=== PATIENT | female | born 1930 | race Caucasian/White ===

== ENCOUNTER 2016-08-14 05:36 | Emergency (ER) | payer OTHER ==
[~2016-08-14 05:36] MED LIST: ALBUTEROL0.09 MG/A1 INH; ATENOLOL25 MG PO; AUGMENTIN 500M500 MG PO; CALCIUM ACETAT667 MG PO; CHLORTHALIDONE25 MG PO; CIPRO 250MG250 MG PO; COZAAR 50MG TAB50 MG PO; CRESTOR 10MG10 MG PO; DRISDOL50000 IU PO; GOOD SENSE ASPI81 M1 PO; HYDRALAZINE HCL50 MG PO; K-DUR 20MEQ TA20 MEQ PO; LISINOPRIL20 MG PO; LISINOPRIL40 MG PO; LOPRESSOR 25MG25 MG PO; NEPHROCAPS1 TAB PO; PREDNISONE 10MG10 M1 PO; PREDNISONE 5 MG5 MG PO; RENA-VITE1 TAB PO; RENVELA800 MG PO; ZITHROMAX 500M500 MG PO; [UNRECOGNIZED DRUG - OTHER] PO
--- NOTE | 2016-08-14 05:47 | ED DYSPNEA/ASTHMA COMPLAINT ---
History of Present Illness General Chief Complaint: Dyspnea (COPD, CHF, Other) Stated Complaint: DIFF BREATHING Source: patient, family, old records, EMS Exam Limitations: no limitations Vital Signs & Intake/Output Vital Signs & Intake/Output Vital Signs Date Time Temp Pulse Resp B/P Pulse O2 O2 Flow FiO2 Ox Delivery Rate 08/14 726 96.4 79 20 170/79 97 Nasal 4.0L Cannula 08/14 0600 98 Non 100% ReBreather 08/14 0541 98.7 75 28 172/79 98 Non 100% ReBreather Allergies Coded Allergies: NO KNOWN ALLERGIES (02/07/15) Reconcile Medications Albuterol Sulfate (Albuterol Sulfate Hfa) 0.09 MG/Actuation MICHAEL 2 PUFF INH Q4- 6 PRN PRN SHORTNESS OF BREATH 90 MCG PER PUFF Aspirin 81 MG TAB.CHEW 1 TAB PO DAILY HEART (Reported) Losartan (Cozaar) 50 MG TAB 1 TAB PO DAILY HTN (Reported) Metoprolol Tartrate (Lopressor) 25 MG TAB 1 TAB PO BID HEART RATE CONTROL Rosuvastatin Calcium (Crestor) 10 MG TABLET 1 TAB PO DAILY CHOLESTEROL ( Reported) Sevelamer Carbonate (Renvela) 800 MG TAB 2 TAB PO BID ON DIALYSIS (Reported) WITH BREAKFAST AND LUNCH Sevelamer Carbonate (Renvela) 800 MG TAB 3 TAB PO DINNER DIALYSIS (Reported) Triage Note: TRIAGE: BIBA HX CHF W/ INC SOB TONIGHT X APPROX 1 HOUR, INITIAL EMS BP:220/100, MEDICATED W/ 3 NITRO AND O2 W/ RELIEF, DENIES CURRENT CP. PER EMS, SYSTOLIC BP IMPROVED TO 142. PREHOSP IV EST #18 RIGHT AC. MD EPPS AT BEDSIDE FOR EVAL. PATIENT SCHEDULLED FOR DIALYSIS AT 1100 TODAY, L ARM RESTRICTED D/T FISTULA (RESTRICTED BAND APPLIED). Triage Nurses Notes Reviewed? yes HPI: Patient was woken from sleep with difficulty breathing and orthopnea. Patient has a history of CHF with an EF of 35%. Patient is also end-stage renal disease and is due for dialysis at 11 AM this morning. Patient denies any chest pain or palpitations. No nausea or vomiting. Upon EMS arrival patient had rales shelter up and she was hypertensive. Patient was given 3 sublingual nitroglycerin which brought her blood pressure down and made her breathing much easier. On a nonrebreather mask and her oxygen saturations were 98%. EMS did not get a room air saturation. Patient states that she has been compliant with her medications. (SUPRIYA PARKINSON,GIA Velásquez) Past History Medical History Any Pertinent Medical History? 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 , Age 69. MOTHER (diabetes). , Age 72. BROTHER (pancreatic cancer). , Age Unknown. SISTER (colon cancer). , Age 60+. BROTHER (brain aneurysm). , Age 50's. Hx Contributory? No (SUPRIYA PARKINSON,GIA Velásquez) Review of Systems Review of Systems Constitutional: Reports: no symptoms. EENTM: Reports: no symptoms. Respiratory: Reports: see HPI, orthopnea, short of breath. Cardiovascular: Reports: no symptoms. GI: Reports: no symptoms. Genitourinary: Reports: no symptoms. Musculoskeletal: Reports: no symptoms. Skin: Reports: no symptoms. Neurological/Psychological: Reports: no symptoms. Hematologic/Endocrine: Reports: no symptoms. Immunologic/Allergic: Reports: no symptoms. All Other Systems: Reviewed and Negative (SUPRIYA PARKINSON,GIA Velásquez) Physical Exam Physical Exam General Appearance: well developed/nourished, alert, awake, anxious, mild distress Head: atraumatic, normal appearance Eyes: Bilateral: PERRL, EOMI. Ears, Nose, Throat: normal pharynx, normal ENT inspection, hearing grossly normal Neck: normal inspection, supple, full range of motion, JVD Respiratory: rales (BIBASILAR) Cardiovascular: regular rate/rhythm, normal peripheral pulses Gastrointestinal: normal bowel sounds, soft, non-tender, no organomegaly Extremities: normal inspection, normal capillary refill, normal range of motion, no edema Neurologic/Psych: no motor/sensory deficits, awake, alert, oriented x 3, normal mood/affect Skin: intact, normal color, warm/dry Lymphatic: no anterior cervical blanca Core Measures ACS in differential dx? Yes ASA ordered for poss ACS? Yes-ordered Severe Sepsis Present: No Septic Shock Present: No (SUPRIYA PARKINSON,GIA Velásquez) Progress Differential Diagnosis: AMI, CHF, pulmonary embolism, pneumonia, FLUID OVERLOAD Plan of Care: Orders Procedure Date/time Status Telemetry/Bracelet Maker Novelty 08/14 542 Active TROPONIN LEVEL 08/14 542 Complete COMPREHENSIVE METABOLIC PANEL 08/14 542 Complete CBC WITHOUT DIFFERENTIAL 08/14 542 Complete EKG 08/14 542 Active Laboratory Tests 08/14/16 0612: Anion Gap 21 H, Estimated GFR 4 L, BUN/Creatinine Ratio 4.3 L, Glucose 110 H , Calcium 9.2, Total Bilirubin 0.6, AST 26, ALT 36, Alkaline Phosphatase 167 H, Troponin I < 0.01, Total Protein 6.2 L, Albumin 3.9, Globulin 2.3, Albumin/ Globulin Ratio 1.7, CBC w Diff MAN DIFF ORDERED, RBC 2.80 L, MCV 102.3 H, MCH 34.0 H, RDW 17.2 H, MPV 8.1, Gran % 87.3 H, Lymphocytes % 5.8 L, Monocytes % 3.7, Eosinophils % 2.9, Basophils % 0.3, Absolute Granulocytes 10.7 H, Absolute Lymphocytes 0.7 L, Absolute Monocytes 0.5, Absolute Eosinophils 0.4, Absolute Basophils 0, Platelet Estimate ADEQUATE, Ovalocytes 1+, PUBS MCHC 33.2 7:05 am catherineens/jennifer patient presented with dyspnea which woke her up from sleep. S/P nitro x 3, 92% RA sat. Pending dialysis at 11 am at [facility]. 8 AM PATIENT TRANSPORTED TO DIALYSIS (LETY PARKINSON,YAMILE) Pre-Hospital EKG: LBBB, nonspecific ST T wave chg Initial ED EKG: LBBB, nonspecific ST T wave chg Prior EKG: unchanged Rhythm Strip: normal sinus rhythm (GIA EPPS MD) Diagnostic Imaging: Viewed by Me: Radiology Read. Discussed w/RAD: Radiology Read. CXR Impression: PATIENT: OFELIA EL PRESENT AGE: 85 PATIENT ACCOUNT NO: [id number] : 29 LOCATION: [facility] ORDERING PHYSICIAN: GIA EPPS MD SERVICE DATE: 08/14/16 EXAM TYPE: RAD - XRY- PORTABLE CHEST XRAY EXAMINATION: XR PORTABLE CHEST CLINICAL INFORMATION: Pulmonary edema COMPARISON: 02/12/2015 TECHNIQUE: Portable AP view of the chest was obtained. FINDINGS: Lung volumes are symmetric. Small bilateral pleural effusions are noted with adjacent basilar opacity suggesting atelectasis. No evidence of pneumothorax. There is prominence of the central vasculature and surrounding interstitium suggesting congestion and developing interstitial edema. The cardiac silhouette is mildly enlarged. Calcification is present at the aortic arch. No acute osseous findings are seen. IMPRESSION: Prominent central vasculature and surrounding interstitium, suggesting congestion and developing interstitial edema. Small pleural effusions with suspected bibasilar atelectasis. DICTATED BY: ANA PAULA WARD MD DATE/TIME DICTATED:08/14/16646 HEALTH CARE CONSULTANT:BRAYAN DATE/TIME TRANSCRIBED:08/14/16646 CONFIDENTIAL, DO NOT COPY WITHOUT APPROPRIATE AUTHORIZATION. <Electronically signed in Other Vendor System> SIGNED BY: ANA PAULA WARD MD 08/14/16 0652 (YAMILE DAVIDSON MD) Departure Departure Disposition: HOME OR SELF CARE Condition: Guarded Clinical Impression Primary Impression: Fluid overload Referrals: AYALA PARKINSON,MOISES Kidd (PCP/Family) Additional Instructions: go straight to dialysis wear the oxygen until they are able to remove some fluid Departure Forms: Customer Survey General Discharge Information (GIA EPPS MD) Departure Time of Disposition: 817 (YAMILE DAVIDSON MD) Critical Care Note Critical Care Note Critical Care Time: 30-74 min (GIA EPPS MD)
[2016-08-14 06:33] LABS: ABSOLUTE BASOPHIL COUNT 0 /CUMM (0.0-0.2); ABSOLUTE EOSINOPHIL COUNT 0.4 /CUMM (0.0-0.7); ABSOLUTE GRANULOCYTE CT 10.7 /CUMM (1.4-6.5); ABSOLUTE LYMPH COUNT 0.7 /CUMM (1.2-3.4); ABSOLUTE MONOCYTE COUNT 0.5 /CUMM (0.10-0.60); BASOPHIL % 0.3 % (0.0-2.0); EOSINOPHIL % 2.9 % (0-5); GRANULOCYTE % 87.3 % (42.2-75.2); HEMATOCRIT 28.7 % (37-47); MEAN CORPUSCULAR HGB CONC 33.2 G/DL (33.0-37.0); MEAN CORPUSCULAR VOLUME 102.3 FL (81.0-99.0); MEAN PLATELET VOLUME 8.1 FL (7.4-10.4); PLATELET COUNT 212 /CUMM (130-400); RBC DISTRIBUTION WIDTH 17.2 % (11.5-14.5); WHITE BLOOD CELL COUNT 12.3 /CUMM (4.8-10.8)
--- NOTE | 2016-08-14 06:52 | RADIOLOGY REPORT ---
EXAMINATION: XR PORTABLE CHEST CLINICAL INFORMATION: Pulmonary edema COMPARISON: 02/12/2015 TECHNIQUE: Portable AP view of the chest was obtained. FINDINGS: Lung volumes are symmetric. Small bilateral pleural effusions are noted with adjacent basilar opacity suggesting atelectasis. No evidence of pneumothorax. There is prominence of the central vasculature and surrounding interstitium suggesting congestion and developing interstitial edema. The cardiac silhouette is mildly enlarged. Calcification is present at the aortic arch. No acute osseous findings are seen. IMPRESSION: Prominent central vasculature and surrounding interstitium, suggesting congestion and developing interstitial edema. Small pleural effusions with suspected bibasilar atelectasis.
[2016-08-14 07:27] VITALS: BP 170/79
== END 2016-08-14 08:10 ==
LOC: ERH 05:36
PROVIDERS: Emergency Medicine
DX: E87.70 Fluid overload, unspecified (principal); R06.00 Dyspnea, unspecified
CPT/HCPCS: 93005; 93010

== ENCOUNTER 2017-07-30 04:25 | Inpatient (IN) | payer OTHER ==
[~2017-07-30] VITALS: Ht 154.9 cm; Wt 43.3 kg
[~2017-07-30 04:25] MED LIST changes: +AMLODIPINE BESY10 M1 PO; +ASPIRIN EC81 M1 PO; +CRESTOR10 M1 PO; +HYDRALAZINE HCL25 M1 PO; +METOPROLOL TART25 M1 PO; +RENA-VITE TABL0.8 MG PO; +RENVELA800 M1 PO; +TRAMADOL HCL50 M1 PO
--- NOTE | 2017-07-30 04:47 | ED CRITICAL CARE ---
History of Present Illness General Chief Complaint: Cardiopulmonary Resuscitation Stated Complaint: PT BIBA UNRESPONSIVE,CPR Source: EMS Exam Limitations: clinical condition Vital Signs & Intake/Output Vital Signs & Intake/Output Vital Signs Date Time Temp Pulse Resp B/P B/P Pulse O2 O2 Flow FiO2 Mean Ox Delivery Rate 07/30 0658 98 24 127/65 96 Ventilator 40% 07/30 0645 85 22 97 Ventilator 40% 07/30 0630 95.0 81 20 158/74 96 Ventilator 40% 07/30 0610 95.0 85 22 145/70 95 Ventilator 40% 07/30 0549 40 07/30 0549 95.0 58 24 130/57 91 Ventilator 40% 07/30 0545 Ventilator 07/30 0522 99 24 171/93 100 Ventilator 40% 07/30 0513 95.0 87 20 178/84 100 Ventilator 40% 07/30 0443 95.0 70 24 95 Ventilator 40% 07/30 0429 40 Allergies Coded Allergies: No Known Allergies (05/16/17) Reconcile Medications Amlodipine Besylate 10 MG TABLET 1 TAB PO DAILY HEART/BP (Reported) Aspirin (Ecotrin*) 81 MG TABLET.DR 1 TAB PO DAILY HEART/BLOOD (Reported) Folic Acid/Vit Bcomp,C (Radha-Cuong Tablet) (Unknown Strength) TABLET 1 TAB PO DAILY SUPPLEMENT (Reported) Hydralazine HCl 25 MG TABLET 2 TAB PO BID HTN (Reported) Metoprolol Tartrate 25 MG TABLET 6.25 MG PO BID htn (Reported) Rosuvastatin Calcium (Crestor) 10 MG TABLET 1 TAB PO DAILY CHOLESTEROL ( Reported) Sevelamer Carbonate (Renvela) 800 MG TABLET 3 TAB PO TID RENAL (Reported) Triage Nurses Notes Reviewed? yes Onset: Abrupt Duration: minute(s): Timing: single episode today Injury Environment: home Severity: severe Associated Symptoms: cardiac and respiratory arrest HPI: 86 yo woman, h/o esrd on HD, cad, s/p cardiac stent 3 years ago, presents with respiratory and cardiac arrest from the field. Per the medics, "She has congestive heart failure... She was having trouble breathing... She called her daughter who called us... We went to the house... the door was open for us... She was on the sofa apneic and pulseless." ACLS was begun immediately. She received bag mask ventilation, was intubated in the field, received chest compressions and epi x 1. She acheived ROSC in the field. glucose in 80's, sbp 190's. Per the family, she had been healthy yesterday, without dyspnea or other discomfort. Past History Travel History Traveled to [place] past 21 day No Medical History Any Pertinent Medical History? 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 , Age 69. MOTHER (diabetes). , Age 72. BROTHER (pancreatic cancer). , Age Unknown. SISTER (colon cancer). , Age 60+. BROTHER (brain aneurysm). , Age 50's. Hx Contributory? No Review of Systems Review of Systems Constitutional: Reports: no symptoms. Eyes: Reports: no symptoms. Ears, Nose, Throat, Mouth: Reports: no symptoms. Respiratory: Reports: no symptoms. Cardiovascular: Reports: no symptoms. Gastrointestinal/Abdominal: Reports: no symptoms. Genitourinary: Reports: no symptoms. Musculoskeletal: Reports: no symptoms. Skin: Reports: no symptoms. Neurological/Psychological: Reports: no symptoms. All Other Systems: Reviewed and Negative Physical Exam Physical Exam General Appearance: severe distress, cachectic Head: atraumatic, normal appearance Eyes: Bilateral: other (fixed,left gaze). Ears, Nose, Throat, Mouth: pt intubated Neck: normal inspection, supple, full range of motion Respiratory: equal breath sounds with bag mask ventilation Cardiovascular: tachycardic Peripheral Pulses: 2+ femoral (R), 2+ femoral (L) Gastrointestinal: normal bowel sounds, soft, non-tender Back: normal inspection Extremities: chronic venous skin changes on lower extremities, left knee abrasion. Neurologic/Psych: pt appears awake, is breathing spontaneously, is not responding to questions/commands. Skin: cyanosis Core Measures ACS in differential dx? No CVA/TIA Diagnosis No Sepsis Present: No Sepsis Focused Exam Completed? No Progress Differential Diagnoses I considered the following diagnoses in my evaluation of the patient: chf, cardiac arrest, copd vs other. Plan of Care: Orders Procedure Date/time Status XRY-PORTABLE CHEST XRAY 07/31 0600 Active ICU LAB BUNDLE 07/31 0500 Active CBC WITHOUT DIFFERENTIAL 07/31 0500 Active Nothing by Mouth 07/30 B Active TROPONIN LEVEL 07/30 1600 Active TROPONIN LEVEL 07/30 1000 Active EKG 07/30 1000 Active LACTIC ACID 07/30 0748 Active Add-on Test (ER Only) 07/30 0635 Active ARTERIAL BLOOD GAS (GEN) 07/30 0624 Active Pathway - chart 07/30 0624 Active House Staff 07/30 0624 Active Code Status 07/30 0624 Active Patient Data 07/30 0600 Active Admit to inpatient 07/30 0542 Active PARTIAL THROMBOPLASTIN TIME 07/30 0457 Complete PROTHROMBIN TIME 07/30 0457 Complete PHOSPHORUS 07/30 0457 Active MAGNESIUM 07/30 0457 Active NGT 07/30 0455 Active Intake & Output 07/30 0455 Active BLOOD CULTURE 07/30 0450 Active ARTERIAL BLOOD GAS (GEN) 07/30 0448 Complete OGT 07/30 0448 Active Su, Insertion/Removal/Asses 07/30 0448 Active CULTURE,URINE 07/30 0448 Active BLOOD CULTURE 07/30 0448 Active URINE DRUG SCREEN FOR ER ONLY 07/30 0448 Active URINALYSIS 07/30 0448 Active TROPONIN LEVEL 07/30 0448 Active AMMONIA 07/30 0448 Active LIPASE 07/30 0448 Active LACTIC ACID 07/30 0448 Active HEPATIC FUNCTION PANEL 07/30 0448 Active ETHANOL 07/30 0448 Active CBC WITHOUT DIFFERENTIAL 07/30 0448 Complete B-TYPE NATRIURETIC PEP (BNP) 07/30 0448 Active BASIC METABOLIC PANEL 07/30 0448 Active AMYLASE 07/30 0448 Active ACETONE 07/30 0448 Active EKG 07/30 0448 Active VENTILATOR PARAMETERS 07/30 0430 Complete US-EXT BILAT VENOUS DOPPLER 07/30 UNK Active TRC EVALUATION (GEN) 07/30 UNK Active Weight 07/30 UNK Active VTE Mechanical Prophylaxis 07/30 UNK Active Vital Signs 07/30 UNK Active Intake & Output 07/30 UNK Active ECHOCARDIOGRAM 07/30 UNK Active Current Medications Sig/King Start time Last Medication Dose Stop Time Status Admin Heparin Sodium 5,000 UNIT Q8 07/30 1400 AC (Porcine) Ampicillin Sodium/ 3,000 MG DAILY 07/30 1000 AC Sulbactam Sodium (Unasyn) Sodium Chloride 100 ML (Normal Saline 0.9%) Pantoprazole Sodium 40 MG DAILY 07/30 1000 AC (Protonix) Lorazepam 1 MG Q4P PRN 07/30 0700 AC (Ativan) Lorazepam 1 MG ONE ONE 07/30 0645 CAN (Ativan) 07/30 0646 Propofol 1,000 MG CONTINOUS INFUSION 07/30 0600 AC 07/30 (PROPOFOL DRIP) 0605 N/A 1 UNIT (No Carrier) Non-Formulary 0 SEE ADMIN CRITERIA 07/30 0530 CAN Medication (NON FORMULARY) Laboratory Tests 07/30/17 0457: Anion Gap 23 H, Estimated GFR 5 L, BUN/Creatinine Ratio 3.6 L, Glucose 230 H , Lactic Acid 7.1 H, Calcium 9.0, Phosphorus Pending, Magnesium Pending, Total Bilirubin 0.6, Direct Bilirubin 0.6 H, AST 30, ALT 20, Alkaline Phosphatase 127 H, Ammonia < 9 L, Troponin I 0.04, Owg-E-Dnpyyjktbnr Pept 35263 H, Total Protein 6.1 L, Albumin 3.8, Amylase 235 H, Lipase 413 H, PT 10.6, INR 1.01, APTT 32, CBC w Diff MAN DIFF ORDERED, RBC 3.39 L, MCV 98.4, MCH 32.1 H, MCHC 32.6 L, RDW 16.5 H, MPV 8.3, Gran % 81.4 H, Lymphocytes % 11.8 L, Monocytes % 3.6, Eosinophils % 2.7, Basophils % 0.5, Absolute Granulocytes 14.2 H, Absolute Lymphocytes 2.1, Absolute Monocytes 0.6, Absolute Eosinophils 0.5, Absolute Basophils 0.1, Platelet Estimate ADEQUATE, Poikilocytosis 1+, Ovalocytes 1+, Serum Alcohol < 10.0, Acetone Level NEGATIVE 07/30/17 0450: pH 7.28 *L, pCO2 30 L, pO2 81, HCO3 14 L, ABG O2 Sat (Measured) 94.0 L, P-50 (Temp Corrected) N, Carboxyhemoglobin 0.8 L, O2 Concentration % .40, Respiration Rate 20, O2 Delivery Method VENT, Vent Mode A/C, Expiratory Pressure 5, Tidal Volume 500, Phlebotomy Draw Site RIGHT RADIAL Microbiology 07/30 553 BLOOD: Blood Culture - RECD 07/30 549 BLOOD: Blood Culture - RECD 07/30 447 URINE ROUT: Urine Culture - ORD Diagnostic Imaging: Viewed by Me: Radiology Read, CT Scan. Discussed w/RAD: Radiology Read, CT Scan. Radiology Impression: ct scan results pending. CXR Impression: PATIENT: OFELIA EL PRESENT AGE: 86 PATIENT ACCOUNT NO: [id number] : 29 LOCATION: [facility] ORDERING PHYSICIAN: John Blunt MD SERVICE DATE: 07/30/17 EXAM TYPE: RAD - XRY- PORTABLE CHEST XRAY EXAMINATION: XR PORTABLE CHEST CLINICAL INFORMATION: Endotracheal tube placement COMPARISON: 05/16/2017 TECHNIQUE: Portable frontal view of the chest was obtained. FINDINGS: The endotracheal tube terminates 3 cm above the zoe. Enteric tube extends into the stomach. Cardiac leads overlie the chest. The lungs are well expanded. There is a left perihilar hazy opacity. No pleural effusion. No pneumothorax. The cardiomediastinal silhouette remains prominent, with a calcified aorta. No acute osseous abnormalities. IMPRESSION: Endotracheal tube terminating 3 cm above the zoe. Hazy left perihilar opacity noted. DICTATED BY: Joel Guerrero MD DATE/TIME DICTATED:07/30/17511 CHEESE PRODUCTION SUPERVISOR:BRAYAN DATE/TIME TRANSCRIBED:07/30/17511 CONFIDENTIAL, DO NOT COPY WITHOUT APPROPRIATE AUTHORIZATION. <Electronically signed in Other Vendor System> SIGNED BY: Joel Guerrero MD 07/30/17517 Initial ED EKG: afib left bundle branch block rate 140's. Departure Departure Time of Disposition: 549 Disposition: STILL A PATIENT Condition: Stable Clinical Impression Primary Impression: Cardiac arrest Secondary Impressions: Atrial fibrillation with rapid ventricular response, Lactic acidosis, Renal failure, Respiratory failure Referrals: Colton Rick MD (PCP/Family) Departure Forms: General Discharge Information Admission Note Spoke With: Kirill Schaefer MD Documentation of Exam: Documentation of any treatments & extenuating circumstances including Concerns Regarding Discharge (functional status, medication knowledge or non-compliance, living conditions, etc.) that warrant an admission rather than observation: pt with cardiac/respiratory arrest in the field, with ROSC after epix 1, intubation, brief chest compressions, pt now critically ill, but stable, merits icu admission. Procedures Central Line Central Line Lumen: triple Central Line Procedure: Yes: bentadine prep?, sterile drapes applied, sterile dressing applied. Central Line Position: femoral (R) Anesthesia: lidocaine 1% CC's of Anesthesia: 4 Complications: none Central Line Post Position: sutured, good blood return Critical Care Note Critical Care Note Critical Care Time: 30-74 min
[2017-07-30 05:15] LABS: ABSOLUTE BASOPHIL COUNT 0.1 /CUMM (0.0-0.2); ABSOLUTE EOSINOPHIL COUNT 0.5 /CUMM (0.0-0.7); ABSOLUTE GRANULOCYTE CT 14.2 /CUMM (1.4-6.5); ABSOLUTE LYMPH COUNT 2.1 /CUMM (1.2-3.4); ABSOLUTE MONOCYTE COUNT 0.6 /CUMM (0.10-0.60); BASOPHIL % 0.5 % (0.0-2.0); EOSINOPHIL % 2.7 % (0-5); GRANULOCYTE % 81.4 % (42.2-75.2); HEMATOCRIT 33.4 % (37-47); MEAN CORPUSCULAR HGB 32.1 PG (27.0-31.0); MEAN CORPUSCULAR HGB CONC 32.6 G/DL (33.0-37.0); MEAN CORPUSCULAR VOLUME 98.4 FL (81.0-99.0); MEAN PLATELET VOLUME 8.3 FL (7.4-10.4); PLATELET COUNT 308 /CUMM (130-400); RBC DISTRIBUTION WIDTH 16.5 % (11.5-14.5); RED BLOOD CELL CT 3.39 /CUMM (4.20-5.40); WHITE BLOOD CELL COUNT 17.4 /CUMM (4.8-10.8)
--- NOTE | 2017-07-30 05:18 | RADIOLOGY REPORT ---
EXAMINATION: XR PORTABLE CHEST CLINICAL INFORMATION: Endotracheal tube placement COMPARISON: 05/16/2017 TECHNIQUE: Portable frontal view of the chest was obtained. FINDINGS: The endotracheal tube terminates 3 cm above the zoe. Enteric tube extends into the stomach. Cardiac leads overlie the chest. The lungs are well expanded. There is a left perihilar hazy opacity. No pleural effusion. No pneumothorax. The cardiomediastinal silhouette remains prominent, with a calcified aorta. No acute osseous abnormalities. IMPRESSION: Endotracheal tube terminating 3 cm above the zoe. Hazy left perihilar opacity noted.
--- NOTE | 2017-07-30 05:59 | CT SCAN REPORT ---
EXAMINATION: NONCONTRAST HEAD CT NONCONTRAST CERVICAL SPINE CT INDICATION INFORMATION: Mental status change. Trauma. COMPARISON: 07/24/2017 TECHNIQUE: Separate noncontrast CT examinations of the head and cervical spine were performed. Coronal and sagittal images were created for each examination at the technologist workstation. DLP: 946 mGy-cm FINDINGS: Head: There is no evidence of acute intracranial hemorrhage or territorial infarction. No abnormal mass effect or midline shift is seen. Rowan to white matter differentiation is well preserved. No extra-axial fluid collections are identified. No hydrocephalus. Proportional prominence of the ventricles and sulcal spaces is consistent with mild volume loss. Patchy periventricular and deep white matter hypoattenuation is consistent with mild small vessel ischemic changes. Chronic depression of the right lamina papyracea. No acute osseous abnormality. No acute soft tissue abnormality.. The mastoid air cells and visualized portions of the paranasal sinuses are well aerated. Cervical spine: Slight anterolisthesis of C2 on C3. Straightening of the normal cervical lordosis. There is otherwise anatomic alignment of the vertebral bodies and posterior elements. The atlantoaxial and atlantooccipital articulations are intact. Vertebral body heights are maintained. There is multilevel intervertebral disc space narrowing with endplate osteophyte formation and facet arthropathy. No evidence of acute fracture. No prevertebral soft tissue swelling. Calcification of the ligamentum nuchae. Endotracheal tube and enteric tube noted. Interlobular septal thickening with groundglass opacities suggestive of interstitial edema. Small pleural effusions. The thyroid gland is heterogeneous with subcentimeter nodules. IMPRESSION: 1. No acute intracranial findings. 2. No acute fracture or malalignment of the cervical spine. Moderate multilevel degenerative changes.
--- NOTE | 2017-07-30 06:05 | CT SCAN REPORT ---
EXAMINATION: CT CHEST WITHOUT CONTRAST CT ABDOMEN AND PELVIS WITHOUT CONTRAST CLINICAL INFORMATION: Respiratory arrest. Shock. Cardiac arrest. COMPARISON: 02/07/2015 TECHNIQUE: Multidetector volumetric imaging was performed through the chest, abdomen and pelvis without contrast. Sagittal and coronal reformatted images were obtained on the technologist's workstation. Axial MIP volume rendering provided. DLP: 316 mGy-cm. FINDINGS: CHEST: Lungs: The endotracheal tube terminates approximately 1 cm above the zoe. Enteric tube in place extending into the stomach. Moderate bilateral pleural effusions. There is interlobular septal thickening with groundglass opacities in the upper lobes. Bibasilar subsegmental atelectasis. Perihilar opacities. Mediastinum: The heart is prominent. Coronary artery calcifications are present. No lymphadenopathy. Chest Wall/Axilla: No lymphadenopathy. No chest wall mass. ABDOMEN/PELVIS: Liver, Gallbladder, Biliary Tree: The liver is normal in size, shape, and attenuation. No focal hepatic lesion or biliary ductal dilatation is present. The gallbladder is unremarkable with no evidence of radiopaque gallstones, gallbladder wall thickening, or pericholecystic inflammatory changes. Pancreas: Unremarkable. Spleen: Unremarkable. Adrenal Glands: Unremarkable. Kidneys and Ureters: Atrophic kidneys. No hydronephrosis. Bilateral renal cysts. Bladder: Su catheter in the bladder which is decompressed. Gastrointestinal Tract: Enteric tube extends into the stomach. The small bowel is normal in caliber. No obstruction. Colonic diverticulosis without diverticulitis. No colonic wall thickening or inflammation. No free air or free fluid. The appendix is unremarkable. Abdominal Wall: No hernia is demonstrated. Lymphovascular Structures: Lymph nodes: Normal. Vascular: Normal caliber aorta. Extensive atherosclerotic calcifications. Pelvic Viscera: Uterus is not seen. No adnexal mass. OSSEOUS STRUCTURES: No suspicious sclerotic or lytic bone lesions are identified. Vertebral body height and alignment is maintained with significant multilevel degenerative changes throughout the spine. Moderate degenerative changes of the hips. Moderate degenerative changes at the left glenohumeral joint. Associated joint effusion with calcifications. IMPRESSION: 1. Endotracheal tube terminating approximately 1 cm above the zoe. Consider slight retraction. 2. Moderate bilateral pleural effusions. Associated appearance of interstitial and alveolar edema in the upper lobes. 3. Degenerative changes throughout the osseous structures. No acute osseous abnormality.
--- NOTE | 2017-07-30 06:18 | History & Physical ---
Lisa Gautam 07/30/17 0610: General Information and HPI MD Statement: I have seen and personally examined OFELIA EL and documented this H&P. The patient is a 86 year old F who presented with a patient stated chief complaint of [respiratory and cardiac arrest ]. Source of Information: family, old records Exam Limitations: clinical condition History of Present Illness: 86 yo woman with a PMH of PMH significant for ESRD on HD e//Sat, CAD s/p stent placement 3 years ago, HFpEF, HTN, HLD, NSTEMI, LBBB, and secondary hyperparathyroidism presents with respiratory and cardiac arrest from the field. History is very much limited as the patient lives by herself and was found to be unresponsive at home. According to the patient's daughter she received a phone call from her mother at around 3:40 AM today stating that she is having trouble breathing. When she went home and found that the door was open for her. She called 911 and EMS had arrived by the time patient started reached the house. Apparently she was found pulseless and apneic and underwent CPR with 1 round of epi after which she received are ROSC in the field. Her blood glucose at that time according to the records here in the ED she was in the 80s and her systolic blood pressure was 190s. According to the patient's daughter the patient was in her complete usual state of health until yesterday around 4 PM when she dropped her home after her primary care physician's appointment s/p ED follow up for a mechanical fall. Per the family, she had been healthy yesterday, without dyspnea or other discomfort. There is no history of fevers, chills, upper respiratory tract infection, history of sick contact, abdominal pain, nausea, vomiting. Corbin's daughter does report that the patient has had swelling in her left ankle for almost a week and half now which was noticed by Dr. Rodrigues. No hx of trauma. ?vol overload. Allergies/Medications Allergies: Coded Allergies: No Known Allergies (05/16/17) Home Med list Amlodipine Besylate 10 MG TABLET 1 TAB PO DAILY HEART/BP (Reported) Aspirin (Ecotrin*) 81 MG TABLET.DR 1 TAB PO DAILY HEART/BLOOD (Reported) Folic Acid/Vit Bcomp,C (Radha-Cuong Tablet) (Unknown Strength) TABLET 1 TAB PO DAILY SUPPLEMENT (Reported) Hydralazine HCl 25 MG TABLET 2 TAB PO BID HTN (Reported) Metoprolol Tartrate 25 MG TABLET 6.25 MG PO BID htn (Reported) Rosuvastatin Calcium (Crestor) 10 MG TABLET 1 TAB PO DAILY CHOLESTEROL ( Reported) Sevelamer Carbonate (Renvela) 800 MG TABLET 3 TAB PO TID RENAL (Reported) Past History Travel History Traveled to [place] past 21 day No Medical History Neurological: TIA EENT: NONE Cardiovascular: CHF, hypertension, hyperlipidemia, NSTEMI, known left bundle branch block left atrial dilatation mild aortic regurg in the past PAROXYSMAL AFIB Respiratory: bronchitis, pneumonia Gastrointestinal: NONE Hepatic: NONE Renal: esrd on hd () L ARM FISTULA, RESTRICTED Musculoskeletal: gout Psychiatric: NONE Endocrine: secondary hyperparathyroidism Blood Disorders: anemia Cancer(s): NONE [employer]ER/Reproductive: UTERINE FIBROIDS History of MRSA: No History of VRE: No History of CDIFF: No Surgical History Surgical History: hysterectomy, left upper arm Brescia Macho AVF Macho aVF right IJ Viktor Past Family/Social History Family History Relations & Conditions if any FATHER (myocardial infartion). , Age 69. MOTHER (diabetes). , Age 72. BROTHER (pancreatic cancer). , Age Unknown. SISTER (colon cancer). , Age 60+. BROTHER (brain aneurysm). , Age 50's. Psychosocial History Who Do You Live With? self Services at Home: None Primary Language: Faroese Living Will? no Power of Vp [employer]/HCP? no Functional Ability ADLs Independent: dressing, eating, toileting, bathing. Ambulation: independent IADLs Independent: shopping, housework, finances, food prep, telephone, transportation , medication admin. Review of Systems Review of Systems Constitutional: Denies: chills, fever, weakness. EENTM: Denies: visual changes. Cardiovascular: Denies: chest pain, palpitations. Respiratory: Reports: see HPI, short of breath. GI: Reports: see HPI. Denies: abdominal pain, constipation, diarrhea, nausea, vomiting. Neurological/Psychological: Reports: see HPI. Denies: headache, numbness. Exam & Diagnostic Data Last 24 Hrs of Vital Signs/I&O Vital Signs Date Time Temp Pulse Resp B/P B/P Pulse O2 O2 Flow FiO2 Mean Ox Delivery Rate 07/30 0549 40 02/20 0549 95.0 58 24 130/57 91 Ventilator 40% 07/30 0522 99 24 171/93 100 Ventilator 40% 07/30 0513 95.0 87 20 178/84 100 Ventilator 40% 07/30 0443 95.0 70 24 95 Ventilator 40% 07/30 0429 40 Intake & Output 07/30 0800 07/30 0000 07/29 1600 Intake Total Output Total 0 Balance 0 Output, 0 Gastric Drainage Patient 101 lb Weight Weight Reported by Patient Measurement Method Physical Exam General Appearance intubated, fighting the tube Skin Temp/Moisture Exam: Warm/Dry HEENT Atraumatic, PERRLA Neck Supple, No LAD Cardiovascular Regular Rate, Normal S1, Normal S2, No Murmurs Lungs b/l coarse ronchi Abdomen Normal Bowel Sounds, Soft, No Tenderness Neurological PERRLA, moving her extermities b/l Extremities chronic changes in LE, b/l 1+ edema; left ankle was swollen Last 24 Hrs of Labs/Lex: Laboratory Tests 07/30/177: Anion Gap 23 H, Estimated GFR 5 L, BUN/Creatinine Ratio 3.6 L, Glucose 230 H , Lactic Acid 7.1 H, Calcium 9.0, Total Bilirubin 0.6, Direct Bilirubin 0.6 H, AST 30, ALT 20, Alkaline Phosphatase 127 H, Ammonia < 9 L, Troponin I 0.04, Yuk-P-Edmhsmhodgg Pept 08263 H, Total Protein 6.1 L, Albumin 3.8, Amylase 235 H, Lipase 413 H, CBC w Diff MAN DIFF ORDERED, RBC 3.39 L, MCV 98.4, MCH 32.1 H, MCHC 32.6 L, RDW 16.5 H, MPV 8.3, Gran % 81.4 H, Lymphocytes % 11.8 L, Monocytes % 3.6, Eosinophils % 2.7, Basophils % 0.5, Absolute Granulocytes 14.2 H, Absolute Lymphocytes 2.1, Absolute Monocytes 0.6, Absolute Eosinophils 0.5, Absolute Basophils 0.1, Platelet Estimate ADEQUATE, Poikilocytosis 1+, Ovalocytes 1+, Serum Alcohol < 10.0, Acetone Level NEGATIVE 07/30/17449: pH 7.28 *L, pCO2 30 L, pO2 81, HCO3 14 L, ABG O2 Sat (Measured) 94.0 L, P-50 (Temp Corrected) N, Carboxyhemoglobin 0.8 L, O2 Concentration % .40, Respiration Rate 20, O2 Delivery Method VENT, Vent Mode A/C, Expiratory Pressure 5, Tidal Volume 500, Phlebotomy Draw Site RIGHT RADIAL Microbiology 07/30 0454 BLOOD: Blood Culture - RECD 07/30 0550 BLOOD: Blood Culture - RECD 07/30 0448 URINE ROUT: Urine Culture - ORD Diagnostic Data EKG Results HR: 141; LBBB (unchanged from previous) CXR Results FINDINGS: The endotracheal tube terminates 3 cm above the zoe. Enteric tube extends into the stomach. Cardiac leads overlie the chest. The lungs are well expanded. There is a left perihilar hazy opacity. No pleural effusion. No pneumothorax. The cardiomediastinal silhouette remains prominent, with a calcified aorta. No acute osseous abnormalities. IMPRESSION: Endotracheal tube terminating 3 cm above the zoe. Hazy left perihilar opacity noted. SERVICE DATE: 07/30/17 EXAM TYPE: CAT - CT CERV SPINE WO IV CONTRAST; CT HEAD WO IV CONTRAST FINDINGS: Head: There is no evidence of acute intracranial hemorrhage or territorial infarction. No abnormal mass effect or midline shift is seen. Rowan to white matter differentiation is well preserved. No extra-axial fluid collections are identified. No hydrocephalus. Proportional prominence of the ventricles and sulcal spaces is consistent with mild volume loss. Patchy periventricular and deep white matter hypoattenuation is consistent with mild small vessel ischemic changes. Chronic depression of the right lamina papyracea. No acute osseous abnormality. No acute soft tissue abnormality.. The mastoid air cells and visualized portions of the paranasal sinuses are well aerated. Cervical spine: Slight anterolisthesis of C2 on C3. Straightening of the normal cervical lordosis. There is otherwise anatomic alignment of the vertebral bodies and posterior elements. The atlantoaxial and atlantooccipital articulations are intact. Vertebral body heights are maintained. There is multilevel intervertebral disc space narrowing with endplate osteophyte formation and facet arthropathy. No evidence of acute fracture. No prevertebral soft tissue swelling. Calcification of the ligamentum nuchae. Endotracheal tube and enteric tube noted. Interlobular septal thickening with groundglass opacities suggestive of interstitial edema. Small pleural effusions. The thyroid gland is heterogeneous with subcentimeter nodules. IMPRESSION: 1. No acute intracranial findings. 2. No acute fracture or malalignment of the cervical spine. Moderate multilevel degenerative changes. Other Results SERVICE DATE: 07/30/17 EXAM TYPE: CAT - CT ABD & PELVIS W/O IV CONTRAS; CT CHEST WO IV CONTRAST FINDINGS: CHEST: Lungs: The endotracheal tube terminates approximately 1 cm above the zoe. Enteric tube in place extending into the stomach. Moderate bilateral pleural effusions. There is interlobular septal thickening with groundglass opacities in the upper lobes. Bibasilar subsegmental atelectasis. Perihilar opacities. Mediastinum: The heart is prominent. Coronary artery calcifications are present. No lymphadenopathy. Chest Wall/Axilla: No lymphadenopathy. No chest wall mass. ABDOMEN/PELVIS: Liver, Gallbladder, Biliary Tree: The liver is normal in size, shape, and attenuation. No focal hepatic lesion or biliary ductal dilatation is present. The gallbladder is unremarkable with no evidence of radiopaque gallstones, gallbladder wall thickening, or pericholecystic inflammatory changes. Pancreas: Unremarkable. Spleen: Unremarkable. Adrenal Glands: Unremarkable. Kidneys and Ureters: Atrophic kidneys. No hydronephrosis. Bilateral renal cysts. Bladder: Su catheter in the bladder which is decompressed. Gastrointestinal Tract: Enteric tube extends into the stomach. The small bowel is normal in caliber. No obstruction. Colonic diverticulosis without diverticulitis. No colonic wall thickening or inflammation. No free air or free fluid. The appendix is unremarkable. Abdominal Wall: No hernia is demonstrated. Lymphovascular Structures: Lymph nodes: Normal. Vascular: Normal caliber aorta. Extensive atherosclerotic calcifications. Pelvic Viscera: Uterus is not seen. No adnexal mass. OSSEOUS STRUCTURES: No suspicious sclerotic or lytic bone lesions are identified. Vertebral body height and alignment is maintained with significant multilevel degenerative changes throughout the spine. Moderate degenerative changes of the hips. Moderate degenerative changes at the left glenohumeral joint. Associated joint effusion with calcifications. IMPRESSION: 1. Endotracheal tube terminating approximately 1 cm above the zoe. Consider slight retraction. 2. Moderate bilateral pleural effusions. Associated appearance of interstitial and alveolar edema in the upper lobes. 3. Degenerative changes throughout the osseous structures. No acute osseous abnormality. Assessment/Plan Assessment: 86 yo woman with a PMH of PMH significant for ESRD on HD Tue/Thur/Sat, CAD s/p stent placement 3 years ago, HFpEF, HTN, HLD, NSTEMI, LBBB, and secondary hyperparathyroidism presents with respiratory and cardiac arrest from the field. Vitals at the time of admission blood pressure 171/93, respiratory rate of 24, pulse 99, temperature 95.0 intubated with an FiO2 of 40%. Asked pertinent for leukocytosis with a white blood cell count 17,400, H&H of 10.9/33.4 and a platelet count 308,000. Chemistries pertinent for sodium 142, calcium of 4.9, bicarbonate 19, anion gap of 23, BUN 29 with a creatinine of 8.1 and serum glucose of 2:30. Lactic acid was 7.1. LFTs pertinent for total bili of 0.6, SC/L2 30/20, alkaline phosphatase of 127 and ammonia less than 9 the first set of troponin 0[place]04[place] [address] and amylase and lipase were 235 and 413. Tox screen showed less than 10 of serum alcohol, acetone level was negative but U tox was not received. ABG cw metabolic acidosis with pH of 7.28. Echo done in summary 2017 No obvious regional wall motion abnormalities. Left ventricular ejection fraction is estimated at > 55 %. ER she received propofol for drip, Versed 5 mg IV 1 and Rocephin thousand milligrams IV 1. Assessment and plan Admit patient to ICU #Acute hypoxemic respiratory failure -Most likely secondary to volume overload and possibly aspiration Please nephrology consult stat for dialysis. Her CAT scan does show bilateral pleural effusions Meanwhile maintain on aspiration precautions, started on Unasyn 3000 mg daily Obtain LRC, BC 2 Continue on fentanyl and titrate to maintain SAS of 3 Follow-up repeat ABG at 8 AM. Adjust ventilator settings accordingly Follow-up d-dimer and lower extremity Doppler to rule out DVT #Leukocytosis Most likely reactive secondary to stress versus sepsis unlikely However will start on Unasyn for concern of aspiration Blood cultures 2, urine culture if any and LRC #Coronary artery disease Continue on aspirin, switched to atorvastatin 80 mg daily, Lopressor 6.25 mg twice a day by mouth #S/P Cardiac arrest Apparently patient was pulseless in the field. Follow-up troponins and EKG at 10 AM and p.m. Echocardiogram to rule out regional wall motion abnormalities Cardiology consult with Dr. Gayle's group #Hypertension Currently stable Holding hydralazine for now as patient is scheduled to undergo hemodialysis later today. If need be patient can be started on pressors provided she drops of blood pressure and has a right femoral line. #Anion gap acidosis Most likely secondary to lactic acidosis in the setting of decreased perfusion as well as underlying renal insufficiency Follow-up repeat lactic acid at 7 AM #End stage renal today disease on hemodialysis Saturday and Saturday Placed nephrology consult for stat dialysis Follow-up nephrology recommendations #Alimentary Maintain on Protonix Nothing by mouth for now -DVT prophylaxis On heparin 5000 international units 3 times a day subcutaneous Diet Nothing by mouth for now CODE STATUS Full code According to the patient's family patient did not wish to be intubated for prolonged periods of time and has a living will in the system Plan was discussed with Dr. Schaefer. As Ranked By This Provider Problem List: 1. Lactic acidosis 2. Respiratory failure 3. Cardiac arrest 4. Fluid overload Core Measures/Misc (02/24) Acute Coronary Syndrome ACS Diagnosis: No Congestive Heart Failure Congestive Heart Failure Diagnosis No Cerebrovascular Accident CVA/TIA Diagnosis: No VTE (View Protocol) VTE Risk Factors Age>40 No Mechanical VTE Prophylaxis d/t N/A MechProphylax Ordered No VTE Pharm Prophylaxis d/t NA PharmProphylax ordered Sepsis (View protocol) Sepsis Present: No Resident Review Statement Resident Statement: admitted by Kirill Reed MD 07/30/17 1032: Attending MD Review Statement Attending Statement Attending Statement: examined this patient, discuss w/resident/PA/REFRACTIVE SURGEON, agreed w/resident/PA/REFRACTIVE SURGEON, discussed with family, reviewed EMR data (avail), discussed with nursing, discussed with case mgmt, reviewed images, amended to note Attending Assessment/Plan: Kirill Ayon M.D. have examined this patient, reviewed available EMR data, personally reviewed images, discussed with resident/PA/REFRACTIVE SURGEON, discussed management plan with housestaff and nursing staff, discussed managment plan all of healthcare providers, discussed management plan with patient and/or family, agreed with resident/PA/REFRACTIVE SURGEON. The past history and parts of the chart have been autopopulated. Impression 86 year old woman * cardiac arrest - unclear rhythm/timing - although brief, etiology is unclear flash pulmonary edema is possible vs opiate/pain medications causing respiratory depression - per family pt takes tramadol and meds from neighbor intermittently, aspiration pneumonia is likely and will be treated as such * ESRD on HD Plan -nephrology, cardiology appreciated -sputum cx -unasyn coverage -LE doppler -HD -vent settings were reduced to 450/RR 16, abg after HD -doubt PE, however will check LE dopplers/ECHO DVT prophylaxis at all times TTS 45 min D/w family/housestaff
[2017-07-30] MEDS ORDERED: METOPROLOL TART25 M1 PO (06:48)
[2017-07-30 07:09] LABS: PT 10.6 SEC (9.4-12.5); PTT 32 SEC (25-37)
[2017-07-30 08:00] VITALS: BP 160/70
--- NOTE | 2017-07-30 09:35 | Cons- Nephrology ---
General Information and HPI Consulting Request Date of Consult: 07/30/17 Requested By: Kirill Schaefer MD Reason for Consult: ESRD History of Present Illness: 86 yo female with ESRD on //Sat HD, also with CAD, HFpEF admitted with cardiac arrest at home. Patient had been fine earlier in day, had seen PMD and no complaints. At 3 AM she called her daugheter and stated she was SOB. Daughter went to house, patient apparently found pulseless and without respirations. EMS called, got one round of epi and CPR. By the time she reached the ED her puse was in the 80s and she was hypertensive. She is now intubated in ICU. Admisison CXR does not show any CHF although chest CT has bilateral effusions. Allergies/Medications Allergies: Coded Allergies: No Known Allergies (05/16/17) Home Med List: Amlodipine Besylate 10 MG TABLET 1 TAB PO DAILY HEART/BP (Reported) Aspirin (Ecotrin*) 81 MG TABLET.DR 1 TAB PO DAILY HEART/BLOOD (Reported) Folic Acid/Vit Bcomp,C (Radha-Cuong Tablet) (Unknown Strength) TABLET 1 TAB PO DAILY SUPPLEMENT (Reported) Hydralazine HCl 25 MG TABLET 2 TAB PO BID HTN (Reported) Metoprolol Tartrate 25 MG TABLET 6.25 MG PO BID htn (Reported) Rosuvastatin Calcium (Crestor) 10 MG TABLET 1 TAB PO DAILY CHOLESTEROL ( Reported) Sevelamer Carbonate (Renvela) 800 MG TABLET 3 TAB PO TID RENAL (Reported) Current Medications: Current Medications Sig/King Start time Last Medication Dose Route Stop Time Status Admin Amlodipine Besylate 10 MG DAILY 07/30 1000 AC PO Ampicillin Sodium/ 3,000 MG DAILY 07/30 1000 AC Sulbactam Sodium IV Sodium Chloride 100 ML Aspirin Buffered 81 MG DAILY 07/30 1000 AC PO Atorvastatin Calcium 80 MG 1700 07/30 1700 AC PO Ceftriaxone Sodium 0 .STK-MED ONE 07/30 0623 DC .ROUTE Ceftriaxone Sodium 1,000 MG ONCE ONE 07/30 0600 DC 07/30 IV 07/30 0601 0631 Heparin Sodium 5,000 UNIT Q8 07/30 1400 AC (Porcine) SC Lorazepam 0 .STK-MED ONE 07/30 0732 DC .ROUTE Lorazepam 1 MG Q4P PRN 07/30 0700 AC 07/30 IV 0730 Lorazepam 1 MG ONE ONE 07/30 0645 CAN IV 07/30 0646 Metoprolol Tartrate 6.25 MG BID 07/30 1000 AC PO Midazolam HCl 5 MG ONCE ONE 07/30 0530 DC 07/30 IV 07/30 0531 0550 Non-Formulary 0 SEE ADMIN CRITERIA 07/30 529 CAN Medication ANY Pantoprazole Sodium 40 MG DAILY 07/30 1000 AC IV Propofol 1,000 MG CONTINOUS INFUSION 07/30 0600 AC 07/30 N/A 1 UNIT IV 0605 Sevelamer Carbonate 2,400 MG WM 07/30 1000 AC PO Review of Systems Review of Systems: Unable as patient intubated/sedated Past History Travel History Traveled to [place] past 21 day No Medical History Neurological: TIA EENT: NONE Cardiovascular: CHF, hypertension, hyperlipidemia, NSTEMI, known left bundle branch block left atrial dilatation mild aortic regurg in the past PAROXYSMAL AFIB Respiratory: bronchitis, pneumonia Gastrointestinal: NONE Hepatic: NONE Renal: esrd on hd () L ARM FISTULA, RESTRICTED Musculoskeletal: gout Psychiatric: NONE Endocrine: secondary hyperparathyroidism Blood Disorders: anemia Cancer(s): NONE 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 , Age 69. MOTHER (diabetes). , Age 72. BROTHER (pancreatic cancer). , Age Unknown. SISTER (colon cancer). , Age 60+. BROTHER (brain aneurysm). , Age 50's. Psychosocial History Who Do You Live With? self Services at Home: None Primary Language: Thai Smoking Status: Former Smoker ETOH Use: occasional use Living Will? no Power of Director Of Patient Care/HCP? no Functional Ability ADLs Independent: dressing, eating, toileting, bathing. Ambulation: independent IADLs Independent: shopping, housework, finances, food prep, telephone, transportation , medication admin. Exam & Diagnostic Data Vital Signs and I&O Vital Signs Date Time Temp Pulse Resp B/P B/P Pulse O2 O2 Flow FiO2 Mean Ox Delivery Rate 07/30 0750 40 07/30 0658 98 24 127/65 96 Ventilator 40% 07/30 0645 85 22 97 Ventilator 40% 07/30 629 95.0 81 20 158/74 96 Ventilator 40% 07/30 0610 95.0 85 22 145/70 95 Ventilator 40% 07/30 0549 40 07/30 0549 95.0 58 24 130/57 91 Ventilator 40% 07/30 0545 Ventilator 07/30 0522 99 24 171/93 100 Ventilator 40% 07/30 0513 95.0 87 20 178/84 100 Ventilator 40% 07/30 0443 95.0 70 24 95 Ventilator 40% 07/30 0429 40 Intake & Output 07/30 04007/29 04007/28 040 Intake Total Output Total 0 Balance 0 Output, 0 Gastric Drainage Patient 101 lb Weight Weight Reported by Patient Measurement Method Physical Exam: NAD, on ventilator VS as above. Eyes: anicteric, PERRL Neck: no mass or thryomegaly Nodes: negative cervical/inguinal Skin: no rash or induration Lungs: clear P&A CV: no rub or murmur Abd: nondisteded, bs positive no organomegaly Exts: no edema, left upper arm AVF with bruit Neuro: intubated/ sedated. Results Pertinent Lab Results: Laboratory Tests 07/30 07/30 0750 0743 Blood Gas pH (7.35 - 7.45 PH) 7.51 H pCO2 (35 - 45 TORR) 21 L pO2 (80 - 100 TORR) 89 HCO3 (21 - 28 MEQ/L) 16 L ABG O2 Sat (Measured) (>96.0 %) 97.0 Carboxyhemoglobin (1.5 - 5.0 %) 0.4 L O2 Concentration % 40% Respiration Rate (BPM) 20 O2 Delivery Method VENT Vent Mode AC Expiratory Pressure (CMH2O/P) 5 Tidal Volume (CC) 500 Chemistry Lactic Acid (0.7 - 2.1 mmol/L) 2.6 H Miscellaneous Phlebotomy Draw Site RIGHT BRACHIAL 07/30 07/30 0456 0450 Blood Gas pH (7.35 - 7.45 PH) 7.28 *L pCO2 (35 - 45 TORR) 30 L pO2 (80 - 100 TORR) 81 HCO3 (21 - 28 MEQ/L) 14 L ABG O2 Sat (Measured) (>96.0 %) 94.0 L P-50 (Temp Corrected) N Carboxyhemoglobin (1.5 - 5.0 %) 0.8 L O2 Concentration % .40 Respiration Rate (BPM) 20 O2 Delivery Method VENT Vent Mode A/C Expiratory Pressure (CMH2O/P) 5 Tidal Volume (CC) 500 Chemistry Sodium (137 - 145 mmol/L) 142 Potassium (3.5 - 5.1 mmol/L) 4.9 Chloride (98 - 107 mmol/L) 100 Carbon Dioxide (22 - 30 mmol/L) 19 L Anion Gap (5 - 16) 23 H BUN (7 - 17 mg/dL) 29 H Creatinine (0.5 - 1.0 mg/dL) 8.1 *H Estimated GFR (>60 ml/min) 5 L BUN/Creatinine Ratio (7 - 25 %) 3.6 L Glucose (65 - 99 mg/dL) 230 H Lactic Acid (0.7 - 2.1 mmol/L) 7.1 H Calcium (8.4 - 10.2 mg/dL) 9.0 Phosphorus (2.5 - 4.5 mg/dL) 7.6 H Magnesium (1.6 - 2.3 mg/dL) 2.2 Total Bilirubin (0.2 - 1.3 mg/dL) 0.6 Direct Bilirubin (< 0.4 mg/dL) 0.6 H AST (14 - 36 U/L) 30 ALT (9 - 52 U/L) 20 Alkaline Phosphatase (<127 U/L) 127 H Ammonia (9 - 30 umol/L) < 9 L Troponin I (< 0.11 ng/ml) 0.04 Bng-M-Enfdlqpxmer Pept (<125 pg/mL) 16354 H Total Protein (6.3 - 8.2 g/dL) 6.1 L Albumin (3.5 - 5.0 g/dL) 3.8 Amylase (30 - 110 U/L) 235 H Lipase (23 - 300 U/L) 413 H Coagulation PT (9.4 - 12.5 SEC) 10.6 INR (0.90 - 1.19) 1.01 APTT (25 - 37 SEC) 32 Hematology CBC w Diff MAN DIFF ORDERED WBC (4.8 - 10.8 /CUMM) 17.4 H RBC (4.20 - 5.40 /CUMM) 3.39 L Hgb (12.0 - 16.0 G/DL) 10.9 L Hct (37 - 47 %) 33.4 L MCV (81.0 - 99.0 FL) 98.4 MCH (27.0 - 31.0 PG) 32.1 H MCHC (33.0 - 37.0 G/DL) 32.6 L RDW (11.5 - 14.5 %) 16.5 H Plt Count (130 - 400 /CUMM) 308 MPV (7.4 - 10.4 FL) 8.3 Gran % (42.2 - 75.2 %) 81.4 H Lymphocytes % (20.5 - 51.1 %) 11.8 L Monocytes % (1.7 - 9.3 %) 3.6 Eosinophils % (0 - 5 %) 2.7 Basophils % (0.0 - 2.0 %) 0.5 Absolute Granulocytes (1.4 - 6.5 /CUMM) 14.2 H Absolute Lymphocytes (1.2 - 3.4 /CUMM) 2.1 Absolute Monocytes (0.10 - 0.60 /CUMM) 0.6 Absolute Eosinophils (0.0 - 0.7 /CUMM) 0.5 Absolute Basophils (0.0 - 0.2 /CUMM) 0.1 Platelet Estimate (ADEQUATE) ADEQUATE Poikilocytosis 1+ Ovalocytes 1+ Miscellaneous Phlebotomy Draw Site RIGHT RADIAL Toxicology Serum Alcohol (<10 MG/DL) < 10.0 Acetone Level (NEGATIVE) NEGATIVE Assessment/Plan Assessment/Recommendations Assessment: SOB/cardiac arrest of uncertain etiology. Not grossly fluid overloaded on exam or on CXR. She does have small effusions on CT. Possibl epatient had ischemic event triggering pulmonary edema which has now resolved. Submassive PE also possibl but also seems unlikely given the clinical scenario. Electrolytes accepatab and she is oxygenating well. Today is her regularly scheduled dialysis day, last having been treatd 3 days ago. Recommendations: Will plan for dialysis today, UF 2 liters as long as hemodynamics are stable. Wiould continue her outpatient medications including EPO. Will follow with you.
--- NOTE | 2017-07-30 10:01 | Cons- Cardiology ---
General Information and HPI Consulting Request Date of Consult: 07/30/17 Requested By: Kirill Schaefer MD Reason for Consult: Cardiac arrest Source of Information: family, old records Exam Limitations: unable to give history, clinical condition History of Present Illness: Patient 86-year-old female with a history of hypertension, end-stage renal disease on dialysis, coronary disease status post stent placement 2 years ago, history of ischemic cardiomyopathy now with normalized ejection fraction by echo 2016, chronic left bundle branch block who presents after being found unresponsive at home. The patient is currently intubated therefore the history is obtained from patient's chart along with the family. According to the patient's daughter she received a phone call from her mother stating that she was having shortness of breath. EMS was summoned and the patient was found pulseless and apneic. Patient underwent CPR and received epi and she was transferred to the emergency room for evaluation. She was found to be tensive with a heart rate in the 80s upon arrival. Allergies/Medications Allergies: Coded Allergies: No Known Allergies (05/16/17) Home Med List: Amlodipine Besylate 10 MG TABLET 1 TAB PO DAILY HEART/BP (Reported) Aspirin (Ecotrin*) 81 MG TABLET.DR 1 TAB PO DAILY HEART/BLOOD (Reported) Folic Acid/Vit Bcomp,C (Radha-Cuong Tablet) (Unknown Strength) TABLET 1 TAB PO DAILY SUPPLEMENT (Reported) Hydralazine HCl 25 MG TABLET 2 TAB PO BID HTN (Reported) Metoprolol Tartrate 25 MG TABLET 6.25 MG PO BID htn (Reported) Rosuvastatin Calcium (Crestor) 10 MG TABLET 1 TAB PO DAILY CHOLESTEROL ( Reported) Sevelamer Carbonate (Renvela) 800 MG TABLET 3 TAB PO TID RENAL (Reported) Review of Systems Review of Systems: Unobtainable patient intubated Past History Travel History Traveled to [place] past 21 day No Medical History Neurological: TIA EENT: NONE Cardiovascular: CHF, hypertension, hyperlipidemia, NSTEMI, known left bundle branch block left atrial dilatation mild aortic regurg in the past PAROXYSMAL AFIB Respiratory: bronchitis, pneumonia Gastrointestinal: NONE Hepatic: NONE Renal: esrd on hd (--sat) L ARM FISTULA, RESTRICTED Musculoskeletal: gout Psychiatric: NONE Endocrine: secondary hyperparathyroidism Blood Disorders: anemia Cancer(s): NONE 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 , Age 69. MOTHER (diabetes). , Age 72. BROTHER (pancreatic cancer). , Age Unknown. SISTER (colon cancer). , Age 60+. BROTHER (brain aneurysm). , Age 50's. Psychosocial History Who Do You Live With? self Services at Home: None Primary Language: Lebanese Smoking Status: Former Smoker ETOH Use: occasional use Living Will? no Power of Public Safety Officer/HCP? no Functional Ability ADLs Independent: dressing, eating, toileting, bathing. Ambulation: independent IADLs Independent: shopping, housework, finances, food prep, telephone, transportation , medication admin. Exam & Diagnostic Data Vital Signs and I&O Vital Signs Date Time Temp Pulse Resp B/P B/P Pulse O2 O2 Flow FiO2 Mean Ox Delivery Rate 07/30 0750 40 07/30 0658 98 24 127/65 96 Ventilator 40% 07/30 0645 85 22 97 Ventilator 40% 07/30 0630 95.0 81 20 158/74 96 Ventilator 40% 07/30 0610 95.0 85 22 145/70 95 Ventilator 40% 07/30 0549 40 07/30 0549 95.0 58 24 130/57 91 Ventilator 40% 07/30 0545 Ventilator 07/30 0522 99 24 171/93 100 Ventilator 40% 07/30 0513 95.0 87 20 178/84 100 Ventilator 40% 07/30 0443 95.0 70 24 95 Ventilator 40% 07/30 0429 40 Intake & Output 07/30 1600 07/30 0800 07/30 0000 07/29 1600 07/29 0800 07/29 0000 Intake Total Output Total 0 Balance 0 Output, 0 Gastric Drainage Patient 101 lb Weight Weight Reported by Patient Measurement Method Physical Exam: Patient is a well-developed well-nourished female intubated and sedated HEENT ecchymosis left temporal region Neck is supple there is no JVD Lungs scattered rhonchi bilaterally Heart regular rhythm S1 and S2 are normal no murmurs gallops or rubs Abdomen bowel sounds positive Extremities trace edema Labs/Lex Results: Laboratory Tests 07/30 07/30 0750 0743 Blood Gas pH (7.35 - 7.45 PH) 7.51 H pCO2 (35 - 45 TORR) 21 L pO2 (80 - 100 TORR) 89 HCO3 (21 - 28 MEQ/L) 16 L ABG O2 Sat (Measured) (>96.0 %) 97.0 Carboxyhemoglobin (1.5 - 5.0 %) 0.4 L O2 Concentration % 40% Respiration Rate (BPM) 20 O2 Delivery Method VENT Vent Mode AC Expiratory Pressure (CMH2O/P) 5 Tidal Volume (CC) 500 Chemistry Lactic Acid (0.7 - 2.1 mmol/L) 2.6 H Miscellaneous Phlebotomy Draw Site RIGHT BRACHIAL 07/30 07/30 3719 6665 Blood Gas pH (7.35 - 7.45 PH) 7.28 *L pCO2 (35 - 45 TORR) 30 L pO2 (80 - 100 TORR) 81 HCO3 (21 - 28 MEQ/L) 14 L ABG O2 Sat (Measured) (>96.0 %) 94.0 L P-50 (Temp Corrected) N Carboxyhemoglobin (1.5 - 5.0 %) 0.8 L O2 Concentration % .40 Respiration Rate (BPM) 20 O2 Delivery Method VENT Vent Mode A/C Expiratory Pressure (CMH2O/P) 5 Tidal Volume (CC) 500 Chemistry Sodium (137 - 145 mmol/L) 142 Potassium (3.5 - 5.1 mmol/L) 4.9 Chloride (98 - 107 mmol/L) 100 Carbon Dioxide (22 - 30 mmol/L) 19 L Anion Gap (5 - 16) 23 H BUN (7 - 17 mg/dL) 29 H Creatinine (0.5 - 1.0 mg/dL) 8.1 *H Estimated GFR (>60 ml/min) 5 L BUN/Creatinine Ratio (7 - 25 %) 3.6 L Glucose (65 - 99 mg/dL) 230 H Lactic Acid (0.7 - 2.1 mmol/L) 7.1 H Calcium (8.4 - 10.2 mg/dL) 9.0 Phosphorus (2.5 - 4.5 mg/dL) 7.6 H Magnesium (1.6 - 2.3 mg/dL) 2.2 Total Bilirubin (0.2 - 1.3 mg/dL) 0.6 Direct Bilirubin (< 0.4 mg/dL) 0.6 H AST (14 - 36 U/L) 30 ALT (9 - 52 U/L) 20 Alkaline Phosphatase (<127 U/L) 127 H Ammonia (9 - 30 umol/L) < 9 L Troponin I (< 0.11 ng/ml) 0.04 Oyy-S-Ooltnmeervq Pept (<125 pg/mL) 20776 H Total Protein (6.3 - 8.2 g/dL) 6.1 L Albumin (3.5 - 5.0 g/dL) 3.8 Amylase (30 - 110 U/L) 235 H Lipase (23 - 300 U/L) 413 H Coagulation PT (9.4 - 12.5 SEC) 10.6 INR (0.90 - 1.19) 1.01 APTT (25 - 37 SEC) 32 Hematology CBC w Diff MAN DIFF ORDERED WBC (4.8 - 10.8 /CUMM) 17.4 H RBC (4.20 - 5.40 /CUMM) 3.39 L Hgb (12.0 - 16.0 G/DL) 10.9 L Hct (37 - 47 %) 33.4 L MCV (81.0 - 99.0 FL) 98.4 MCH (27.0 - 31.0 PG) 32.1 H MCHC (33.0 - 37.0 G/DL) 32.6 L RDW (11.5 - 14.5 %) 16.5 H Plt Count (130 - 400 /CUMM) 308 MPV (7.4 - 10.4 FL) 8.3 Gran % (42.2 - 75.2 %) 81.4 H Lymphocytes % (20.5 - 51.1 %) 11.8 L Monocytes % (1.7 - 9.3 %) 3.6 Eosinophils % (0 - 5 %) 2.7 Basophils % (0.0 - 2.0 %) 0.5 Absolute Granulocytes (1.4 - 6.5 /CUMM) 14.2 H Absolute Lymphocytes (1.2 - 3.4 /CUMM) 2.1 Absolute Monocytes (0.10 - 0.60 /CUMM) 0.6 Absolute Eosinophils (0.0 - 0.7 /CUMM) 0.5 Absolute Basophils (0.0 - 0.2 /CUMM) 0.1 Platelet Estimate (ADEQUATE) ADEQUATE Poikilocytosis 1+ Ovalocytes 1+ Miscellaneous Phlebotomy Draw Site RIGHT RADIAL Toxicology Serum Alcohol (<10 MG/DL) < 10.0 Acetone Level (NEGATIVE) NEGATIVE Diagnostic Data EKG Results Sinus tachycardia left bundle branch block CXR Results IMPRESSION: Endotracheal tube terminating 3 cm above the zoe. Hazy left perihilar opacity noted. Other Results CT of the chest IMPRESSION: 1. Endotracheal tube terminating approximately 1 cm above the zoe. Consider slight retraction. 2. Moderate bilateral pleural effusions. Associated appearance of interstitial and alveolar edema in the upper lobes. 3. Degenerative changes throughout the osseous structures. No acute osseous abnormality. Assessment/Plan Assessment/Plan 1. Cardiac arrest with acute hypoxemic respiratory failure most likely secondary to fluid overload with a significantly elevated BNP. 2. Chronic left bundle branch block 3. History of ischemic cardiomyopathy now with normalized ejection fraction on recent echocardiogram with an EF of 55% 4. End-stage renal disease on hemodialysis 5. Coronary artery disease by history status post stent approximately 3 years ago 6. Hypertension by history Recommendations 1. Echocardiogram is pending to assess LV function and rule out new wall motion abnormalities 2. Continue to trend troponins although I would suspect that they will become elevated given the fact that she had CPR performed. 3. Continue metoprolol as blood pressure tolerates 4. Wean vent as tolerated Thank you for allowing [facility] to participate in the care of your patient. Consult Acknowledgment - Thank you for your consult request.
--- NOTE | 2017-07-30 10:38 | Admission Certification ---
Admission Certification Certification Statement - As attending physician, I certify that at the time of - admission, based on clinical presentation, severity of - symptoms, need for further diagnostic testing and - therapeutic interventions, and risk of adverse outcomes - without in-hospital treatment, in my clinical assessment, - this patient requires an acute hospital stay for a minimum - of two nights or longer. I have also considered psychsocial - factors such as support system, advanced age, financial - issues, cognitive issues, and failed out-patient treatments, - past re-admission history, safety of patient, and lack of - compliance as applicable. Specific rationale supporting this admission is: cardiac arrest intubated ICU level of care
--- NOTE | 2017-07-30 12:48 | RADIOLOGY REPORT ---
EXAMINATION: CR FOOT, LEFT CLINICAL INFORMATION: Swelling of ankle. Rule out fracture. COMPARISON: Left tibia and fibula dated 02/03/2014. TECHNIQUE: 3 views of the left foot performed on 4 images. FINDINGS: There is prominent hallux valgus deformity of the first ray with associated moderate degenerative changes at the first MTP joint and mild soft tissue swelling. There is also mild degenerative change in the intertarsal joints. No acute fracture or dislocation is noted. Diffuse osteopenia is seen. Prominent arteriovascular calcifications are seen. No ankle joint effusion is noted. No abnormal periosteal reaction or focal lytic or destructive bone lesion is noted. IMPRESSION: 1. Diffuse osteopenia. No acute fracture or dislocation. 2. Prominent hallux valgus deformity with secondary degenerative change at the first MTP joint. 3. Mild degenerative changes in the distal interphalangeal joints of all digits and in the intertarsal joints and tarsometatarsal joints.
--- NOTE | 2017-07-30 13:45 | ULTRASOUND REPORT ---
EXAMINATION: US DUPLEX LOWER EXTREMITY VEINS, BILATERAL CLINICAL INFORMATION: Evaluate for deep venous thrombosis. Lower extremity bruising. Presumptive diagnosis of venous thromboembolic disease COMPARISON: None. TECHNIQUE: Real-time grayscale compression evaluation of the deep venous system. The compression exam is supplemented by color mapping and spectral analysis. Calf augmentation was used. The study was performed portably. The best imaging possible was obtained. Bilateral lower extremities FINDINGS: The deep venous system was visualized and compressible. The Doppler exam is normal. IMPRESSION: No deep venous thrombosis demonstrated.
[2017-07-30 16:00] VITALS: BP 127/59
--- NOTE | 2017-07-30 22:02 | ECHOCARDIOGRAM REPORT ---
OFELIA EL Age: 86 : 1930 Gender: F Exam Date: 07/30/2017 19:07 Exam Location: [facility] Ht (in): 60 Wt (lb): 101 BSA: 1.39 BP: 127 / 65 Ordering Physician: Lisa Gautam MD Referring Physician: Gaurav Yoo MD Technologist: Elba Tapia LUIS ALBERTO Room Number: 109 Indications: RESPIRATORY FAILURE Rhythm: Technical Quality: Technically difficult study FINDINGS Left Ventricle Left ventricular cavity size normal. Left ventricular wall thickness mildly increased. Mild to moderate anteroseptal hypokinesis. Left ventricular ejection fraction is estimated at 50 %. Right Ventricle Right ventricle not well visualized, grossly normal. Right Atrium Normal right atrial size. Left Atrium Mild left atrial dilatation. Mitral Valve Moderate mitral annular calcification. Mild mitral regurgitation. Mild mitral stenosis. Aortic Valve No aortic stenosis. Diffuse thickening (sclerosis) of the aortic valve cusps without reduced excursion. Trace aortic regurgitation. Tricuspid Valve Tricuspid valve not well visualized, grossly normal. Mild-to- moderate tricuspid regurgitation. Unable to estimate the right ventricular systolic pressure. Pulmonic Valve Pulmonic valve not well visualized. Pericardium No pericardial effusion. Great Vessels Normal size aortic root. CONCLUSIONS Technically difficult study. Left ventricular cavity size normal. Left ventricular wall thickness mildly increased. Mild to moderate anteroseptal hypokinesis. Left ventricular ejection fraction is estimated at 50 %. Right ventricle not well visualized, grossly normal. Mild left atrial dilatation. Mild mitral stenosis. Nfya-if-fbcthlyz tricuspid regurgitation. Unable to estimate the right ventricular systolic pressure. No pericardial effusion. Ander Watts M.D. (Electronically Signed) Final Date: 30 July 2017 22:02 MEASUREMENTS (Male / Female) Normal Values 2D ECHO LV Diastolic Diameter PLAX 3.3 cm 4.2 - 5.9 / 3.9 - 5.3 cm LV Systolic Diameter PLAX 2.3 cm 2.1 - 4.0 cm LV Fractional Shortening PLAX 30.3 % 25 - 46 % LV Ejection Fraction 2D Teich 58.9 % IVS Diastolic Thickness 1.4 cm LVPW Diastolic Thickness 1.4 cm LV Relative Wall Thickness 0.8 RV Internal Dim ED PLAX 2.6 cm 1.9 - 3.8 cm LVOT Diameter 1.7 cm Aortic Root Diameter 2.7 cm LA Systolic Diameter LX 2.8 cm 3.0 - 4.0 / 2.7 - 3.8 cm LA Volume 31.0 cm 18 - 58 / 22 - 52 cm Ascending Aorta Diameter 2.9 cm DOPPLER AV Peak Velocity 141.0 cm/s AV Peak Gradient 8.0 mmHg AV Mean Velocity 94.1 cm/s AV Mean Gradient 4.0 mmHg AV Velocity Time Integral 26.5 cm LVOT Peak Velocity 86.7 cm/s LVOT Peak Gradient 3.0 mmHg LVOT Mean Velocity 51.4 cm/s LVOT Mean Gradient 1.0 mmHg LVOT Velocity Time Integral 17.7 cm LVOT Stroke Volume 40.2 cm AV Area Cont Eq vti 1.5 cm AV Area Cont Eq pk 1.4 cm MV Peak Velocity 195.0 cm/s MV Peak Gradient 15.2 mmHg MV Mean Velocity 113.0 cm/s MV Mean Gradient 7.0 mmHg Mitral E Point Velocity 145.0 cm/s MV PHT Velocity 209.0 cm/s MV Deceleration Starke 1090.0 cm/s MV Pressure Half Time 57.5 ms MV Area PHT 3.8 cm MV Deceleration Time 162.0 ms TR Peak Velocity 306.0 cm/s TR Peak Gradient 37.5 mmHg Right Atrial Pressure 5.0 mmHg Pulmonary Artery Systolic Pressu 42.5 mmHg Right Ventricular Systolic Press 42.5 mmHg PV Peak Velocity 106.0 cm/s PV Peak Gradient 4.5 mmHg PV Mean Velocity 63.4 cm/s PV Mean Gradient 2.0 mmHg PV Velocity Time Integral 14.9 cm LV E' Lateral Velocity 10.2 cm/s Mitral E to LV E' Lateral Ratio 14.2 LV E' Septal Velocity 5.2 cm/s Mitral E to LV E' Septal Ratio 28.0
--- NOTE | 2017-07-30 22:15 | Event Note ---
Event Note Event Note: Echo result discussed with pedro pablo at 22:10. Given RWMA by Echo consider Heparin gtt if no contraindication. TN/PE remain in the differential diagnois. Cardiology remains immediately available to discuss management. Adrian Watts MD [facility]
--- NOTE | 2017-07-30 23:31 | Event Note ---
Event Note Event Note: Findings of echocardiogram discussed with Ander Watts MD. Called and spoke to daughter Isabel Copeland regarding the echocardiogram results as well as recommendation to start IV heparin. Agreeable to start the IV heparin. Will come in the morning to discuss further management. Patient guiac negative. Dr. Schaefer informed of the above
[2017-07-31] VITALS: BP 144/68
[2017-07-31 06:01] LABS: ABSOLUTE BASOPHIL COUNT 0 /CUMM (0.0-0.2); ABSOLUTE EOSINOPHIL COUNT 0.1 /CUMM (0.0-0.7); ABSOLUTE LYMPH COUNT 0.9 /CUMM (1.2-3.4); ABSOLUTE MONOCYTE COUNT 0.8 /CUMM (0.10-0.60); BASOPHIL % 0.2 % (0.0-2.0); EOSINOPHIL % 0.9 % (0-5); GRANULOCYTE % 82.9 % (42.2-75.2); HEMATOCRIT 30.3 % (37-47); MEAN CORPUSCULAR HGB 32.1 PG (27.0-31.0); MEAN CORPUSCULAR HGB CONC 33.3 G/DL (33.0-37.0); MEAN CORPUSCULAR VOLUME 96.4 FL (81.0-99.0); MEAN PLATELET VOLUME 9.1 FL (7.4-10.4); PLATELET COUNT 223 /CUMM (130-400); RBC DISTRIBUTION WIDTH 16.2 % (11.5-14.5); RED BLOOD CELL CT 3.14 /CUMM (4.20-5.40); WHITE BLOOD CELL COUNT 10.9 /CUMM (4.8-10.8)
[2017-07-31 06:12] LABS: PTT 72 SEC (25-37)
--- NOTE | 2017-07-31 06:14 | RADIOLOGY REPORT ---
EXAMINATION: XR PORTABLE CHEST CLINICAL INFORMATION: Follow-up. Intubated. COMPARISON: 07/30/2017 TECHNIQUE: Portable frontal view of the chest was obtained. FINDINGS: The endotracheal tube terminates approximately 4 cm above the zoe. The lungs are well expanded. Retrocardiac opacity is increased. Likely a small left pleural effusion, also increased. The right lung apex is not included on this study. No gross evidence of pneumothorax. Improvement of prior edema. The cardiomediastinal silhouette is unchanged, with a calcified aorta. IMPRESSION: Endotracheal tube terminating 4 cm above the zoe. Improvement of prior edema. Small left pleural effusion is increased from prior with increasing retrocardiac opacity.
--- NOTE | 2017-07-31 07:34 | PN- Resident CRCU ---
Oswaldo PARKINSON,Jesus Alberto 07/31/17 0734: Subjective HPI/CRCU Issues: inutbated S/P PEA and CPR with ROSC PT intubated and sedated. Minimally responsive only to pain. No overnight events 24 Hour Events: VCV 14/420/30%/PEEP 5 Glucose: 113, 138, 158, 171, 181 Vitals: 96.8-100.9; 86-109; 14-20; 145/70-116/61 SAS 3-5 I: 707 O: 2125 Objective Vital Signs & I&O Last 8 Hrs of Vitals and I&O: Intake & Output 07/31 1600 Intake Total 260 Output Total Balance 260 Intake, IV 200 Intake, Tube 60 Irrigant Patient 51.9 kg Weight Exam General Appearance: sedated, intubated Head: atraumatic, PINPOINT PUPILS Ears, Nose, Throat: INTUBATED Neck: normal inspection Respiratory: lungs clear Cardiovascular: regular rate/rhythm Gastrointestinal: soft, non-tender Extremities: no edema, EXTENSIVE ECCHYMOSIS PRESENT IN BOTH LIMBS Current Medications: Current Medications Sig/King Start time Last Medication Dose Route Stop Time Status Admin Acetaminophen 1,000 MG ONCE ONE 07/31 2014 DC N/A 1 UNIT IV 07/31 202 Amlodipine Besylate 10 MG DAILY 07/30 1000 AC 07/31 PO 1031 Ampicillin Sodium/ 3,000 MG DAILY 07/30 1000 AC 07/31 Sulbactam Sodium IV 0952 Sodium Chloride 100 ML Aspirin 81 MG DAILY 07/31 1000 DC PO Aspirin 81 MG DAILY 07/30 1049 AC 07/31 PO 1030 Atorvastatin Calcium 80 MG 1700 07/30 1700 AC 07/31 PO 1705 Clopidogrel Bisulfate 75 MG DAILY 08/01 1000 AC PO Clopidogrel Bisulfate 300 MG ONCE ONE 07/31 1900 DC PO 07/31 1901 Dextrose 12.5 GM ONCE ONE 07/31 1945 DC 07/31 IV 07/31 1942015 Epoetin Vamshi 2,000 UNIT TuThSa 07/30 1324 AC IV Heparin Sodium 25,000 UNIT Q24H 07/31 0030 AC 07/31 (Porcine) IV 0017 Sodium Chloride 500 ML Heparin Sodium 25,000 UNIT Q24H 07/30 2300 DC (Porcine) IV Sodium Chloride 500 ML Heparin Sodium 5,000 UNIT Q8 07/30 1400 DC 07/30 (Porcine) SC 2131 Lorazepam 1 MG Q4P PRN 07/30 0700 AC 07/30 IV 1527 Metoprolol Tartrate 12.5 MG BID 07/31 2200 AC PO Metoprolol Tartrate 6.25 MG BID 07/30 1000 DC 07/31 PO 1030 Pantoprazole Sodium 40 MG DAILY 07/30 1000 AC 07/31 IV 0952 Propofol 1,000 MG Q8H 07/31 1999 AC 07/31 N/A 1 UNIT IV 2016 Propofol 1,000 MG .STK-MED ONE 07/31 1155 DC IV 07/31 115 Propofol 1,000 MG .STK-MED ONE 07/31 0547 DC IV 07/31 0548 Propofol 1,000 MG .STK-MED ONE 07/30 2356 DC IV 07/30 235 Propofol 1,000 MG CONTINOUS INFUSION 07/30 0600 DC 07/31 N/A 1 UNIT IV 07/31 1999 120 Sevelamer Carbonate 2,400 MG WM 07/30 1000 AC 07/31 PO 1705 Impression/Plan Impression/Problem List Impression: This is a 86 yo woman with PMH significant for ESRD on HD Tue/Thur/Sat, CAD s/p stent placement 3 years ago, HFpEF, HTN, HLD, NSTEMI, LBBB, and secondary hyperparathyroidism BIBA PEA s/p intubation, CPR and epi x1 with successful ROSC. ----- PLAN: 1. Acute hypoxemic respiratory failure: DDX: PE, PA, Flash pulm edema, PNA. Her CAT scan does show bilateral pleural effusions * Con't Unasyn 3000 mg daily * LRC * BC 2 * Con't propofol for sedation. Will consider switching tomorrow * Con't vent on current settings * ABG in AM * Negative lower extremity Doppler to rule out DVT 2. Leukocytosis: WBC 10.9 today. Unsure of source; DDX reactive vs PNA. * On Unasyn for concern of aspiration * Blood cultures 2, urine culture if any and LRC * Con't monitor 3. Coronary artery disease S/P Cardiac arrest: She has hx of stenting done in [place] around 2014. She sees Dr. Boyer. This time apparently patient was pulseless in the field. Currently intubated and sedated on ventilator. Currently evaluating for cause of CP arrest. * She is having elevated troponin (1.85) and new EKG changes in context of new LBBB. * Appreciate cardio consult * Started in IV heparin yesterday * ASA * Metoprolol increased per cardio * Started on Plavix with 300mg load * F/U EKG and trops * Continue on aspirin * switched to atorvastatin 80 mg daily * ECHO shows EF 50 but some septal hypokinesis 4. Hypertension * Con't Amlodipine * Con't Metoprolol 5. Anion gap acidosis: Initially thought to be secondary to lactic acidosis in the setting of decreased perfusion as well as underlying renal insufficiency. Now likely due to renal failure as lactate has normalized. Initially 23, now down to 18. * Con't monitor 6. End stage renal today disease on hemodialysis Saturday and Saturday * Appreciate nephro consult * HD per nephro. Likely tomorrow. 7. Alimentary * Maintain on Protonix * Nothing by mouth for now * Q6 finger stick * Her heparin is in D5 but otherwise avoiding fluids given ESRD. Will give D50 if necessary DVT prophylaxis: heparin drip CODE STATUS Full code Problem List: 1. Lactic acidosis 2. Cardiac arrest Pain Ratin Tomorrow's Labs & Rationales: cbc icu Plan DVT/Prophylaxis: mechanical, pharmacological Kirill Schaefer MD 07/31/17 1114: Attending MD Review Statement Attending Sign Off Attending Cosign Statement: I have: examined this patient, reviewed avalbl EMR data, personally reviewd images, discussd w/resident/PA/PUBLISHER ASSISTANT, discussed mgmt plan w/jessica, discussed mgmt plan w/CM, discussed mgmt plan w/pt, agreed w/resident/PA/PUBLISHER ASSISTANT, amended to note. Other Findings: Kirill Ayon M.D. have examined this patient, reviewed available EMR data, personally reviewed images, discussed with resident/PA/PUBLISHER ASSISTANT, discussed management plan with housestaff and nursing staff, discussed managment plan all of healthcare providers, discussed management plan with patient and/or family, agreed with resident/PA/PUBLISHER ASSISTANT. The past history and parts of the chart have been autopopulated. Impression 86 year old woman * cardiac arrest - unclear rhythm/timing - although brief, etiology is unclear flash pulmonary edema is possible vs opiate/pain medications causing respiratory depression - per family pt takes tramadol and meds from neighbor intermittently, aspiration pneumonia is likely and will be treated as such * ESRD on HD Plan -nephrology, cardiology appreciated -sputum cx -unasyn coverage -HD per renal -cont current vent settings -f/u cardiology plan, on heparin gtt DVT prophylaxis at all times TTS 40 min
[2017-07-31 08:00] VITALS: BP 132/80
--- NOTE | 2017-07-31 08:22 | PN- Nephrology ---
Assessment/Plan Nephrology Assessment: Cardiac arrest, ND. Not entirely sure what primary event was but could have been myocardial ischemia. Hemodynamically stalbe. Still sedated so cannot asses neurologically. Suggestion: No dialysis need today. Will schedule again for tomorrow per her outpatient schedule. Subjective Subjective: Intubated and sedated. Anteroseptal hypokinesis noted on echo and significant troponin increase. Dialyzed yesteday without difficulty. Objective Vital Signs and I&Os Vital Signs Date Time Temp Pulse Resp B/P B/P Pulse O2 O2 Flow FiO2 Mean Ox Delivery Rate 07/31 0549 30 07/31 0400 96 Ventilator 30% 07/31 0344 30 07/31 0211 30 07/31 0000 100.9 98 14 144/68 98 Ventilator 30% 07/31 0000 98 Ventilator 30% 07/30 2217 30 07/30 2131 106 142/66 07/30 2000 98 Ventilator 30% 07/30 1945 30 07/30 1650 35 07/30 1600 94 Ventilator 30% 07/30 1600 97.5 86 16 127/59 99 Ventilator 30% 07/30 1410 35 07/30 1235 83 153/69 07/30 1235 83 153/69 07/30 1200 98 Ventilator 35% 07/30 1136 Ventilator 35% Intake & Output 07/31 1600 07/31 0400 07/30 1600 07/30 0400 07/29 1600 07/29 0400 Intake Total 151 241 315 Output Total 103 2002 20 Balance 48 -1761 295 Intake, IV 151 61 185 Intake, Other 180 Intake, Tube 130 Irrigant Number 0 Bowel Movements Output, 2000 Dialysate Output, 100 0 Gastric Drainage Output, Urine 3 2 20 Patient 114 lb Weight Weight Bed scale Measurement Method Physical Exam: NAD VS as above Lungs: clear CV: no rub Abd: non-distended Exts: no edema Neuro: sedated Current Medications: Current Medications Sig/King Start time Last Medication Dose Route Stop Time Status Admin Amlodipine Besylate 10 MG DAILY 07/30 1000 AC 07/30 PO 1235 Ampicillin Sodium/ 3,000 MG DAILY 07/30 1000 AC 07/30 Sulbactam Sodium IV 1234 Sodium Chloride 100 ML Aspirin 81 MG DAILY 07/31 1000 AC PO Aspirin 81 MG DAILY 07/30 1049 AC 07/30 PO 1235 Aspirin Buffered 81 MG DAILY 07/30 1000 DC PO Atorvastatin Calcium 80 MG 1700 07/30 1700 AC 07/30 PO 1700 Epoetin Vamshi 2,000 UNIT TuThSa 07/30 1324 AC IV Heparin Sodium 25,000 UNIT Q24H 07/31 0030 AC 07/31 (Porcine) IV 0017 Sodium Chloride 500 ML Heparin Sodium 25,000 UNIT Q24H 07/30 2300 DC (Porcine) IV Sodium Chloride 500 ML Heparin Sodium 5,000 UNIT Q8 07/30 1400 DC 07/30 (Porcine) SC 2131 Lorazepam 1 MG Q4P PRN 07/30 0700 AC 07/30 IV 1527 Metoprolol Tartrate 6.25 MG BID 07/30 1000 AC 07/30 PO 2131 Pantoprazole Sodium 40 MG DAILY 07/30 1000 AC 07/30 IV 1234 Propofol 1,000 MG .STK-MED ONE 07/30 2356 DC IV 07/30 2357 Propofol 1,000 MG .STK-MED ONE 07/30 1652 DC IV 07/30 1653 Propofol 1,000 MG CONTINOUS INFUSION 07/30 0600 AC 07/31 N/A 1 UNIT IV 0600 Sevelamer Carbonate 2,400 MG WM 07/30 1000 AC PO Results Pertinent Lab Results: Laboratory Tests 07/31 07/31 0530 0125 Blood Gas pH (7.35 - 7.45 PH) 7.47 H pCO2 (35 - 45 TORR) 31 L pO2 (80 - 100 TORR) 111 H HCO3 (21 - 28 MEQ/L) 22 ABG O2 Sat (Measured) (>96.0 %) 97.0 P-50 (Temp Corrected) Y Carboxyhemoglobin (1.5 - 5.0 %) 0.1 L O2 Concentration % 30% Temperature (97.0 - 100.0 FARH) 100.9 H Respiration Rate (BPM) 14 O2 Delivery Method ESPRIT Vent Mode AC Expiratory Pressure (CMH2O/P) 5 Tidal Volume (CC) 420 Chemistry Sodium (137 - 145 mmol/L) 142 Potassium (3.5 - 5.1 mmol/L) 3.8 Chloride (98 - 107 mmol/L) 100 Carbon Dioxide (22 - 30 mmol/L) 23 Anion Gap (5 - 16) 18 H BUN (7 - 17 mg/dL) 17 Creatinine (0.5 - 1.0 mg/dL) 5.0 H Estimated GFR (>60 ml/min) 8 L Glucose (65 - 99 mg/dL) 87 Calcium (8.4 - 10.2 mg/dL) 9.2 Phosphorus (2.5 - 4.5 mg/dL) 4.5 Magnesium (1.6 - 2.3 mg/dL) 2.0 Total Bilirubin (0.2 - 1.3 mg/dL) 0.6 AST (14 - 36 U/L) 41 H ALT (9 - 52 U/L) 24 Troponin I (< 0.11 ng/ml) 1.80 *H Albumin (3.5 - 5.0 g/dL) 3.7 Coagulation APTT (25 - 37 SEC) 72 H Hematology CBC w Diff NO MAN DIFF REQ WBC (4.8 - 10.8 /CUMM) 10.9 H RBC (4.20 - 5.40 /CUMM) 3.14 L Hgb (12.0 - 16.0 G/DL) 10.1 L Hct (37 - 47 %) 30.3 L MCV (81.0 - 99.0 FL) 96.4 MCH (27.0 - 31.0 PG) 32.1 H MCHC (33.0 - 37.0 G/DL) 33.3 RDW (11.5 - 14.5 %) 16.2 H Plt Count (130 - 400 /CUMM) 223 MPV (7.4 - 10.4 FL) 9.1 Gran % (42.2 - 75.2 %) 82.9 H Lymphocytes % (20.5 - 51.1 %) 8.7 L Monocytes % (1.7 - 9.3 %) 7.3 Eosinophils % (0 - 5 %) 0.9 Basophils % (0.0 - 2.0 %) 0.2 Absolute Granulocytes (1.4 - 6.5 /CUMM) 9.0 H Absolute Lymphocytes (1.2 - 3.4 /CUMM) 0.9 L Absolute Monocytes (0.10 - 0.60 /CUMM) 0.8 H Absolute Eosinophils (0.0 - 0.7 /CUMM) 0.1 Absolute Basophils (0.0 - 0.2 /CUMM) 0 Miscellaneous Phlebotomy Draw Site RIGHT BRACHIAL 07/30 07/30 07/30 07/30 2200 1715 1554 1036 Blood Gas pH (7.35 - 7.45 PH) 7.54 H pCO2 (35 - 45 TORR) 26 L pO2 (80 - 100 TORR) 112 H HCO3 (21 - 28 MEQ/L) 22 ABG O2 Sat (Measured) (>96.0 %) 98.0 P-50 (Temp Corrected) N Carboxyhemoglobin (1.5 - 5.0 %) 0.3 L O2 Concentration % 35% Temperature (97.0 - 100.0 FARH) 97.5 Respiration Rate (BPM) 16 O2 Delivery Method ESPRIT VENT Vent Mode AC Expiratory Pressure (CMH2O/P) 5 Tidal Volume (CC) 450 Chemistry Lactic Acid (0.7 - 2.1 mmol/L) 1.3 Troponin I (< 0.11 ng/ml) 1.33 *H 0.91 *H Miscellaneous Phlebotomy Draw Site RIGHT BRACHIAL 07/30 07/30 07/30 1020 1015 0945 Chemistry Troponin I (< 0.11 ng/ml) 0.12 *H Toxicology Urine Opiates Screen (>2000 NG/ML) < 100.00 Methadone Screen (>300 NG/ML) < 40 Cancelled Barbiturate Screen (>200 NG/ML) < 60 Cancelled Ur Phencyclidine Scrn (>25 NG/ML) < 6.00 Cancelled Amphetamines Screen (>1000 NG/ML) < 100 Cancelled U Benzodiazepines Scrn (>200 NG/ML) 555 H Cancelled Urine Cocaine Screen (>300 NG/ML) < 50 Cancelled Urine Cannabis Screen (>50 NG/ML) < 5.00 Cancelled 07/30 07/30 0750 0743 Blood Gas pH (7.35 - 7.45 PH) 7.51 H pCO2 (35 - 45 TORR) 21 L pO2 (80 - 100 TORR) 89 HCO3 (21 - 28 MEQ/L) 16 L ABG O2 Sat (Measured) (>96.0 %) 97.0 Carboxyhemoglobin (1.5 - 5.0 %) 0.4 L O2 Concentration % 40% Respiration Rate (BPM) 20 O2 Delivery Method VENT Vent Mode AC Expiratory Pressure (CMH2O/P) 5 Tidal Volume (CC) 500 Chemistry Lactic Acid (0.7 - 2.1 mmol/L) 2.6 H Miscellaneous Phlebotomy Draw Site RIGHT BRACHIAL 07/30 07/30 0457 0450 Blood Gas pH (7.35 - 7.45 PH) 7.28 *L pCO2 (35 - 45 TORR) 30 L pO2 (80 - 100 TORR) 81 HCO3 (21 - 28 MEQ/L) 14 L ABG O2 Sat (Measured) (>96.0 %) 94.0 L P-50 (Temp Corrected) N Carboxyhemoglobin (1.5 - 5.0 %) 0.8 L O2 Concentration % .40 Respiration Rate (BPM) 20 O2 Delivery Method VENT Vent Mode A/C Expiratory Pressure (CMH2O/P) 5 Tidal Volume (CC) 500 Chemistry Sodium (137 - 145 mmol/L) 142 Potassium (3.5 - 5.1 mmol/L) 4.9 Chloride (98 - 107 mmol/L) 100 Carbon Dioxide (22 - 30 mmol/L) 19 L Anion Gap (5 - 16) 23 H BUN (7 - 17 mg/dL) 29 H Creatinine (0.5 - 1.0 mg/dL) 8.1 *H Estimated GFR (>60 ml/min) 5 L BUN/Creatinine Ratio (7 - 25 %) 3.6 L Glucose (65 - 99 mg/dL) 230 H Lactic Acid (0.7 - 2.1 mmol/L) 7.1 H Calcium (8.4 - 10.2 mg/dL) 9.0 Phosphorus (2.5 - 4.5 mg/dL) 7.6 H Magnesium (1.6 - 2.3 mg/dL) 2.2 Total Bilirubin (0.2 - 1.3 mg/dL) 0.6 Direct Bilirubin (< 0.4 mg/dL) 0.6 H AST (14 - 36 U/L) 30 ALT (9 - 52 U/L) 20 Alkaline Phosphatase (<127 U/L) 127 H Ammonia (9 - 30 umol/L) < 9 L Troponin I (< 0.11 ng/ml) 0.04 [id number] Pept (<125 pg/mL) 17953 H Total Protein (6.3 - 8.2 g/dL) 6.1 L Albumin (3.5 - 5.0 g/dL) 3.8 Amylase (30 - 110 U/L) 235 H Lipase (23 - 300 U/L) 413 H Coagulation PT (9.4 - 12.5 SEC) 10.6 INR (0.90 - 1.19) 1.01 APTT (25 - 37 SEC) 32 Hematology CBC w Diff MAN DIFF ORDERED WBC (4.8 - 10.8 /CUMM) 17.4 H RBC (4.20 - 5.40 /CUMM) 3.39 L Hgb (12.0 - 16.0 G/DL) 10.9 L Hct (37 - 47 %) 33.4 L MCV (81.0 - 99.0 FL) 98.4 MCH (27.0 - 31.0 PG) 32.1 H MCHC (33.0 - 37.0 G/DL) 32.6 L RDW (11.5 - 14.5 %) 16.5 H Plt Count (130 - 400 /CUMM) 308 MPV (7.4 - 10.4 FL) 8.3 Gran % (42.2 - 75.2 %) 81.4 H Lymphocytes % (20.5 - 51.1 %) 11.8 L Monocytes % (1.7 - 9.3 %) 3.6 Eosinophils % (0 - 5 %) 2.7 Basophils % (0.0 - 2.0 %) 0.5 Absolute Granulocytes (1.4 - 6.5 /CUMM) 14.2 H Absolute Lymphocytes (1.2 - 3.4 /CUMM) 2.1 Absolute Monocytes (0.10 - 0.60 /CUMM) 0.6 Absolute Eosinophils (0.0 - 0.7 /CUMM) 0.5 Absolute Basophils (0.0 - 0.2 /CUMM) 0.1 Platelet Estimate (ADEQUATE) ADEQUATE Poikilocytosis 1+ Ovalocytes 1+ Miscellaneous Phlebotomy Draw Site RIGHT RADIAL Toxicology Serum Alcohol (<10 MG/DL) < 10.0 Acetone Level (NEGATIVE) NEGATIVE
--- NOTE | 2017-07-31 12:31 | Event Note ---
Event Note Event Note: Patient's EKG [address] E in V3 and T dep in v4, intubated. Stable BP. Contacted Dr. Hodge's answering service, was not able to get a hold of him. Left information for the service to receive a call back.
--- NOTE | 2017-07-31 14:58 | PN- Cardiology ---
Subjective Subjective: Remains intubated/sedated. Objective Vital Signs and I&Os Vital Signs Date Time Temp Pulse Resp B/P B/P Pulse O2 O2 Flow FiO2 Mean Ox Delivery Rate 07/31 1406 30 07/31 1200 97 Ventilator 30% 07/31 1125 30 07/31 1031 101 153/64 07/31 1030 101 153/64 07/31 0827 30 07/31 0800 100.2 101 14 132/80 99 Ventilator 30% 07/31 0800 99 Ventilator 30% 07/31 0549 30 07/31 0400 96 Ventilator 30% 07/31 0344 30 07/31 0211 30 07/31 0000 100.9 98 14 144/68 98 Ventilator 30% 07/31 0000 98 Ventilator 30% 07/30 2217 30 07/30 2131 106 142/66 07/30 2000 98 Ventilator 30% 07/30 1945 30 07/30 1650 35 07/30 1600 94 Ventilator 30% 07/30 1600 97.5 86 16 127/59 99 Ventilator 30% Intake & Output 07/31 1600 07/31 0800 07/31 0000 07/30 1600 07/30 0800 07/30 0000 Intake Total 260 151 241 315 Output Total 103 2001 20 0 Balance 260 48 -1761 295 0 Intake, IV 200 151 61 185 Intake, Other 180 Intake, Tube 60 130 Irrigant Number 0 Bowel Movements Output, 2000 Dialysate Output, 100 0 Gastric Drainage Output, Urine 3 2 20 Patient 114 lb 114 lb Weight Weight Bed scale Measurement Method Physical Exam: General: intubated Eyes: No obvious scleral icterus. HEENT: No jugular venous distention or abnormal jugular venous pulsations. Cardiovascular: Normal intensity S1/S2. Regular with early beats Respiratory: Mildly decreased air entry Abdomen: Soft, nontender with no guarding or rebound tenderness. Musculoskeletal: No clubbing or cyanosis noted Skin: Warm Neurologic: sedated Current Medications: Current Medications Sig/King Start time Last Medication Dose Route Stop Time Status Admin Amlodipine Besylate 10 MG DAILY 07/30 1000 AC 07/31 PO 1031 Ampicillin Sodium/ 3,000 MG DAILY 07/30 1000 AC 07/31 Sulbactam Sodium IV 0952 Sodium Chloride 100 ML Aspirin 81 MG DAILY 07/31 1000 DC PO Aspirin 81 MG DAILY 07/30 1049 AC 07/31 PO 1030 Atorvastatin Calcium 80 MG 1700 07/30 1700 AC 07/30 PO 1700 Epoetin Vamshi 2,000 UNIT TuThSa 07/30 1324 AC IV Heparin Sodium 25,000 UNIT Q24H 07/31 0030 AC 07/31 (Porcine) IV 0017 Sodium Chloride 500 ML Heparin Sodium 25,000 UNIT Q24H 07/30 2300 DC (Porcine) IV Sodium Chloride 500 ML Heparin Sodium 5,000 UNIT Q8 07/30 1400 DC 07/30 (Porcine) SC 2131 Lorazepam 1 MG Q4P PRN 07/30 0700 AC 07/30 IV 1527 Metoprolol Tartrate 6.25 MG BID 07/30 1000 AC 07/31 PO 1030 Pantoprazole Sodium 40 MG DAILY 07/30 1000 AC 07/31 IV 0952 Propofol 1,000 MG .STK-MED ONE 07/31 0547 DC IV 07/31 0548 Propofol 1,000 MG .STK-MED ONE 07/30 2356 DC IV 07/30 2357 Propofol 1,000 MG .STK-MED ONE 07/30 1652 DC IV 07/30 1653 Propofol 1,000 MG CONTINOUS INFUSION 07/30 0600 AC 07/31 N/A 1 UNIT IV 1205 Sevelamer Carbonate 2,400 MG WM 07/30 1000 AC PO Results Last 48 Hrs of Labs/Mics: Laboratory Tests 07/31/17 1240: Troponin I 1.85 *H 07/31/17 0530: Anion Gap 18 H, Estimated GFR 8 L, Glucose 87, Calcium 9.2, Phosphorus 4.5, Magnesium 2.0, Total Bilirubin 0.6, AST 41 H, ALT 24, Troponin I 1.80 *H, Albumin 3.7, APTT 72 H, CBC w Diff NO MAN DIFF REQ, RBC 3.14 L, MCV 96.4, MCH 32.1 H, MCHC 33.3, RDW 16.2 H, MPV 9.1, Gran % 82.9 H, Lymphocytes % 8.7 L, Monocytes % 7.3, Eosinophils % 0.9, Basophils % 0.2, Absolute Granulocytes 9.0 H, Absolute Lymphocytes 0.9 L, Absolute Monocytes 0.8 H, Absolute Eosinophils 0.1, Absolute Basophils 0 07/31/17 0125: pH 7.47 H, pCO2 31 L, pO2 111 H, HCO3 22, ABG O2 Sat (Measured) 97.0, P-50 ( Temp Corrected) Y, Carboxyhemoglobin 0.1 L, O2 Concentration % 30%, Temperature 100.9 H, Respiration Rate 14, O2 Delivery Method ESPRIT, Vent Mode AC, Expiratory Pressure 5, Tidal Volume 420, Phlebotomy Draw Site RIGHT BRACHIAL 07/30/17 2200: Troponin I 1.33 *H 07/30/17 1715: pH 7.54 H, pCO2 26 L, pO2 112 H, HCO3 22, ABG O2 Sat (Measured) 98.0, P-50 ( Temp Corrected) N, Carboxyhemoglobin 0.3 L, O2 Concentration % 35%, Temperature 97.5, Respiration Rate 16, O2 Delivery Method ESPRIT VENT, Vent Mode AC, Expiratory Pressure 5, Tidal Volume 450, Phlebotomy Draw Site RIGHT BRACHIAL 07/30/17 1554: Troponin I 0.91 *H 07/30/17 1036: Lactic Acid 1.3 07/30/17 1020: Urine Opiates Screen < 100.00, Methadone Screen < 40, Barbiturate Screen < 60, Ur Phencyclidine Scrn < 6.00, Amphetamines Screen < 100, U Benzodiazepines Scrn 555 H, Urine Cocaine Screen < 50, Urine Cannabis Screen < 5.00 07/30/17 1015: Troponin I 0.12 *H 07/30/17 0945: Methadone Screen Cancelled, Barbiturate Screen Cancelled, Ur Phencyclidine Scrn Cancelled, Amphetamines Screen Cancelled, U Benzodiazepines Scrn Cancelled, Urine Cocaine Screen Cancelled, Urine Cannabis Screen Cancelled 07/30/17 0750: pH 7.51 H, pCO2 21 L, pO2 89, HCO3 16 L, ABG O2 Sat (Measured) 97.0, Carboxyhemoglobin 0.4 L, O2 Concentration % 40%, Respiration Rate 20, O2 Delivery Method VENT, Vent Mode AC, Expiratory Pressure 5, Tidal Volume 500, Phlebotomy Draw Site RIGHT BRACHIAL 07/30/17 0743: Lactic Acid 2.6 H 07/30/17 0457: Anion Gap 23 H, Estimated GFR 5 L, BUN/Creatinine Ratio 3.6 L, Glucose 230 H , Lactic Acid 7.1 H, Calcium 9.0, Phosphorus 7.6 H, Magnesium 2.2, Total Bilirubin 0.6, Direct Bilirubin 0.6 H, AST 30, ALT 20, Alkaline Phosphatase 127 H, Ammonia < 9 L, Troponin I 0.04, Gvg-K-Cdfsmtlvsya Pept 04854 H, Total Protein 6.1 L, Albumin 3.8, Amylase 235 H, Lipase 413 H, PT 10.6, INR 1.01, APTT 32, CBC w Diff MAN DIFF ORDERED, RBC 3.39 L, MCV 98.4, MCH 32.1 H, MCHC 32.6 L, RDW 16.5 H, MPV 8.3, Gran % 81.4 H, Lymphocytes % 11.8 L, Monocytes % 3.6, Eosinophils % 2.7, Basophils % 0.5, Absolute Granulocytes 14.2 H, Absolute Lymphocytes 2.1, Absolute Monocytes 0.6, Absolute Eosinophils 0.5, Absolute Basophils 0.1, Platelet Estimate ADEQUATE, Poikilocytosis 1+, Ovalocytes 1+, Serum Alcohol < 10.0, Acetone Level NEGATIVE 07/30/17 0450: pH 7.28 *L, pCO2 30 L, pO2 81, HCO3 14 L, ABG O2 Sat (Measured) 94.0 L, P-50 (Temp Corrected) N, Carboxyhemoglobin 0.8 L, O2 Concentration % .40, Respiration Rate 20, O2 Delivery Method VENT, Vent Mode A/C, Expiratory Pressure 5, Tidal Volume 500, Phlebotomy Draw Site RIGHT RADIAL 07/30/17 0448: Urine Color Cancelled, Urine Clarity Cancelled, Urine pH Cancelled, Ur Specific [place] Cancelled, Urine Protein Cancelled, Urine Ketones Cancelled, Urine Nitrite Cancelled, Urine Bilirubin Cancelled, Urine Urobilinogen Cancelled, Ur Leukocyte Esterase Cancelled, Ur Microscopic Cancelled, Urine Hemoglobin Cancelled, Urine Glucose Cancelled Microbiology 07/30 814 UPPER RESP: Surveillance Culture - COMP METH RESIST STAPH AUREUS 07/30 814 GI: Surveillance Culture - COMP Recent Imaging Studies: Telemetry tracings were personally reviewed; shows SR/ST with frequent APCs/SVT runs CXR: Endotracheal tube terminating 4 cm above the zoe. Improvement of prior edema. Small left pleural effusion is increased from prior with increasing retrocardiac opacity. Echo: Technically difficult study. Left ventricular cavity size normal. Left ventricular wall thickness mildly increased. Mild to moderate anteroseptal hypokinesis. Left ventricular ejection fraction is estimated at 50 %. Right ventricle not well visualized, grossly normal. Mild left atrial dilatation. Mild mitral stenosis. Zxby-up-zebgzcje tricuspid regurgitation. Unable to estimate the right ventricular systolic pressure. No pericardial effusion. Ander Watts M.D. (Electronically Signed) Final Date: 30 July 2017 22:02 Assessment/Plan Assessment/Plan 1. Cardiopulmonary arrest with acute hypoxemic respiratory failure of unclear etiology 2. Chronic left bundle branch block 3. History of ischemic cardiomyopathy, EF now 50 % 4. End-stage renal disease on hemodialysis 5. Coronary artery disease by history status post stent approximately 3 years ago 6. Hypertension by history 7. Aspiration PNA 8. Elevated troponin of unclear etiology s/p CPR Patient remains intubated and slightly hypertensive. I had instructed the housestaff to start the patient on Heparin gtt last night based on the above Echo result. I had an extensive discussion with the patient's family today. The elevated troponin could be due to CPR but TN is possible. Non-specifc ECG changes noted with known IVCD. Unclear if the septal abnormality might be due to IVCD. Continue ASA/statin/Heparin gtt. Would give Plavix 300 mg x 1 followed by 75 mg daily. Would increase B-eugenio to 12.5 mg PO BID. PE needs to be excluded and I recommend CT angiogram. Dialysis schedule per Renal. Abx per ICU team (low grade fever noted). Continue to follow serial tropponin levels. Depending on clinical course and Neurologic function patient may be a candidate for cardiac catheterization. Condition remains gaurded. Ventilator weaning per ICU team Time spent in CCT was approximately 35 minutes. Continue to discuss goals of care given age with multiple medical comorbidities including ESRD dialysis dependent. Adrian Watts MD [facility] Continue telemetry? Yes
[2017-07-31 16:00] VITALS: BP 140/64
[2017-07-31 19:49] LABS: PTT 40 SEC (25-37)
[2017-08-01] VITALS: BP 130/70
[2017-08-01 02:39] LABS: ABSOLUTE BASOPHIL COUNT 0.1 /CUMM (0.0-0.2); ABSOLUTE EOSINOPHIL COUNT 0.5 /CUMM (0.0-0.7); ABSOLUTE GRANULOCYTE CT 9.2 /CUMM (1.4-6.5); ABSOLUTE LYMPH COUNT 1.4 /CUMM (1.2-3.4); ABSOLUTE MONOCYTE COUNT 1.1 /CUMM (0.10-0.60); BASOPHIL % 0.4 % (0.0-2.0); EOSINOPHIL % 3.7 % (0-5); GRANULOCYTE % 75.2 % (42.2-75.2); HEMATOCRIT 29.9 % (37-47); MEAN CORPUSCULAR HGB 31.1 PG (27.0-31.0); MEAN CORPUSCULAR VOLUME 97.3 FL (81.0-99.0); MEAN PLATELET VOLUME 8.6 FL (7.4-10.4); PLATELET COUNT 248 /CUMM (130-400); RBC DISTRIBUTION WIDTH 16.1 % (11.5-14.5); RED BLOOD CELL CT 3.07 /CUMM (4.20-5.40); WHITE BLOOD CELL COUNT 12.2 /CUMM (4.8-10.8)
[2017-08-01 02:47] LABS: PTT 90 SEC (25-37)
--- NOTE | 2017-08-01 07:19 | PN- Resident CRCU ---
Oswaldo PARKINSON,Jesus Alberto 08/01/17 0719: Subjective HPI/CRCU Issues: S/P PEA AND CPR HTN 24 Hour Events: Vitals: Temperature between 100.8 and 97.9, heart rate between 71 and 102 IN normal sinus rhythm, RR between 14 and 20. In: 1637; out: 2121. Note patient is ESRD on dialysis. Last dialysis session this AM. Mechanical ventilation: Volume control Tidal volume 420, respiratory rate 14, FiO2 30%, PEEP of 5 Objective Vital Signs & I&O Last 8 Hrs of Vitals and I&O: Intake & Output 08/01 1600 Intake Total 399 Output Total 1200 Balance -801 Intake, IV 259 Intake, Tube 140 Irrigant Number 2 Bowel Movements Output, 1000 Dialysate Output, 200 Gastric Drainage Output, Urine 0 Patient 45.501 kg Weight Weight Bed scale Measurement Method Exam General Appearance: INTUBATED, ONLY RESPONSIVE TO PAINFUL STIMULI Head: BRUISE TO LEFT SIDE OF FOREHEAD Ears, Nose, Throat: INTUBATED Neck: normal inspection Respiratory: normal breath sounds, no respiratory distress Cardiovascular: regular rate/rhythm, edema Current Medications: Current Medications Sig/King Start time Last Medication Dose Route Stop Time Status Admin Acetaminophen 1,000 MG ONCE ONE 07/31 2014 DC 07/31 N/A 1 UNIT IV 07/31 Amlodipine Besylate 10 MG DAILY 07/30 1000 AC 08/01 PO 1401 Ampicillin Sodium/ 3,000 MG DAILY 07/30 1000 DC 07/31 Sulbactam Sodium IV 0952 Sodium Chloride 100 ML Aspirin 81 MG DAILY 07/30 1049 AC 08/01 PO 1401 Atorvastatin Calcium 80 MG 1700 07/30 1700 AC 08/01 PO 1547 Clopidogrel Bisulfate 75 MG DAILY 08/01 1000 AC 08/01 PO 1401 Dextrose 25 GM .STK-MED ONE 08/01 1259 DC IV 08/01 1300 Dextrose 12.5 GM ONCE ONE 08/01 0045 DC 08/01 IV 08/01 0046 0049 Dextrose 12.5 GM ONCE ONE 07/31 194 DC 07/31 IV 07/31 Epoetin Vamshi 2,000 UNIT TuThSa 07/30 1324 AC 08/01 IV 1402 Heparin Sodium 5,000 UNIT .STK-MED ONE 07/31 2038 DC (Porcine) IV 07/31 2039 Heparin Sodium 3,750 UNIT ONCE ONE 07/31 2029 DC 07/31 (Porcine) IV 07/31 Heparin Sodium 25,000 UNIT Q24H 07/31 0030 AC 08/01 (Porcine) IV 1238 Sodium Chloride 500 ML Lorazepam 1 MG Q4P PRN 07/30 0700 AC 07/30 IV 1527 Metoprolol Tartrate 12.5 MG BID 07/31 2200 AC 08/01 PO 1402 Pantoprazole Sodium 40 MG DAILY 07/30 1000 AC 08/01 IV 1402 Potassium Chloride 20 MEQ ONCE ONE 08/01 0445 DC 08/01 IV 08/01 0446 0519 Propofol 1,000 MG Q8H 07/31 2000 AC 08/01 N/A 1 UNIT IV 1237 Propofol 1,000 MG CONTINOUS INFUSION 07/30 0600 DC 07/31 N/A 1 UNIT IV 07/31 1999 120 Sevelamer Carbonate 2,400 MG WM 07/30 1000 AC 07/31 PO 1705 Vancomycin HCl 1,000 MG ONCE ONE 08/01 1400 DC 08/01 Dextrose/Water 250 ML IV 08/01 1459 1644 Impression/Plan Impression/Problem List Impression: This is a 86 yo woman with PMH significant for ESRD on HD Sat//Sat, CAD s/p stent placement 3 years ago, HFpEF, HTN, HLD, NSTEMI, LBBB, and secondary hyperparathyroidism BIBA PEA s/p intubation, CPR and epi x1 with successful ROSC. ----- PLAN: 1. Acute hypoxemic respiratory failure: DDX: PE, CA, Flash pulm edema, PNA. Her CAT scan does show bilateral pleural effusions. Sputum cx came back positive for MRSA, her nares swab was positive for MRSA. Blood cultures 2 are now GPC's. Initially was concern for aspiration pneumonia in this patient. Given evidence of blood cultures and sputum cultures positive for staph will switch to vancomycin and treat for pneumonia * DC Unasyn 3000 mg daily * Repeat blood cultures were drawn last night when she had MAXIMUM TEMPERATURE 100.8 BC 2. These are currently negative. We'll continue to follow. * Con't propofol for sedation. We will switch to fentanyl in a.m. * Con't vent on current settings * ABG in AM * Negative lower extremity Doppler to rule out DVT 2. Leukocytosis: WBC 10.9 today. Unsure of source; DDX reactive vs PNA. * On Unasyn for concern of aspiration * Blood cultures 2, urine culture if any and LRC * Con't monitor 3. Hx CAD and Pulseless arrest found in field: coronary artery disease status post NSTEMI and 4 stents (2015 - 2 stents, 2016- 2 stents) currently on aspirin and plavix, symptomatic bradycardia s/p pacemaker placement, HTN, ECHO in 2016 showing stage 1 diastolic dysfunction, dyslipidemia, hypothyroidism presenting this admission with left arm pain She has hx of stenting done in [place] around 2014. She sees Dr. Boyer. This time apparently patient was pulseless in the field. Currently intubated and sedated on ventilator. Currently evaluating for cause of CP arrest. * She was having elevated troponin and new EKG changes in context of old LBBB. Trops peaked at 1.85 and subsequently trended down. Multiple PACs present in EKG. * Appreciate cardio consult * Started in IV heparin 07/31/2016 * ASA * Metoprolol 12.5mg bid * Started on Plavix with 300mg load now on 75 * F/U EKG and trops * Continue on aspirin * switched to atorvastatin 80 mg daily * ECHO shows EF 50 but some septal hypokinesis * CTA tody for eval of PE 4. Hypertension * Con't Amlodipine * Con't Metoprolol 5. Anion gap acidosis: Initially thought to be secondary to lactic acidosis in the setting of decreased perfusion as well as underlying renal insufficiency. Now likely due to renal failure as lactate has normalized. * Con't monitor 6. End stage renal today disease on hemodialysis: Saturday and Saturday * Appreciate nephro consult * HD done today. 7. Alimentary * Maintain on Protonix * Started TF today * Q6 finger stick DVT prophylaxis: heparin drip CODE STATUS Full code Problem List: 1. ESRD (end stage renal disease) Pain Ratin Tomorrow's Labs & Rationales: cbc icu Plan DVT/Prophylaxis: mechanical, pharmacological Kirill Schaefer MD 08/01/17 0936: Attending MD Review Statement Attending Sign Off Attending Cosign Statement: I have: examined this patient, reviewed avalbl EMR data, personally reviewd images, discussd w/resident/PA/PROGRAMMER DEVELOPER, discussed mgmt plan w/jessica, discussed mgmt plan w/CM, discussed mgmt plan w/pt, agreed w/resident/PA/PROGRAMMER DEVELOPER, amended to note. Other Findings: IKirill M.D. have examined this patient, reviewed available EMR data, personally reviewed images, discussed with resident/PA/PROGRAMMER DEVELOPER, discussed management plan with housestaff and nursing staff, discussed managment plan all of healthcare providers, discussed management plan with patient and/or family, agreed with resident/PA/PROGRAMMER DEVELOPER. The past history and parts of the chart have been autopopulated. Impression 86 year old woman * cardiac arrest - unclear rhythm/timing - although brief, etiology is unclear flash pulmonary edema is possible vs opiate/pain medications causing respiratory depression - per family pt takes tramadol and meds from neighbor intermittently, aspiration pneumonia is likely and will be treated as such * ESRD on HD Plan -check abg -nephrology, cardiology appreciated, ?cardiac cath -gpcs in clusters reported, surveillance with mrsa, will cont unasyn for now, doubt mrsa pna, on 30% fio2 -since okay with renal and rec by cardiology cta can be pursued -HD per renal -cont current vent settings -f/u cardiology plan, on heparin gtt -begin tube feeds DVT prophylaxis at all times TTS 35 min
[2017-08-01 08:00] VITALS: BP 150/78
--- NOTE | 2017-08-01 08:44 | PN- Nephrology ---
Assessment/Plan Nephrology Assessment: Hemodynamically stable but still sedated so don't know if there was any neurolgic damage from arrest. Suggestion: Change dialysis potassiumto 3 k, UF 1 liter today. Subjective Subjective: Patient still intubated, sedated. Objective Vital Signs and I&Os Vital Signs Date Time Temp Pulse Resp B/P B/P Pulse O2 O2 Flow FiO2 Mean Ox Delivery Rate 08/01 0813 30 08/01 0546 30 08/01 0400 99 Ventilator 30% 08/01 0345 30 08/01 0128 30 08/01 0000 99 Ventilator 30% 08/01 0000 97.9 105 20 130/70 99 Ventilator 30% 07/31 2224 30 07/31 2214 98.8 07/31 2121 84 14 119/61 07/31 2120 100.8 07/31 2000 96 Ventilator 30% 07/31 1915 30 07/31 1615 30 07/31 1600 99.4 95 17 140/64 98 Ventilator 30% 07/31 1600 98 Ventilator 30% 07/31 1406 30 07/31 1200 97 Ventilator 30% 07/31 1125 30 07/31 1031 101 153/64 07/31 1030 101 153/64 Intake & Output 08/01 1600 08/01 0400 07/31 1600 07/31 0400 07/30 1600 07/30 0400 Intake Total 298 372 411 241 315 Output Total 0 103 2001 Balance 298 372 308 -1761 295 Intake, IV 198 192 351 61 185 Intake, Oral 100 Intake, Other 180 180 Intake, Tube 60 130 Irrigant Number 0 Bowel Movements Output, 2000 Dialysate Output, 0 100 0 Gastric Drainage Output, Urine 0 3 2 20 Patient 104 lb 114 lb 114 lb Weight Weight Bed scale Bed scale Measurement Method Physical Exam: NAD VS as above Lungs: clear CV: no rub Abd: nontender Exts: no edema Neuro: sedated. Current Medications: Current Medications Sig/King Start time Last Medication Dose Route Stop Time Status Admin Acetaminophen 1,000 MG ONCE ONE 07/31 2014 DC 07/31 N/A 1 UNIT IV 07/31 Amlodipine Besylate 10 MG DAILY 07/30 1000 AC 07/31 PO 1031 Ampicillin Sodium/ 3,000 MG DAILY 07/30 1000 AC 07/31 Sulbactam Sodium IV 0952 Sodium Chloride 100 ML Aspirin 81 MG DAILY 07/31 1000 DC PO Aspirin 81 MG DAILY 07/30 1049 AC 07/31 PO 1030 Atorvastatin Calcium 80 MG 1700 07/30 1700 AC 07/31 PO 1705 Clopidogrel Bisulfate 75 MG DAILY 08/01 1000 AC PO Clopidogrel Bisulfate 300 MG ONCE ONE 07/31 1900 DC 07/31 PO 07/31 190 2048 Dextrose 12.5 GM ONCE ONE 08/01 0045 DC 08/01 IV 08/01 0046 0049 Dextrose 12.5 GM ONCE ONE 07/31 194 DC 07/31 IV 07/31 1945 2016 Epoetin Vamshi 2,000 UNIT TuThSa 07/30 1324 AC IV Heparin Sodium 5,000 UNIT .STK-MED ONE 07/31 2038 DC (Porcine) IV 07/31 2039 Heparin Sodium 3,750 UNIT ONCE ONE 07/31 2030 DC 07/31 (Porcine) IV 07/31 Heparin Sodium 25,000 UNIT Q24H 07/31 0030 AC 08/01 (Porcine) IV 0049 Sodium Chloride 500 ML Lorazepam 1 MG Q4P PRN 07/30 0700 AC 07/30 IV 1527 Metoprolol Tartrate 12.5 MG BID 07/31 2200 AC 07/31 PO 2121 Metoprolol Tartrate 6.25 MG BID 07/30 1000 DC 07/31 PO 1030 Pantoprazole Sodium 40 MG DAILY 07/30 1000 AC 07/31 IV 0952 Potassium Chloride 20 MEQ ONCE ONE 08/01 0445 DC 08/01 IV 08/01 0446 0519 Propofol 1,000 MG Q8H 07/31 2000 AC 08/01 N/A 1 UNIT IV 0430 Propofol 1,000 MG .STK-MED ONE 07/31 1926 DC IV 07/31 1927 Propofol 1,000 MG .STK-MED ONE 07/31 1155 DC IV 07/31 1156 Propofol 1,000 MG CONTINOUS INFUSION 07/30 0600 DC 07/31 N/A 1 UNIT IV 07/31 2000 1205 Sevelamer Carbonate 2,400 MG WM 07/30 1000 AC 07/31 PO 1705 Results Pertinent Lab Results: Laboratory Tests 08/01 07/31 07/31 0200 1830 1240 Chemistry Sodium (137 - 145 mmol/L) 140 Potassium (3.5 - 5.1 mmol/L) 3.5 Chloride (98 - 107 mmol/L) 97 L Carbon Dioxide (22 - 30 mmol/L) 22 Anion Gap (5 - 16) 20 H BUN (7 - 17 mg/dL) 27 H Creatinine (0.5 - 1.0 mg/dL) 6.9 *H Estimated GFR (>60 ml/min) 6 L Glucose (65 - 99 mg/dL) 104 H Calcium (8.4 - 10.2 mg/dL) 9.2 Phosphorus (2.5 - 4.5 mg/dL) 5.9 H Magnesium (1.6 - 2.3 mg/dL) 2.1 Total Bilirubin (0.2 - 1.3 mg/dL) 0.7 AST (14 - 36 U/L) 31 ALT (9 - 52 U/L) 30 Troponin I (< 0.11 ng/ml) 1.80 *H 1.85 *H Albumin (3.5 - 5.0 g/dL) 3.3 L Coagulation APTT (25 - 37 SEC) 90 H 40 H Hematology CBC w Diff NO MAN DIFF REQ WBC (4.8 - 10.8 /CUMM) 12.2 H RBC (4.20 - 5.40 /CUMM) 3.07 L Hgb (12.0 - 16.0 G/DL) 9.6 L Hct (37 - 47 %) 29.9 L MCV (81.0 - 99.0 FL) 97.3 MCH (27.0 - 31.0 PG) 31.1 H MCHC (33.0 - 37.0 G/DL) 32.0 L RDW (11.5 - 14.5 %) 16.1 H Plt Count (130 - 400 /CUMM) 248 MPV (7.4 - 10.4 FL) 8.6 Gran % (42.2 - 75.2 %) 75.2 Lymphocytes % (20.5 - 51.1 %) 11.3 L Monocytes % (1.7 - 9.3 %) 9.4 H Eosinophils % (0 - 5 %) 3.7 Basophils % (0.0 - 2.0 %) 0.4 Absolute Granulocytes (1.4 - 6.5 /CUMM) 9.2 H Absolute Lymphocytes (1.2 - 3.4 /CUMM) 1.4 Absolute Monocytes (0.10 - 0.60 /CUMM) 1.1 H Absolute Eosinophils (0.0 - 0.7 /CUMM) 0.5 Absolute Basophils (0.0 - 0.2 /CUMM) 0.1 07/31 07/31 0530 0125 Blood Gas pH (7.35 - 7.45 PH) 7.47 H pCO2 (35 - 45 TORR) 31 L pO2 (80 - 100 TORR) 111 H HCO3 (21 - 28 MEQ/L) 22 ABG O2 Sat (Measured) (>96.0 %) 97.0 P-50 (Temp Corrected) Y Carboxyhemoglobin (1.5 - 5.0 %) 0.1 L O2 Concentration % 30% Temperature (97.0 - 100.0 FARH) 100.9 H Respiration Rate (BPM) 14 O2 Delivery Method ESPRIT Vent Mode AC Expiratory Pressure (CMH2O/P) 5 Tidal Volume (CC) 420 Chemistry Sodium (137 - 145 mmol/L) 142 Potassium (3.5 - 5.1 mmol/L) 3.8 Chloride (98 - 107 mmol/L) 100 Carbon Dioxide (22 - 30 mmol/L) 23 Anion Gap (5 - 16) 18 H BUN (7 - 17 mg/dL) 17 Creatinine (0.5 - 1.0 mg/dL) 5.0 H Estimated GFR (>60 ml/min) 8 L Glucose (65 - 99 mg/dL) 87 Calcium (8.4 - 10.2 mg/dL) 9.2 Phosphorus (2.5 - 4.5 mg/dL) 4.5 Magnesium (1.6 - 2.3 mg/dL) 2.0 Total Bilirubin (0.2 - 1.3 mg/dL) 0.6 AST (14 - 36 U/L) 41 H ALT (9 - 52 U/L) 24 Troponin I (< 0.11 ng/ml) 1.80 *H Albumin (3.5 - 5.0 g/dL) 3.7 Coagulation APTT (25 - 37 SEC) 72 H Hematology CBC w Diff NO MAN DIFF REQ WBC (4.8 - 10.8 /CUMM) 10.9 H RBC (4.20 - 5.40 /CUMM) 3.14 L Hgb (12.0 - 16.0 G/DL) 10.1 L Hct (37 - 47 %) 30.3 L MCV (81.0 - 99.0 FL) 96.4 MCH (27.0 - 31.0 PG) 32.1 H MCHC (33.0 - 37.0 G/DL) 33.3 RDW (11.5 - 14.5 %) 16.2 H Plt Count (130 - 400 /CUMM) 223 MPV (7.4 - 10.4 FL) 9.1 Gran % (42.2 - 75.2 %) 82.9 H Lymphocytes % (20.5 - 51.1 %) 8.7 L Monocytes % (1.7 - 9.3 %) 7.3 Eosinophils % (0 - 5 %) 0.9 Basophils % (0.0 - 2.0 %) 0.2 Absolute Granulocytes (1.4 - 6.5 /CUMM) 9.0 H Absolute Lymphocytes (1.2 - 3.4 /CUMM) 0.9 L Absolute Monocytes (0.10 - 0.60 /CUMM) 0.8 H Absolute Eosinophils (0.0 - 0.7 /CUMM) 0.1 Absolute Basophils (0.0 - 0.2 /CUMM) 0 Miscellaneous Phlebotomy Draw Site RIGHT BRACHIAL 07/30 07/30 07/30 07/30 2200 1715 1554 1036 Blood Gas pH (7.35 - 7.45 PH) 7.54 H pCO2 (35 - 45 TORR) 26 L pO2 (80 - 100 TORR) 112 H HCO3 (21 - 28 MEQ/L) 22 ABG O2 Sat (Measured) (>96.0 %) 98.0 P-50 (Temp Corrected) N Carboxyhemoglobin (1.5 - 5.0 %) 0.3 L O2 Concentration % 35% Temperature (97.0 - 100.0 FARH) 97.5 Respiration Rate (BPM) 16 O2 Delivery Method ESPRIT VENT Vent Mode AC Expiratory Pressure (CMH2O/P) 5 Tidal Volume (CC) 450 Chemistry Lactic Acid (0.7 - 2.1 mmol/L) 1.3 Troponin I (< 0.11 ng/ml) 1.33 *H 0.91 *H Miscellaneous Phlebotomy Draw Site RIGHT BRACHIAL 07/30 07/30 07/30 1020 1015 0945 Chemistry Troponin I (< 0.11 ng/ml) 0.12 *H Toxicology Urine Opiates Screen (>2000 NG/ML) < 100.00 Methadone Screen (>300 NG/ML) < 40 Cancelled Barbiturate Screen (>200 NG/ML) < 60 Cancelled Ur Phencyclidine Scrn (>25 NG/ML) < 6.00 Cancelled Amphetamines Screen (>1000 NG/ML) < 100 Cancelled U Benzodiazepines Scrn (>200 NG/ML) 555 H Cancelled Urine Cocaine Screen (>300 NG/ML) < 50 Cancelled Urine Cannabis Screen (>50 NG/ML) < 5.00 Cancelled 07/30 07/30 0750 0743 Blood Gas pH (7.35 - 7.45 PH) 7.51 H pCO2 (35 - 45 TORR) 21 L pO2 (80 - 100 TORR) 89 HCO3 (21 - 28 MEQ/L) 16 L ABG O2 Sat (Measured) (>96.0 %) 97.0 Carboxyhemoglobin (1.5 - 5.0 %) 0.4 L O2 Concentration % 40% Respiration Rate (BPM) 20 O2 Delivery Method VENT Vent Mode AC Expiratory Pressure (CMH2O/P) 5 Tidal Volume (CC) 500 Chemistry Lactic Acid (0.7 - 2.1 mmol/L) 2.6 H Miscellaneous Phlebotomy Draw Site RIGHT BRACHIAL 07/30 07/30 0458 0450 Blood Gas pH (7.35 - 7.45 PH) 7.28 *L pCO2 (35 - 45 TORR) 30 L pO2 (80 - 100 TORR) 81 HCO3 (21 - 28 MEQ/L) 14 L ABG O2 Sat (Measured) (>96.0 %) 94.0 L P-50 (Temp Corrected) N Carboxyhemoglobin (1.5 - 5.0 %) 0.8 L O2 Concentration % .40 Respiration Rate (BPM) 20 O2 Delivery Method VENT Vent Mode A/C Expiratory Pressure (CMH2O/P) 5 Tidal Volume (CC) 500 Chemistry Sodium (137 - 145 mmol/L) 142 Potassium (3.5 - 5.1 mmol/L) 4.9 Chloride (98 - 107 mmol/L) 100 Carbon Dioxide (22 - 30 mmol/L) 19 L Anion Gap (5 - 16) 23 H BUN (7 - 17 mg/dL) 29 H Creatinine (0.5 - 1.0 mg/dL) 8.1 *H Estimated GFR (>60 ml/min) 5 L BUN/Creatinine Ratio (7 - 25 %) 3.6 L Glucose (65 - 99 mg/dL) 230 H Lactic Acid (0.7 - 2.1 mmol/L) 7.1 H Calcium (8.4 - 10.2 mg/dL) 9.0 Phosphorus (2.5 - 4.5 mg/dL) 7.6 H Magnesium (1.6 - 2.3 mg/dL) 2.2 Total Bilirubin (0.2 - 1.3 mg/dL) 0.6 Direct Bilirubin (< 0.4 mg/dL) 0.6 H AST (14 - 36 U/L) 30 ALT (9 - 52 U/L) 20 Alkaline Phosphatase (<127 U/L) 127 H Ammonia (9 - 30 umol/L) < 9 L Troponin I (< 0.11 ng/ml) 0.04 [id number] Pept (<125 pg/mL) 83405 H Total Protein (6.3 - 8.2 g/dL) 6.1 L Albumin (3.5 - 5.0 g/dL) 3.8 Amylase (30 - 110 U/L) 235 H Lipase (23 - 300 U/L) 413 H Coagulation PT (9.4 - 12.5 SEC) 10.6 INR (0.90 - 1.19) 1.01 APTT (25 - 37 SEC) 32 Hematology CBC w Diff MAN DIFF ORDERED WBC (4.8 - 10.8 /CUMM) 17.4 H RBC (4.20 - 5.40 /CUMM) 3.39 L Hgb (12.0 - 16.0 G/DL) 10.9 L Hct (37 - 47 %) 33.4 L MCV (81.0 - 99.0 FL) 98.4 MCH (27.0 - 31.0 PG) 32.1 H MCHC (33.0 - 37.0 G/DL) 32.6 L RDW (11.5 - 14.5 %) 16.5 H Plt Count (130 - 400 /CUMM) 308 MPV (7.4 - 10.4 FL) 8.3 Gran % (42.2 - 75.2 %) 81.4 H Lymphocytes % (20.5 - 51.1 %) 11.8 L Monocytes % (1.7 - 9.3 %) 3.6 Eosinophils % (0 - 5 %) 2.7 Basophils % (0.0 - 2.0 %) 0.5 Absolute Granulocytes (1.4 - 6.5 /CUMM) 14.2 H Absolute Lymphocytes (1.2 - 3.4 /CUMM) 2.1 Absolute Monocytes (0.10 - 0.60 /CUMM) 0.6 Absolute Eosinophils (0.0 - 0.7 /CUMM) 0.5 Absolute Basophils (0.0 - 0.2 /CUMM) 0.1 Platelet Estimate (ADEQUATE) ADEQUATE Poikilocytosis 1+ Ovalocytes 1+ Miscellaneous Phlebotomy Draw Site RIGHT RADIAL Toxicology Serum Alcohol (<10 MG/DL) < 10.0 Acetone Level (NEGATIVE) NEGATIVE 07/30 0996 Urines Urine Color Cancelled Urine Clarity Cancelled Urine pH Cancelled Ur Specific [place] Cancelled Urine Protein Cancelled Urine Ketones Cancelled Urine Nitrite Cancelled Urine Bilirubin Cancelled Urine Urobilinogen Cancelled Ur Leukocyte Esterase Cancelled Ur Microscopic Cancelled Urine Hemoglobin Cancelled Urine Glucose Cancelled
--- NOTE | 2017-08-01 13:20 | PN- Cardiology ---
Subjective Subjective: Remains intubated. Opens eyes to voice. Objective Vital Signs and I&Os Vital Signs Date Time Temp Pulse Resp B/P B/P Pulse O2 O2 Flow FiO2 Mean Ox Delivery Rate 08/01 1114 30 08/01 0813 30 08/01 0800 100 Ventilator 30% 08/01 0800 98.7 74 14 150/78 100 Ventilator 30% 08/01 0546 30 08/01 0400 99 Ventilator 30% 08/01 0345 30 08/01 0128 30 08/01 0000 99 Ventilator 30% 08/01 0000 97.9 105 20 130/70 99 Ventilator 30% 07/31 2224 30 07/31 2214 98.8 07/31 2121 84 14 119/61 07/31 2120 100.8 07/31 2000 96 Ventilator 30% 07/31 1915 30 07/31 1615 30 07/31 1600 99.4 95 17 140/64 98 Ventilator 30% 07/31 1600 98 Ventilator 30% 07/31 1406 30 Intake & Output 08/01 1600 08/01 0800 08/01 0000 07/31 1600 07/31 0800 07/31 0000 Intake Total 298 372 260 151 241 Output Total 0 103 2001 Balance 298 372 260 48 -1761 Intake, IV 198 192 200 151 61 Intake, Oral 100 Intake, Other 180 180 Intake, Tube 60 Irrigant Output, 2000 Dialysate Output, 0 100 Gastric Drainage Output, Urine 0 3 2 Patient 100 lb 100 lb 114 lb Weight Weight Bed scale Measurement Method Physical Exam: General: intubated Eyes: No obvious scleral icterus. HEENT: No jugular venous distention or abnormal jugular venous pulsations. Cardiovascular: Normal intensity S1/S2. Regular with early beats Respiratory: Mildly decreased air entry Abdomen: Soft, nontender with no guarding or rebound tenderness. Musculoskeletal: No clubbing or cyanosis noted Skin: Warm, ecchymoses noted Neurologic: sedated Current Medications: Current Medications Sig/King Start time Last Medication Dose Route Stop Time Status Admin Acetaminophen 1,000 MG ONCE ONE 07/31 2014 DC 07/31 N/A 1 UNIT IV 07/31 Amlodipine Besylate 10 MG DAILY 07/30 1000 AC 07/31 PO 1031 Ampicillin Sodium/ 3,000 MG DAILY 07/30 1000 AC 07/31 Sulbactam Sodium IV 0952 Sodium Chloride 100 ML Aspirin 81 MG DAILY 07/30 1049 AC 07/31 PO 1030 Atorvastatin Calcium 80 MG 1700 07/30 1700 AC 07/31 PO 1705 Clopidogrel Bisulfate 75 MG DAILY 08/01 1000 AC PO Clopidogrel Bisulfate 300 MG ONCE ONE 07/31 1900 DC 07/31 PO 07/31 190 2048 Dextrose 25 GM .STK-MED ONE 08/01 1259 DC IV 08/01 1300 Dextrose 12.5 GM ONCE ONE 08/01 0045 DC 08/01 IV 08/01 0046 0049 Dextrose 12.5 GM ONCE ONE 07/31 194 DC 07/31 IV 07/31 1945 2016 Epoetin Vamshi 2,000 UNIT TuTa 07/30 1324 AC IV Heparin Sodium 5,000 UNIT .STK-MED ONE 07/31 2038 DC (Porcine) IV 07/31 2039 Heparin Sodium 3,750 UNIT ONCE ONE 07/31 2030 DC 07/31 (Porcine) IV 07/31 Heparin Sodium 25,000 UNIT Q24H 07/31 0030 AC 08/01 (Porcine) IV 1238 Sodium Chloride 500 ML Lorazepam 1 MG Q4P PRN 07/30 0700 AC 07/30 IV 1527 Metoprolol Tartrate 12.5 MG BID 07/31 2200 AC 07/31 PO 2121 Metoprolol Tartrate 6.25 MG BID 07/30 1000 DC 07/31 PO 1030 Pantoprazole Sodium 40 MG DAILY 07/30 1000 AC 07/31 IV 0952 Potassium Chloride 20 MEQ ONCE ONE 08/01 0445 DC 08/01 IV 08/01 0446 0519 Propofol 1,000 MG Q8H 07/31 2000 AC 08/01 N/A 1 UNIT IV 1237 Propofol 1,000 MG .STK-MED ONE 07/31 1926 DC IV 07/31 192 Propofol 1,000 MG CONTINOUS INFUSION 07/30 0600 DC 07/31 N/A 1 UNIT IV 07/31 2000 1205 Sevelamer Carbonate 2,400 MG WM 07/30 1000 AC 07/31 PO 1705 Results Last 48 Hrs of Labs/Mics: Laboratory Tests 08/01/17 0200: Anion Gap 20 H, Estimated GFR 6 L, Glucose 104 H, Calcium 9.2, Phosphorus 5.9 H, Magnesium 2.1, Total Bilirubin 0.7, AST 31, ALT 30, Albumin 3.3 L, APTT 90 H, CBC w Diff NO MAN DIFF REQ, RBC 3.07 L, MCV 97.3, MCH 31.1 H, MCHC 32.0 L, RDW 16.1 H, MPV 8.6, Gran % 75.2, Lymphocytes % 11.3 L, Monocytes % 9.4 H, Eosinophils % 3.7, Basophils % 0.4, Absolute Granulocytes 9.2 H, Absolute Lymphocytes 1.4, Absolute Monocytes 1.1 H, Absolute Eosinophils 0.5, Absolute Basophils 0.1 07/31/17 1830: Troponin I 1.80 *H, APTT 40 H 07/31/17 1240: Troponin I 1.85 *H 07/31/17 0530: Anion Gap 18 H, Estimated GFR 8 L, Glucose 87, Calcium 9.2, Phosphorus 4.5, Magnesium 2.0, Total Bilirubin 0.6, AST 41 H, ALT 24, Troponin I 1.80 *H, Albumin 3.7, APTT 72 H, CBC w Diff NO MAN DIFF REQ, RBC 3.14 L, MCV 96.4, MCH 32.1 H, MCHC 33.3, RDW 16.2 H, MPV 9.1, Gran % 82.9 H, Lymphocytes % 8.7 L, Monocytes % 7.3, Eosinophils % 0.9, Basophils % 0.2, Absolute Granulocytes 9.0 H, Absolute Lymphocytes 0.9 L, Absolute Monocytes 0.8 H, Absolute Eosinophils 0.1, Absolute Basophils 0 07/31/17 0125: pH 7.47 H, pCO2 31 L, pO2 111 H, HCO3 22, ABG O2 Sat (Measured) 97.0, P-50 ( Temp Corrected) Y, Carboxyhemoglobin 0.1 L, O2 Concentration % 30%, Temperature 100.9 H, Respiration Rate 14, O2 Delivery Method ESPRIT, Vent Mode AC, Expiratory Pressure 5, Tidal Volume 420, Phlebotomy Draw Site RIGHT BRACHIAL 07/30/17 2200: Troponin I 1.33 *H 07/30/17 1715: pH 7.54 H, pCO2 26 L, pO2 112 H, HCO3 22, ABG O2 Sat (Measured) 98.0, P-50 ( Temp Corrected) N, Carboxyhemoglobin 0.3 L, O2 Concentration % 35%, Temperature 97.5, Respiration Rate 16, O2 Delivery Method ESPRIT VENT, Vent Mode AC, Expiratory Pressure 5, Tidal Volume 450, Phlebotomy Draw Site RIGHT BRACHIAL 07/30/17 1554: Troponin I 0.91 *H Recent Imaging Studies: Telemetry tracings were personally reviewed and shows sinus rhythm with APCs; difficult to exclude some periods of atrial fibrillation? Without significant tachycardia CTA: 1. No filling defects are noted throughout the pulmonary arterial system to suggest presence of pulmonary embolus. 2. Nonspecific hypodense foci within the liver, not definitely hepatic cysts. Assessment/Plan Assessment/Plan 1. Cardiopulmonary arrest with acute hypoxemic respiratory failure of unclear etiology 2. Chronic left bundle branch block 3. History of ischemic cardiomyopathy, EF now 50 % with mild to moderate anteroseptal hypokinesis 4. End-stage renal disease on hemodialysis 5. Coronary artery disease by history status post stent approximately 3 years ago 6. Hypertension by history 7. Aspiration PNA 8. Elevated troponin of unclear etiology s/p CPR 9. Frequent APCs Remains intubated. CTA was negative for pulmonary embolism. Continue on heparin drip along with dual antiplatelet therapy and high-dose statin. Continue on the increased beta eugenio dose for now. Troponins are trending down. Depending on clinical course and Neurologic function patient may be a candidate for cardiac catheterization versus noninvasive ischemic testing in the future. Ventilator weaning per ICU team. Adrian Watts MD [facility] Continue telemetry? Yes
--- NOTE | 2017-08-01 14:19 | CT SCAN REPORT ---
EXAMINATION: CT ANGIOGRAM OF THE CHEST WITH AND WITHOUT CONTRAST (CT PULMONARY ANGIOGRAM FOR PE) CLINICAL INFORMATION: Reason for Study:
Presumptive Dx: RULE OUT PULMONARY EMBOLUS
Signs Symptoms: PEA S/P ROSC AFTER CPR. NOW INTUBATED
COMPARISON: CT scan of the chest abdomen and pelvis dated 07/30/2017. TECHNIQUE: Prior to contrast administration, noncontrast localization images were obtained. Subsequently, multidetector volumetric imaging was performed from the thoracic inlet to below the diaphragms following the administration of 80 mL Omnipaque 350 intravenous contrast. No contrast reaction reported. Sagittal, coronal, and MIP oblique sagittal reformatted images were obtained on the CT workstation, uploaded to PACS, and reviewed. Total exam dose-length product 211.6 mGy-cm. FINDINGS: An NG tube is present within the esophagus extending to the gastric region. An endotracheal tube is present, the tip is at the level of the zoe. QUALITY OF STUDY/CONTRAST BOLUS: Satisfactory PULMONARY ARTERIES: No central or segmental pulmonary emboli. THORACIC AORTA: No aneurysm or dissection. LUNG: Small amount of atelectasis adjacent to the margin of the bilateral pleural effusions. PLEURA: There are small posterior bilateral pleural effusions. MEDIASTINUM: Normal heart size. No pericardial effusion. No hilar or mediastinal lymphadenopathy. No evidence of septal bowing or right heart strain. CHEST WALL/AXILLA: No axillary or internal mammary lymphadenopathy. OSSEOUS STRUCTURES: No displaced fractures are identified. Extensive endplate changes and decreased bone mineral density are present in the visualized portions of the lumbar spine and lower thoracic spine.. UPPER ABDOMEN: 2 hypodense lesions are present, the largest in the left lobe of the liver the smaller in the superior aspect of the right lobe, measuring 3.0 and 0.8 cm respectively. These are not fluid density by Hounsfield units.. No reflux of contrast into the hepatic veins to suggest elevated right heart pressures. IMPRESSION: 1. No filling defects are noted throughout the pulmonary arterial system to suggest presence of pulmonary embolus. 2. Nonspecific hypodense foci within the liver, not definitely hepatic cysts. VTE: negative Low position of the endotracheal tube with the tip at the level of the zoe was discussed directly with the referring physician, Dr. Sweetie Chacon, at 2:09 pm on 08/01/2017.
[2017-08-01 15:42] LABS: PTT 59 SEC (25-37)
[2017-08-01 16:00] VITALS: BP 162/72
--- NOTE | 2017-08-01 17:40 | Cons- Infect Disease ---
General Information and HPI Consulting Request Date of Consult: 08/01/17 Requested By: Kirill Schaefer MD Reason for Consult: Positive blood cultures for gram-positive cocci in clusters Source of Information: family, old records Exam Limitations: unable to give history, clinical condition History of Present Illness: This is an 86-year-old woman with a history of coronary artery disease, status post stent placement 3 years prior to admission, hypertension, hyperlipidemia, HFpEF, secondary hyperparathyroidism and end-stage renal disease, maintained on hemodialysis Tuesdays, and Saturdays via a left upper extremity fistula, seen in the emergency room 6 days prior to admission after a fall, resulting in a laceration to the left side of her forehead and her left knee, with an x-ray of the knee negative for fracture or dislocation but positive for chondrocalcinosis and moderate degenerative changes, admitted on July 30 after she was brought to the emergency room following a cardiac arrest at home, requiring 5 minutes of CPR, after the acute onset of shortness of breath. On admission her temperature was 95 and her blood pressure was 178/84. Laboratory data revealed a white blood cell count of 17,000, BUN/creatinine 29 and 8.1, lactic acid 7.1, amylase/lipase 235 and 413, alkaline phosphatase 127, proBNP 54 ,900. Chest x-ray revealed a hazy left perihilar opacity. Dopplers of both lower extremities were negative. X-ray of the left foot revealed no acute process. CT of the head and cervical spine were negative for any acute process. CTA of the chest, abdomen and pelvis revealed moderate bilateral pleural effusions with ground glass opacities in the upper lobes, perihilar opacities and bibasilar subsegmental atelectasis. A right femoral triple lumen catheter was inserted. She was given a dose of Ceftriaxone in the emergency room, then begun on Unasyn. She was begun on Propofol and admitted to the ICU. Later in the evening her troponins increased and she was begun on IV Heparin. She also developed a low-grade fever to 100.9 and to 100.8 in the evening of May 30 but she has been afebrile since. This morning blood cultures 2 were reported positive for gram-positive cocci in clusters and her sputum culture is positive for Staph aureus. Her blood pressure and respiratory status have been stable ( on the ventilator). She has been sedated and is unable to provide any history at this time. Allergies/Medications Allergies: Coded Allergies: No Known Allergies (05/16/17) Home Med List: Amlodipine Besylate 10 MG TABLET 1 TAB PO DAILY HEART/BP (Reported) Aspirin (Ecotrin*) 81 MG TABLET.DR 1 TAB PO DAILY HEART/BLOOD (Reported) Folic Acid/Vit Bcomp,C (Radha-Cuong Tablet) (Unknown Strength) TABLET 1 TAB PO DAILY SUPPLEMENT (Reported) Hydralazine HCl 25 MG TABLET 2 TAB PO BID HTN (Reported) Metoprolol Tartrate 25 MG TABLET 6.25 MG PO BID htn (Reported) Rosuvastatin Calcium (Crestor) 10 MG TABLET 1 TAB PO DAILY CHOLESTEROL ( Reported) Sevelamer Carbonate (Renvela) 800 MG TABLET 3 TAB PO TID RENAL (Reported) Past History Travel History Traveled to [place] past 21 day No Medical History Neurological: TIA EENT: NONE Cardiovascular: CHF, hypertension, hyperlipidemia, NSTEMI, known left bundle branch block left atrial dilatation mild aortic regurg in the past PAROXYSMAL AFIB Respiratory: bronchitis, pneumonia Gastrointestinal: NONE Hepatic: NONE Renal: ESRD on HD Musculoskeletal: gout Psychiatric: NONE Endocrine: secondary hyperparathyroidism Blood Disorders: anemia Cancer(s): NONE NUMEROLOGIST/Reproductive: UTERINE FIBROIDS History of MRSA: Yes History of VRE: No History of CDIFF: No Isolation History: Contact Influenza Vaccine: 03/10/17 Surgical History Surgical History: hysterectomy, left upper arm Brescia Macho AVF Family History Relations & Conditions If Any: FATHER (myocardial infartion). , Age 69. MOTHER (diabetes). , Age 72. BROTHER (pancreatic cancer). , Age Unknown. SISTER (colon cancer). , Age 60+. BROTHER (brain aneurysm). , Age 50's. Psychosocial History Where Do You Live? Home Who Do You Live With? self Services at Home: None Primary Language: Kyrgyz Smoking Status: Former Smoker ETOH Use: occasional use Living Will? no Power of Nurse Specialist/HCP? no Functional Ability ADLs Independent: dressing, eating, toileting, bathing. Ambulation: independent IADLs Independent: shopping, housework, finances, food prep, telephone, transportation , medication admin. Review of Systems Comments Unobtainable Exam & Diagnostic Data Last 24 Hrs of Vital Signs/I&O Vital Signs Date Time Temp Pulse Resp B/P B/P Pulse O2 O2 Flow FiO2 Mean Ox Delivery Rate 08/01 1615 30 08/01 1413 30 08/01 1402 86 157/65 08/01 1401 86 157/65 08/01 1114 30 08/01 0813 30 08/01 0800 100 Ventilator 30% 08/01 0800 98.7 74 14 150/78 100 Ventilator 30% 08/01 0546 30 08/01 0400 99 Ventilator 30% 08/01 0345 30 08/01 0128 30 08/01 0000 99 Ventilator 30% 08/01 0000 97.9 105 20 130/70 99 Ventilator 30% 07/31 2224 30 07/31 2214 98.8 07/31 2121 84 14 119/61 07/310 100.8 07/31 1999 96 Ventilator 30% 07/31 1915 30 Intake & Output 08/01 1600 08/01 0800 08/01 0000 Intake Total 298 372 Output Total 0 Balance 298 372 Intake, IV 198 192 Intake, Oral 100 Intake, Other 180 Output, 0 Gastric Drainage Output, Urine 0 Patient 100 lb 100 lb Weight Weight Bed scale Measurement Method Physical Exam Other Physical Findings: MAXIMUM TEMPERATURE 100.8. She is sedated but responsive to pain, on the ventilator. Skin reveals no rash. HEENT negative. Neck is supple with no adenopathy. Lungs are clear. Heart regular rhythm with no murmur. Abdomen is soft, nontender with positive bowel sounds. Back no CVA tenderness. Extremities right femoral triple lumen catheter with no inflammation at the site ; left prepatellar swelling/ecchymosis, with slight erythema; no cyanosis, clubbing or edema of the lower extremities. Neuro is without focality. Last 24 Hours of Lab Results: Laboratory Tests 08/01 08/01 1645 1410 Blood Gas pH (7.35 - 7.45 PH) 7.51 H pCO2 (35 - 45 TORR) 30 L pO2 (80 - 100 TORR) 124 H HCO3 (21 - 28 MEQ/L) 23 ABG O2 Sat (Measured) (>96.0 %) 98.0 P-50 (Temp Corrected) N Carboxyhemoglobin (1.5 - 5.0 %) 0.3 L O2 Concentration % 30 Temperature (97.0 - 100.0 FARH) 97.9 Respiration Rate (BPM) 14 O2 Delivery Method ESPRIT Vent Mode AC Expiratory Pressure (CMH2O/P) 5 Tidal Volume (CC) 420 Coagulation APTT (25 - 37 SEC) 59 H Miscellaneous Phlebotomy Draw Site RIGHT BRACHIAL 08/01 07/31 0200 1830 Chemistry Sodium (137 - 145 mmol/L) 140 Potassium (3.5 - 5.1 mmol/L) 3.5 Chloride (98 - 107 mmol/L) 97 L Carbon Dioxide (22 - 30 mmol/L) 22 Anion Gap (5 - 16) 20 H BUN (7 - 17 mg/dL) 27 H Creatinine (0.5 - 1.0 mg/dL) 6.9 *H Estimated GFR (>60 ml/min) 6 L Glucose (65 - 99 mg/dL) 104 H Calcium (8.4 - 10.2 mg/dL) 9.2 Phosphorus (2.5 - 4.5 mg/dL) 5.9 H Magnesium (1.6 - 2.3 mg/dL) 2.1 Total Bilirubin (0.2 - 1.3 mg/dL) 0.7 AST (14 - 36 U/L) 31 ALT (9 - 52 U/L) 30 Troponin I (< 0.11 ng/ml) 1.80 *H Albumin (3.5 - 5.0 g/dL) 3.3 L Coagulation APTT (25 - 37 SEC) 90 H 40 H Hematology CBC w Diff NO MAN DIFF REQ WBC (4.8 - 10.8 /CUMM) 12.2 H RBC (4.20 - 5.40 /CUMM) 3.07 L Hgb (12.0 - 16.0 G/DL) 9.6 L Hct (37 - 47 %) 29.9 L MCV (81.0 - 99.0 FL) 97.3 MCH (27.0 - 31.0 PG) 31.1 H MCHC (33.0 - 37.0 G/DL) 32.0 L RDW (11.5 - 14.5 %) 16.1 H Plt Count (130 - 400 /CUMM) 248 MPV (7.4 - 10.4 FL) 8.6 Gran % (42.2 - 75.2 %) 75.2 Lymphocytes % (20.5 - 51.1 %) 11.3 L Monocytes % (1.7 - 9.3 %) 9.4 H Eosinophils % (0 - 5 %) 3.7 Basophils % (0.0 - 2.0 %) 0.4 Absolute Granulocytes (1.4 - 6.5 /CUMM) 9.2 H Absolute Lymphocytes (1.2 - 3.4 /CUMM) 1.4 Absolute Monocytes (0.10 - 0.60 /CUMM) 1.1 H Absolute Eosinophils (0.0 - 0.7 /CUMM) 0.5 Absolute Basophils (0.0 - 0.2 /CUMM) 0.1 Last 24 Hours of Lex Results: Blood cultures 2 July 30 positive for gram-positive cocci in clusters Sputum culture July 30 positive for Staph aureus, sensitivities pending Urine culture July 30 negative Nasal swab July 30 positive for MRSA Diagnostic Data Recent Imaging Findings: Chest x-ray July 30 revealed a hazy left perihilar opacity. Dopplers of both lower extremities July 30 negative. X-ray of the left foot July 30 revealed no acute process. CT of the head and cervical spine July 30 negative for any acute process. CTA of the chest, abdomen and pelvis July 30 revealed moderate bilateral pleural effusions with ground glass opacities in the upper lobes, perihilar opacities and bibasilar subsegmental atelectasis. CTA of the chest August 01 revealed no evidence of pulmonary emboli, with a small amount of atelectasis and small posterior bilateral pleural effusions Assessment/Plan Assessment/Plan Impression: This is an 86-year-old woman with a history of coronary artery disease, status post stent placement 3 years prior to admission, hypertension, HFpEF and end- stage renal disease, maintained on hemodialysis Tuesdays, and Saturdays via a left upper extremity fistula, status post a fall, resulting in a laceration to the left side of her forehead and her left knee 6 days prior to admission, admitted on July 30 after a cardiac arrest at home, requiring 5 minutes of CPR, found on admission to be hypothermic with a white blood cell count of 17,000, with the development of an elevated troponin, felt to be of unclear significance, with blood cultures 2 positive for gram-positive cocci in clusters and with a positive sputum culture for Staph aureus. The positive blood cultures suggest the possibility of sepsis and, with Staph aureus isolated from her sputum, suspect that the blood cultures will also prove to be Staph aureus. Given her nasal colonization with MRSA, the blood and sputum cultures may also prove to be MRSA, and her antibiotics should be adjusted pending final cultures. If her blood cultures are identified as Staph aureus possible sources include her lungs, given the positive sputum culture, though her respiratory status is stable and her chest x-ray and CT scan do not suggest pneumonia, or her left knee, with a possible infected hematoma status post trauma 6 days prior to admission. Endocarditis will also need to be ruled out, and given the acute cardiac event, the possibility of a coronary artery emboli, though unlikely, could be considered. Her elevated troponin is of unclear significance given her CPR and renal failure, but an acute AK is being considered. Suggestion: 1. Follow-up final blood and sputum cultures 2. Ultrasound of the left knee, with aspiration of any fluid identified 3. Would pursue a CARLOS 4. Remove right femoral triple lumen catheter as soon as possible 5. Discontinue Unasyn 6. Vancomycin 1 gram IV 1 today Consult Acknowledgment - Thank you for your consult request.
[2017-08-01 23:03] LABS: PTT 68 SEC (25-37)
[2017-08-02] VITALS: BP 152/86
[2017-08-02 04:43] LABS: ABSOLUTE BASOPHIL COUNT 0 /CUMM (0.0-0.2); ABSOLUTE EOSINOPHIL COUNT 0.5 /CUMM (0.0-0.7); ABSOLUTE GRANULOCYTE CT 7.3 /CUMM (1.4-6.5); ABSOLUTE LYMPH COUNT 0.7 /CUMM (1.2-3.4); ABSOLUTE MONOCYTE COUNT 0.9 /CUMM (0.10-0.60); BASOPHIL % 0.3 % (0.0-2.0); EOSINOPHIL % 5.7 % (0-5); GRANULOCYTE % 76.9 % (42.2-75.2); HEMATOCRIT 26.6 % (37-47); MEAN CORPUSCULAR HGB 32.2 PG (27.0-31.0); MEAN CORPUSCULAR HGB CONC 33.5 G/DL (33.0-37.0); MEAN CORPUSCULAR VOLUME 96.1 FL (81.0-99.0); PLATELET COUNT 216 /CUMM (130-400); RBC DISTRIBUTION WIDTH 15.6 % (11.5-14.5); RED BLOOD CELL CT 2.76 /CUMM (4.20-5.40); WHITE BLOOD CELL COUNT 9.4 /CUMM (4.8-10.8)
--- NOTE | 2017-08-02 06:48 | RADIOLOGY REPORT ---
EXAMINATION: XR PORTABLE CHEST CLINICAL INFORMATION: PA. Intubated. COMPARISON: Multiple priors, most recently 08/01/2017. TECHNIQUE: Portable frontal view of the chest was obtained. FINDINGS: The endotracheal tube terminates approximately 2 cm above the zoe. Enteric tube extends into the stomach. The lung apices are not included on this study. The lungs are well expanded. No consolidation or edema. No significant pleural effusion. The cardiomediastinal silhouette is unchanged. IMPRESSION: Endotracheal tube terminating approximately 2 cm above the zoe. No acute pulmonary findings.
--- NOTE | 2017-08-02 07:52 | PN- Resident CRCU ---
Oswaldo PARKINSON,Jesus Alberto 08/02/17 0752: Subjective HPI/CRCU Issues: 97.4-99.1/74-102/-22/(131/62)-(165/91) I 3277 O 3375 AC 420/12/FIO2 30/PEEP 5 Pt was intubated and sedated this AM. Only responsive to painful stimuli. 24 Hour Events: -- Objective Vital Signs & I&O Last 8 Hrs of Vitals and I&O: Intake & Output 08/02 1600 Intake Total 864 Output Total 0 Balance 864 Intake, IV 292 Intake, Tube 216 Feeding Intake, Tube 356 Irrigant Number 2 Bowel Movements Output, Urine 0 Exam General Appearance: well developed/nourished, INTUBATED Head: atraumatic, normal appearance Ears, Nose, Throat: normal pharynx, normal ENT inspection Neck: supple Respiratory: lungs clear Cardiovascular: regular rate/rhythm Gastrointestinal: soft, non-tender Current Medications: Current Medications Sig/King Start time Last Medication Dose Route Stop Time Status Admin Amlodipine Besylate 10 MG DAILY 07/30 1000 AC 08/02 PO 0854 Aspirin 81 MG DAILY 07/30 1049 AC 08/02 PO 0853 Atorvastatin Calcium 80 MG 1700 07/30 1700 AC 08/02 PO 1754 Clopidogrel Bisulfate 75 MG DAILY 08/01 1000 AC 08/02 PO 0853 Epoetin Vamshi 2,000 UNIT TuThSa 07/30 1324 AC 08/01 IV 1402 Fentanyl Citrate 1,000 MCG ONCE ONE 08/02 1100 CAN Dextrose/Water 250 ML IV 08/02 1101 Fentanyl Citrate 1,000 MCG Q12H 08/02 1100 AC 08/02 Dextrose/Water 250 ML IV 1215 Heparin Sodium 25,000 UNIT Q24H 07/31 0030 r 08/02 (Porcine) IV 08/03 1800 1754 Sodium Chloride 500 ML Lorazepam 1 MG Q4P PRN 07/30 0700 AC 07/30 IV 1527 Metoprolol Tartrate 25 MG BID 08/02 2200 AC PO Metoprolol Tartrate 12.5 MG BID 07/31 2200 DC 08/02 PO 0854 Pantoprazole Sodium 40 MG DAILY 07/30 1000 AC 08/02 IV 0853 Propofol 1,000 MG Q8H 07/31 2000 DC 08/02 N/A 1 UNIT IV 0854 Sevelamer Carbonate 2,400 MG WM 07/30 1000 AC 07/31 PO 1705 Impression/Plan Impression/Problem List Impression: This is a 86 yo woman with PMH significant for ESRD on HD Tue/ur/Sat, CAD s/p stent placement 3 years ago, HFpEF, HTN, HLD, NSTEMI, LBBB, and secondary hyperparathyroidism BIBA PEA s/p intubation, CPR and epi x1 with successful ROSC. ----- PLAN: 1. Acute hypoxemic respiratory failure and PEA: Working theory is possible inectious precipitant leading to NJ and PEA. OtherDdx: flash pulm edema, arrhythmia, septic shock. Her CAT scan does show bilateral pleural effusions. Sputum cx came back positive for MRSA, her nares swab was positive for MRSA. Blood cultures 2 are now GPC's. Initially was concern for aspiration pneumonia in this patient. Given evidence of blood cultures and sputum cultures positive for staph will switch to vancomycin and treat for pneumonia * Repeat blood cultures neg * switch to fentanyl sedation * Con't vent on current settings * Negative lower extremity Doppler to rule out DVT * CAT w/o evidence of PE. 2. Leukocytosis: Treating for PNA, ntoe bcx x2 + for GPC. Knee US shows no aspirable colelction * On vanco for concern of PNA. Initially treated w/ Unasyn for aspiration. MUST DOSE ANTIBIOTICS IN CONJUNCTION WITH DIALYSIS * Con't monitor * Titrate abx per cx 3. Hx CAD and Pulseless arrest found in field: coronary artery disease status post NSTEMI and 4 stents (2015 - 2 stents, 2016- 2 stents) currently on aspirin and plavix, symptomatic bradycardia s/p pacemaker placement, HTN, ECHO in 2016 showing stage 1 diastolic dysfunction, dyslipidemia, hypothyroidism presenting this admission with left arm pain She has hx of stenting done in [place] around 2014. She sees Dr. Boyer. This time apparently patient was pulseless in the field. Currently intubated and sedated on ventilator. Currently evaluating for cause of CP arrest. * She was having elevated troponin and new EKG changes in context of old LBBB. Trops peaked at 1.85 and subsequently trended down. Multiple PACs present in EKG. * Appreciate cardio consult * Started in IV heparin 07/31/2016--> Order per cardiology to D/C in 24 hrs from today is in. * ASA * Metoprolol 12.5mg bid--> increased to 25 bid given htn. * Started on Plavix with 300mg load now on 75 * F/U EKG and trops * Continue on aspirin * switched to atorvastatin 80 mg daily * ECHO shows EF 50 but some septal hypokinesis 4. Hypertension * Con't Amlodipine * Con't Metoprolol 5. Anion gap acidosis: Initially thought to be secondary to lactic acidosis in the setting of decreased perfusion as well as underlying renal insufficiency. Now likely due to renal failure as lactate has normalized. * Con't monitor 6. End stage renal today disease on hemodialysis: Saturday and Saturday * Appreciate nephro consult * HD tomorrow. MUST DOSE ANTIBIOTICS WITH DIALYSIS 7. Alimentary * Maintain on Protonix * Started TF on 08/01/2017 * Q6 finger stick DVT prophylaxis: heparin drip CODE STATUS Full code Problem List: 1. Anemia 2. Acute renal failure Pain Ratin Plan DVT/Prophylaxis: mechanical, pharmacological Kirill Schaefer MD 08/02/17 1345: Impression/Plan Impression/Problem List Tomorrow's Labs & Rationales: ord Attending MD Review Statement Attending Sign Off Attending Cosign Statement: I have: examined this patient, reviewed avalbl EMR data, personally reviewd images, discussd w/resident/PA/SOYBEAN GROWER, discussed mgmt plan w/jessica, discussed mgmt plan w/CM, discussed mgmt plan w/pt, agreed w/resident/PA/SOYBEAN GROWER, amended to note. Other Findings: IKirill M.D. have examined this patient, reviewed available EMR data, personally reviewed images, discussed with resident/PA/SOYBEAN GROWER, discussed management plan with housestaff and nursing staff, discussed managment plan all of healthcare providers, discussed management plan with patient and/or family, agreed with resident/PA/SOYBEAN GROWER. The past history and parts of the chart have been autopopulated. Impression 86 year old woman * cardiac arrest - unclear rhythm/timing - although brief, etiology is unclear flash pulmonary edema is possible vs opiate/pain medications causing respiratory depression - per family pt takes tramadol and meds from neighbor intermittently, aspiration pneumonia is likely and will be treated as such * ESRD on HD Plan -nephrology, cardiology appreciated, ?cardiac cath -gpcs in clusters reported, surveillance with mrsa, will cont unasyn for now, doubt mrsa pna, on 30% fio2 -HD per renal -cont current vent settings -f/u cardiology plan, on heparin gtt -tube feeds -reduce sedation with goal of SBT DVT prophylaxis at all times TTS 35 min
[2017-08-02 08:00] VITALS: BP 144/70
--- NOTE | 2017-08-02 10:08 | PN- Nephrology ---
Assessment/Plan Nephrology Assessment: Stable from renal standpoint. No PE seen on CTA. Unclear how sepsis and KS evolved into her clinical picture. Suggestion: No dialysis need today. Next treatment tomorrow. Subjective Subjective: Still intubated although trying to push ET tube out with tongue. Results of blood cultures noted. Objective Vital Signs and I&Os Vital Signs Date Time Temp Pulse Resp B/P B/P Pulse O2 O2 Flow FiO2 Mean Ox Delivery Rate 08/02 0854 96 152/78 08/02 0854 96 152/78 08/02 0835 25 08/02 0618 30 08/02 0400 99 Ventilator 30% 08/02 0359 30 08/02 0147 30 08/02 0000 99.1 102 12 152/86 99 Ventilator 30% 08/02 0000 99 Ventilator 30% 08/01 2206 30 08/01 2144 98 134/74 08/01 2000 99 Ventilator 30% 08/01 1905 30 08/01 1615 30 08/01 1600 100 Ventilator 30% 08/01 1600 97.9 97 15 162/72 100 Ventilator 30% 08/01 1413 30 08/01 1402 86 157/65 08/01 1401 86 157/65 08/01 1200 100 Ventilator 30% 08/01 1114 30 Intake & Output 08/02 1600 08/02 0400 08/01 1600 08/01 0400 07/31 1600 07/31 0400 Intake Total 426 815 697 372 411 241 Output Total 50 1200 0 103 2001 Balance 426 765 -503 372 308 -1761 Intake, IV 223 483 457 192 351 61 Intake, Oral 100 Intake, Other 180 180 Intake, Tube 103 42 Feeding Intake, Tube 100 290 140 60 Irrigant Number 1 2 Bowel Movements Output, 1000 2000 Dialysate Output, 50 200 0 100 Gastric Drainage Output, Urine 0 0 3 2 Patient 105 lb 95 lb 9 oz 114 lb Weight Weight Bed scale Bed scale Measurement Method Physical Exam: NAD VS as above Lungs: clear CV: no rub Abd: nontender Exts: no edema Neuro: sedated. Current Medications: Current Medications Sig/King Start time Last Medication Dose Route Stop Time Status Admin Amlodipine Besylate 10 MG DAILY 07/30 1000 AC 08/02 PO 0854 Ampicillin Sodium/ 3,000 MG DAILY 07/30 1000 DC 07/31 Sulbactam Sodium IV 0952 Sodium Chloride 100 ML Aspirin 81 MG DAILY 07/30 1049 AC 08/02 PO 0853 Atorvastatin Calcium 80 MG 1700 07/30 1700 AC 08/01 PO 1547 Clopidogrel Bisulfate 75 MG DAILY 08/01 1000 AC 08/02 PO 0853 Dextrose 25 GM .STK-MED ONE 08/01 1259 DC IV 08/01 1300 Epoetin Vamshi 2,000 UNIT TuThSa 07/30 1324 AC 08/01 IV 1402 Heparin Sodium 25,000 UNIT Q24H 07/31 0030 AC 08/01 (Porcine) IV 1238 Sodium Chloride 500 ML Lorazepam 1 MG Q4P PRN 07/30 0700 AC 07/30 IV 1527 Metoprolol Tartrate 12.5 MG BID 07/31 2200 AC 08/02 PO 0854 Pantoprazole Sodium 40 MG DAILY 07/30 1000 AC 08/02 IV 0853 Propofol 1,000 MG Q8H 07/31 2000 AC 08/02 N/A 1 UNIT IV 0854 Sevelamer Carbonate 2,400 MG WM 07/30 1000 AC 07/31 PO 1705 Vancomycin HCl 1,000 MG ONCE ONE 08/01 1400 DC 08/01 Dextrose/Water 250 ML IV 08/01 1459 1644 Results Pertinent Lab Results: Laboratory Tests 08/02 08/02 1000 0400 Chemistry Sodium (137 - 145 mmol/L) 136 L Potassium (3.5 - 5.1 mmol/L) 4.1 Chloride (98 - 107 mmol/L) 97 L Carbon Dioxide (22 - 30 mmol/L) 25 Anion Gap (5 - 16) 14 BUN (7 - 17 mg/dL) 13 Creatinine (0.5 - 1.0 mg/dL) 4.1 H Estimated GFR (>60 ml/min) 10 L Glucose (65 - 99 mg/dL) 102 H Calcium (8.4 - 10.2 mg/dL) 9.1 Phosphorus (2.5 - 4.5 mg/dL) 4.5 Magnesium (1.6 - 2.3 mg/dL) 2.2 Total Bilirubin (0.2 - 1.3 mg/dL) 0.6 AST (14 - 36 U/L) 25 ALT (9 - 52 U/L) 31 Albumin (3.5 - 5.0 g/dL) 3.1 L Coagulation APTT Pending Hematology CBC w Diff NO MAN DIFF REQ WBC (4.8 - 10.8 /CUMM) 9.4 RBC (4.20 - 5.40 /CUMM) 2.76 L Hgb (12.0 - 16.0 G/DL) 8.9 L Hct (37 - 47 %) 26.6 L MCV (81.0 - 99.0 FL) 96.1 MCH (27.0 - 31.0 PG) 32.2 H MCHC (33.0 - 37.0 G/DL) 33.5 RDW (11.5 - 14.5 %) 15.6 H Plt Count (130 - 400 /CUMM) 216 MPV (7.4 - 10.4 FL) 9.0 Gran % (42.2 - 75.2 %) 76.9 H Lymphocytes % (20.5 - 51.1 %) 7.9 L Monocytes % (1.7 - 9.3 %) 9.2 Eosinophils % (0 - 5 %) 5.7 H Basophils % (0.0 - 2.0 %) 0.3 Absolute Granulocytes (1.4 - 6.5 /CUMM) 7.3 H Absolute Lymphocytes (1.2 - 3.4 /CUMM) 0.7 L Absolute Monocytes (0.10 - 0.60 /CUMM) 0.9 H Absolute Eosinophils (0.0 - 0.7 /CUMM) 0.5 Absolute Basophils (0.0 - 0.2 /CUMM) 0 08/02 08/01 08/01 08/01 0125 2200 1645 1410 Blood Gas pH (7.35 - 7.45 PH) 7.48 H 7.51 H pCO2 (35 - 45 TORR) 30 L 30 L pO2 (80 - 100 TORR) 118 H 124 H HCO3 (21 - 28 MEQ/L) 22 23 ABG O2 Sat (Measured) (>96.0 %) 98.0 98.0 P-50 (Temp Corrected) Y N Carboxyhemoglobin (1.5 - 5.0 %) 0.3 L 0.3 L O2 Concentration % 30% 30 Temperature (97.0 - 100.0 FARH) 99.1 97.9 Respiration Rate (BPM) 12 14 O2 Delivery Method ESPRIT ESPRIT Vent Mode AC AC Expiratory Pressure (CMH2O/P) 5 5 Tidal Volume (CC) 420 420 Coagulation APTT (25 - 37 SEC) 68 H 59 H Miscellaneous Phlebotomy Draw Site RIGHT BRACHIAL RIGHT BRACHIAL 08/01 07/31 07/31 0200 1830 1240 Chemistry Sodium (137 - 145 mmol/L) 140 Potassium (3.5 - 5.1 mmol/L) 3.5 Chloride (98 - 107 mmol/L) 97 L Carbon Dioxide (22 - 30 mmol/L) 22 Anion Gap (5 - 16) 20 H BUN (7 - 17 mg/dL) 27 H Creatinine (0.5 - 1.0 mg/dL) 6.9 *H Estimated GFR (>60 ml/min) 6 L Glucose (65 - 99 mg/dL) 104 H Calcium (8.4 - 10.2 mg/dL) 9.2 Phosphorus (2.5 - 4.5 mg/dL) 5.9 H Magnesium (1.6 - 2.3 mg/dL) 2.1 Total Bilirubin (0.2 - 1.3 mg/dL) 0.7 AST (14 - 36 U/L) 31 ALT (9 - 52 U/L) 30 Troponin I (< 0.11 ng/ml) 1.80 *H 1.85 *H Albumin (3.5 - 5.0 g/dL) 3.3 L Coagulation APTT (25 - 37 SEC) 90 H 40 H Hematology CBC w Diff NO MAN DIFF REQ WBC (4.8 - 10.8 /CUMM) 12.2 H RBC (4.20 - 5.40 /CUMM) 3.07 L Hgb (12.0 - 16.0 G/DL) 9.6 L Hct (37 - 47 %) 29.9 L MCV (81.0 - 99.0 FL) 97.3 MCH (27.0 - 31.0 PG) 31.1 H MCHC (33.0 - 37.0 G/DL) 32.0 L RDW (11.5 - 14.5 %) 16.1 H Plt Count (130 - 400 /CUMM) 248 MPV (7.4 - 10.4 FL) 8.6 Gran % (42.2 - 75.2 %) 75.2 Lymphocytes % (20.5 - 51.1 %) 11.3 L Monocytes % (1.7 - 9.3 %) 9.4 H Eosinophils % (0 - 5 %) 3.7 Basophils % (0.0 - 2.0 %) 0.4 Absolute Granulocytes (1.4 - 6.5 /CUMM) 9.2 H Absolute Lymphocytes (1.2 - 3.4 /CUMM) 1.4 Absolute Monocytes (0.10 - 0.60 /CUMM) 1.1 H Absolute Eosinophils (0.0 - 0.7 /CUMM) 0.5 Absolute Basophils (0.0 - 0.2 /CUMM) 0.1 07/31 07/31 0530 0125 Blood Gas pH (7.35 - 7.45 PH) 7.47 H pCO2 (35 - 45 TORR) 31 L pO2 (80 - 100 TORR) 111 H HCO3 (21 - 28 MEQ/L) 22 ABG O2 Sat (Measured) (>96.0 %) 97.0 P-50 (Temp Corrected) Y Carboxyhemoglobin (1.5 - 5.0 %) 0.1 L O2 Concentration % 30% Temperature (97.0 - 100.0 FARH) 100.9 H Respiration Rate (BPM) 14 O2 Delivery Method ESPRIT Vent Mode AC Expiratory Pressure (CMH2O/P) 5 Tidal Volume (CC) 420 Chemistry Sodium (137 - 145 mmol/L) 142 Potassium (3.5 - 5.1 mmol/L) 3.8 Chloride (98 - 107 mmol/L) 100 Carbon Dioxide (22 - 30 mmol/L) 23 Anion Gap (5 - 16) 18 H BUN (7 - 17 mg/dL) 17 Creatinine (0.5 - 1.0 mg/dL) 5.0 H Estimated GFR (>60 ml/min) 8 L Glucose (65 - 99 mg/dL) 87 Calcium (8.4 - 10.2 mg/dL) 9.2 Phosphorus (2.5 - 4.5 mg/dL) 4.5 Magnesium (1.6 - 2.3 mg/dL) 2.0 Total Bilirubin (0.2 - 1.3 mg/dL) 0.6 AST (14 - 36 U/L) 41 H ALT (9 - 52 U/L) 24 Troponin I (< 0.11 ng/ml) 1.80 *H Albumin (3.5 - 5.0 g/dL) 3.7 Coagulation APTT (25 - 37 SEC) 72 H Hematology CBC w Diff NO MAN DIFF REQ WBC (4.8 - 10.8 /CUMM) 10.9 H RBC (4.20 - 5.40 /CUMM) 3.14 L Hgb (12.0 - 16.0 G/DL) 10.1 L Hct (37 - 47 %) 30.3 L MCV (81.0 - 99.0 FL) 96.4 MCH (27.0 - 31.0 PG) 32.1 H MCHC (33.0 - 37.0 G/DL) 33.3 RDW (11.5 - 14.5 %) 16.2 H Plt Count (130 - 400 /CUMM) 223 MPV (7.4 - 10.4 FL) 9.1 Gran % (42.2 - 75.2 %) 82.9 H Lymphocytes % (20.5 - 51.1 %) 8.7 L Monocytes % (1.7 - 9.3 %) 7.3 Eosinophils % (0 - 5 %) 0.9 Basophils % (0.0 - 2.0 %) 0.2 Absolute Granulocytes (1.4 - 6.5 /CUMM) 9.0 H Absolute Lymphocytes (1.2 - 3.4 /CUMM) 0.9 L Absolute Monocytes (0.10 - 0.60 /CUMM) 0.8 H Absolute Eosinophils (0.0 - 0.7 /CUMM) 0.1 Absolute Basophils (0.0 - 0.2 /CUMM) 0 Miscellaneous Phlebotomy Draw Site RIGHT BRACHIAL 07/30 07/30 07/30 07/30 2200 1715 1554 1036 Blood Gas pH (7.35 - 7.45 PH) 7.54 H pCO2 (35 - 45 TORR) 26 L pO2 (80 - 100 TORR) 112 H HCO3 (21 - 28 MEQ/L) 22 ABG O2 Sat (Measured) (>96.0 %) 98.0 P-50 (Temp Corrected) N Carboxyhemoglobin (1.5 - 5.0 %) 0.3 L O2 Concentration % 35% Temperature (97.0 - 100.0 FARH) 97.5 Respiration Rate (BPM) 16 O2 Delivery Method ESPRIT VENT Vent Mode AC Expiratory Pressure (CMH2O/P) 5 Tidal Volume (CC) 450 Chemistry Lactic Acid (0.7 - 2.1 mmol/L) 1.3 Troponin I (< 0.11 ng/ml) 1.33 *H 0.91 *H Miscellaneous Phlebotomy Draw Site RIGHT BRACHIAL 07/30 07/30 1020 1015 Chemistry Troponin I (< 0.11 ng/ml) 0.12 *H Toxicology Urine Opiates Screen (>2000 NG/ML) < 100.00 Methadone Screen (>300 NG/ML) < 40 Barbiturate Screen (>200 NG/ML) < 60 Ur Phencyclidine Scrn (>25 NG/ML) < 6.00 Amphetamines Screen (>1000 NG/ML) < 100 U Benzodiazepines Scrn (>200 NG/ML) 555 H Urine Cocaine Screen (>300 NG/ML) < 50 Urine Cannabis Screen (>50 NG/ML) < 5.00
[2017-08-02 10:54] LABS: PTT 75 SEC (25-37)
--- NOTE | 2017-08-02 10:56 | PN- Infect Dx ---
Subjective Subjective: Afebrile. Her blood pressure remains stable. Objective Last 24 Hrs of Vital Signs/I&O Vital Signs Date Time Temp Pulse Resp B/P B/P Pulse O2 O2 Flow FiO2 Mean Ox Delivery Rate 08/02 0854 96 152/78 08/02 0854 96 152/78 08/02 0835 25 08/02 0618 30 08/02 0400 99 Ventilator 30% 08/02 0359 30 08/02 0147 30 08/02 0000 99.1 102 12 152/86 99 Ventilator 30% 08/02 0000 99 Ventilator 30% 08/01 2206 30 08/01 2144 98 134/74 08/01 2000 99 Ventilator 30% 08/01 1905 30 08/01 1615 30 08/01 1600 100 Ventilator 30% 08/01 1600 97.9 97 15 162/72 100 Ventilator 30% 08/01 1413 30 08/01 1402 86 157/65 08/01 1401 86 157/65 08/01 1200 100 Ventilator 30% 08/01 1114 30 Intake & Output 08/02 1600 08/02 0800 08/02 0000 Intake Total 426 815 Output Total 50 Balance 426 765 Intake, IV 223 483 Intake, Tube 103 42 Feeding Intake, Tube 100 290 Irrigant Number 1 Bowel Movements Output, 50 Gastric Drainage Patient 105 lb Weight Weight Bed scale Measurement Method Physical Exam Other Physical Findings: She is sedated on the ventilator, minimally responsive to pain Lungs are clear Heart regular rhythm with no murmur Abdomen is soft, nontender with positive bowel sounds Extremities right femoral triple lumen catheter with no inflammation at the site ; left patellar ecchymotic swelling, with serous drainage; scattered ecchymoses on all extremities Results Last 24 Hours of Lab Results: Laboratory Tests 08/02 08/02 1000 0400 Chemistry Sodium (137 - 145 mmol/L) 136 L Potassium (3.5 - 5.1 mmol/L) 4.1 Chloride (98 - 107 mmol/L) 97 L Carbon Dioxide (22 - 30 mmol/L) 25 Anion Gap (5 - 16) 14 BUN (7 - 17 mg/dL) 13 Creatinine (0.5 - 1.0 mg/dL) 4.1 H Estimated GFR (>60 ml/min) 10 L Glucose (65 - 99 mg/dL) 102 H Calcium (8.4 - 10.2 mg/dL) 9.1 Phosphorus (2.5 - 4.5 mg/dL) 4.5 Magnesium (1.6 - 2.3 mg/dL) 2.2 Total Bilirubin (0.2 - 1.3 mg/dL) 0.6 AST (14 - 36 U/L) 25 ALT (9 - 52 U/L) 31 Albumin (3.5 - 5.0 g/dL) 3.1 L Coagulation APTT Pending Hematology CBC w Diff NO MAN DIFF REQ WBC (4.8 - 10.8 /CUMM) 9.4 RBC (4.20 - 5.40 /CUMM) 2.76 L Hgb (12.0 - 16.0 G/DL) 8.9 L Hct (37 - 47 %) 26.6 L MCV (81.0 - 99.0 FL) 96.1 MCH (27.0 - 31.0 PG) 32.2 H MCHC (33.0 - 37.0 G/DL) 33.5 RDW (11.5 - 14.5 %) 15.6 H Plt Count (130 - 400 /CUMM) 216 MPV (7.4 - 10.4 FL) 9.0 Gran % (42.2 - 75.2 %) 76.9 H Lymphocytes % (20.5 - 51.1 %) 7.9 L Monocytes % (1.7 - 9.3 %) 9.2 Eosinophils % (0 - 5 %) 5.7 H Basophils % (0.0 - 2.0 %) 0.3 Absolute Granulocytes (1.4 - 6.5 /CUMM) 7.3 H Absolute Lymphocytes (1.2 - 3.4 /CUMM) 0.7 L Absolute Monocytes (0.10 - 0.60 /CUMM) 0.9 H Absolute Eosinophils (0.0 - 0.7 /CUMM) 0.5 Absolute Basophils (0.0 - 0.2 /CUMM) 0 08/02 08/01 08/01 08/01 0125 2200 1645 1410 Blood Gas pH (7.35 - 7.45 PH) 7.48 H 7.51 H pCO2 (35 - 45 TORR) 30 L 30 L pO2 (80 - 100 TORR) 118 H 124 H HCO3 (21 - 28 MEQ/L) 22 23 ABG O2 Sat (Measured) (>96.0 %) 98.0 98.0 P-50 (Temp Corrected) Y N Carboxyhemoglobin (1.5 - 5.0 %) 0.3 L 0.3 L O2 Concentration % 30% 30 Temperature (97.0 - 100.0 FARH) 99.1 97.9 Respiration Rate (BPM) 12 14 O2 Delivery Method ESPRIT ESPRIT Vent Mode AC AC Expiratory Pressure (CMH2O/P) 5 5 Tidal Volume (CC) 420 420 Coagulation APTT (25 - 37 SEC) 68 H 59 H Miscellaneous Phlebotomy Draw Site RIGHT BRACHIAL RIGHT BRACHIAL Last 24 Hours of Lex Results: Blood cultures July 30 positive for gram-positive cocci Sputum culture July 30 positive for Staph aureus, sensitivities pending Blood cultures July 31 negative Sputum culture July 31 no growth Recent Imaging Studies: Chest x-ray August 02 negative Assessment/Plan ID Impression: Stable, with temperatures remaining normal and white blood cell count also now normal, on Vancomycin, status post 1 dose yesterday after dialysis, for gram- positive cocci in both blood cultures, with the ID and sensitivities pending. Her sputum culture is positive for Staph aureus, suggesting possible pneumonia, though her respiratory status is stable and her chest x-ray is negative for any consolidation. If her blood cultures prove to be Staph aureus possible sources including the lungs or the left prepatellar swelling, status post trauma to this area 6 days prior to admission. Endocarditis will also be a concern if her blood cultures are identified as Staph aureus. Suggestion: 1. Ultrasound of the left prepatellar area, with aspiration if any collection identified 2. Follow-up final blood and sputum cultures 3. Will need to pursue a CARLOS if her blood cultures prove to be Staph aureus 4. Remove right femoral triple lumen catheter and obtain peripheral access 5. Obtain a random Vancomycin level in the a.m. and re-dose with Vancomycin after dialysis based on the dialysis protocol pending final cultures Hellen Narayanan MD will be covering until August 12
--- NOTE | 2017-08-02 11:50 | PN- Cardiology ---
Subjective Subjective: Remains intubated and sedated. Hemodynamically stable. Objective Vital Signs and I&Os Vital Signs Date Time Temp Pulse Resp B/P B/P Pulse O2 O2 Flow FiO2 Mean Ox Delivery Rate 08/02 1122 25 08/02 0854 96 152/78 08/02 0854 96 152/78 08/02 0835 25 08/02 0800 100 Ventilator 30% 08/02 0800 99.3 98 12 144/70 100 Ventilator 30% 08/02 0618 30 08/02 0400 99 Ventilator 30% 08/02 0359 30 08/02 0147 30 08/02 0000 99.1 102 12 152/86 99 Ventilator 30% 08/02 0000 99 Ventilator 30% 08/01 2206 30 08/01 2144 98 134/74 08/01 2000 99 Ventilator 30% 08/01 1905 30 08/01 1615 30 08/01 1600 100 Ventilator 30% 08/01 1600 97.9 97 15 162/72 100 Ventilator 30% 08/01 1413 30 08/01 1402 86 157/65 08/01 1401 86 157/65 08/01 1200 100 Ventilator 30% Intake & Output 08/02 1600 08/02 0800 08/02 0000 08/01 1600 08/01 0800 08/01 0000 Intake Total 426 815 399 298 372 Output Total 50 1200 0 Balance 426 765 -801 298 372 Intake, IV 223 483 259 198 192 Intake, Oral 100 Intake, Other 180 Intake, Tube 103 42 Feeding Intake, Tube 100 290 140 Irrigant Number 1 2 Bowel Movements Output, 1000 Dialysate Output, 50 200 0 Gastric Drainage Output, Urine 0 0 Patient 105 lb 95 lb 9 oz 100 lb Weight Weight Bed scale Bed scale Bed scale Measurement Method Physical Exam: General: intubated Eyes: No obvious scleral icterus. HEENT: No jugular venous distention or abnormal jugular venous pulsations. Cardiovascular: Normal intensity S1/S2. Regular with early beats Respiratory: Mildly decreased air entry Abdomen: Soft, nontender with no guarding or rebound tenderness. Musculoskeletal: No clubbing or cyanosis noted, no edema Skin: Warm, ecchymoses noted Neurologic: sedated Current Medications: Current Medications Sig/King Start time Last Medication Dose Route Stop Time Status Admin Amlodipine Besylate 10 MG DAILY 07/30 1000 AC 08/02 PO 0854 Ampicillin Sodium/ 3,000 MG DAILY 07/30 1000 DC 07/31 Sulbactam Sodium IV 0952 Sodium Chloride 100 ML Aspirin 81 MG DAILY 07/30 1049 AC 08/02 PO 0853 Atorvastatin Calcium 80 MG 1700 07/30 1700 AC 08/01 PO 1547 Clopidogrel Bisulfate 75 MG DAILY 08/01 1000 AC 08/02 PO 0853 Dextrose 25 GM .STK-MED ONE 08/01 1259 DC IV 08/01 1300 Epoetin Vamshi 2,000 UNIT TuThSa 07/30 1324 AC 08/01 IV 1402 Fentanyl Citrate 1,000 MCG ONCE ONE 08/02 1100 CAN Dextrose/Water 250 ML IV 08/02 1101 Fentanyl Citrate 1,000 MCG Q12H 08/02 1100 AC Dextrose/Water 250 ML IV Heparin Sodium 25,000 UNIT Q24H 07/31 0030 AC 08/01 (Porcine) IV 1238 Sodium Chloride 500 ML Lorazepam 1 MG Q4P PRN 07/30 0700 AC 07/30 IV 1527 Metoprolol Tartrate 12.5 MG BID 07/31 2200 AC 08/02 PO 0854 Pantoprazole Sodium 40 MG DAILY 07/30 1000 AC 08/02 IV 0853 Propofol 1,000 MG Q8H 07/31 2000 DC 08/02 N/A 1 UNIT IV 0854 Sevelamer Carbonate 2,400 MG WM 07/30 1000 AC 07/31 PO 1705 Vancomycin HCl 1,000 MG ONCE ONE 08/01 1400 DC 08/01 Dextrose/Water 250 ML IV 08/01 1459 1644 Results Last 48 Hrs of Labs/Mics: Laboratory Tests 08/02/17 1000: APTT 75 H 08/02/17 0400: Anion Gap 14, Estimated GFR 10 L, Glucose 102 H, Calcium 9.1, Phosphorus 4.5, Magnesium 2.2, Total Bilirubin 0.6, AST 25, ALT 31, Albumin 3.1 L, CBC w Diff NO MAN DIFF REQ, RBC 2.76 L, MCV 96.1, MCH 32.2 H, MCHC 33.5, RDW 15.6 H, MPV 9.0, Gran % 76.9 H, Lymphocytes % 7.9 L, Monocytes % 9.2, Eosinophils % 5.7 H , Basophils % 0.3, Absolute Granulocytes 7.3 H, Absolute Lymphocytes 0.7 L, Absolute Monocytes 0.9 H, Absolute Eosinophils 0.5, Absolute Basophils 0 08/02/17 0125: pH 7.48 H, pCO2 30 L, pO2 118 H, HCO3 22, ABG O2 Sat (Measured) 98.0, P-50 ( Temp Corrected) Y, Carboxyhemoglobin 0.3 L, O2 Concentration % 30%, Temperature 99.1, Respiration Rate 12, O2 Delivery Method ESPRIT, Vent Mode AC, Expiratory Pressure 5, Tidal Volume 420, Phlebotomy Draw Site RIGHT BRACHIAL 08/01/17 2200: APTT 68 H 08/01/17 1645: pH 7.51 H, pCO2 30 L, pO2 124 H, HCO3 23, ABG O2 Sat (Measured) 98.0, P-50 ( Temp Corrected) N, Carboxyhemoglobin 0.3 L, O2 Concentration % 30, Temperature 97.9, Respiration Rate 14, O2 Delivery Method ESPRIT, Vent Mode AC, Expiratory Pressure 5, Tidal Volume 420, Phlebotomy Draw Site RIGHT BRACHIAL 08/01/17 1410: APTT 59 H 08/01/17 0200: Anion Gap 20 H, Estimated GFR 6 L, Glucose 104 H, Calcium 9.2, Phosphorus 5.9 H, Magnesium 2.1, Total Bilirubin 0.7, AST 31, ALT 30, Albumin 3.3 L, APTT 90 H, CBC w Diff NO MAN DIFF REQ, RBC 3.07 L, MCV 97.3, MCH 31.1 H, MCHC 32.0 L, RDW 16.1 H, MPV 8.6, Gran % 75.2, Lymphocytes % 11.3 L, Monocytes % 9.4 H, Eosinophils % 3.7, Basophils % 0.4, Absolute Granulocytes 9.2 H, Absolute Lymphocytes 1.4, Absolute Monocytes 1.1 H, Absolute Eosinophils 0.5, Absolute Basophils 0.1 07/31/17 1830: Troponin I 1.80 *H, APTT 40 H 07/31/17 1240: Troponin I 1.85 *H Recent Imaging Studies: Telemetry tracings shows sinus rhythm and sinus tachycardia with APCs CXR: Endotracheal tube terminating approximately 2 cm above the zoe. No acute pulmonary findings. Assessment/Plan Assessment/Plan 1. Cardiopulmonary arrest with acute hypoxemic respiratory failure of unclear etiology 2. Chronic left bundle branch block 3. History of ischemic cardiomyopathy, EF now 50 % with mild to moderate anteroseptal hypokinesis 4. End-stage renal disease on hemodialysis 5. Coronary artery disease by history status post stent approximately 3 years ago 6. Hypertension by history 7. Aspiration PNA 8. Elevated troponin of unclear etiology s/p CPR 9. Frequent APCs 10. Positive blood cultures Remains intubated. Blood pressure and heart rate slightly above goal; recommend increasing the metoprolol to 25 mg by mouth twice a day. Would continue on heparin drip for another 24 hours, she is reportedly guaiac-negative. Discussed with infectious disease, awaiting organism identification on the blood cultures but she may be a candidate for nonurgent transesophageal echocardiogram based on those results. Depending on clinical course and Neurologic function patient may be a candidate for cardiac catheterization versus noninvasive ischemic testing in the future. Ventilator weaning per ICU team. Adrian Watts MD [facility] Continue telemetry? Yes
--- NOTE | 2017-08-02 14:47 | ULTRASOUND REPORT ---
EXAMINATION: US SUPERFICIAL IMAGING, EXTREMITY CLINICAL INFORMATION: Fall onto the left knee on 07/24/2017 with bruising. Evaluate for collection for possible aspiration. COMPARISON: None TECHNIQUE: Real-time grayscale and color Doppler techniques were used to evaluate the area of concern in the left knee area, inferior to the patella where bruising is present. FINDINGS: In the area of concern there is a complex solid appearing collection measuring 4.1 x 1.0 x 3.3 cm. Doppler interrogation does not demonstrate any internal vascularity. This does not appear to be liquid. IMPRESSION: In the setting of trauma, the collection in the area of bruising inferior to the patella most likely represents a mature hematoma. This has a more solid appearance rather than a liquid fluid collection. Aspiration would likely be unsuccessful.
[2017-08-02 16:00] VITALS: BP 138/62
[2017-08-02 22:56] LABS: PTT 50 SEC (25-37)
[2017-08-03] VITALS: BP 170/80
[2017-08-03 01:00] VITALS: BP 122/54
[2017-08-03 06:09] LABS: ABSOLUTE BASOPHIL COUNT 0 /CUMM (0.0-0.2); ABSOLUTE EOSINOPHIL COUNT 0.6 /CUMM (0.0-0.7); ABSOLUTE GRANULOCYTE CT 6.5 /CUMM (1.4-6.5); ABSOLUTE LYMPH COUNT 1.1 /CUMM (1.2-3.4); ABSOLUTE MONOCYTE COUNT 0.7 /CUMM (0.10-0.60); BASOPHIL % 0.4 % (0.0-2.0); EOSINOPHIL % 6.5 % (0-5); GRANULOCYTE % 73.2 % (42.2-75.2); HEMATOCRIT 26.2 % (37-47); MEAN CORPUSCULAR HGB 31.2 PG (27.0-31.0); MEAN CORPUSCULAR HGB CONC 32.2 G/DL (33.0-37.0); MEAN CORPUSCULAR VOLUME 96.8 FL (81.0-99.0); MEAN PLATELET VOLUME 9.1 FL (7.4-10.4); PLATELET COUNT 224 /CUMM (130-400); RBC DISTRIBUTION WIDTH 15.6 % (11.5-14.5); RED BLOOD CELL CT 2.71 /CUMM (4.20-5.40); WHITE BLOOD CELL COUNT 8.9 /CUMM (4.8-10.8)
[2017-08-03 06:14] LABS: PTT 64 SEC (25-37)
[2017-08-03 08:00] VITALS: BP 138/76
--- NOTE | 2017-08-03 08:48 | PN- Resident CRCU ---
Donna PARKINSON,Morgan 08/03/17 0848: Subjective HPI/CRCU Issues: Patient seen and examined. She is seen lying flat in bed intubated on a ventilator resting comfortably maintained in bilateral soft upper extremity restraints. She is awake and alert, and following commands. She appears to be in no acute distress. Specific subjective complaints and review of systems are unobtainable. Patients daugheter and another family member are present in the room. Objective Vital Signs & I&O Last 8 Hrs of Vitals and I&O: VS since 0000 08/03/17 -TMAX:98.9 -HR 61-91 -RR 12-14 -BP 122-146/54-80 -O2 97-98% Exam General Appearance: alert, awake, anxious, intubated Other Physical Findings: GEN: thin, chronically ill appearing elderly woman in no acute distress HEENT: NCAT, PERRL, EOMI, anciteric sclera, MMM, endotraceal tube / OGT in place NECK: Supple, no JVD, trachea midline, MMM CARD: normal S1/S2 w/o m/g/r; RRR PULM: Diminished bibasilar airflow ABD: Soft, NT, ND, BS+ NEURO: Awake and alert, follow commands, CN II-XII grossly intat EXT: normal pulses, no cyanosis, bilateral soft upper extremity restraints in place Weaning Schedule Start Time: 1620 Minute Volume: 6 Resp Rate: 26 Vt: 420 Heart Rate: 87 End Time: 1630 Start Time: 1810 Minute Volume: 6.1 Resp Rate: 22 Vt: 400 Heart Rate: 78 End Time: 1910 Minute Volume: 7.50 Resp Rate: 21 Vt: 290 Heart Rate: 72 Current Medications: Current Medications Sig/King Start time Last Medication Dose Route Stop Time Status Admin Amlodipine Besylate 10 MG DAILY 07/30 1000 AC 08/03 PO 1130 Aspirin 81 MG DAILY 07/30 1049 AC 08/03 PO 1130 Atorvastatin Calcium 80 MG 1700 07/30 1700 AC 08/02 PO 1754 Clopidogrel Bisulfate 75 MG DAILY 08/01 1000 AC 08/03 PO 1130 Epoetin Vamshi 2,000 UNIT TuThSa PRN 08/03 0700 AC IV Epoetin Vamshi 2,000 UNIT TuThSa 07/30 1324 DC 08/01 IV 1402 Fentanyl Citrate 1,000 MCG Q20H 08/03 1030 AC 08/03 Dextrose/Water 250 ML IV 1218 Fentanyl Citrate 1,000 MCG Q12H 08/02 1100 DC 08/02 Dextrose/Water 250 ML IV 08/03 1029 1215 Heparin Sodium 25,000 UNIT Q24H 07/31 0030 AC 08/02 (Porcine) IV 08/03 1800 1754 Sodium Chloride 500 ML Lorazepam 1 MG Q4P PRN 07/30 0700 AC 08/03 IV 1325 Metoprolol Tartrate 25 MG BID 08/02 2200 AC 08/03 PO 1130 Metoprolol Tartrate 12.5 MG ONCE ONE 08/02 2200 DC 08/02 PO 08/02 2201 2222 Metoprolol Tartrate 12.5 MG BID 07/31 2200 DC 08/02 PO 0854 Pantoprazole Sodium 40 MG DAILY 07/30 1000 AC 08/03 IV 1130 Sevelamer Carbonate 2,400 MG WM 07/30 1000 AC 07/31 PO 1705 Vancomycin HCl 750 MG ONCE ONE 08/03 1200 DC 08/03 Dextrose/Water 250 ML IV 08/03 1259 1327 Impression/Plan Impression/Problem List Impression: 86 year old woman with multiple medical problems significant for ESRD on HD, HFpEF, and CAD brought in by ambulance after being found unresponsive s/p CPR with ROSC. Patient remains intubated on a ventilator despite being awake and alert. She follows commands but is impulsive and remains in bilateral upper extremity soft restraints for fear of self-extubation. She underwent a breathing trial today and was not able to be extubated. She is continued on tube feeds but will remain NPO saturday evening for a CARLOS possibly on saturday or saturday. She received hemodialysis today and a dose of vancomycin just after for her MSSA bacteremia Problem List -Cardiac arrest s/p CPR with ROSC -Acute Hypoxic Respiratory Failure, intubated -MSSA Pneumonia / Bacteremia -CAD s/p PCI/stent -ESRD on HD (,Sat) -HFpEF -Hypertension -Hyperlipidemia -LBBB -Secondary parathyroidism Plan -ICU -Intubated on vent -TRC -OGT in place -Hemodialysis (,Sat) -Vancomycin following HD -Fentanyl for sedation -Heparin GGT -Protonix 40 mg IV Daily -Ativan 1mg IV Q4H PRN agitation -Continue meds: metoprolol, plavix, atorvastatin, aspirin, renvela, amlodipine -Pain control with -Tube feeds, NPO Saturday Night -DVT PPx with -FULL CODE Problem List: 1. Pneumonia Pain Ratin Tomorrow's Labs & Rationales: CBC, BMP Plan DVT/Prophylaxis: mechanical, pharmacological Kirill Schaefer MD 08/03/17 0936: Attending MD Review Statement Attending Sign Off Attending Cosign Statement: I have: examined this patient, reviewed avalbl EMR data, personally reviewd images, discussd w/resident/PA/WATCH GUARD GATE, discussed mgmt plan w/jessica, discussed mgmt plan w/CM, discussed mgmt plan w/pt, agreed w/resident/PA/WATCH GUARD GATE, amended to note. Other Findings: IKirill M.D. have examined this patient, reviewed available EMR data, personally reviewed images, discussed with resident/PA/WATCH GUARD GATE, discussed management plan with housestaff and nursing staff, discussed managment plan all of healthcare providers, discussed management plan with patient and/or family, agreed with resident/PA/WATCH GUARD GATE. The past history and parts of the chart have been autopopulated. Impression 86 year old woman * cardiac arrest - unclear rhythm/timing - although brief, etiology is unclear flash pulmonary edema is possible vs opiate/pain medications causing respiratory depression - per family pt takes tramadol and meds from neighbor intermittently, aspiration pneumonia is likely and will be treated as such * ESRD on HD Plan -nephrology, cardiology appreciated, ?cardiac cath -CARLOS Saturday plan tentatively -staph aureus - Vancomycin based on HD protocol -HD per renal -cont current vent settings -f/u cardiology plan, on heparin gtt to be turned off -tube feeds -reduce sedation with goal of SBT - however if plan to perform CARLOS within 48-72 hrs would be safer to keep intubated DVT prophylaxis at all times TTS 35 min
--- NOTE | 2017-08-03 12:35 | PN- Cardiology ---
Subjective Subjective: Remains intubated, in restraints, no new obvious cardiac issues. Pending CARLOS early next week Objective Vital Signs and I&Os Vital Signs Date Time Temp Pulse Resp B/P B/P Pulse O2 O2 Flow FiO2 Mean Ox Delivery Rate 08/03 1130 88 146/74 08/03 1130 88 146/74 08/03 1056 25 08/03 0800 98.3 81 14 138/76 98 Ventilator 25% 08/03 0800 97 Ventilator 25% 08/03 0751 25 08/03 0600 97 Ventilator 25% 08/03 0541 25 08/03 0336 24 08/03 0133 25 08/03 0100 98.9 61 12 122/54 99 Ventilator 25% 08/03 0000 98.9 91 12 170/80 98 Ventilator 25% 08/03 0000 98 Ventilator 25% 08/02 2223 25 08/02 2222 98.2 71 14 123/53 08/02 2145 98.2 66 12 124/50 08/02 2000 98 Ventilator 25% 08/02 1923 25 08/02 1624 25 08/02 1600 99.0 60 12 138/62 99 Ventilator 25% 08/02 1600 97 Ventilator 25% 08/02 1351 25 Intake & Output 08/03 1600 08/03 0800 08/03 0000 08/02 1600 08/02 0800 08/02 0000 Intake Total 464 503 864 426 815 Output Total 0 50 Balance 464 503 864 426 765 Intake, IV 182 177 292 223 483 Intake, Tube 182 171 216 103 42 Feeding Intake, Tube 100 155 356 100 290 Irrigant Number 1 2 1 Bowel Movements Output, 50 Gastric Drainage Output, Urine 0 Patient 105 lb 105 lb Weight Weight Bed scale Measurement Method Physical Exam: General Appearance: well developed/nourished, remains intubated Head: atraumatic, normal appearance Ears, Nose, Throat: normal pharynx, normal ENT inspection Neck: supple, JVP normal, carotids normal bilaterally Respiratory: Essentially clear bilaterally Cardiovascular: regular rate/rhythm, normal S1, S2 Gastrointestinal: soft, non-tender Current Medications: Current Medications Sig/King Start time Last Medication Dose Route Stop Time Status Admin Amlodipine Besylate 10 MG DAILY 07/30 1000 AC 08/03 PO 1130 Aspirin 81 MG DAILY 07/30 1049 AC 08/03 PO 1130 Atorvastatin Calcium 80 MG 1700 07/30 1700 AC 08/02 PO 1754 Clopidogrel Bisulfate 75 MG DAILY 08/01 1000 AC 08/03 PO 1130 Epoetin Vamshi 2,000 UNIT TuThSa PRN 08/03 0700 AC IV Epoetin Vamshi 2,000 UNIT TuThSa 07/30 1324 DC 08/01 IV 1402 Fentanyl Citrate 1,000 MCG Q20H 08/03 1030 AC Dextrose/Water 250 ML IV Fentanyl Citrate 1,000 MCG Q12H 08/02 1100 DC 08/02 Dextrose/Water 250 ML IV 08/03 1029 1215 Heparin Sodium 25,000 UNIT Q24H 07/31 0030 AC 08/02 (Porcine) IV 08/03 1800 1754 Sodium Chloride 500 ML Lorazepam 1 MG Q4P PRN 07/30 0700 AC 07/30 IV 1527 Metoprolol Tartrate 25 MG BID 08/02 2200 AC 08/03 PO 1130 Metoprolol Tartrate 12.5 MG ONCE ONE 08/02 2200 DC 08/02 PO 08/02 220 2222 Metoprolol Tartrate 12.5 MG BID 07/31 2200 DC 08/02 PO 0854 Pantoprazole Sodium 40 MG DAILY 07/30 1000 AC 08/03 IV 1130 Sevelamer Carbonate 2,400 MG WM 07/30 1000 AC 07/31 PO 1705 Vancomycin HCl 750 MG ONCE ONE 08/03 1200 AC Dextrose/Water 250 ML IV 08/03 1259 Results Last 48 Hrs of Labs/Mics: Laboratory Tests 08/03/17 0636: Hep Bs Antibody Cancelled 08/03/17 0540: Anion Gap 12, Estimated GFR 7 L, Glucose 106 H, Calcium 8.4, Phosphorus 5.8 H , Magnesium 2.1, Total Bilirubin 0.5, AST 23, ALT 28, Albumin 3.1 L, APTT 64 H , CBC w Diff NO MAN DIFF REQ, RBC 2.71 L, MCV 96.8, MCH 31.2 H, MCHC 32.2 L, RDW 15.6 H, MPV 9.1, Gran % 73.2, Lymphocytes % 11.9 L, Monocytes % 8.0, Eosinophils % 6.5 H, Basophils % 0.4, Absolute Granulocytes 6.5, Absolute Lymphocytes 1.1 L, Absolute Monocytes 0.7 H, Absolute Eosinophils 0.6, Absolute Basophils 0, Hep Bs Antibody NONREACTIVE, Random Vancomycin 12.3 08/02/17 2145: APTT 50 H 08/02/17 1000: APTT 75 H 08/02/17 0400: Anion Gap 14, Estimated GFR 10 L, Glucose 102 H, Calcium 9.1, Phosphorus 4.5, Magnesium 2.2, Total Bilirubin 0.6, AST 25, ALT 31, Albumin 3.1 L, CBC w Diff NO MAN DIFF REQ, RBC 2.76 L, MCV 96.1, MCH 32.2 H, MCHC 33.5, RDW 15.6 H, MPV 9.0, Gran % 76.9 H, Lymphocytes % 7.9 L, Monocytes % 9.2, Eosinophils % 5.7 H , Basophils % 0.3, Absolute Granulocytes 7.3 H, Absolute Lymphocytes 0.7 L, Absolute Monocytes 0.9 H, Absolute Eosinophils 0.5, Absolute Basophils 0 08/02/17 0125: pH 7.48 H, pCO2 30 L, pO2 118 H, HCO3 22, ABG O2 Sat (Measured) 98.0, P-50 ( Temp Corrected) Y, Carboxyhemoglobin 0.3 L, O2 Concentration % 30%, Temperature 99.1, Respiration Rate 12, O2 Delivery Method ESPRIT, Vent Mode AC, Expiratory Pressure 5, Tidal Volume 420, Phlebotomy Draw Site RIGHT BRACHIAL 08/01/17 2200: APTT 68 H 08/01/17 1645: pH 7.51 H, pCO2 30 L, pO2 124 H, HCO3 23, ABG O2 Sat (Measured) 98.0, P-50 ( Temp Corrected) N, Carboxyhemoglobin 0.3 L, O2 Concentration % 30, Temperature 97.9, Respiration Rate 14, O2 Delivery Method ESPRIT, Vent Mode AC, Expiratory Pressure 5, Tidal Volume 420, Phlebotomy Draw Site RIGHT BRACHIAL 08/01/17 1410: APTT 59 H Assessment/Plan Assessment/Plan Assessment: 1. Cardiopulmonary arrest with acute hypoxemic respiratory failure of unclear etiology 2. Chronic left bundle branch block 3. History of ischemic cardiomyopathy, EF now 50 % with mild to moderate anteroseptal hypokinesis 4. End-stage renal disease on hemodialysis 5. Coronary artery disease by history status post stent approximately 3 years ago 6. Hypertension by history 7. Aspiration PNA 8. Elevated troponin of unclear etiology s/p CPR 9. Frequent APCs 10. Positive blood cultures Recommendations: -Continue as per the ICU team -Continue metoprolol -CARLOS early next week, possibly Saturday or Saturday. Since the patient remains intubated for the CARLOS, please keep the patient nothing by mouth after midnight on Saturday. Final decision about timing of CARLOS per Dr. Argueta on Saturday morning. Continue telemetry? Yes
--- NOTE | 2017-08-03 13:13 | PN- Nephrology ---
Assessment/Plan Nephrology Assessment: 1 end-stage renal disease. Patient was dialyzed earlier today with 1 L removed. 2. MRSA in sputum 3. Status post cardiac arrest. There is no pulmonary edema on chest x-ray when she arrives. She generally does not gain much fluid between dialysis. Still would wonder whether or not there is a primary cardiac event here. 4. positive blood cultures. Could all of this been overwhelming sepsis? This again seems rather odd. Identity of the positive blood cultures is still pending. 5. Hyperphosphatemia. Would suggest calcium carbonate suspension 2500 mg per 5 mL 4 times a day. Would stop the Renvela 6. Respiratory failure. Apparently just did not do well with breathing on her own. 7. Hyponatremia. This is addressed by dialysis. Would avoid mixing anything in D5W. Remember this is NOT SIADH she has renal failure. Suggestion: 1. Next dialysis will be on Saturday 2. Calcium carbonate suspension 2500 mg 4 times a day 3. Stop Renvela Subjective Subjective: Patient remains intubated. Objective Vital Signs and I&Os Vital Signs Date Time Temp Pulse Resp B/P B/P Pulse O2 O2 Flow FiO2 Mean Ox Delivery Rate 08/03 1130 88 146/74 08/03 1130 88 146/74 08/03 1056 25 08/03 0800 98.3 81 14 138/76 98 Ventilator 25% 08/03 0800 97 Ventilator 25% 08/03 0751 25 08/03 0600 97 Ventilator 25% 08/03 0541 25 08/03 0336 24 08/03 0133 25 08/03 0100 98.9 61 12 122/54 99 Ventilator 25% 08/03 0000 98.9 91 12 170/80 98 Ventilator 25% 08/03 0000 98 Ventilator 25% 08/02 2223 25 08/02 2222 98.2 71 14 123/53 08/02 2145 98.2 66 12 124/50 08/02 2000 98 Ventilator 25% 08/02 1923 25 08/02 1624 25 08/02 1600 99.0 60 12 138/62 99 Ventilator 25% 08/02 1600 97 Ventilator 25% 08/02 1351 25 Intake & Output 08/03 1600 08/03 0400 08/02 1600 08/02 0400 08/01 1600 08/01 0400 Intake Total 075 805 7398 815 697 372 Output Total 0 50 1200 0 Balance 666 113 2932 765 -[phone] Intake, IV 182 177 515 483 457 192 Intake, Oral 100 Intake, Other 180 Intake, Tube 182 171 319 42 Feeding Intake, Tube 100 155 456 290 140 Irrigant Number 1 3 2 Bowel Movements Output, 1000 Dialysate Output, 50 200 0 Gastric Drainage Output, Urine 0 0 0 Patient 105 lb 105 lb 95 lb 9 oz Weight Weight Bed scale Bed scale Measurement Method Physical Exam General Appearance: well developed/nourished, no apparent distress, sedated, intubated Head: atraumatic Neck: trachea mid line Respiratory: normal breath sounds, chest non-tender, lungs clear Cardiovascular: regular rate/rhythm Abdomen: normal bowel sounds, soft, non-tender, no organomegaly Extremities: patient has ecchymoses over her left bauman. I do not see any obvious portals of entry Neurologic/Psychiatric: intubated. Nods when spoken to. Skin: ecchymosis over the legs Current Medications: Current Medications Sig/King Start time Last Medication Dose Route Stop Time Status Admin Amlodipine Besylate 10 MG DAILY 07/30 1000 AC 08/03 PO 1130 Aspirin 81 MG DAILY 07/30 1049 AC 08/03 PO 1130 Atorvastatin Calcium 80 MG 1700 07/30 1700 AC 08/02 PO 1754 Clopidogrel Bisulfate 75 MG DAILY 08/01 1000 AC 08/03 PO 1130 Epoetin Vamshi 2,000 UNIT TuThSa PRN 08/03 0700 AC IV Epoetin Vamshi 2,000 UNIT TuThSa 07/30 1324 DC 08/01 IV 1402 Fentanyl Citrate 1,000 MCG Q20H 08/03 1030 AC Dextrose/Water 250 ML IV Fentanyl Citrate 1,000 MCG Q12H 08/02 1100 DC 08/02 Dextrose/Water 250 ML IV 08/03 1029 1215 Heparin Sodium 25,000 UNIT Q24H 07/31 0030 AC 08/02 (Porcine) IV 08/03 1800 1754 Sodium Chloride 500 ML Lorazepam 1 MG Q4P PRN 07/30 0700 AC 07/30 IV 1527 Metoprolol Tartrate 25 MG BID 08/02 2200 AC 08/03 PO 1130 Metoprolol Tartrate 12.5 MG ONCE ONE 08/02 2199 DC 08/02 PO 08/02 220 2222 Metoprolol Tartrate 12.5 MG BID 07/31 220 AK 08/02 PO 0854 Pantoprazole Sodium 40 MG DAILY 07/30 1000 AC 08/03 IV 1130 Sevelamer Carbonate 2,400 MG WM 07/30 1000 AC 07/31 PO 1705 Vancomycin HCl 750 MG ONCE ONE 08/03 1200 DC Dextrose/Water 250 ML IV 08/03 1259 Results Pertinent Lab Results: Laboratory Tests 08/03 08/03 08/02 0636 0540 2145 Chemistry Sodium (137 - 145 mmol/L) 128 L Potassium (3.5 - 5.1 mmol/L) 4.2 Chloride (98 - 107 mmol/L) 91 L Carbon Dioxide (22 - 30 mmol/L) 25 Anion Gap (5 - 16) 12 BUN (7 - 17 mg/dL) 26 H Creatinine (0.5 - 1.0 mg/dL) 5.7 *H Estimated GFR (>60 ml/min) 7 L Glucose (65 - 99 mg/dL) 106 H Calcium (8.4 - 10.2 mg/dL) 8.4 Phosphorus (2.5 - 4.5 mg/dL) 5.8 H Magnesium (1.6 - 2.3 mg/dL) 2.1 Total Bilirubin (0.2 - 1.3 mg/dL) 0.5 AST (14 - 36 U/L) 23 ALT (9 - 52 U/L) 28 Albumin (3.5 - 5.0 g/dL) 3.1 L Coagulation APTT (25 - 37 SEC) 64 H 50 H Hematology CBC w Diff NO MAN DIFF REQ WBC (4.8 - 10.8 /CUMM) 8.9 RBC (4.20 - 5.40 /CUMM) 2.71 L Hgb (12.0 - 16.0 G/DL) 8.4 L Hct (37 - 47 %) 26.2 L MCV (81.0 - 99.0 FL) 96.8 MCH (27.0 - 31.0 PG) 31.2 H MCHC (33.0 - 37.0 G/DL) 32.2 L RDW (11.5 - 14.5 %) 15.6 H Plt Count (130 - 400 /CUMM) 224 MPV (7.4 - 10.4 FL) 9.1 Gran % (42.2 - 75.2 %) 73.2 Lymphocytes % (20.5 - 51.1 %) 11.9 L Monocytes % (1.7 - 9.3 %) 8.0 Eosinophils % (0 - 5 %) 6.5 H Basophils % (0.0 - 2.0 %) 0.4 Absolute Granulocytes (1.4 - 6.5 /CUMM) 6.5 Absolute Lymphocytes (1.2 - 3.4 /CUMM) 1.1 L Absolute Monocytes (0.10 - 0.60 /CUMM) 0.7 H Absolute Eosinophils (0.0 - 0.7 /CUMM) 0.6 Absolute Basophils (0.0 - 0.2 /CUMM) 0 Serology Hep Bs Antibody (NONREACTIVE) Cancelled NONREACTIVE Toxicology Random Vancomycin (ug/ml) 12.3 08/02 08/02 1000 0400 Chemistry Sodium (137 - 145 mmol/L) 136 L Potassium (3.5 - 5.1 mmol/L) 4.1 Chloride (98 - 107 mmol/L) 97 L Carbon Dioxide (22 - 30 mmol/L) 25 Anion Gap (5 - 16) 14 BUN (7 - 17 mg/dL) 13 Creatinine (0.5 - 1.0 mg/dL) 4.1 H Estimated GFR (>60 ml/min) 10 L Glucose (65 - 99 mg/dL) 102 H Calcium (8.4 - 10.2 mg/dL) 9.1 Phosphorus (2.5 - 4.5 mg/dL) 4.5 Magnesium (1.6 - 2.3 mg/dL) 2.2 Total Bilirubin (0.2 - 1.3 mg/dL) 0.6 AST (14 - 36 U/L) 25 ALT (9 - 52 U/L) 31 Albumin (3.5 - 5.0 g/dL) 3.1 L Coagulation APTT (25 - 37 SEC) 75 H Hematology CBC w Diff NO MAN DIFF REQ WBC (4.8 - 10.8 /CUMM) 9.4 RBC (4.20 - 5.40 /CUMM) 2.76 L Hgb (12.0 - 16.0 G/DL) 8.9 L Hct (37 - 47 %) 26.6 L MCV (81.0 - 99.0 FL) 96.1 MCH (27.0 - 31.0 PG) 32.2 H MCHC (33.0 - 37.0 G/DL) 33.5 RDW (11.5 - 14.5 %) 15.6 H Plt Count (130 - 400 /CUMM) 216 MPV (7.4 - 10.4 FL) 9.0 Gran % (42.2 - 75.2 %) 76.9 H Lymphocytes % (20.5 - 51.1 %) 7.9 L Monocytes % (1.7 - 9.3 %) 9.2 Eosinophils % (0 - 5 %) 5.7 H Basophils % (0.0 - 2.0 %) 0.3 Absolute Granulocytes (1.4 - 6.5 /CUMM) 7.3 H Absolute Lymphocytes (1.2 - 3.4 /CUMM) 0.7 L Absolute Monocytes (0.10 - 0.60 /CUMM) 0.9 H Absolute Eosinophils (0.0 - 0.7 /CUMM) 0.5 Absolute Basophils (0.0 - 0.2 /CUMM) 0 08/02 08/01 08/01 08/01 0125 2200 1645 1410 Blood Gas pH (7.35 - 7.45 PH) 7.48 H 7.51 H pCO2 (35 - 45 TORR) 30 L 30 L pO2 (80 - 100 TORR) 118 H 124 H HCO3 (21 - 28 MEQ/L) 22 23 ABG O2 Sat (Measured) (>96.0 %) 98.0 98.0 P-50 (Temp Corrected) Y N Carboxyhemoglobin (1.5 - 5.0 %) 0.3 L 0.3 L O2 Concentration % 30% 30 Temperature (97.0 - 100.0 FARH) 99.1 97.9 Respiration Rate (BPM) 12 14 O2 Delivery Method ESPRIT ESPRIT Vent Mode AC AC Expiratory Pressure (CMH2O/P) 5 5 Tidal Volume (CC) 420 420 Coagulation APTT (25 - 37 SEC) 68 H 59 H Miscellaneous Phlebotomy Draw Site RIGHT BRACHIAL RIGHT BRACHIAL 08/01 07/31 0200 1830 Chemistry Sodium (137 - 145 mmol/L) 140 Potassium (3.5 - 5.1 mmol/L) 3.5 Chloride (98 - 107 mmol/L) 97 L Carbon Dioxide (22 - 30 mmol/L) 22 Anion Gap (5 - 16) 20 H BUN (7 - 17 mg/dL) 27 H Creatinine (0.5 - 1.0 mg/dL) 6.9 *H Estimated GFR (>60 ml/min) 6 L Glucose (65 - 99 mg/dL) 104 H Calcium (8.4 - 10.2 mg/dL) 9.2 Phosphorus (2.5 - 4.5 mg/dL) 5.9 H Magnesium (1.6 - 2.3 mg/dL) 2.1 Total Bilirubin (0.2 - 1.3 mg/dL) 0.7 AST (14 - 36 U/L) 31 ALT (9 - 52 U/L) 30 Troponin I (< 0.11 ng/ml) 1.80 *H Albumin (3.5 - 5.0 g/dL) 3.3 L Coagulation APTT (25 - 37 SEC) 90 H 40 H Hematology CBC w Diff NO MAN DIFF REQ WBC (4.8 - 10.8 /CUMM) 12.2 H RBC (4.20 - 5.40 /CUMM) 3.07 L Hgb (12.0 - 16.0 G/DL) 9.6 L Hct (37 - 47 %) 29.9 L MCV (81.0 - 99.0 FL) 97.3 MCH (27.0 - 31.0 PG) 31.1 H MCHC (33.0 - 37.0 G/DL) 32.0 L RDW (11.5 - 14.5 %) 16.1 H Plt Count (130 - 400 /CUMM) 248 MPV (7.4 - 10.4 FL) 8.6 Gran % (42.2 - 75.2 %) 75.2 Lymphocytes % (20.5 - 51.1 %) 11.3 L Monocytes % (1.7 - 9.3 %) 9.4 H Eosinophils % (0 - 5 %) 3.7 Basophils % (0.0 - 2.0 %) 0.4 Absolute Granulocytes (1.4 - 6.5 /CUMM) 9.2 H Absolute Lymphocytes (1.2 - 3.4 /CUMM) 1.4 Absolute Monocytes (0.10 - 0.60 /CUMM) 1.1 H Absolute Eosinophils (0.0 - 0.7 /CUMM) 0.5 Absolute Basophils (0.0 - 0.2 /CUMM) 0.1
--- NOTE | 2017-08-03 13:15 | PN- Infect Dx ---
Subjective Subjective: Remains intubated, in restraints, no fever/chills. Review of Systems Comments: 12 points reviewed as noted, otherwise negative. Objective Last 24 Hrs of Vital Signs/I&O Vital Signs Date Time Temp Pulse Resp B/P B/P Pulse O2 O2 Flow FiO2 Mean Ox Delivery Rate 08/03 1130 88 146/74 08/03 1130 88 146/74 08/03 1056 25 08/03 0800 98.3 81 14 138/76 98 Ventilator 25% 08/03 0800 97 Ventilator 25% 08/03 0751 25 08/03 0600 97 Ventilator 25% 08/03 0541 25 08/03 0336 24 08/03 0133 08/03 0100 98.9 61 12 122/54 99 Ventilator 25% 08/03 0000 98.9 91 12 170/80 98 Ventilator 25% 08/03 0000 98 Ventilator 25% 08/02 2223 08/02 2222 98.2 71 14 123/53 08/02 2145 98.2 66 12 124/50 08/02 2000 98 Ventilator 25% 08/02 1923 25 08/02 1624 25 08/02 1600 99.0 60 12 138/62 99 Ventilator 25% 08/02 1600 97 Ventilator 25% 08/02 1351 25 Intake & Output 08/03 1600 08/03 0800 08/03 0000 Intake Total 464 503 Output Total Balance 464 503 Intake, IV 182 177 Intake, Tube 182 171 Feeding Intake, Tube 100 155 Irrigant Number 1 Bowel Movements Patient 105 lb Weight Physical Exam Other Physical Findings: She is sedated on the ventilator, OPENS EYES TO VOICE Lungs are clear Heart regular rhythm with no murmur Abdomen is soft, nontender with positive bowel sounds Extremities left patellar ecchymotic swelling, with serous drainage; scattered ecchymoses on all extremities Results Last 24 Hours of Lab Results: Laboratory Tests 08/03 08/03 08/02 0636 0540 2145 Chemistry Sodium (137 - 145 mmol/L) 128 L Potassium (3.5 - 5.1 mmol/L) 4.2 Chloride (98 - 107 mmol/L) 91 L Carbon Dioxide (22 - 30 mmol/L) 25 Anion Gap (5 - 16) 12 BUN (7 - 17 mg/dL) 26 H Creatinine (0.5 - 1.0 mg/dL) 5.7 *H Estimated GFR (>60 ml/min) 7 L Glucose (65 - 99 mg/dL) 106 H Calcium (8.4 - 10.2 mg/dL) 8.4 Phosphorus (2.5 - 4.5 mg/dL) 5.8 H Magnesium (1.6 - 2.3 mg/dL) 2.1 Total Bilirubin (0.2 - 1.3 mg/dL) 0.5 AST (14 - 36 U/L) 23 ALT (9 - 52 U/L) 28 Albumin (3.5 - 5.0 g/dL) 3.1 L Coagulation APTT (25 - 37 SEC) 64 H 50 H Hematology CBC w Diff NO MAN DIFF REQ WBC (4.8 - 10.8 /CUMM) 8.9 RBC (4.20 - 5.40 /CUMM) 2.71 L Hgb (12.0 - 16.0 G/DL) 8.4 L Hct (37 - 47 %) 26.2 L MCV (81.0 - 99.0 FL) 96.8 MCH (27.0 - 31.0 PG) 31.2 H MCHC (33.0 - 37.0 G/DL) 32.2 L RDW (11.5 - 14.5 %) 15.6 H Plt Count (130 - 400 /CUMM) 224 MPV (7.4 - 10.4 FL) 9.1 Gran % (42.2 - 75.2 %) 73.2 Lymphocytes % (20.5 - 51.1 %) 11.9 L Monocytes % (1.7 - 9.3 %) 8.0 Eosinophils % (0 - 5 %) 6.5 H Basophils % (0.0 - 2.0 %) 0.4 Absolute Granulocytes (1.4 - 6.5 /CUMM) 6.5 Absolute Lymphocytes (1.2 - 3.4 /CUMM) 1.1 L Absolute Monocytes (0.10 - 0.60 /CUMM) 0.7 H Absolute Eosinophils (0.0 - 0.7 /CUMM) 0.6 Absolute Basophils (0.0 - 0.2 /CUMM) 0 Serology Hep Bs Antibody (NONREACTIVE) Cancelled NONREACTIVE Toxicology Random Vancomycin (ug/ml) 12.3 Last 24 Hours of Lex Results: ENTR: 07/30/17-[address]: Merline PARKINSON,Colton Kidd SPDESC: 2ND/VENOUS ORDERED: BLOOD CULTURE Procedure Result > BLOOD CULTURE REPORT Preliminary 08/03/17 GRAM STAIN SUGGESTIVE OF: GRAM POSITIVE COCCI Called to/Readback by JOON by SAMI 08/01/17 1339 CULTURE= GRAM POSITIVE COCCI Identification and sensitivities still to follow SPEC #: [id number] OSMAR: 07/30/17111 STATUS: RES RECD: 07/30/[address]: Oswaldo PARKINSON, Sweetie SOURCE: LOWER RESP ENTR: 07/30/[address]: Merline PARKINSON,Colton Kidd SPDESC: SPUTUM Kirill Schaefer MD ORDERED: LOWER RESPIRATO Procedure Result > GRAM STAIN Final 07/30/17-1417 WHITE BLOOD CELLS MODERATE SQUAMOUS CELLS RARE GRAM POSITIVE COCCI FEW GRAM POSITIVE RODS RARE > LOWER RESPIRATORY CULTURE Preliminary 08/03/17-09 Mixed christie after 2 days with Scant growth of: STAPH AUREUS ISOLATED NOTE THIS IS A PRELIMINARY REPORT: IF: patient has had significant exposure to a healthcare setting in the past three (3) months, THEN: suspect Methicillin Resistant Staph aureus and place patient on Contact precautions PENDING susceptibility results STILL TO FOLLOW STILL BEING WORKUP. Sputm cx 08/01 + S. aureus as well, sensitivity pnd Recent Imaging Studies: CTA FINDINGS: An NG tube is present within the esophagus extending to the gastric region. An endotracheal tube is present, the tip is at the level of the zoe. QUALITY OF STUDY/CONTRAST BOLUS: Satisfactory PULMONARY ARTERIES: No central or segmental pulmonary emboli. THORACIC AORTA: No aneurysm or dissection. LUNG: Small amount of atelectasis adjacent to the margin of the bilateral pleural effusions. PLEURA: There are small posterior bilateral pleural effusions. MEDIASTINUM: Normal heart size. No pericardial effusion. No hilar or mediastinal lymphadenopathy. No evidence of septal bowing or right heart strain. CHEST WALL/AXILLA: No axillary or internal mammary lymphadenopathy. OSSEOUS STRUCTURES: No displaced fractures are identified. Extensive endplate changes and decreased bone mineral density are present in the visualized portions of the lumbar spine and lower thoracic spine.. UPPER ABDOMEN: 2 hypodense lesions are present, the largest in the left lobe of the liver the smaller in the superior aspect of the right lobe, measuring 3.0 and 0.8 cm respectively. These are not fluid density by Hounsfield units.. No reflux of contrast into the hepatic veins to suggest elevated right heart pressures. IMPRESSION: 1. No filling defects are noted throughout the pulmonary arterial system to suggest presence of pulmonary embolus. 2. Nonspecific hypodense foci within the liver, not definitely hepatic cysts. VTE: negative Low position of the endotracheal tube with the tip at the level of the zoe was discussed directly with the referring physician, Dr. Sweetie Chacon, at 2:09 pm on 08/01/2017. DICTATED BY: Kimberlyn Rice MD DATE/TIME DICTATED:08/01/17 1401 Assessment/Plan ID Impression: 86-year-old woman with a history of coronary artery disease, status post stent placement 3 years prior to admission, hypertension, HFpEF and end-stage renal disease, maintained on hemodialysis Tuesdays, and Saturdays via a left upper extremity fistula, status post a fall, resulting in a laceration to the left side of her forehead and her left knee 6 days prior to admission, admitted on July 30 after a cardiac arrest at home, requiring 5 minutes of CPR, found on admission to be hypothermic with a white blood cell count of 17,000, with the development of an elevated troponin, felt to be of unclear significance, with blood cultures 2 positive for gram-positive cocci in clusters and with a positive sputum culture for Staph aureus. If her blood cultures prove to be Staph aureus possible sources including the lungs or the left prepatellar swelling, status post trauma to this area 6 days prior to admission. Endovasc infection/endocarditis will also be a concern if her blood cultures are identified as Staph aureus. Remains afebrile; leukocytosis resolved. Suggestion: 1. Follow-up final blood and sputum cultures 2. CARLOS planned for next week 3. Based on random Vancomycin level (~12), continue Vancomycin 750 mg iv post HD pending final cultures.
[2017-08-03 16:00] VITALS: BP 126/64
[2017-08-03 18:32] LABS: PTT 87 SEC (25-37)
[2017-08-04] VITALS: BP 102/50
[2017-08-04 05:11] LABS: ABSOLUTE BASOPHIL COUNT 0 /CUMM (0.0-0.2); ABSOLUTE EOSINOPHIL COUNT 0.4 /CUMM (0.0-0.7); ABSOLUTE GRANULOCYTE CT 4.4 /CUMM (1.4-6.5); ABSOLUTE LYMPH COUNT 0.7 /CUMM (1.2-3.4); ABSOLUTE MONOCYTE COUNT 0.6 /CUMM (0.10-0.60); BASOPHIL % 0.6 % (0.0-2.0); EOSINOPHIL % 6.5 % (0-5); GRANULOCYTE % 71.8 % (42.2-75.2); HEMATOCRIT 23.1 % (37-47); MEAN CORPUSCULAR HGB CONC 33.1 G/DL (33.0-37.0); MEAN CORPUSCULAR VOLUME 96.6 FL (81.0-99.0); MEAN PLATELET VOLUME 9.4 FL (7.4-10.4); PLATELET COUNT 189 /CUMM (130-400); RBC DISTRIBUTION WIDTH 15.8 % (11.5-14.5); WHITE BLOOD CELL COUNT 6.1 /CUMM (4.8-10.8)
[2017-08-04 08:00] VITALS: BP 130/52
--- NOTE | 2017-08-04 09:33 | PN- Resident CRCU ---
Earl Calles 08/04/17 0933: Subjective HPI/CRCU Issues: The patient was seen and examined. Remains intubated, on b/l soft upper restraints. Was agitated early this morning and was given IV ativan. Lethargic at the time of exam but responsive to tactile stimuli. Objective Vital Signs & I&O Last 8 Hrs of Vitals and I&O: Intake & Output 08/04 1600 Intake Total 759 Output Total 0 Balance 759 Intake, IV 151 Intake, Tube 202 Feeding Intake, Tube 406 Irrigant Number 2 Bowel Movements Output, Urine 0 Exam General Appearance: no apparent distress Other Physical Findings: GA: thin, chronically ill appearing elderly woman, NAD HEENT: NCAT, PERRL, EOMI, anciteric sclera, endotraceal tube / OGT in place NECK: Supple, no JVD, trachea midline CARD: normal S1/S2 w/o m/g/r; RRR PULM: Diminished bibasilar airflow ABD: Soft, NT, ND, BS+ NEURO: Awake and alert, follow commands, CN II-XII grossly intat EXT: normal pulses, no cyanosis, bilateral soft upper extremity restraints in place Weaning Parameters NIF: 30 Minute Volume: 9.12 Resp rate: 12 Vt: 420 Heart Rate: 45 Weaning Schedule Start Time: 1100 Minute Volume: 9.07 Resp Rate: 24 Vt: 500 Heart Rate: 91 End Time: 1143 Start Time: 1810 Minute Volume: 6.1 Resp Rate: 22 Vt: 400 Heart Rate: 78 End Time: 1158 Minute Volume: 7.50 Resp Rate: 21 Vt: 290 Heart Rate: 72 Current Medications: Current Medications Sig/King Start time Last Medication Dose Route Stop Time Status Admin Amlodipine Besylate 10 MG DAILY 07/30 1000 AC 08/04 PO 0935 Aspirin 81 MG DAILY 07/30 1049 AC 08/04 PO 0934 Atorvastatin Calcium 80 MG 1700 07/30 1700 AC 08/03 PO 1734 Calcium Carbonate 2,500 MG 4 TIMES/DAY 08/03 2200 AC 08/04 PO 1423 Clopidogrel Bisulfate 75 MG DAILY 08/01 1000 AC 08/04 PO 0934 Epoetin Vamshi 2,000 UNIT TuThSa PRN 08/03 0700 AC IV Fentanyl Citrate 1,000 MCG Q20H 08/03 1030 AC 02/25 Dextrose/Water 250 ML IV 0750 Heparin Sodium 25,000 UNIT Q24H 07/31 0030 DC 08/02 (Porcine) IV 08/03 1800 1754 Sodium Chloride 500 ML Lorazepam 1 MG Q4P PRN 07/30 0700 AC 08/04 IV 0946 Metoprolol Tartrate 25 MG BID 08/02 2200 AC 08/04 PO 0934 Pantoprazole Sodium 40 MG DAILY 07/30 1000 AC 08/04 IV 0934 Sevelamer Carbonate 2,400 MG WM 07/30 1000 DC 07/31 PO 1705 Impression/Plan Impression/Problem List Impression: This is a 86 year old lady with PMH significant for ESRD on HD, HFpEF, and CAD brought in by ambulance after being found unresponsive s/p CPR with ROSC. She has remained intubated on a ventilator despite being awake and alert. She follows commands but is impulsive and remains in bilateral upper extremity soft restraints for fear of self-extubation. She is continued on tube feeds but will remain NPO saturday evening for a CARLOS possibly on saturday or saturday. She received hemodialysis yesterday and a dose of vancomycin. BCs negative. Resp cultures positive for MRSA. Assessment/plan: #Acute hypoxemic respiratory failure and PEA: * Was thought to be likely 2/2 possible inectious precipitant leading to MT and PEA. OtherDdx: flash pulm edema, arrhythmia, septic shock. * Her CAT scan does show bilateral pleural effusions. * Sputum cx came positive for MRSA, her nares swab was positive for MRSA. * Blood cultures 2 are now GPC's. Initially was concern for aspiration pneumonia in this patient. Given evidence of blood cultures and sputum cultures positive for staph was started on vancomycin to treat for pneumonia * 2nd blood cultures neg * Negative lower extremity Doppler to rule out DVT * CAT w/o evidence of PE. #Acute anemia: * Hemoglobin dropped from 7.7 to 7.4 * Ordered type and screen * Patient is febrile at this point will hold off on starting blood transfusion * Will recheck CBC later tonight, if further drop will benefit from transfusion * Attending Dr. Schaefer made aware, agrees with the plan * Will hold off on starting subcutaneous heparin * IV heparin has been discontinued yesterday. #Leukocytosis: * Treating for PNA, ntoe bcx x2 + for GPC. * Knee US shows no aspirable colelction * On vanco for concern of PNA. Initially treated w/ Unasyn for aspiration. MUST DOSE ANTIBIOTICS IN CONJUNCTION WITH DIALYSIS * Vancomycin trough was ordered for Saturday morning before dialysis * Con't monitor * Titrate abx per cx * Became febrile later today blood cultures were obtained. * Contacted infectious disease, Dr. Montez who recommended to start ceftriaxone 2 g daily #Hx CAD and Pulseless arrest found in field: * Coronary artery disease status post NSTEMI and 4 stents (2015 - 2 stents, 2016 - 2 stents) currently on aspirin and plavix, symptomatic bradycardia s/p pacemaker placement, HTN, ECHO in 2016 showing stage 1 diastolic dysfunction, dyslipidemia, hypothyroidism presenting this admission with left arm pain She has hx of stenting done in [place] around 2014. * She sees Dr. Boyer. This time apparently patient was pulseless in the field. * Currently intubated and sedated on ventilator. * Currently evaluating for cause of CP arrest. * She was having elevated troponin and new EKG changes in context of old LBBB. Trops peaked at 1.85 and subsequently trended down. Multiple PACs present in EKG. * Appreciate cardio consult * Started in IV heparin 07/31/2016 which was discontinued after 24 hours per cardiology instructions * ASA * Metoprolol 12.5mg bid--> increased to 25 bid given htn. * Started on Plavix with 300mg load now on 75 * Continue on aspirin * switched to atorvastatin 80 mg daily * ECHO shows EF 50 but some septal hypokinesis #Hypertension * Con't Amlodipine * Con't Metoprolol # Anion gap acidosis: * Initially thought to be secondary to lactic acidosis in the setting of decreased perfusion as well as underlying renal insufficiency. * Now likely due to renal failure as lactate has normalized. * Con't monitor #End stage renal today disease on hemodialysis: Saturday and Saturday * Appreciate nephro consult * HD Saturday. MUST DOSE ANTIBIOTICS WITH DIALYSIS #Alimentary * Maintain on Protonix * Started TF on 08/01/2017 * Q6 finger stick #DVT prophylaxis: Alps given drop in H&H #CODE STATUS Full code Problem List: 1. Renal failure 2. Cardiac arrest 3. Respiratory failure Pain Ratin Tomorrow's Labs & Rationales: CBC to monitor H&H ICU bundle to monitor electrolytes Plan DVT/Prophylaxis: mechanical, pharmacological Kirill Schaefer MD 08/04/17 0598: Attending MD Review Statement Attending Sign Off Attending Cosign Statement: I have: examined this patient, reviewed avalbl EMR data, personally reviewd images, discussd w/resident/PA/COLLEGE OR UNIVERSITY BUSINESS MANAGER, discussed mgmt plan w/jessica, discussed mgmt plan w/CM, discussed mgmt plan w/pt, agreed w/resident/PA/COLLEGE OR UNIVERSITY BUSINESS MANAGER, amended to note. Other Findings: I, Kirill Schaefer M.D. have examined this patient, reviewed available EMR data, personally reviewed images, discussed with resident/PA/COLLEGE OR UNIVERSITY BUSINESS MANAGER, discussed management plan with housestaff and nursing staff, discussed managment plan all of healthcare providers, discussed management plan with patient and/or family, agreed with resident/PA/COLLEGE OR UNIVERSITY BUSINESS MANAGER. The past history and parts of the chart have been autopopulated. Impression 86 year old woman * cardiac arrest - unclear rhythm/timing - although brief, etiology is unclear flash pulmonary edema is possible vs opiate/pain medications causing respiratory depression - per family pt takes tramadol and meds from neighbor intermittently, aspiration pneumonia is likely and will be treated as such * ESRD on HD Plan -nephrology, cardiology appreciated, ?cardiac cath -CARLOS Saturday plan tentatively -staph aureus - Vancomycin based on HD protocol -HD per renal -cont current vent settings -f/u cardiology plan, on heparin gtt to be turned off -tube feeds -reduce sedation with goal of SBT - however if plan to perform CARLOS within 48-72 hrs would be safer to keep intubated DVT prophylaxis at all times TTS 35 min
[2017-08-04 12:00] VITALS: BP 102/44
--- NOTE | 2017-08-04 12:43 | PN- Infect Dx ---
Subjective Subjective: No fever; remains intubated. Review of Systems Comments: 12 points reviewed as noted, otherwise negative. Objective Last 24 Hrs of Vital Signs/I&O Vital Signs Date Time Temp Pulse Resp B/P B/P Pulse O2 O2 Flow FiO2 Mean Ox Delivery Rate 08/04 1135 25 08/04 0935 88 117/50 08/04 0934 88 117/50 08/04 0830 25 08/04 0800 95 Ventilator 25% 08/04 0800 98.0 70 15 130/52 95 Ventilator 25% 08/04 0624 08/04 0400 97 Ventilator 25% 08/04 0236 08/04 0047 25 08/04 0000 96 Ventilator 25% 08/04 0000 99.4 60 12 102/50 96 Ventilator 25% 08/03 2230 08/03 2228 63 12 102/44 08/03 2000 97 Ventilator 25% 08/03 1920 08/03 1620 08/03 1600 100.0 72 14 126/64 96 Ventilator 25% 08/03 1600 96 Ventilator 25% 08/03 1409 25 Intake & Output 08/04 1600 08/04 0800 08/04 0000 Intake Total 542 651 Output Total 0 0 Balance 542 651 Intake, IV 89 346 Intake, Tube 253 205 Feeding Intake, Tube 200 100 Irrigant Number 1 1 Bowel Movements Output, Urine 0 0 Patient 109 lb Weight Weight Bed scale Measurement Method Physical Exam Other Physical Findings: Elderly female acutely ill; requiring mechanical ventilation HEENT ETT in place Neck No MARQUES Lungs BS present/diminished bases, few rhonchi Heart S1 S2 present, no murmur Abdomen is soft, nontender with positive bowel sounds Extremities scattered ecchymoses; LUE AVF Results Last 24 Hours of Lab Results: Laboratory Tests 08/04 08/03 3319 1735 Chemistry Sodium (137 - 145 mmol/L) 129 L Potassium (3.5 - 5.1 mmol/L) 4.0 Chloride (98 - 107 mmol/L) 94 L Carbon Dioxide (22 - 30 mmol/L) 28 Anion Gap (5 - 16) 7 BUN (7 - 17 mg/dL) 17 Creatinine (0.5 - 1.0 mg/dL) 3.1 H Estimated GFR (>60 ml/min) 14 L Glucose (65 - 99 mg/dL) 124 H Calcium (8.4 - 10.2 mg/dL) 8.1 L Phosphorus (2.5 - 4.5 mg/dL) 3.3 Magnesium (1.6 - 2.3 mg/dL) 1.9 Total Bilirubin (0.2 - 1.3 mg/dL) 0.4 AST (14 - 36 U/L) 36 ALT (9 - 52 U/L) 30 Albumin (3.5 - 5.0 g/dL) 2.8 L Coagulation APTT (25 - 37 SEC) 87 H Hematology CBC w Diff NO MAN DIFF REQ WBC (4.8 - 10.8 /CUMM) 6.1 RBC (4.20 - 5.40 /CUMM) 2.40 L Hgb (12.0 - 16.0 G/DL) 7.7 L Hct (37 - 47 %) 23.1 L MCV (81.0 - 99.0 FL) 96.6 MCH (27.0 - 31.0 PG) 32.0 H MCHC (33.0 - 37.0 G/DL) 33.1 RDW (11.5 - 14.5 %) 15.8 H Plt Count (130 - 400 /CUMM) 189 MPV (7.4 - 10.4 FL) 9.4 Gran % (42.2 - 75.2 %) 71.8 Lymphocytes % (20.5 - 51.1 %) 11.0 L Monocytes % (1.7 - 9.3 %) 10.1 H Eosinophils % (0 - 5 %) 6.5 H Basophils % (0.0 - 2.0 %) 0.6 Absolute Granulocytes (1.4 - 6.5 /CUMM) 4.4 Absolute Lymphocytes (1.2 - 3.4 /CUMM) 0.7 L Absolute Monocytes (0.10 - 0.60 /CUMM) 0.6 Absolute Eosinophils (0.0 - 0.7 /CUMM) 0.4 Absolute Basophils (0.0 - 0.2 /CUMM) 0 Last 24 Hours of Lex Results: SPEC #: [id number] OSMAR: 07/30/17 STATUS: RES RECD: 07/30/[address]: Jose Raul PARKINSON, John Eaton SOURCE: BLOOD ENTR: 07/30/17 [facility] [place] DR: Merline PARKINSON,Colton Kidd SPDESC: 2ND/VENOUS ORDERED: BLOOD CULTURE Procedure Result > BLOOD CULTURE REPORT Preliminary 08/03/17 GRAM STAIN SUGGESTIVE OF: GRAM POSITIVE COCCI Called to/Readback by JOON by [email or web address] 08/01/17 1339 CULTURE= GRAM POSITIVE COCCI Identification and sensitivities still to follow SPEC #: [id number] OSMAR: 07/30/171115 STATUS: COMP RECD: 07/30/171244 SUBM DR: Oswaldo PARKINSON, Sweetie SOURCE: LOWER RESP ENTR: 07/30/[address]: Merline PARKINSON,Colton Kidd SPDESC: SPUTUM Silvano PARKINSON,Kirill ORDERED: LOWER RESPIRATO Procedure Result > GRAM STAIN Final 07/30/17-141 WHITE BLOOD CELLS MODERATE SQUAMOUS CELLS RARE GRAM POSITIVE COCCI FEW GRAM POSITIVE RODS RARE > LOWER RESPIRATORY CULTURE Final 08/04/1709 Mixed christie after 2 days with Scant growth of: METH RESIST STAPH AUREUS Called to/Readback by DEVON by [email or web address] 08/04/17 0905 1. METH RESIST STAPH AUREUS RX ABN ------ --- 1. METH RESIST STAPH AUREUS RX AB ------ -- CEFAZOLIN R AMOXICILLIN/CLAVULINIC ACID R AMPICILLIN/SULBACTAM R TETRACYCLINE S TRIMETHOPRIM/SULFAMETHOXAZOLE S AZITHROMYCIN R CLINDAMYCIN R ERYTHROMYCIN R OXACILLIN R VANCOMYCIN S ATTENTIONATTENTIONPLACE PATIENT ON CONTACT PRECAUTIONS Recent Imaging Studies: COMPARISON: Multiple priors, most recently 08/01/2017. TECHNIQUE: Portable frontal view of the chest was obtained. FINDINGS: The endotracheal tube terminates approximately 2 cm above the zoe. Enteric tube extends into the stomach. The lung apices are not included on this study. The lungs are well expanded. No consolidation or edema. No significant pleural effusion. The cardiomediastinal silhouette is unchanged. IMPRESSION: Endotracheal tube terminating approximately 2 cm above the zoe. No acute pulmonary findings. DICTATED BY: Cesar PARKINSON,Joel DATE/TIME DICTATED:08/02/17643 LOCATION MANAGER:BRAYAN DATE/TIME TRANSCRIBED:08/02/17643 CONFIDENTIAL, DO NOT COPY WITHOUT APPROPRIATE AUTHORIZATION. <Electronically signed in Other Vendor System> SIGNED BY: Cesar PARKINSON,Joel 08/0248 Assessment/Plan ID Impression: 86-year-old woman with a history of coronary artery disease, status post stent placement 3 years prior to admission, hypertension, HFpEF and end-stage renal disease, maintained on hemodialysis Tuesdays, and Saturdays via a left upper extremity fistula, status post a fall, admitted on July 30 after a cardiac arrest at home, requiring 5 minutes of CPR, found on admission to be hypothermic with a white blood cell count of 17,000, with elevated troponin, and positive blood cultures 2 for gram-positive cocci, and positive sputum culture for Staph aureus (MRSA). As blood cultures are still pending; increased likelihood that the pathogen could be fastidious Strep spp . Endovasc infection/endocarditis of concern. Remains afebrile; leukocytosis resolved. MRSA bronchitis vs aspiration pneumonia (of note most recent CXR from 08/02 neg infiltrates) Suggestion: 1. Follow-up final blood. F/u sputum cx from 08/01. Consider repeat CXR if increasing resp secretions. 2. CARLOS planned for next week Saturday 3. Based on random Vancomycin level (~12), continue Vancomycin 750 mg iv post HD pending final cultures.
[2017-08-04 13:52] LABS: ABSOLUTE BASOPHIL COUNT 0 /CUMM (0.0-0.2); ABSOLUTE EOSINOPHIL COUNT 0.3 /CUMM (0.0-0.7); ABSOLUTE GRANULOCYTE CT 5.5 /CUMM (1.4-6.5); ABSOLUTE LYMPH COUNT 0.6 /CUMM (1.2-3.4); ABSOLUTE MONOCYTE COUNT 0.8 /CUMM (0.10-0.60); BASOPHIL % 0.1 % (0.0-2.0); EOSINOPHIL % 4.2 % (0-5); GRANULOCYTE % 76.4 % (42.2-75.2); HEMATOCRIT 22.6 % (37-47); MEAN CORPUSCULAR HGB 31.8 PG (27.0-31.0); MEAN CORPUSCULAR VOLUME 96.3 FL (81.0-99.0); MEAN PLATELET VOLUME 9.5 FL (7.4-10.4); PLATELET COUNT 173 /CUMM (130-400); RBC DISTRIBUTION WIDTH 16.4 % (11.5-14.5); RED BLOOD CELL CT 2.34 /CUMM (4.20-5.40); WHITE BLOOD CELL COUNT 7.2 /CUMM (4.8-10.8)
--- NOTE | 2017-08-04 14:02 | PN- Cardiology ---
Subjective Subjective: No evidence of any change in cardiac status. Intubated, restrained. Objective Vital Signs and I&Os Vital Signs Date Time Temp Pulse Resp B/P B/P Pulse O2 O2 Flow FiO2 Mean Ox Delivery Rate 08/04 1200 94 Ventilator 25% 08/04 1200 100.5 62 12 102/44 94 Ventilator 25% 08/04 1135 25 08/04 0935 88 117/50 08/04 0934 88 117/50 08/04 0830 25 08/04 0800 95 Ventilator 25% 08/04 0800 98.0 70 15 130/52 95 Ventilator 25% 08/04 0624 08/04 0400 97 Ventilator 25% 08/04 0236 25 08/04 0047 25 08/04 0000 96 Ventilator 25% 08/04 0000 99.4 60 12 102/50 96 Ventilator 25% 08/03 2230 25 08/03 2228 63 12 102/44 08/03 2000 97 Ventilator 25% 08/03 1920 25 08/03 1620 25 08/03 1600 100.0 72 14 126/64 96 Ventilator 25% 08/03 1600 96 Ventilator 25% 08/03 1409 25 Intake & Output 08/04 1600 08/04 0800 08/04 0000 08/03 1600 08/03 0800 08/03 0000 Intake Total 542 651 859 464 503 Output Total 0 0 1000 Balance 542 651 -141 464 503 Intake, IV 89 346 370 182 177 Intake, Tube 253 205 229 182 171 Feeding Intake, Tube 200 100 260 100 155 Irrigant Number 1 1 1 Bowel Movements Output, 1000 Dialysate Output, Urine 0 0 Patient 109 lb 103 lb 105 lb Weight Weight Bed scale Measurement Method Physical Exam: General Appearance: well developed/nourished, remains intubated Head: atraumatic, normal appearance Ears, Nose, Throat: normal pharynx, normal ENT inspection Neck: supple, JVP normal, carotids normal bilaterally Respiratory: Essentially clear bilaterally Cardiovascular: regular rate/rhythm, normal S1, S2 Gastrointestinal: soft, non-tender Current Medications: Current Medications Sig/King Start time Last Medication Dose Route Stop Time Status Admin Amlodipine Besylate 10 MG DAILY 07/30 1000 AC 08/04 PO 0935 Aspirin 81 MG DAILY 07/30 1049 AC 08/04 PO 0934 Atorvastatin Calcium 80 MG 1700 07/30 1700 AC 08/03 PO 1734 Calcium Carbonate 2,500 MG 4 TIMES/DAY 08/03 2200 AC 08/04 PO 0935 Clopidogrel Bisulfate 75 MG DAILY 08/01 1000 AC 08/04 PO 0934 Epoetin Vamshi 2,000 UNIT TuThSa PRN 08/03 0700 AC IV Fentanyl Citrate 1,000 MCG Q20H 08/03 1030 AC 08/04 Dextrose/Water 250 ML IV 0750 Heparin Sodium 25,000 UNIT Q24H 07/31 0030 DC 08/02 (Porcine) IV 08/03 1800 1754 Sodium Chloride 500 ML Lorazepam 1 MG Q4P PRN 07/30 0700 AC 08/04 IV 0946 Metoprolol Tartrate 25 MG BID 08/02 2200 AC 08/04 PO 0934 Pantoprazole Sodium 40 MG DAILY 07/30 1000 AC 08/04 IV 0934 Sevelamer Carbonate 2,400 MG WM 07/30 1000 DC 07/31 PO 1705 Results Last 48 Hrs of Labs/Mics: Laboratory Tests 08/04/17 1250: CBC w Diff Pending, WBC Pending, RBC Pending, Hgb Pending, Hct Pending, MCV Pending, MCH Pending, MCHC Pending, RDW Pending, Plt Count Pending, MPV Pending 08/04/17 0419: Anion Gap 7, Estimated GFR 14 L, Glucose 124 H, Calcium 8.1 L, Phosphorus 3.3 , Magnesium 1.9, Total Bilirubin 0.4, AST 36, ALT 30, Albumin 2.8 L, CBC w Diff NO MAN DIFF REQ, RBC 2.40 L, MCV 96.6, MCH 32.0 H, MCHC 33.1, RDW 15.8 H, MPV 9.4, Gran % 71.8, Lymphocytes % 11.0 L, Monocytes % 10.1 H, Eosinophils % 6.5 H, Basophils % 0.6, Absolute Granulocytes 4.4, Absolute Lymphocytes 0.7 L, Absolute Monocytes 0.6, Absolute Eosinophils 0.4, Absolute Basophils 0 08/03/17 1735: APTT 87 H 08/03/17 1000: Sodium Cancelled, Potassium Cancelled, Chloride Cancelled, Carbon Dioxide Cancelled, Anion Gap Cancelled, BUN Cancelled, Creatinine Cancelled, Glucose Cancelled, Calcium Cancelled, Phosphorus Cancelled, Magnesium Cancelled, Total Bilirubin Cancelled, AST Cancelled, ALT Cancelled, Albumin Cancelled 08/03/17 0636: Hep Bs Antibody Cancelled 08/03/17 0540: Anion Gap 12, Estimated GFR 7 L, Glucose 106 H, Calcium 8.4, Phosphorus 5.8 H , Magnesium 2.1, Total Bilirubin 0.5, AST 23, ALT 28, Albumin 3.1 L, APTT 64 H , CBC w Diff NO MAN DIFF REQ, RBC 2.71 L, MCV 96.8, MCH 31.2 H, MCHC 32.2 L, RDW 15.6 H, MPV 9.1, Gran % 73.2, Lymphocytes % 11.9 L, Monocytes % 8.0, Eosinophils % 6.5 H, Basophils % 0.4, Absolute Granulocytes 6.5, Absolute Lymphocytes 1.1 L, Absolute Monocytes 0.7 H, Absolute Eosinophils 0.6, Absolute Basophils 0, Hep Bs Antibody NONREACTIVE, Random Vancomycin 12.3 08/02/17 2145: APTT 50 H Microbiology 08/04 0906 STOOL: Clostridium difficile Toxin A & B - COMP Assessment/Plan Assessment/Plan Assessment: 1. Cardiopulmonary arrest with acute hypoxemic respiratory failure of unclear etiology 2. Chronic left bundle branch block 3. History of ischemic cardiomyopathy, EF now 50 % with mild to moderate anteroseptal hypokinesis 4. End-stage renal disease on hemodialysis 5. Coronary artery disease by history status post stent approximately 3 years ago 6. Hypertension by history 7. Aspiration PNA 8. Elevated troponin of unclear etiology s/p CPR 9. Frequent APCs 10. Positive blood cultures Recommendations: -Continue as per the ICU team -Continue metoprolol -CARLOS early next week, possibly Saturday or Saturday. Since the patient remains intubated for the CARLOS, please keep the patient nothing by mouth after midnight on Saturday. Final decision about timing of CARLOS per Dr. Argueta on Saturday morning. Currently, the CARLOS is scheduled for Saturday Continue telemetry? Yes
[2017-08-04 16:00] VITALS: BP 140/85
[2017-08-04 20:50] LABS: ABSOLUTE BASOPHIL COUNT 0 /CUMM (0.0-0.2); ABSOLUTE EOSINOPHIL COUNT 0.2 /CUMM (0.0-0.7); ABSOLUTE GRANULOCYTE CT 6.5 /CUMM (1.4-6.5); ABSOLUTE LYMPH COUNT 0.8 /CUMM (1.2-3.4); ABSOLUTE MONOCYTE COUNT 0.9 /CUMM (0.10-0.60); BASOPHIL % 0.4 % (0.0-2.0); EOSINOPHIL % 2.4 % (0-5); GRANULOCYTE % 77.2 % (42.2-75.2); HEMATOCRIT 22.4 % (37-47); MEAN CORPUSCULAR HGB 32.2 PG (27.0-31.0); MEAN CORPUSCULAR HGB CONC 33.2 G/DL (33.0-37.0); MEAN CORPUSCULAR VOLUME 96.9 FL (81.0-99.0); MEAN PLATELET VOLUME 9.3 FL (7.4-10.4); PLATELET COUNT 186 /CUMM (130-400); RBC DISTRIBUTION WIDTH 15.7 % (11.5-14.5); RED BLOOD CELL CT 2.32 /CUMM (4.20-5.40); WHITE BLOOD CELL COUNT 8.4 /CUMM (4.8-10.8)
[2017-08-04 21:12] LABS: PT 11.7 SEC (9.4-12.5); PTT 29 SEC (25-37)
[2017-08-05] VITALS: BP 132/50
[2017-08-05 07:54] LABS: ABSOLUTE BASOPHIL COUNT 0 /CUMM (0.0-0.2); ABSOLUTE EOSINOPHIL COUNT 0.4 /CUMM (0.0-0.7); ABSOLUTE GRANULOCYTE CT 8.4 /CUMM (1.4-6.5); ABSOLUTE LYMPH COUNT 0.9 /CUMM (1.2-3.4); HEMATOCRIT 27.1 % (37-47); MEAN CORPUSCULAR HGB 31.5 PG (27.0-31.0); MEAN CORPUSCULAR HGB CONC 33.7 G/DL (33.0-37.0); MEAN CORPUSCULAR VOLUME 93.4 FL (81.0-99.0); MEAN PLATELET VOLUME 9.7 FL (7.4-10.4); PLATELET COUNT 202 /CUMM (130-400); RBC DISTRIBUTION WIDTH 17.1 % (11.5-14.5); WHITE BLOOD CELL COUNT 10.8 /CUMM (4.8-10.8)
[2017-08-05 08:00] VITALS: BP 126/64
[2017-08-05 08:06] LABS: BASOPHIL % 0.1 % (0.0-2.0); EOSINOPHIL % 3.6 % (0-5); GRANULOCYTE % 78.2 % (42.2-75.2)
--- NOTE | 2017-08-05 09:24 | RADIOLOGY REPORT ---
EXAMINATION: XR PORTABLE CHEST CLINICAL INFORMATION: Respiratory failure. Status post intubation. COMPARISON: Multiple previous chest imaging studies with the most recent chest x-ray of 08/02/2017 and chest CTA of 08/01/2017. TECHNIQUE: Portable frontal view of the chest was obtained. FINDINGS: An endotracheal tube terminates 2.4 cm above the zoe. An enteric tube courses below the diaphragm; however, its tip is external to the field of view. Multiple cardiac leads and wires as well as tubings overlie the chest somewhat limiting the evaluation. No evidence of pneumothorax. The lungs are hypoexpanded, greater hyperexpansion of the right lung compared to left. There is bronchovascular crowding. Mild bibasilar opacities likely representing atelectasis. Small bilateral pleural effusions are better seen on the chest CT. No evidence of overt pulmonary edema. No acute osseous abnormality. Cardiomediastinal silhouette is stable with moderate cardiomegaly. IMPRESSION: 1. Hypoexpanded lungs with bronchovascular crowding. Bibasilar subsegmental atelectasis. No evidence of changes of overt pulmonary edema. 2. No lobar consolidation. 3. Endotracheal tube terminates 2.4 cm above the zoe. No pneumothorax. 4. Stable moderate cardiomegaly.
--- NOTE | 2017-08-05 09:59 | PN- Nephrology ---
Assessment/Plan Nephrology Assessment: 1 end-stage renal disease. Patient for dialysis tomorrow 2. MRSA in sputum 3. Status post cardiac arrest. 4. positive blood cultures. Has micrococcus in the blood cultures. 5. Hyperphosphatemia. 6. Respiratory failure. Apparently just did not do well with breathing on her own. 7. Hyponatremia. This is addressed by dialysis. Would avoid mixing anything in D5W. Remember this is NOT SIADH she has renal failure. Suggestion: 1. Hemodialysis tomorrow 2. Her phosphorus is now down to 3.5. May be able to back off to calcium carbonate only 3 times a day. A 3.5. Subjective Subjective: Patient remains intubated. She is about to have her transesophageal echo. Her daughter is visiting. Objective Vital Signs and I&Os Vital Signs Date Time Temp Pulse Resp B/P B/P Pulse O2 O2 Flow FiO2 Mean Ox Delivery Rate 08/05 1103 35 08/05 0830 35 08/05 0800 97.7 81 14 126/64 96 Ventilator 35% 08/05 0800 96 Ventilator 35% 08/05 0635 35 08/05 0400 94 Ventilator 35% 08/05 0330 35 08/05 0255 100.6 08/05 0156 101.5 08/05 0050 35 08/05 0000 96 Ventilator 35% 08/05 0000 99.7 65 12 132/50 96 Ventilator 35% 08/04 2238 35 08/04 2215 62 13 114/55 08/04 2000 91 Ventilator 35% 08/04 1940 25 08/04 1718 100.9 08/04 1630 25 08/04 1619 101.2 08/04 1600 Ventilator 25% 08/04 1600 84 26 140/85 91 Ventilator 25% 08/04 1420 25 08/04 1200 94 Ventilator 25% 08/04 1200 100.5 62 12 102/44 94 Ventilator 25% Intake & Output 08/05 1600 08/05 0400 08/04 1600 08/04 0400 08/03 1600 08/03 0400 Intake Total 694 489 3786 651 1323 503 Output Total 0 0 0 0 1000 Balance 164 452 5813 651 323 503 Intake, Blood 350 Product Intake, IV 202 93 240 346 552 177 Intake, Tube 205 455 205 411 171 Feeding Intake, Tube 100 606 100 360 155 Irrigant Number 2 2 3 1 1 Bowel Movements Output, 1000 Dialysate Output, Urine 0 0 0 0 Patient 108 lb 109 lb 103 lb Weight Weight Bed scale Bed scale Measurement Method Physical Exam: General Appearance: well developed/nourished, no apparent distress, sedated, intubated Head: atraumatic, normocephalic Neck: trachea mid line Respiratory: normal breath sounds, chest non-tender, lungs clear Cardiovascular: regular rate/rhythm Abdomen: normal bowel sounds, soft, non-tender, no organomegaly Extremities: patient has ecchymoses over her left bauman. I do not see any obvious portals of entry Neurologic/Psychiatric: intubated. Would not squeeze my fingers however did wiggle her toes and move her feet upon command Skin: ecchymosis over the legs Current Medications: Current Medications Sig/King Start time Last Medication Dose Route Stop Time Status Admin Acetaminophen 650 MG ONCE ONE 08/05 0145 DC 08/05 PO 08/05 0146 0156 Acetaminophen 650 MG ONCE ONE 08/04 1545 DC 08/04 PO 08/04 1546 1619 Amlodipine Besylate 10 MG DAILY 07/30 1000 AC 08/04 PO 0935 Aspirin 81 MG DAILY 07/30 1049 AC 08/04 PO 0934 Atorvastatin Calcium 80 MG 07/30 1700 AC 08/04 PO 1619 Calcium Carbonate 2,500 MG 4 TIMES/DAY 08/03 2200 AC 08/04 PO 221 Ceftriaxone Sodium 2,000 MG DAILY@1700 08/04 1700 AC 08/04 IV 1723 Clopidogrel Bisulfate 75 MG DAILY 08/01 1000 AC 08/04 PO 0934 Epoetin Vamshi 2,000 UNIT TuThSa PRN 08/03 0700 AC IV Fentanyl Citrate 1,000 MCG Q20H 08/03 1030 AC 08/05 Dextrose/Water 250 ML IV 0420 Lorazepam 1 MG Q4P PRN 07/30 0700 AC 08/04 IV 2006 Metoprolol Tartrate 25 MG BID 08/02 2200 AC 08/04 PO 221 Pantoprazole Sodium 40 MG DAILY 07/30 1000 AC 08/04 IV 0934 Results Pertinent Lab Results: Laboratory Tests 08/05 Chemistry Sodium (137 - 145 mmol/L) 128 L Potassium (3.5 - 5.1 mmol/L) 4.3 Chloride (98 - 107 mmol/L) 92 L Carbon Dioxide (22 - 30 mmol/L) 26 Anion Gap (5 - 16) 10 BUN (7 - 17 mg/dL) 29 H Creatinine (0.5 - 1.0 mg/dL) 4.8 H Estimated GFR (>60 ml/min) 9 L Glucose (65 - 99 mg/dL) 110 H Lactic Acid (0.7 - 2.1 mmol/L) 1.3 Calcium (8.4 - 10.2 mg/dL) 8.7 Phosphorus (2.5 - 4.5 mg/dL) 3.5 Magnesium (1.6 - 2.3 mg/dL) 1.9 Total Bilirubin (0.2 - 1.3 mg/dL) 0.7 AST (14 - 36 U/L) 73 H ALT (9 - 52 U/L) 45 Albumin (3.5 - 5.0 g/dL) 2.8 L Coagulation PT (9.4 - 12.5 SEC) 11.7 INR (0.90 - 1.19) 1.12 APTT (25 - 37 SEC) 29 Fibrinogen Activity (200 - 393 MG/DL) 621 H Hematology CBC w Diff NO MAN DIFF REQ NO MAN DIFF REQ WBC (4.8 - 10.8 /CUMM) 10.8 8.4 RBC (4.20 - 5.40 /CUMM) 2.90 L 2.32 L Hgb (12.0 - 16.0 G/DL) 9.1 L 7.4 *L Hct (37 - 47 %) 27.1 L 22.4 L MCV (81.0 - 99.0 FL) 93.4 96.9 MCH (27.0 - 31.0 PG) 31.5 H 32.2 H MCHC (33.0 - 37.0 G/DL) 33.7 33.2 RDW (11.5 - 14.5 %) 17.1 H 15.7 H Plt Count (130 - 400 /CUMM) 202 186 MPV (7.4 - 10.4 FL) 9.7 9.3 Gran % (42.2 - 75.2 %) 78.2 H 77.2 H Lymphocytes % (20.5 - 51.1 %) 8.6 L 9.2 L Monocytes % (1.7 - 9.3 %) 9.5 H 10.8 H Eosinophils % (0 - 5 %) 3.6 2.4 Basophils % (0.0 - 2.0 %) 0.1 0.4 Absolute Granulocytes (1.4 - 6.5 /CUMM) 8.4 H 6.5 Absolute Lymphocytes (1.2 - 3.4 /CUMM) 0.9 L 0.8 L Absolute Monocytes (0.10 - 0.60 /CUMM) 1.0 H 0.9 H Absolute Eosinophils (0.0 - 0.7 /CUMM) 0.4 0.2 Absolute Basophils (0.0 - 0.2 /CUMM) 0 0 08/04 08/04 1658 1250 Chemistry Lactic Acid (0.7 - 2.1 mmol/L) 1.6 Hematology CBC w Diff NO MAN DIFF REQ WBC (4.8 - 10.8 /CUMM) 7.2 RBC (4.20 - 5.40 /CUMM) 2.34 L Hgb (12.0 - 16.0 G/DL) 7.4 *L Hct (37 - 47 %) 22.6 L MCV (81.0 - 99.0 FL) 96.3 MCH (27.0 - 31.0 PG) 31.8 H MCHC (33.0 - 37.0 G/DL) 33.0 RDW (11.5 - 14.5 %) 16.4 H Plt Count (130 - 400 /CUMM) 173 MPV (7.4 - 10.4 FL) 9.5 Gran % (42.2 - 75.2 %) 76.4 H Lymphocytes % (20.5 - 51.1 %) 8.5 L Monocytes % (1.7 - 9.3 %) 10.8 H Eosinophils % (0 - 5 %) 4.2 Basophils % (0.0 - 2.0 %) 0.1 Absolute Granulocytes (1.4 - 6.5 /CUMM) 5.5 Absolute Lymphocytes (1.2 - 3.4 /CUMM) 0.6 L Absolute Monocytes (0.10 - 0.60 /CUMM) 0.8 H Absolute Eosinophils (0.0 - 0.7 /CUMM) 0.3 Absolute Basophils (0.0 - 0.2 /CUMM) 0 08/04 08/03 08/03 7033 1135 UNK Chemistry Sodium (137 - 145 mmol/L) 129 L Cancelled Potassium (3.5 - 5.1 mmol/L) 4.0 Cancelled Chloride (98 - 107 mmol/L) 94 L Cancelled Carbon Dioxide (22 - 30 mmol/L) 28 Cancelled Anion Gap (5 - 16) 7 Cancelled BUN (7 - 17 mg/dL) 17 Cancelled Creatinine (0.5 - 1.0 mg/dL) 3.1 H Cancelled Estimated GFR (>60 ml/min) 14 L Glucose (65 - 99 mg/dL) 124 H Cancelled Calcium (8.4 - 10.2 mg/dL) 8.1 L Cancelled Phosphorus (2.5 - 4.5 mg/dL) 3.3 Cancelled Magnesium (1.6 - 2.3 mg/dL) 1.9 Cancelled Total Bilirubin (0.2 - 1.3 mg/dL) 0.4 Cancelled AST (14 - 36 U/L) 36 Cancelled ALT (9 - 52 U/L) 30 Cancelled Albumin (3.5 - 5.0 g/dL) 2.8 L Cancelled Coagulation APTT (25 - 37 SEC) 87 H Hematology CBC w Diff NO MAN DIFF REQ WBC (4.8 - 10.8 /CUMM) 6.1 RBC (4.20 - 5.40 /CUMM) 2.40 L Hgb (12.0 - 16.0 G/DL) 7.7 L Hct (37 - 47 %) 23.1 L MCV (81.0 - 99.0 FL) 96.6 MCH (27.0 - 31.0 PG) 32.0 H MCHC (33.0 - 37.0 G/DL) 33.1 RDW (11.5 - 14.5 %) 15.8 H Plt Count (130 - 400 /CUMM) 189 MPV (7.4 - 10.4 FL) 9.4 Gran % (42.2 - 75.2 %) 71.8 Lymphocytes % (20.5 - 51.1 %) 11.0 L Monocytes % (1.7 - 9.3 %) 10.1 H Eosinophils % (0 - 5 %) 6.5 H Basophils % (0.0 - 2.0 %) 0.6 Absolute Granulocytes (1.4 - 6.5 /CUMM) 4.4 Absolute Lymphocytes (1.2 - 3.4 /CUMM) 0.7 L Absolute Monocytes (0.10 - 0.60 /CUMM) 0.6 Absolute Eosinophils (0.0 - 0.7 /CUMM) 0.4 Absolute Basophils (0.0 - 0.2 /CUMM) 0 08/03 08/03 08/02 0636 7968 4346 Chemistry Sodium (137 - 145 mmol/L) 128 L Potassium (3.5 - 5.1 mmol/L) 4.2 Chloride (98 - 107 mmol/L) 91 L Carbon Dioxide (22 - 30 mmol/L) 25 Anion Gap (5 - 16) 12 BUN (7 - 17 mg/dL) 26 H Creatinine (0.5 - 1.0 mg/dL) 5.7 *H Estimated GFR (>60 ml/min) 7 L Glucose (65 - 99 mg/dL) 106 H Calcium (8.4 - 10.2 mg/dL) 8.4 Phosphorus (2.5 - 4.5 mg/dL) 5.8 H Magnesium (1.6 - 2.3 mg/dL) 2.1 Total Bilirubin (0.2 - 1.3 mg/dL) 0.5 AST (14 - 36 U/L) 23 ALT (9 - 52 U/L) 28 Albumin (3.5 - 5.0 g/dL) 3.1 L Coagulation APTT (25 - 37 SEC) 64 H 50 H Hematology CBC w Diff NO MAN DIFF REQ WBC (4.8 - 10.8 /CUMM) 8.9 RBC (4.20 - 5.40 /CUMM) 2.71 L Hgb (12.0 - 16.0 G/DL) 8.4 L Hct (37 - 47 %) 26.2 L MCV (81.0 - 99.0 FL) 96.8 MCH (27.0 - 31.0 PG) 31.2 H MCHC (33.0 - 37.0 G/DL) 32.2 L RDW (11.5 - 14.5 %) 15.6 H Plt Count (130 - 400 /CUMM) 224 MPV (7.4 - 10.4 FL) 9.1 Gran % (42.2 - 75.2 %) 73.2 Lymphocytes % (20.5 - 51.1 %) 11.9 L Monocytes % (1.7 - 9.3 %) 8.0 Eosinophils % (0 - 5 %) 6.5 H Basophils % (0.0 - 2.0 %) 0.4 Absolute Granulocytes (1.4 - 6.5 /CUMM) 6.5 Absolute Lymphocytes (1.2 - 3.4 /CUMM) 1.1 L Absolute Monocytes (0.10 - 0.60 /CUMM) 0.7 H Absolute Eosinophils (0.0 - 0.7 /CUMM) 0.6 Absolute Basophils (0.0 - 0.2 /CUMM) 0 Serology Hep Bs Antibody (NONREACTIVE) Cancelled NONREACTIVE Toxicology Random Vancomycin (ug/ml) 12.3 08/02 1000 Coagulation APTT (25 - 37 SEC) 75 H
--- NOTE | 2017-08-05 10:52 | PN- Cardiology ---
Subjective Subjective: The patient is awake, alert, remains intubated The events of the last 24 hours as well as telemetry were reviewed. Review of Systems: A full review of systems is unable to be obtained secondary to the patient's current mental status and intubation Objective Vital Signs and I&Os Vital Signs Date Time Temp Pulse Resp B/P B/P Pulse O2 O2 Flow FiO2 Mean Ox Delivery Rate 08/05 0830 35 08/05 0800 97.7 81 14 126/64 96 Ventilator 35% 08/05 0800 96 Ventilator 35% 08/05 0635 35 08/05 0400 94 Ventilator 35% 08/05 0330 35 08/05 0255 100.6 08/05 0156 101.5 08/05 0050 35 08/05 0000 96 Ventilator 35% 08/05 0000 99.7 65 12 132/50 96 Ventilator 35% 08/04 2238 35 08/04 2215 62 13 114/55 08/04 2000 91 Ventilator 35% 08/04 1940 25 08/04 1718 100.9 08/04 1630 25 08/04 1619 101.2 08/04 1600 Ventilator 25% 08/04 1600 84 26 140/85 91 Ventilator 25% 08/04 1420 25 08/04 1200 94 Ventilator 25% 08/04 1200 100.5 62 12 102/44 94 Ventilator 25% 08/04 1135 25 Intake & Output 08/05 1600 08/05 0808/05 0000 08/04 1600 08/04 0800 08/04 0000 Intake Total 552 398 759 542 651 Output Total 0 0 0 0 0 Balance 552 398 759 542 651 Intake, Blood 350 Product Intake, IV 202 93 151 89 346 Intake, Tube 205 202 253 205 Feeding Intake, Tube 100 406 200 100 Irrigant Number 2 2 2 1 1 Bowel Movements Output, Urine 0 0 0 0 0 Patient 108 lb 109 lb Weight Weight Bed scale Bed scale Measurement Method Physical Exam: General: Nontoxic, no apparent distress, intubated. HEENT: Sclera and conjunctiva within normal limits, without xanthelasmas. Neck: Carotids 2+ without bruits. Respiratory: Scattered rhonchi, air movement is good, without accessory respiratory muscle use. Heart: Regular rate and rhythm, without murmurs, without JVD. Abdomen: Soft, nontender, no masses, normoactive bowel sounds. Extremities: Without clubbing, cyanosis, without edema. Neuro: Nonfocal exam, strength, 5 out of 5 Skin: Within normal limits without lesions. Psych: Mood and affect: Unable to assess Current Medications: Current Medications Sig/King Start time Last Medication Dose Route Stop Time Status Admin Acetaminophen 650 MG ONCE ONE 08/05 0145 DC 08/05 PO 08/05 0146 0156 Acetaminophen 650 MG ONCE ONE 08/04 1545 DC 08/04 PO 08/04 1546 1619 Amlodipine Besylate 10 MG DAILY 07/30 1000 AC 08/04 PO 0935 Aspirin 81 MG DAILY 07/30 1049 AC 08/04 PO 0934 Atorvastatin Calcium 80 MG 07/30 1700 AC 08/04 PO 1619 Calcium Carbonate 2,500 MG 4 TIMES/DAY 08/03 2200 AC 08/04 PO 2215 Ceftriaxone Sodium 2,000 MG DAILY@0 08/04 1700 AC 08/04 IV 1723 Clopidogrel Bisulfate 75 MG DAILY 08/01 1000 AC 08/04 PO 0934 Epoetin Vamshi 2,000 UNIT TuThSa PRN 08/03 0700 AC IV Fentanyl Citrate 1,000 MCG Q20H 08/03 1030 AC 08/05 Dextrose/Water 250 ML IV 0420 Lorazepam 1 MG Q4P PRN 07/30 0700 AC 08/04 IV 2006 Metoprolol Tartrate 25 MG BID 08/02 220 AC 08/04 PO 221 Pantoprazole Sodium 40 MG DAILY 07/30 1000 AC 08/04 IV 0934 Results Last 48 Hrs of Labs/Mics: Laboratory Tests 08/05/17 0635: Anion Gap 10, Estimated GFR 9 L, Glucose 110 H, Calcium 8.7, Phosphorus 3.5, Magnesium 1.9, Total Bilirubin 0.7, AST 73 H, ALT 45, Albumin 2.8 L, CBC w Diff NO MAN DIFF REQ, RBC 2.90 L, MCV 93.4, MCH 31.5 H, MCHC 33.7, RDW 17.1 H , MPV 9.7, Gran % 78.2 H, Lymphocytes % 8.6 L, Monocytes % 9.5 H, Eosinophils % 3.6, Basophils % 0.1, Absolute Granulocytes 8.4 H, Absolute Lymphocytes 0.9 L, Absolute Monocytes 1.0 H, Absolute Eosinophils 0.4, Absolute Basophils 0 08/04/17 2018: Lactic Acid 1.3, PT 11.7, INR 1.12, APTT 29, Fibrinogen Activity 621 H, CBC w Diff NO MAN DIFF REQ, RBC 2.32 L, MCV 96.9, MCH 32.2 H, MCHC 33.2, RDW 15.7 H , MPV 9.3, Gran % 77.2 H, Lymphocytes % 9.2 L, Monocytes % 10.8 H, Eosinophils % 2.4, Basophils % 0.4, Absolute Granulocytes 6.5, Absolute Lymphocytes 0.8 L, Absolute Monocytes 0.9 H, Absolute Eosinophils 0.2, Absolute Basophils 0 08/04/17 1658: Lactic Acid 1.6 08/04/17 1250: CBC w Diff NO MAN DIFF REQ, RBC 2.34 L, MCV 96.3, MCH 31.8 H, MCHC 33.0, RDW 16.4 H, MPV 9.5, Gran % 76.4 H, Lymphocytes % 8.5 L, Monocytes % 10.8 H, Eosinophils % 4.2, Basophils % 0.1, Absolute Granulocytes 5.5, Absolute Lymphocytes 0.6 L, Absolute Monocytes 0.8 H, Absolute Eosinophils 0.3, Absolute Basophils 0 08/04/17 0419: Anion Gap 7, Estimated GFR 14 L, Glucose 124 H, Calcium 8.1 L, Phosphorus 3.3 , Magnesium 1.9, Total Bilirubin 0.4, AST 36, ALT 30, Albumin 2.8 L, CBC w Diff NO MAN DIFF REQ, RBC 2.40 L, MCV 96.6, MCH 32.0 H, MCHC 33.1, RDW 15.8 H, MPV 9.4, Gran % 71.8, Lymphocytes % 11.0 L, Monocytes % 10.1 H, Eosinophils % 6.5 H, Basophils % 0.6, Absolute Granulocytes 4.4, Absolute Lymphocytes 0.7 L, Absolute Monocytes 0.6, Absolute Eosinophils 0.4, Absolute Basophils 0 08/03/17 1735: APTT 87 H Microbiology 08/04 0906 STOOL: Clostridium difficile Toxin A & B - COMP Assessment/Plan Assessment/Plan 1. Cardiopulmonary arrest with acute hypoxemic respiratory failure of unclear etiology 2. Chronic left bundle branch block 3. History of ischemic cardiomyopathy, EF now 50 % with mild to moderate anteroseptal hypokinesis 4. End-stage renal disease on hemodialysis 5. Coronary artery disease by history status post stent approximately 3 years ago 6. Hypertension by history 7. Aspiration PNA 8. Elevated troponin of unclear etiology s/p CPR 9. Frequent APCs 10. Positive blood cultures Bacteremia: A transesophageal echocardiogram performed today demonstrated no evidence of vegetations. There was mild mitral regurgitation. The LVEF is approximately 50 % with septal dyssynchrony and mild septal hypokinesis only. We will continue to treat as per ID. Status post: Cardiopulmonary arrest: We will continue with supportive care. Weaning attempts and extubation will be as per pulmonary input. Following extubation, a further w/u regarding underlying ischemia will be performed Continue telemetry? Yes
--- NOTE | 2017-08-05 12:01 | PN- Resident CRCU ---
Earl Calles 08/05/17 1201: Subjective HPI/CRCU Issues: The patient was seen and examined. She is more awake today. Remains intubated on soft upper restraints. Underwent CARLOS this morning which was negative for vegetations. Underwent 1 unit of PRBC transfusion overnight. H&H this mornin.07/06.1 Has remained febrile overnight. Blood cultures 08/04/2017, negative to date. On vancomycin(Through HD) and ceftriaxone. Objective Vital Signs & I&O Last 8 Hrs of Vitals and I&O: Vital Signs Date Time Temp Pulse Resp B/P B/P Pulse O2 O2 Flow FiO2 Mean Ox Delivery Rate 08/05 1200 96 Ventilator 35% 08/05 1103 35 08/05 0830 35 08/05 0800 97.7 81 14 126/64 96 Ventilator 35% 08/05 0800 96 Ventilator 35% 08/05 0635 35 08/05 0400 94 Ventilator 35% 08/05 0330 35 08/05 0255 100.6 08/05 0156 101.5 08/05 0050 35 08/05 0000 96 Ventilator 35% 08/05 0000 99.7 65 12 132/50 96 Ventilator 35% 08/04 2238 35 08/04 2215 62 13 114/55 08/04 2000 91 Ventilator 35% 08/04 1940 25 08/04 1718 100.9 08/04 1630 25 08/04 1619 101.2 08/04 1600 Ventilator 25% 08/04 1600 84 26 140/85 91 Ventilator 25% 08/04 1420 25 Intake & Output 08/05 1600 08/05 0800 08/05 0000 Intake Total 552 398 Output Total 0 0 Balance 552 398 Intake, Blood 350 Product Intake, IV 202 93 Intake, Tube 205 Feeding Intake, Tube 100 Irrigant Number 2 2 Bowel Movements Output, Urine 0 0 Patient 108 lb Weight Weight Bed scale Measurement Method Exam General Appearance: no apparent distress, awake Other Physical Findings: HEENT: NCAT, PERRL, EOMI, anciteric sclera, endotraceal tube / OGT in place NECK: Supple, no JVD, trachea midline CARD: normal S1/S2 w/o m/g/r; RRR PULM: Diminished bibasilar airflow; no change compared to prior exam ABD: Soft, NT, ND, BS+ NEURO: Awake and alert EXT: normal pulses, no cyanosis, bilateral soft upper extremity restraints in place Weaning Parameters NIF: 30 Minute Volume: 9.12 Resp rate: 12 Vt: 420 Heart Rate: 45 Weaning Schedule Start Time: 1100 Minute Volume: 5.6 Resp Rate: 20 Vt: 250 Heart Rate: 78 End Time: 1143 Start Time: 1810 Minute Volume: 6.1 Resp Rate: 22 Vt: 400 Heart Rate: 78 End Time: 1158 Minute Volume: 7.50 Resp Rate: 21 Vt: 290 Heart Rate: 72 Current Medications: Current Medications Sig/King Start time Last Medication Dose Route Stop Time Status Admin Acetaminophen 650 MG ONCE ONE 08/05 0145 DC 08/05 PO 08/05 0146 0156 Acetaminophen 650 MG ONCE ONE 08/04 1545 DC 08/04 PO 08/04 1546 1619 Amlodipine Besylate 10 MG DAILY 07/30 1000 AC 08/04 PO 0935 Aspirin 81 MG DAILY 07/30 1049 AC 08/05 PO 1127 Atorvastatin Calcium 80 MG 1700 07/30 1700 AC 08/04 PO 1619 Calcium Carbonate 2,500 MG 4 TIMES/DAY 08/03 2200 AC 08/05 PO 1126 Ceftriaxone Sodium 2,000 MG DAILY@1700 08/04 1700 AC 08/04 IV 1723 Clopidogrel Bisulfate 75 MG DAILY 08/01 1000 AC 08/05 PO 1125 Epoetin Vamshi 2,000 UNIT TuThSa PRN 08/03 0700 AC IV Fentanyl Citrate 1,000 MCG Q20H 08/03 1030 AC 08/05 Dextrose/Water 250 ML IV 0420 Lorazepam 1 MG Q4P PRN 07/30 0700 AC 08/04 IV 2006 Metoprolol Tartrate 25 MG BID 08/02 2200 AC 08/04 PO 2215 Pantoprazole Sodium 40 MG DAILY 07/30 1000 AC 08/05 IV 1122 Impression/Plan Impression/Problem List Impression: This is a 86 year old lady with PMH significant for ESRD on HD, HFpEF, and CAD brought in by ambulance after being found unresponsive s/p CPR with ROSC. She has remained intubated on a ventilator despite being awake and alert. She follows commands but is impulsive and remains in bilateral upper extremity soft restraints for fear of self-extubation. She is continued on tube feeds but will remain NPO saturday evening for a CARLOS possibly on saturday or saturday. She received hemodialysis yesterday and a dose of vancomycin. BCs negative. Resp cultures positive for MRSA. Assessment/plan: #Acute hypoxemic respiratory failure and PEA: * Was thought to be likely 2/2 possible inectious precipitant leading to AL and PEA. OtherDdx: flash pulm edema, arrhythmia, septic shock. * Her CAT scan reveals bilateral pleural effusions. * Sputum cx came positive for MRSA, her nares swab was positive for MRSA. * Blood cultures 2 are now GPC's. Initially was concern for aspiration pneumonia in this patient. Given evidence of blood cultures and sputum cultures positive for staph was started on vancomycin to treat for pneumonia * 2nd blood cultures neg; blood culture from 08/04/2017 negative to date. * Negative lower extremity Doppler to rule out DVT * CAT w/o evidence of PE. #Acute anemia: * Underwent 1 unit PRBC Transfusion overnight: H&H this mornin.07/06.1 * Will hold off on starting subcutaneous heparin * IV heparin has been discontinued yesterday * Monitor H&H, guaiac stool #Leukocytosis: * Treating for PNA, ntoe bcx x2 + for GPC. * Knee US shows no aspirable colelction * On vanco for concern of PNA. Initially treated w/ Unasyn for aspiration. MUST DOSE ANTIBIOTICS IN CONJUNCTION WITH DIALYSIS * Vancomycin trough was ordered for Saturday morning before dialysis * Con't monitor * Titrate abx per cx * BCs as above * c/w ceftriaxone 2 g daily #Hx CAD and Pulseless arrest found in field: * Coronary artery disease status post NSTEMI and 4 stents (2015 - 2 stents, 2016 - 2 stents) currently on aspirin and plavix, symptomatic bradycardia s/p pacemaker placement, HTN, ECHO in 2016 showing stage 1 diastolic dysfunction, dyslipidemia, hypothyroidism presenting this admission with left arm pain She has hx of stenting done in [place] around 2014. * She sees Dr. Boyer. This time apparently patient was pulseless in the field. * Currently intubated and sedated on ventilator. * Currently evaluating for cause of CP arrest. * She was having elevated troponin and new EKG changes in context of old LBBB. Trops peaked at 1.85 and subsequently trended down. Multiple PACs present in EKG. * Appreciate cardio consult * Started in IV heparin 07/31/2016 which was discontinued after 24 hours per cardiology instructions * ASA * Metoprolol 12.5mg bid--> increased to 25 bid given htn. * Started on Plavix with 300mg load now on 75 * Continue aspirin * Continue atorvastatin 80 mg daily * ECHO shows EF 50 but some septal hypokinesis * CARLOS w/o vegetations #Hypertension * Con't Amlodipine * Con't Metoprolol # Anion gap acidosis: * Initially thought to be secondary to lactic acidosis in the setting of decreased perfusion as well as underlying renal insufficiency. * Now likely due to renal failure as lactate has normalized. * Con't monitor #End stage renal today disease on hemodialysis: Saturday and Saturday * Appreciate nephro consult * HD Saturday. MUST DOSE ANTIBIOTICS WITH DIALYSIS * Vanc trough before dosing #Alimentary * Maintain on Protonix * Started TF on 08/01/2017 * Q6 finger stick #DVT prophylaxis: Alps given drop in H&H #CODE STATUS Full code Problem List: 1. Respiratory failure 2. Cardiac arrest Pain Ratin Tomorrow's Labs & Rationales: CBC to monitor H&H ICU bundle to monitor electrolytes Plan DVT/Prophylaxis: Kirill Jameson MD 08/05/17 1210: Attending MD Review Statement Attending Sign Off Attending Cosign Statement: I have: examined this patient, reviewed avalbl EMR data, personally reviewd images, discussd w/resident/PA/CYBER SECURITY INSTRUCTOR, discussed mgmt plan w/jessica, discussed mgmt plan w/CM, discussed mgmt plan w/pt, agreed w/resident/PA/CYBER SECURITY INSTRUCTOR, amended to note. Other Findings: IKirill M.D. have examined this patient, reviewed available EMR data, personally reviewed images, discussed with resident/PA/CYBER SECURITY INSTRUCTOR, discussed management plan with housestaff and nursing staff, discussed managment plan all of healthcare providers, discussed management plan with patient and/or family, agreed with resident/PA/CYBER SECURITY INSTRUCTOR. The past history and parts of the chart have been autopopulated. Impression 86 year old woman * continued with fevers * ESRD on HD Plan -CARLOS without vegetations -nephrology, cardiology appreciated, ?cardiac cath -f/u ID for staph aureus - Vancomycin based on HD protocol -HD per renal -cont current vent settings -tube feeds -reduce sedation with goal of SBT DVT prophylaxis at all times TTS 35 min
--- NOTE | 2017-08-05 12:04 | ECHOCARDIOGRAM REPORT ---
OFELIA EL Age: 86 : Gender: F Exam Date: 08/05/2017 09:15 Exam Location: [facility] Ht (in): 61 Wt (lb): 108 BSA: 1.45 BP: 132 / 50 Ordering Physician: Dilip Camarena MD Referring Physician: Dilip Camarena MD Technologist: Leighton Roberts [facility] Room Number: 114 Indications: MYOCARDIAL ISCHEMIA/KY Rhythm: Technical Quality: adequate Medications Ease of Transducer Insertion Complications None Technical Difficulty None FINDINGS Left Ventricle Normal LV chamber size and wall thickness. The estimated LVEF is 45%. There is septal wall hypokinesis and dyssynchrony. Right Ventricle Normal appearing right ventricle structure and function Right Atrium Normal appearing right atrium Left Atrium Normal appearing left atrium with no atrial thrombus noted LA Appendage No left atrial appendage thrombus IA Septum A small PFO was seen through color flow analysis. Mitral Valve Mildly thickened and calcified mitral valve leaflets with a calcified mitral valve annulus. No vegetations are seen. There is mild mitral regurgitation. Aortic Valve Trileaflet aortic valve. There is mild aortic insufficiency. No vegetations are seen. Tricuspid Valve Grossly normal appearing tricuspid valve with mild tricuspid insufficiency Pulmonic Valve Normal appearing pulmonic valve Pericardium No significant pericardial effusion is seen Great Vessels Normal great vessels CONCLUSIONS Normal LV chamber size and wall thickness. The estimated LVEF is 45%. There is septal wall hypokinesis and dyssynchrony. A small PFO was seen through color flow analysis. Mildly thickened and calcified mitral valve leaflets with a calcified mitral valve annulus. No vegetations are seen. There is mild mitral regurgitation. There is mild aortic insufficiency. No valvular vegetations are seen. Loc Boyer M.D. (Electronically Signed) Final Date: 05 August 2017 12:03 MEASUREMENTS (Male / Female) Normal Values
[2017-08-05 16:00] VITALS: BP 140/50
--- NOTE | 2017-08-05 16:57 | PN- Infect Dx ---
Subjective Subjective: Spiking fever since yesterday evening; T max 101.5. Underwent CARLOS. Loose stools. No urine output since on HD. Review of Systems Comments: 12 points reviewed as noted, otherwise negative. Objective Last 24 Hrs of Vital Signs/I&O Vital Signs Date Time Temp Pulse Resp B/P B/P Pulse O2 O2 Flow FiO2 Mean Ox Delivery Rate 08/05 1403 35 08/05 1327 74 140/58 08/05 1326 74 140/58 08/05 1200 96 Ventilator 35% 08/05 1103 35 08/05 0830 35 08/05 0800 97.7 81 14 126/64 96 Ventilator 35% 08/05 0800 96 Ventilator 35% 08/05 0635 35 08/05 0400 94 Ventilator 35% 08/05 0330 35 08/05 0255 100.6 08/05 0156 101.5 08/05 0050 35 08/05 0000 96 Ventilator 35% 08/05 0000 99.7 65 12 132/50 96 Ventilator 35% 08/04 2238 35 08/04 2215 62 13 114/55 08/04 2000 91 Ventilator 35% 08/04 1940 25 08/04 1718 100.9 Intake & Output 08/05 1600 08/05 0800 08/05 0000 Intake Total 130 552 398 Output Total 0 0 Balance 130 552 398 Intake, Blood 350 Product Intake, IV 70 202 93 Intake, Tube 205 Feeding Intake, Tube 60 100 Irrigant Number 2 2 2 Bowel Movements Output, Urine 0 0 Patient 108 lb Weight Weight Bed scale Measurement Method Physical Exam Other Physical Findings: Elderly female acutely ill; requiring mechanical ventilation HEENT ETT/OG in place, temporal wasting Neck No MARQUES Lungs BS present/diminished bases, few rhonchi Heart S1 S2 present, no murmur Abdomen is soft, nontender, bowel sounds present Extremities scattered ecchymoses; LUE AVF Results Last 24 Hours of Lab Results: Laboratory Tests 08/05 Chemistry Sodium (137 - 145 mmol/L) 128 L Potassium (3.5 - 5.1 mmol/L) 4.3 Chloride (98 - 107 mmol/L) 92 L Carbon Dioxide (22 - 30 mmol/L) 26 Anion Gap (5 - 16) 10 BUN (7 - 17 mg/dL) 29 H Creatinine (0.5 - 1.0 mg/dL) 4.8 H Estimated GFR (>60 ml/min) 9 L Glucose (65 - 99 mg/dL) 110 H Lactic Acid (0.7 - 2.1 mmol/L) 1.3 Calcium (8.4 - 10.2 mg/dL) 8.7 Phosphorus (2.5 - 4.5 mg/dL) 3.5 Magnesium (1.6 - 2.3 mg/dL) 1.9 Total Bilirubin (0.2 - 1.3 mg/dL) 0.7 AST (14 - 36 U/L) 73 H ALT (9 - 52 U/L) 45 Albumin (3.5 - 5.0 g/dL) 2.8 L Coagulation PT (9.4 - 12.5 SEC) 11.7 INR (0.90 - 1.19) 1.12 APTT (25 - 37 SEC) 29 Fibrinogen Activity (200 - 393 MG/DL) 621 H Hematology CBC w Diff NO MAN DIFF REQ NO MAN DIFF REQ WBC (4.8 - 10.8 /CUMM) 10.8 8.4 RBC (4.20 - 5.40 /CUMM) 2.90 L 2.32 L Hgb (12.0 - 16.0 G/DL) 9.1 L 7.4 *L Hct (37 - 47 %) 27.1 L 22.4 L MCV (81.0 - 99.0 FL) 93.4 96.9 MCH (27.0 - 31.0 PG) 31.5 H 32.2 H MCHC (33.0 - 37.0 G/DL) 33.7 33.2 RDW (11.5 - 14.5 %) 17.1 H 15.7 H Plt Count (130 - 400 /CUMM) 202 186 MPV (7.4 - 10.4 FL) 9.7 9.3 Gran % (42.2 - 75.2 %) 78.2 H 77.2 H Lymphocytes % (20.5 - 51.1 %) 8.6 L 9.2 L Monocytes % (1.7 - 9.3 %) 9.5 H 10.8 H Eosinophils % (0 - 5 %) 3.6 2.4 Basophils % (0.0 - 2.0 %) 0.1 0.4 Absolute Granulocytes (1.4 - 6.5 /CUMM) 8.4 H 6.5 Absolute Lymphocytes (1.2 - 3.4 /CUMM) 0.9 L 0.8 L Absolute Monocytes (0.10 - 0.60 /CUMM) 1.0 H 0.9 H Absolute Eosinophils (0.0 - 0.7 /CUMM) 0.4 0.2 Absolute Basophils (0.0 - 0.2 /CUMM) 0 0 08/04 1658 Chemistry Lactic Acid (0.7 - 2.1 mmol/L) 1.6 Last 24 Hours of Lex Results: SPEC #: [id number] OSMAR: 07/30/17 STATUS: COMP RECD: 07/30/[address]: Jose Raul PARKINSON, John Eaton SOURCE: BLOOD ENTR: 07/30/[address]: Merline PARKINSON,Colton Kidd SPDESC: 2ND/VENOUS ORDERED: BLOOD CULTURE Procedure Result > BLOOD CULTURE REPORT Final 08/04/17 GRAM STAIN SUGGESTIVE OF: GRAM POSITIVE COCCI Called to/Readback by JOON by [email or web address] 08/01/17 1339 CULTURE: PRESUMPTIVE MICROCOCCUS NO SENSITIVITIES TO FOLLOW Recent Imaging Studies: CARLOS: CONCLUSIONS Normal LV chamber size and wall thickness. The estimated LVEF is 45%. There is septal wall hypokinesis and dyssynchrony. A small PFO was seen through color flow analysis. Mildly thickened and calcified mitral valve leaflets with a calcified mitral valve annulus. No vegetations are seen. There is mild mitral regurgitation. There is mild aortic insufficiency. No valvular vegetations are seen. Loc Boyer M.D. (Electronically Signed) Final Date: 05 August 2017 CXR: IMPRESSION: 1. Hypoexpanded lungs with bronchovascular crowding. Bibasilar subsegmental atelectasis. No evidence of changes of overt pulmonary edema. 2. No lobar consolidation. 3. Endotracheal tube terminates 2.4 cm above the zoe. No pneumothorax. 4. Stable moderate cardiomegaly. DICTATED BY: Jean PARKINSON,Anal DATE/TIME DICTATED:08/05/17819 LANDSCAPE ARCHITECT:BRAYAN DATE/TIME TRANSCRIBED:08/05/17819 Assessment/Plan ID Impression: 86-year-old woman with a history of coronary artery disease, status post stent placement 3 years prior to admission, hypertension, HFpEF and end-stage renal disease, maintained on hemodialysis Tuesdays, and Saturdays via a left upper extremity fistula, status post a fall, admitted on July 30 after a cardiac arrest at home, requiring 5 minutes of CPR, found on admission to be hypothermic with a white blood cell count of 17,000, with elevated troponin, and positive blood cultures 2 for gram-positive cocci identified as Micrococcus ( sensitivity pending), and positive sputum culture for MRSA. IE endocarditis ruled out as CARLOS negative. Incidental finding small PFO. Febrile past 24 h; leukocytosis resolved, although WBC trending up MRSA bronchitis vs aspiration pneumonia (of note most recent CXR from 08/05 neg consolidation; d/c empiric CTX started previous day) Suggestion: 1. Repeat sputum cx if increasing resp secretions 2. BC x2 from AVF at HD on 08/06 3. Based on random Vancomycin level (~12), continue Vancomycin 750 mg iv post HD pending final cultures. Goal vancomycin trough 15-20. 4. Trend CBC.
[2017-08-05 20:49] LABS: ABSOLUTE BASOPHIL COUNT 0 /CUMM (0.0-0.2); ABSOLUTE EOSINOPHIL COUNT 0.6 /CUMM (0.0-0.7); ABSOLUTE GRANULOCYTE CT 9.3 /CUMM (1.4-6.5); ABSOLUTE LYMPH COUNT 0.9 /CUMM (1.2-3.4); BASOPHIL % 0.2 % (0.0-2.0); EOSINOPHIL % 5.1 % (0-5); GRANULOCYTE % 78.4 % (42.2-75.2); HEMATOCRIT 29.4 % (37-47); MEAN CORPUSCULAR HGB 31.5 PG (27.0-31.0); MEAN CORPUSCULAR HGB CONC 33.5 G/DL (33.0-37.0); MEAN PLATELET VOLUME 9.2 FL (7.4-10.4); PLATELET COUNT 215 /CUMM (130-400); RBC DISTRIBUTION WIDTH 16.2 % (11.5-14.5); RED BLOOD CELL CT 3.13 /CUMM (4.20-5.40); WHITE BLOOD CELL COUNT 11.9 /CUMM (4.8-10.8)
[2017-08-06] VITALS: BP 110/50
[2017-08-06 05:04] LABS: ABSOLUTE BASOPHIL COUNT 0 /CUMM (0.0-0.2); ABSOLUTE EOSINOPHIL COUNT 0.6 /CUMM (0.0-0.7); ABSOLUTE GRANULOCYTE CT 6.5 /CUMM (1.4-6.5); ABSOLUTE LYMPH COUNT 0.8 /CUMM (1.2-3.4); ABSOLUTE MONOCYTE COUNT 0.7 /CUMM (0.10-0.60); BASOPHIL % 0.3 % (0.0-2.0); EOSINOPHIL % 7.5 % (0-5); GRANULOCYTE % 75.2 % (42.2-75.2); MEAN CORPUSCULAR HGB 31.3 PG (27.0-31.0); MEAN CORPUSCULAR HGB CONC 33.8 G/DL (33.0-37.0); MEAN CORPUSCULAR VOLUME 92.5 FL (81.0-99.0); MEAN PLATELET VOLUME 9.5 FL (7.4-10.4); PLATELET COUNT 194 /CUMM (130-400); RBC DISTRIBUTION WIDTH 16.7 % (11.5-14.5); RED BLOOD CELL CT 2.92 /CUMM (4.20-5.40); WHITE BLOOD CELL COUNT 8.7 /CUMM (4.8-10.8)
[2017-08-06 08:00] VITALS: BP 140/70
--- NOTE | 2017-08-06 08:34 | PN- Resident CRCU ---
Earl Calles 08/06/17 0834: Subjective HPI/CRCU Issues: The patient was seen and examined. Awake and in no distress. Remains intubated on soft upper restraints. Has remained afebrile overnight. No leukocytosis. Vital signs stable. Scheduled for hemodialysis this morning. Objective Vital Signs & I&O Last 8 Hrs of Vitals and I&O: Intake & Output 08/06 1600 Intake Total 1011 Output Total 0 Balance 1011 Intake, IV 459 Intake, Tube 221 Feeding Intake, Tube 331 Irrigant Number 2 Bowel Movements Output, Urine 0 Exam General Appearance: no apparent distress, awake, thin Other Physical Findings: HEENT: NCAT, PERRL, EOMI, anciteric sclera, endotraceal tube / OGT in place NECK: Supple, no JVD, trachea midline CARD: normal S1/S2 w/o m/g/r; RRR PULM: Diminished bibasilar airflow; no change compared to prior exam ABD: Soft, NT, ND, BS+ NEURO: Awake and alert EXT: normal pulses, no cyanosis, bilateral soft upper extremity restraints in place, scattered ecchymosis Weaning Parameters NIF: 29 Minute Volume: 10.6 Resp rate: 32 Vt: 330 Heart Rate: 74 Weaning Schedule Start Time: 1955 Minute Volume: 5.71 Resp Rate: 21 Vt: 375 Heart Rate: 79 End Time: 2040 Minute Volume: 3.58 Resp Rate: 18 Vt: 200 Heart Rate: 72 Start Time: 1810 Minute Volume: 6.1 Resp Rate: 22 Vt: 400 Heart Rate: 78 End Time: 1158 Minute Volume: 7.50 Resp Rate: 21 Vt: 290 Heart Rate: 72 Current Medications: Current Medications Sig/King Start time Last Medication Dose Route Stop Time Status Admin Amlodipine Besylate 10 MG DAILY 07/30 1000 AC 08/06 PO 1138 Aspirin 81 MG DAILY 07/30 1049 AC 08/06 PO 1138 Atorvastatin Calcium 80 MG 07/30 1700 AC 08/06 PO 1634 Calcium Carbonate 2,500 MG TID 08/05 2200 AC 08/06 PO 1634 Ceftriaxone Sodium 2,000 MG DAILY@1700 08/04 1700 DC 08/05 IV 08/05 2000 175 Clopidogrel Bisulfate 75 MG DAILY 08/01 1000 AC 08/06 PO 1138 Epoetin Vamshi 2,000 UNIT TuThSa PRN 08/03 0700 AC IV Fentanyl Citrate 1,000 MCG Q20H 08/03 1030 AC 08/06 Dextrose/Water 250 ML IV 0411 Heparin Sodium 5,000 UNIT Q8 08/06 0600 AC 08/06 (Porcine) SC 1351 Lorazepam 1 MG Q4P PRN 07/30 0700 AC 08/05 IV 2111 Metoprolol Tartrate 25 MG BID 08/02 2200 AC 08/06 PO 1138 Pantoprazole Sodium 40 MG DAILY 07/30 1000 AC 08/06 IV 1139 Vancomycin HCl 750 MG ONCE ONE 08/06 1115 DC 08/06 Dextrose/Water 250 ML IV 08/06 1214 1234 Impression/Plan Impression/Problem List Impression: This is a 86 year old lady with PMH significant for ESRD on HD, HFpEF, and CAD brought in by ambulance after being found unresponsive s/p CPR with ROSC. She has remained intubated on a ventilator despite being awake and alert. She follows commands but is impulsive and remains in bilateral upper extremity soft restraints for fear of self-extubation. She is continued on tube feeds but will remain NPO saturday evening for a CARLOS possibly on saturday or saturday. She received hemodialysis yesterday and a dose of vancomycin. BCs negative. Resp cultures positive for MRSA. Assessment/plan: #Acute hypoxemic respiratory failure and PEA: * Was thought to be likely 2/2 possible inectious precipitant leading to GA and PEA. OtherDdx: flash pulm edema, arrhythmia, septic shock. * Her CAT scan reveals bilateral pleural effusions. * Sputum cx came positive for MRSA, her nares swab was positive for MRSA. * Blood cultures 2 are now GPC's. Initially was concern for aspiration pneumonia in this patient. Given evidence of blood cultures and sputum cultures positive for staph was started on vancomycin to treat for pneumonia * 2nd blood cultures neg; blood culture from 08/04/2017 negative to date. * Negative lower extremity Doppler to rule out DVT * CAT w/o evidence of PE. #Acute anemia: * Underwent 1 unit PRBC Transfusion overnight: H&H this mornin.1 * Will hold off on starting subcutaneous heparin * IV heparin has been discontinued yesterday * Monitor H&H, guaiac stool #Leukocytosis-resolved * Treating for PNA, ntoe bcx x2 + for GPC. * Knee US shows no aspirable colelction * On vanco for concern of PNA. Initially treated w/ Unasyn for aspiration. MUST DOSE ANTIBIOTICS IN CONJUNCTION WITH DIALYSIS * Vancomycin trough was ordered for Saturday morning before dialysis * Con't monitor * Titrate abx per cx * BCs as above * Ceftriaxone was DC'd * Continue with vancomycin after each dialysis #Hx CAD and Pulseless arrest found in field: * Coronary artery disease status post NSTEMI and 4 stents (2015 - 2 stents, 2016 - 2 stents) currently on aspirin and plavix, symptomatic bradycardia s/p pacemaker placement, HTN, ECHO in 2016 showing stage 1 diastolic dysfunction, dyslipidemia, hypothyroidism presenting this admission with left arm pain She has hx of stenting done in [place] around 2014. * She sees Dr. Boyer. This time apparently patient was pulseless in the field. * Currently intubated and sedated on ventilator. * Currently evaluating for cause of CP arrest. * She was having elevated troponin and new EKG changes in context of old LBBB. Trops peaked at 1.85 and subsequently trended down. Multiple PACs present in EKG. * Appreciate cardio consult * Started in IV heparin 07/31/2016 which was discontinued after 24 hours per cardiology instructions * ASA * Metoprolol 12.5mg bid--> increased to 25 bid given htn. * Started on Plavix with 300mg load now on 75 * Continue aspirin * Continue atorvastatin 80 mg daily * ECHO shows EF 50 but some septal hypokinesis * CARLOS w/o vegetations #Hypertension * Con't Amlodipine * Con't Metoprolol # Anion gap acidosis: * Initially thought to be secondary to lactic acidosis in the setting of decreased perfusion as well as underlying renal insufficiency. * Now likely due to renal failure as lactate has normalized. * Con't monitor #End stage renal today disease on hemodialysis: Saturday and Saturday * Appreciate nephro consult * HD Saturday. MUST DOSE ANTIBIOTICS WITH DIALYSIS * Vanc trough before dosing: Today's vanc trouph: 15.4 #Alimentary * Maintain on Protonix * Started TF on 08/01/2017 * Q6 finger stick #DVT prophylaxis: SC heparin resumed #CODE STATUS Full code Problem List: 1. Respiratory failure Pain Ratin Tomorrow's Labs & Rationales: CBC to monitor H&H ICU bundle to monitor electrolytes Plan DVT/Prophylaxis: Kirill Jameson MD 08/06/17 1107: Attending MD Review Statement Attending Sign Off Attending Cosign Statement: I have: examined this patient, reviewed avalbl EMR data, personally reviewd images, discussd w/resident/PA/BRASS POURER, discussed mgmt plan w/jessica, discussed mgmt plan w/CM, discussed mgmt plan w/pt, agreed w/resident/PA/BRASS POURER, amended to note. Other Findings: I, Kirill Schaefer M.D. have examined this patient, reviewed available EMR data, personally reviewed images, discussed with resident/PA/BRASS POURER, discussed management plan with housestaff and nursing staff, discussed managment plan all of healthcare providers, discussed management plan with patient and/or family, agreed with resident/PA/BRASS POURER. The past history and parts of the chart have been autopopulated. Impression 86 year old woman * continued with fevers * ESRD on HD Plan -CARLOS without vegetations -nephrology, cardiology appreciated, ?cardiac cath -f/u ID for staph aureus - Vancomycin based on HD protocol -HD per renal -cont current vent settings -tube feeds -reduce sedation with goal of SBT - spontaneous breathing trials DVT prophylaxis at all times TTS 35 min
--- NOTE | 2017-08-06 09:22 | RADIOLOGY REPORT ---
EXAMINATION: XR PORTABLE CHEST CLINICAL INFORMATION: Cardiac arrest. COMPARISON: 08/05/2017. TECHNIQUE: Portable frontal view of the chest was obtained. FINDINGS: Endotracheal tube terminates approximately 2.4 cm proximal to the zoe. Enteric tube extends to the abdomen beyond the [id number]. There are multiple tubes/leads overlying the chest. The heart is enlarged. Calcification of the aortic arch. Low lung volumes. Persistent elevation right hemidiaphragm. There is central vascular prominence, vascular congestion. Bronchovascular crowding. Bibasilar opacities, similar to previous, may reflect atelectasis infiltrate. Suspected small bilateral pleural effusions. IMPRESSION: 1. Enlarged heart. Persistent pulmonary vascular congestion. No overt pulmonary edema. 2. Persistent cardiomegaly. 3. Persistent bibasilar opacities, more confluent in the left lung base. This may reflect atelectasis or infiltrate.
--- NOTE | 2017-08-06 10:25 | PN- Cardiology ---
Subjective Subjective: Patient awake and alert and remains intubated Review of Systems: Unobtainable patient intubated Objective Vital Signs and I&Os Vital Signs Date Time Temp Pulse Resp B/P B/P Pulse O2 O2 Flow FiO2 Mean Ox Delivery Rate 08/06 0855 35 08/06 0800 98 Ventilator 35% 08/06 0800 97.0 74 14 140/70 98 Ventilator 35% 08/06 0628 35 08/06 0400 98 Ventilator 35% 08/06 0320 35 08/06 0140 35 08/06 0000 98 Ventilator 35% 08/06 0000 98.0 50 12 110/50 97 Ventilator 35% 08/05 2227 35 08/05 2110 66 141/62 08/05 2000 97 Ventilator 35% 08/05 1900 35 08/05 1630 35 08/05 1600 99.4 63 16 140/50 96 Ventilator 35% 08/05 1600 96 Ventilator 35% 08/05 1403 35 08/05 1327 74 140/58 08/05 1326 74 140/58 08/05 1200 96 Ventilator 35% 08/05 1103 35 Intake & Output 08/06 1600 08/06 0800 08/06 0000 08/05 1600 08/05 0800 08/05 0000 Intake Total 447 368 130 552 398 Output Total 0 0 0 0 Balance 447 368 130 552 398 Intake, Blood 350 Product Intake, IV 90 92 70 202 93 Intake, Oral 0 Intake, Other 100 Intake, Tube 257 146 205 Feeding Intake, Tube 130 60 100 Irrigant Number 1 4 2 2 2 Bowel Movements Output, Urine 0 0 0 0 Patient 106 lb 108 lb Weight Weight Bed scale Bed scale Measurement Method Physical Exam: Patient is a well-developed well-nourished female awake intubated HEENT is unremarkable Neck is supple there is no JVD Lungs scattered rhonchi Heart regular rhythm S1 and S2 are normal no murmurs gallops or rubs Abdomen bowel sounds positive Extremities without edema Current Medications: Current Medications Sig/King Start time Last Medication Dose Route Stop Time Status Admin Amlodipine Besylate 10 MG DAILY 07/30 1000 AC 08/05 PO 1327 Aspirin 81 MG DAILY 07/30 1049 AC 08/05 PO 1127 Atorvastatin Calcium 80 MG 1700 07/30 1700 AC 08/05 PO 1754 Calcium Carbonate 2,500 MG TID 08/05 2200 AC 08/05 PO 2111 Calcium Carbonate 2,500 MG 4 TIMES/DAY 08/03 2200 DC 08/05 PO 1520 Ceftriaxone Sodium 2,000 MG DAILY@1700 08/04 1700 DC 08/05 IV 08/05 1999 1754 Clopidogrel Bisulfate 75 MG DAILY 08/01 1000 AC 08/05 PO 1125 Epoetin Vamshi 2,000 UNIT TuThSa PRN 08/03 0700 AC IV Fentanyl Citrate 1,000 MCG Q20H 08/03 1030 AC 08/06 Dextrose/Water 250 ML IV 0411 Heparin Sodium 5,000 UNIT Q8 08/06 0600 AC 08/06 (Porcine) SC 0607 Lorazepam 1 MG Q4P PRN 07/30 0700 AC 08/05 IV 2111 Metoprolol Tartrate 25 MG BID 08/02 2200 AC 08/05 PO 2110 Pantoprazole Sodium 40 MG DAILY 07/30 1000 AC 08/05 IV 1122 Results Last 48 Hrs of Labs/Mics: Laboratory Tests 08/06/17 0430: Anion Gap 13, Estimated GFR 7 L, Glucose 118 H, Calcium 8.8, Phosphorus 4.1, Magnesium 1.9, Total Bilirubin 0.4, AST 82 H, ALT 54 H, Albumin 2.7 L, CBC w Diff NO MAN DIFF REQ, RBC 2.92 L, MCV 92.5, MCH 31.3 H, MCHC 33.8, RDW 16.7 H , MPV 9.5, Gran % 75.2, Lymphocytes % 9.4 L, Monocytes % 7.6, Eosinophils % 7.5 H, Basophils % 0.3, Absolute Granulocytes 6.5, Absolute Lymphocytes 0.8 L, Absolute Monocytes 0.7 H, Absolute Eosinophils 0.6, Absolute Basophils 0, Vancomycin Trough 15.4 08/05/17 2030: CBC w Diff NO MAN DIFF REQ, RBC 3.13 L, MCV 94.0, MCH 31.5 H, MCHC 33.5, RDW 16.2 H, MPV 9.2, Gran % 78.4 H, Lymphocytes % 7.6 L, Monocytes % 8.7, Eosinophils % 5.1 H, Basophils % 0.2, Absolute Granulocytes 9.3 H, Absolute Lymphocytes 0.9 L, Absolute Monocytes 1.0 H, Absolute Eosinophils 0.6, Absolute Basophils 0 08/05/17 0635: Anion Gap 10, Estimated GFR 9 L, Glucose 110 H, Calcium 8.7, Phosphorus 3.5, Magnesium 1.9, Total Bilirubin 0.7, AST 73 H, ALT 45, Albumin 2.8 L, CBC w Diff NO MAN DIFF REQ, RBC 2.90 L, MCV 93.4, MCH 31.5 H, MCHC 33.7, RDW 17.1 H , MPV 9.7, Gran % 78.2 H, Lymphocytes % 8.6 L, Monocytes % 9.5 H, Eosinophils % 3.6, Basophils % 0.1, Absolute Granulocytes 8.4 H, Absolute Lymphocytes 0.9 L, Absolute Monocytes 1.0 H, Absolute Eosinophils 0.4, Absolute Basophils 0 08/04/17 2018: Lactic Acid 1.3, PT 11.7, INR 1.12, APTT 29, Fibrinogen Activity 621 H, CBC w Diff NO MAN DIFF REQ, RBC 2.32 L, MCV 96.9, MCH 32.2 H, MCHC 33.2, RDW 15.7 H , MPV 9.3, Gran % 77.2 H, Lymphocytes % 9.2 L, Monocytes % 10.8 H, Eosinophils % 2.4, Basophils % 0.4, Absolute Granulocytes 6.5, Absolute Lymphocytes 0.8 L, Absolute Monocytes 0.9 H, Absolute Eosinophils 0.2, Absolute Basophils 0 08/04/17 1658: Lactic Acid 1.6 08/04/17 1250: CBC w Diff NO MAN DIFF REQ, RBC 2.34 L, MCV 96.3, MCH 31.8 H, MCHC 33.0, RDW 16.4 H, MPV 9.5, Gran % 76.4 H, Lymphocytes % 8.5 L, Monocytes % 10.8 H, Eosinophils % 4.2, Basophils % 0.1, Absolute Granulocytes 5.5, Absolute Lymphocytes 0.6 L, Absolute Monocytes 0.8 H, Absolute Eosinophils 0.3, Absolute Basophils 0 Assessment/Plan Assessment/Plan 1. Cardiopulmonary arrest with acute hypoxemic respiratory failure of unclear etiology 2. Chronic left bundle branch block 3. History of ischemic cardiomyopathy, EF now 50 % with mild to moderate anteroseptal hypokinesis CARLOS negative for vegetations 4. End-stage renal disease on hemodialysis 5. Coronary artery disease by history status post stent approximately 3 years ago 6. Hypertension by history 7. Aspiration PNA 8. Elevated troponin of unclear etiology s/p CPR 9. Frequent APCs 10. Positive blood cultures Recommendations 1 continue antibiotics 2. Wean vent as tolerated 3. Ischemic workup dependent upon the patient's course. Continue telemetry? Yes
--- NOTE | 2017-08-06 10:26 | PN- Nephrology ---
Assessment/Plan Nephrology Assessment: 1 end-stage renal disease. Patient for dialysis tomorrow 2. MRSA in sputum 3. Status post cardiac arrest. 4. positive blood cultures. Has micrococcus in the blood cultures. 5. Hyperphosphatemia. 6. Respiratory failure. Apparently just did not do well with breathing on her own. 7. Hyponatremia. This is addressed by dialysis. Would avoid mixing anything in D5W. Remember this is NOT SIADH she has renal failure. 8. Respiratory failure. Weaning as per the ICU Suggestion: 1. Hemodialysis in progress. The next dialysis will take place on . 2. Her phosphorus is now at target. Maintain the calcium carbonate 3 times a day Subjective Subjective: Patient remains intubated. Objective Vital Signs and I&Os Vital Signs Date Time Temp Pulse Resp B/P B/P Pulse O2 O2 Flow FiO2 Mean Ox Delivery Rate 08/06 1435 35 08/06 1200 97.2 75 19 128/80 98 Ventilator 35% 08/06 1200 98 Ventilator 35% 08/06 1140 35 08/06 1138 80 151/64 08/06 0855 35 08/06 0800 98 Ventilator 35% 08/06 0800 97.0 74 14 140/70 98 Ventilator 35% 08/06 0628 35 08/06 0400 98 Ventilator 35% 08/06 0320 35 08/06 0140 35 08/06 0000 98 Ventilator 35% 08/06 0000 98.0 50 12 110/50 97 Ventilator 35% 08/05 2227 35 08/05 2110 66 141/62 08/05 2000 97 Ventilator 35% 08/05 1900 35 08/05 1630 35 08/05 1600 99.4 63 16 140/50 96 Ventilator 35% 08/05 1600 96 Ventilator 35% Intake & Output 08/06 1600 08/06 0400 08/05 1600 08/05 0400 08/04 1600 08/04 0400 Intake Total 447 368 165 250 7137 651 Output Total 0 0 0 0 0 0 Balance 447 368 886 369 3574 651 Intake, Blood 350 Product Intake, IV 90 92 272 93 240 346 Intake, Oral 0 Intake, Other 100 Intake, Tube 257 146 205 455 205 Feeding Intake, Tube 130 60 100 606 100 Irrigant Number 1 4 4 2 3 1 Bowel Movements Output, Urine 0 0 0 0 0 0 Patient 106 lb 108 lb 109 lb Weight Weight Bed scale Bed scale Bed scale Measurement Method Physical Exam: General Appearance: well developed/nourished, no apparent distress, sedated, intubated Head: atraumatic, normocephalic Neck: trachea mid line Respiratory: normal breath sounds, chest non-tender, lungs clear Cardiovascular: regular rate/rhythm Abdomen: normal bowel sounds, soft, non-tender, no organomegaly Extremities: patient has ecchymoses over her left bauman. Neurologic/Psychiatric: intubated. She does follow commands. Much more awake than yesterday or the day before. Skin: ecchymosis over the legs Current Medications: Current Medications Sig/King Start time Last Medication Dose Route Stop Time Status Admin Amlodipine Besylate 10 MG DAILY 07/30 1000 AC 08/05 PO 1327 Aspirin 81 MG DAILY 07/30 1049 AC 08/05 PO 1127 Atorvastatin Calcium 80 MG 1700 07/30 1700 AC 08/05 PO 1754 Calcium Carbonate 2,500 MG TID 08/05 2200 AC 08/05 PO 211 Calcium Carbonate 2,500 MG 4 TIMES/DAY 08/03 2200 DC 08/05 PO 1520 Ceftriaxone Sodium 2,000 MG DAILY@1700 08/04 1700 DC 08/05 IV 08/05 2000 1754 Clopidogrel Bisulfate 75 MG DAILY 08/01 1000 AC 08/05 PO 1125 Epoetin Vamshi 2,000 UNIT TuThSa PRN 08/03 0700 AC IV Fentanyl Citrate 1,000 MCG Q20H 08/03 1030 AC 08/06 Dextrose/Water 250 ML IV 0411 Heparin Sodium 5,000 UNIT Q8 08/06 0600 AC 08/06 (Porcine) SC 0607 Lorazepam 1 MG Q4P PRN 07/30 0700 AC 08/05 IV 2111 Metoprolol Tartrate 25 MG BID 08/02 2200 AC 08/05 PO 2110 Pantoprazole Sodium 40 MG DAILY 07/30 1000 AC 08/05 IV 1122 Results Pertinent Lab Results: Laboratory Tests 08/06 08/05 0430 2030 Chemistry Sodium (137 - 145 mmol/L) 126 L Potassium (3.5 - 5.1 mmol/L) 4.1 Chloride (98 - 107 mmol/L) 89 L Carbon Dioxide (22 - 30 mmol/L) 23 Anion Gap (5 - 16) 13 BUN (7 - 17 mg/dL) 36 H Creatinine (0.5 - 1.0 mg/dL) 5.9 *H Estimated GFR (>60 ml/min) 7 L Glucose (65 - 99 mg/dL) 118 H Calcium (8.4 - 10.2 mg/dL) 8.8 Phosphorus (2.5 - 4.5 mg/dL) 4.1 Magnesium (1.6 - 2.3 mg/dL) 1.9 Total Bilirubin (0.2 - 1.3 mg/dL) 0.4 AST (14 - 36 U/L) 82 H ALT (9 - 52 U/L) 54 H Albumin (3.5 - 5.0 g/dL) 2.7 L Hematology CBC w Diff NO MAN DIFF REQ NO MAN DIFF REQ WBC (4.8 - 10.8 /CUMM) 8.7 11.9 H RBC (4.20 - 5.40 /CUMM) 2.92 L 3.13 L Hgb (12.0 - 16.0 G/DL) 9.1 L 9.9 L Hct (37 - 47 %) 27.0 L 29.4 L MCV (81.0 - 99.0 FL) 92.5 94.0 MCH (27.0 - 31.0 PG) 31.3 H 31.5 H MCHC (33.0 - 37.0 G/DL) 33.8 33.5 RDW (11.5 - 14.5 %) 16.7 H 16.2 H Plt Count (130 - 400 /CUMM) 194 215 MPV (7.4 - 10.4 FL) 9.5 9.2 Gran % (42.2 - 75.2 %) 75.2 78.4 H Lymphocytes % (20.5 - 51.1 %) 9.4 L 7.6 L Monocytes % (1.7 - 9.3 %) 7.6 8.7 Eosinophils % (0 - 5 %) 7.5 H 5.1 H Basophils % (0.0 - 2.0 %) 0.3 0.2 Absolute Granulocytes (1.4 - 6.5 /CUMM) 6.5 9.3 H Absolute Lymphocytes (1.2 - 3.4 /CUMM) 0.8 L 0.9 L Absolute Monocytes (0.10 - 0.60 /CUMM) 0.7 H 1.0 H Absolute Eosinophils (0.0 - 0.7 /CUMM) 0.6 0.6 Absolute Basophils (0.0 - 0.2 /CUMM) 0 0 Toxicology Vancomycin Trough (10.0 - 20.0 ug/mL) 15.4 08/05 Chemistry Sodium (137 - 145 mmol/L) 128 L Potassium (3.5 - 5.1 mmol/L) 4.3 Chloride (98 - 107 mmol/L) 92 L Carbon Dioxide (22 - 30 mmol/L) 26 Anion Gap (5 - 16) 10 BUN (7 - 17 mg/dL) 29 H Creatinine (0.5 - 1.0 mg/dL) 4.8 H Estimated GFR (>60 ml/min) 9 L Glucose (65 - 99 mg/dL) 110 H Lactic Acid (0.7 - 2.1 mmol/L) 1.3 Calcium (8.4 - 10.2 mg/dL) 8.7 Phosphorus (2.5 - 4.5 mg/dL) 3.5 Magnesium (1.6 - 2.3 mg/dL) 1.9 Total Bilirubin (0.2 - 1.3 mg/dL) 0.7 AST (14 - 36 U/L) 73 H ALT (9 - 52 U/L) 45 Albumin (3.5 - 5.0 g/dL) 2.8 L Coagulation PT (9.4 - 12.5 SEC) 11.7 INR (0.90 - 1.19) 1.12 APTT (25 - 37 SEC) 29 Fibrinogen Activity (200 - 393 MG/DL) 621 H Hematology CBC w Diff NO MAN DIFF REQ NO MAN DIFF REQ WBC (4.8 - 10.8 /CUMM) 10.8 8.4 RBC (4.20 - 5.40 /CUMM) 2.90 L 2.32 L Hgb (12.0 - 16.0 G/DL) 9.1 L 7.4 *L Hct (37 - 47 %) 27.1 L 22.4 L MCV (81.0 - 99.0 FL) 93.4 96.9 MCH (27.0 - 31.0 PG) 31.5 H 32.2 H MCHC (33.0 - 37.0 G/DL) 33.7 33.2 RDW (11.5 - 14.5 %) 17.1 H 15.7 H Plt Count (130 - 400 /CUMM) 202 186 MPV (7.4 - 10.4 FL) 9.7 9.3 Gran % (42.2 - 75.2 %) 78.2 H 77.2 H Lymphocytes % (20.5 - 51.1 %) 8.6 L 9.2 L Monocytes % (1.7 - 9.3 %) 9.5 H 10.8 H Eosinophils % (0 - 5 %) 3.6 2.4 Basophils % (0.0 - 2.0 %) 0.1 0.4 Absolute Granulocytes (1.4 - 6.5 /CUMM) 8.4 H 6.5 Absolute Lymphocytes (1.2 - 3.4 /CUMM) 0.9 L 0.8 L Absolute Monocytes (0.10 - 0.60 /CUMM) 1.0 H 0.9 H Absolute Eosinophils (0.0 - 0.7 /CUMM) 0.4 0.2 Absolute Basophils (0.0 - 0.2 /CUMM) 0 0 08/04 08/04 1658 1250 Chemistry Lactic Acid (0.7 - 2.1 mmol/L) 1.6 Hematology CBC w Diff NO MAN DIFF REQ WBC (4.8 - 10.8 /CUMM) 7.2 RBC (4.20 - 5.40 /CUMM) 2.34 L Hgb (12.0 - 16.0 G/DL) 7.4 *L Hct (37 - 47 %) 22.6 L MCV (81.0 - 99.0 FL) 96.3 MCH (27.0 - 31.0 PG) 31.8 H MCHC (33.0 - 37.0 G/DL) 33.0 RDW (11.5 - 14.5 %) 16.4 H Plt Count (130 - 400 /CUMM) 173 MPV (7.4 - 10.4 FL) 9.5 Gran % (42.2 - 75.2 %) 76.4 H Lymphocytes % (20.5 - 51.1 %) 8.5 L Monocytes % (1.7 - 9.3 %) 10.8 H Eosinophils % (0 - 5 %) 4.2 Basophils % (0.0 - 2.0 %) 0.1 Absolute Granulocytes (1.4 - 6.5 /CUMM) 5.5 Absolute Lymphocytes (1.2 - 3.4 /CUMM) 0.6 L Absolute Monocytes (0.10 - 0.60 /CUMM) 0.8 H Absolute Eosinophils (0.0 - 0.7 /CUMM) 0.3 Absolute Basophils (0.0 - 0.2 /CUMM) 0 08/04 08/03 0419 1735 Chemistry Sodium (137 - 145 mmol/L) 129 L Potassium (3.5 - 5.1 mmol/L) 4.0 Chloride (98 - 107 mmol/L) 94 L Carbon Dioxide (22 - 30 mmol/L) 28 Anion Gap (5 - 16) 7 BUN (7 - 17 mg/dL) 17 Creatinine (0.5 - 1.0 mg/dL) 3.1 H Estimated GFR (>60 ml/min) 14 L Glucose (65 - 99 mg/dL) 124 H Calcium (8.4 - 10.2 mg/dL) 8.1 L Phosphorus (2.5 - 4.5 mg/dL) 3.3 Magnesium (1.6 - 2.3 mg/dL) 1.9 Total Bilirubin (0.2 - 1.3 mg/dL) 0.4 AST (14 - 36 U/L) 36 ALT (9 - 52 U/L) 30 Albumin (3.5 - 5.0 g/dL) 2.8 L Coagulation APTT (25 - 37 SEC) 87 H Hematology CBC w Diff NO MAN DIFF REQ WBC (4.8 - 10.8 /CUMM) 6.1 RBC (4.20 - 5.40 /CUMM) 2.40 L Hgb (12.0 - 16.0 G/DL) 7.7 L Hct (37 - 47 %) 23.1 L MCV (81.0 - 99.0 FL) 96.6 MCH (27.0 - 31.0 PG) 32.0 H MCHC (33.0 - 37.0 G/DL) 33.1 RDW (11.5 - 14.5 %) 15.8 H Plt Count (130 - 400 /CUMM) 189 MPV (7.4 - 10.4 FL) 9.4 Gran % (42.2 - 75.2 %) 71.8 Lymphocytes % (20.5 - 51.1 %) 11.0 L Monocytes % (1.7 - 9.3 %) 10.1 H Eosinophils % (0 - 5 %) 6.5 H Basophils % (0.0 - 2.0 %) 0.6 Absolute Granulocytes (1.4 - 6.5 /CUMM) 4.4 Absolute Lymphocytes (1.2 - 3.4 /CUMM) 0.7 L Absolute Monocytes (0.10 - 0.60 /CUMM) 0.6 Absolute Eosinophils (0.0 - 0.7 /CUMM) 0.4 Absolute Basophils (0.0 - 0.2 /CUMM) 0
[2017-08-06 12:00] VITALS: BP 128/80
--- NOTE | 2017-08-06 12:44 | PN- Infect Dx ---
Subjective Subjective: No fever; no new c/o. Review of Systems Comments: 12 points reviewed as noted, otherwise negative. Objective Last 24 Hrs of Vital Signs/I&O Vital Signs Date Time Temp Pulse Resp B/P B/P Pulse O2 O2 Flow FiO2 Mean Ox Delivery Rate 08/06 1200 98 Ventilator 35% 08/06 1140 35 08/06 1138 80 151/64 08/06 0855 35 08/06 0800 98 Ventilator 35% 08/06 0800 97.0 74 14 140/70 98 Ventilator 35% 08/06 0628 35 08/06 0400 98 Ventilator 35% 08/06 0320 35 08/06 0140 35 08/06 0000 98 Ventilator 35% 08/06 0000 98.0 50 12 110/50 97 Ventilator 35% 08/05 2227 35 08/05 2110 66 141/62 08/05 2000 97 Ventilator 35% 08/05 1900 35 08/05 1630 35 08/05 1600 99.4 63 16 140/50 96 Ventilator 35% 08/05 1600 96 Ventilator 35% 08/05 1403 35 08/05 1327 74 140/58 08/05 1326 74 140/58 Intake & Output 08/06 1600 08/06 0800 08/06 0000 Intake Total 447 368 Output Total 0 0 Balance 447 368 Intake, IV 90 92 Intake, Oral 0 Intake, Other 100 Intake, Tube 257 146 Feeding Intake, Tube 130 Irrigant Number 1 4 Bowel Movements Output, Urine 0 0 Patient 106 lb Weight Weight Bed scale Measurement Method Physical Exam Other Physical Findings: Other Physical Findings: Elderly female acutely ill; requiring mechanical ventilation HEENT ETT/OG in place, temporal wasting Neck No MARQUES Lungs BS present/diminished bases, few rhonchi Heart S1 S2 present, no murmur Abdomen is soft, nontender, bowel sounds present Extremities scattered ecchymoses; LUE AVF Results Last 24 Hours of Lab Results: Laboratory Tests 08/06 Chemistry Sodium (137 - 145 mmol/L) 126 L Potassium (3.5 - 5.1 mmol/L) 4.1 Chloride (98 - 107 mmol/L) 89 L Carbon Dioxide (22 - 30 mmol/L) 23 Anion Gap (5 - 16) 13 BUN (7 - 17 mg/dL) 36 H Creatinine (0.5 - 1.0 mg/dL) 5.9 *H Estimated GFR (>60 ml/min) 7 L Glucose (65 - 99 mg/dL) 118 H Calcium (8.4 - 10.2 mg/dL) 8.8 Phosphorus (2.5 - 4.5 mg/dL) 4.1 Magnesium (1.6 - 2.3 mg/dL) 1.9 Total Bilirubin (0.2 - 1.3 mg/dL) 0.4 AST (14 - 36 U/L) 82 H ALT (9 - 52 U/L) 54 H Albumin (3.5 - 5.0 g/dL) 2.7 L Hematology CBC w Diff NO MAN DIFF REQ NO MAN DIFF REQ WBC (4.8 - 10.8 /CUMM) 8.7 11.9 H RBC (4.20 - 5.40 /CUMM) 2.92 L 3.13 L Hgb (12.0 - 16.0 G/DL) 9.1 L 9.9 L Hct (37 - 47 %) 27.0 L 29.4 L MCV (81.0 - 99.0 FL) 92.5 94.0 MCH (27.0 - 31.0 PG) 31.3 H 31.5 H MCHC (33.0 - 37.0 G/DL) 33.8 33.5 RDW (11.5 - 14.5 %) 16.7 H 16.2 H Plt Count (130 - 400 /CUMM) 194 215 MPV (7.4 - 10.4 FL) 9.5 9.2 Gran % (42.2 - 75.2 %) 75.2 78.4 H Lymphocytes % (20.5 - 51.1 %) 9.4 L 7.6 L Monocytes % (1.7 - 9.3 %) 7.6 8.7 Eosinophils % (0 - 5 %) 7.5 H 5.1 H Basophils % (0.0 - 2.0 %) 0.3 0.2 Absolute Granulocytes (1.4 - 6.5 /CUMM) 6.5 9.3 H Absolute Lymphocytes (1.2 - 3.4 /CUMM) 0.8 L 0.9 L Absolute Monocytes (0.10 - 0.60 /CUMM) 0.7 H 1.0 H Absolute Eosinophils (0.0 - 0.7 /CUMM) 0.6 0.6 Absolute Basophils (0.0 - 0.2 /CUMM) 0 0 Toxicology Vancomycin Trough (10.0 - 20.0 ug/mL) 15.4 Last 24 Hours of Lex Results: SPEC #: [id number] OSMAR: 08/04/17 STATUS: RES RECD: 08/04/[address]: Marli PARKINSON, Jayson SOURCE: BLOOD ENTR: 08/04/[id number] OTHR DR: Merline PARKINSON,Colton Kidd SPDESC: 2ND/VENOUS Kirill Schaefer MD ORDERED: BLOOD CULTURE Procedure Result > BLOOD CULTURE REPORT Preliminary 08/05/17 No growth after 1 day incubation. Specimen is examined continuously for 5 days before final report unless culture becomes positive. Recent Imaging Studies: EXAM TYPE: RAD - XRY-PORTABLE CHEST XRAY EXAMINATION: XR PORTABLE CHEST CLINICAL INFORMATION: Cardiac arrest. COMPARISON: 08/05/2017. TECHNIQUE: Portable frontal view of the chest was obtained. FINDINGS: Endotracheal tube terminates approximately 2.4 cm proximal to the zoe. Enteric tube extends to the abdomen beyond the [id number]. There are multiple tubes/leads overlying the chest. The heart is enlarged. Calcification of the aortic arch. Low lung volumes. Persistent elevation right hemidiaphragm. There is central vascular prominence, vascular congestion. Bronchovascular crowding. Bibasilar opacities, similar to previous, may reflect atelectasis infiltrate. Suspected small bilateral pleural effusions. IMPRESSION: 1. Enlarged heart. Persistent pulmonary vascular congestion. No overt pulmonary edema. 2. Persistent cardiomegaly. 3. Persistent bibasilar opacities, more confluent in the left lung base. This may reflect atelectasis or infiltrate. Assessment/Plan ID Impression: 86-year-old woman with a history of CAD, hypertension, HFpEF and ESRD, maintained on HD (Tue, Thur and Sat) via a left upper extremity fistula, admitted on July 30 after a cardiac arrest at home, requiring 5 minutes of CPR, found on admission to be hypothermic with a white blood cell count of 17, 000, with elevated troponin, and positive blood cultures 2 for gram-positive cocci identified as Micrococcus (sensitivity pending; and likely representing skin contaminant). IE endocarditis ruled out as CARLOS negative. Incidental finding small PFO. Fever/resolved Leukocytosis resolved. MRSA bronchitis vs aspiration pneumonia (of note most recent CXR from 08/06 possible bibasilar infiltrates vs atelectasis) Suggestion: 1. If recurrent fever BC x2 from AVF. 2. Continue Vancomycin 750 mg iv post HD; tx for 14 d. Goal vancomycin trough 15-20; trough therapeutic today at 15.4. 3. Trend CBC. Fever curve trending down; monitor gastric residuals; keep HOB elevated 45 degrees at all times. Pulm toilet.
[2017-08-06 16:00] VITALS: BP 132/50
[2017-08-07] VITALS: BP 132/64
[2017-08-07 06:06] LABS: ABSOLUTE BASOPHIL COUNT 0 /CUMM (0.0-0.2); ABSOLUTE EOSINOPHIL COUNT 0.3 /CUMM (0.0-0.7); ABSOLUTE GRANULOCYTE CT 18.7 /CUMM (1.4-6.5); ABSOLUTE LYMPH COUNT 0.7 /CUMM (1.2-3.4); ABSOLUTE MONOCYTE COUNT 1.7 /CUMM (0.10-0.60); BASOPHIL % 0.1 % (0.0-2.0); EOSINOPHIL % 1.6 % (0-5); MEAN CORPUSCULAR HGB 30.4 PG (27.0-31.0); MEAN CORPUSCULAR HGB CONC 32.5 G/DL (33.0-37.0); MEAN CORPUSCULAR VOLUME 93.6 FL (81.0-99.0); MEAN PLATELET VOLUME 9.6 FL (7.4-10.4); RBC DISTRIBUTION WIDTH 16.4 % (11.5-14.5); RED BLOOD CELL CT 3.42 /CUMM (4.20-5.40)
[2017-08-07 06:13] LABS: PLATELET COUNT 339 /CUMM (130-400); WHITE BLOOD CELL COUNT 21.5 /CUMM (4.8-10.8)
--- NOTE | 2017-08-07 06:42 | RADIOLOGY REPORT ---
EXAMINATION: XR PORTABLE CHEST CLINICAL INFORMATION: Hypoxemia COMPARISON: 08/06/2017 TECHNIQUE: Portable frontal view of the chest was obtained. FINDINGS: Cardiac leads overlie the chest. The lungs are well expanded. Increased perihilar interstitial markings with hazy opacity. Small right pleural effusion. No pneumothorax. The cardiomediastinal silhouette is unchanged. Status post extubation. IMPRESSION: Increased interstitial markings with hazy opacities suggestive of pulmonary edema.
--- NOTE | 2017-08-07 07:25 | Event Note ---
Event Note Event Note: S: Pt in afib in 118 B: 86 yo F with PMH significant for ESRD on HD, HFpEF, and CAD brought in by ambulance after being found unresponsive s/p CPR with ROSC A/R: Patient was given 10 mg IV diltiazem. Cardiology (Dr. Fu) was called and informed of the plan. The patient was to be started on a diltiazem drip after. We discuss with cardiology regarding holding heparin as the patient had a drop in H/H early admission 1 heparin was given for ACS rule out. The patient spontaneously reverted back to sinus rhythm.
[2017-08-07 08:00] VITALS: BP 138/64
--- NOTE | 2017-08-07 09:08 | PN- Resident CRCU ---
Earl Calles 08/07/17 0908: Subjective HPI/CRCU Issues: The patient was seen and examined. Awake and in no distress. Had mild headache. Denies any dizziness, lightheadedness, nausea, vomiting, chest pain, shortness of breath, abdominal pain. She was extubated yesterday. Swallow evaluation performed and diet started. Has remained afebrile overnight. Developed leukocytosis to 21.5. Vital signs stable. Objective Vital Signs & I&O Last 8 Hrs of Vitals and I&O: Intake & Output 08/07 1600 Intake Total 514 Output Total Balance 514 Intake, IV 64 Intake, Oral 450 Number 1 Bowel Movements Patient 107 lb Weight Weight Bed scale Measurement Method Exam General Appearance: well developed/nourished, no apparent distress, alert, awake , comfortable Other Physical Findings: HEENT: NCAT, PERRL, EOMI, anciteric sclera NECK: Supple, no JVD, trachea midline CARD: normal S1/S2 w/o m/g/r; RRR PULM: Diminished bibasilar airflow; no change compared to prior exam ABD: Soft, NT, ND, BS+ NEURO: Awake and alert EXT: normal pulses, no cyanosis, scattered ecchymosis Weaning Parameters NIF: 29 Minute Volume: 10.6 Resp rate: 32 Vt: 330 Heart Rate: 74 Weaning Schedule Start Time: 1645 Minute Volume: 6 Resp Rate: 20 Vt: 320 Heart Rate: 74 End Time: 2040 Minute Volume: 3.58 Resp Rate: 18 Vt: 200 Heart Rate: 72 Start Time: 1810 Minute Volume: 6.1 Resp Rate: 22 Vt: 400 Heart Rate: 78 End Time: 1158 Minute Volume: 7.50 Resp Rate: 21 Vt: 290 Heart Rate: 72 Current Medications: Current Medications Sig/King Start time Last Medication Dose Route Stop Time Status Admin Acetaminophen 650 MG ONCE ONE 08/07 1200 DC 08/07 PO 08/07 1201 1152 Amlodipine Besylate 10 MG DAILY 07/30 1000 AC 08/07 PO 1151 Aspirin 81 MG DAILY 07/30 1049 AC 08/07 PO 1152 Atorvastatin Calcium 80 MG 1700 07/30 1700 AC 08/06 PO 1634 Calcium Carbonate 2,500 MG TID 08/05 2200 DC 08/06 PO 1634 Clopidogrel Bisulfate 75 MG DAILY 08/01 1000 AC 08/07 PO 1151 Diltiazem HCl 125 MG Q24H 08/07 0615 DC Sodium Chloride 100 ML IV Diltiazem HCl 10 MG ONCE ONE 08/07 0515 DC 08/07 IV 08/07 0516 0530 Diphenhydramine HCl 25 MG ONCE ONE 08/06 2230 DC 08/06 IV 08/06 2231 2235 Epoetin Vamshi 2,000 UNIT TuThSa PRN 08/03 0700 AC IV Fentanyl Citrate 1,000 MCG Q20H 08/03 1030 DC 08/06 Dextrose/Water 250 ML IV 0411 Heparin Sodium 1,900 UNIT ONCE ONE 08/07 1900 DC 08/07 (Porcine) IV 08/07 1901 1910 Heparin Sodium 5,000 UNIT Q8 08/07 1400 DC (Porcine) SC Heparin Sodium 25,000 UNIT Q24H 08/07 1045 AC 08/07 (Porcine) IV 1152 Sodium Chloride 500 ML Lorazepam 1 MG Q4P PRN 07/30 0700 AC 08/07 IV 1624 Metoprolol Tartrate 25 MG BID 08/02 2200 AC 08/07 PO 1151 Ondansetron HCl 4 MG Q6P PRN 08/07 1730 AC 08/07 IV 1733 Pantoprazole Sodium 40 MG DAILY 07/30 1000 AC 08/07 IV 0955 Sevelamer Carbonate 2,400 MG WM 08/07 1700 AC PO Sevelamer Carbonate 800 MG TID 08/07 1600 DC PO Vitamin A/Vitamin D 1 JENNIE BID 08/07 1000 AC 08/07 TOP 0955 Zinc Oxide 1 JENNIE BID PRN 08/07 0600 AC 08/07 TOP 0955 Impression/Plan Impression/Problem List Impression: This is a 86 year old lady with PMH significant for ESRD on HD, HFpEF, and CAD brought in by ambulance after being found unresponsive s/p CPR with ROSC. She has remained intubated on a ventilator despite being awake and alert. She follows commands but is impulsive and remains in bilateral upper extremity soft restraints for fear of self-extubation. She is continued on tube feeds but will remain NPO saturday evening for a CARLOS possibly on saturday or saturday. She received hemodialysis yesterday and a dose of vancomycin. BCs negative. Resp cultures positive for MRSA. Assessment/plan: #Acute hypoxemic respiratory failure and PEA: * Was thought to be likely 2/2 possible inectious precipitant leading to AZ and PEA. OtherDdx: flash pulm edema, arrhythmia, septic shock. * Her CAT scan reveals bilateral pleural effusions. * Sputum cx came positive for MRSA, her nares swab was positive for MRSA. * Blood cultures 2 are now GPC's. Initially was concern for aspiration pneumonia in this patient. Given evidence of blood cultures and sputum cultures positive for staph was started on vancomycin to treat for pneumonia * 2nd blood cultures neg; blood culture from 08/04/2017 negative to date. * Negative lower extremity Doppler for DVT * CAT w/o evidence of PE. #Acute anemia: * Underwent 1 unit PRBC Transfusion overnight: H&H this mornin.07/06.1 * Will hold off on starting subcutaneous heparin * IV heparin has been discontinued yesterday * Monitor H&H, guaiac stool #Leukocytosis-resolved * Treating for PNA, ntoe bcx x2 + for GPC. * Knee US shows no aspirable colelction * On vanco for concern of PNA. Initially treated w/ Unasyn for aspiration. MUST DOSE ANTIBIOTICS IN CONJUNCTION WITH DIALYSIS * Vancomycin trough was ordered for Saturday morning before dialysis * Con't monitor * Titrate abx per cx * BCs as above * Ceftriaxone was DC'd * Continue with vancomycin after each dialysis #Hx CAD and Pulseless arrest found in field: * Coronary artery disease status post NSTEMI and 4 stents (2015 - 2 stents, 2016 - 2 stents) currently on aspirin and plavix, symptomatic bradycardia s/p pacemaker placement, HTN, ECHO in 2016 showing stage 1 diastolic dysfunction, dyslipidemia, hypothyroidism presenting this admission with left arm pain She has hx of stenting done in [place] around 2014. * She sees Dr. Boyer. This time apparently patient was pulseless in the field. * Currently intubated and sedated on ventilator. * Currently evaluating for cause of CP arrest. * She was having elevated troponin and new EKG changes in context of old LBBB. Trops peaked at 1.85 and subsequently trended down. Multiple PACs present in EKG. * Appreciate cardio consult * Started in IV heparin 07/31/2016 which was discontinued after 24 hours per cardiology instructions * ASA * Metoprolol 12.5mg bid--> increased to 25 bid given htn. * Started on Plavix with 300mg load now on 75 * Continue aspirin * Continue atorvastatin 80 mg daily * ECHO shows EF 50 but some septal hypokinesis * CARLOS w/o vegetations #Paroxysmal atrial fibrillation: * Had an episode of atrial fibrillation this morning, Cardizem 10 mg 1 given. * Per cardiology instructions was started on IV heparin without bolus. * Possible transition to warfarin #Hypertension * Con't Amlodipine * Con't Metoprolol # Anion gap acidosis: * Initially thought to be secondary to lactic acidosis in the setting of decreased perfusion as well as underlying renal insufficiency. * Now likely due to renal failure as lactate has normalized. * Con't monitor #End stage renal today disease on hemodialysis: Saturday and Saturday * Appreciate nephro consult * HD Saturday. MUST DOSE ANTIBIOTICS WITH DIALYSIS * Vanc trough before dosing: Today's vanc trouph: 15.4 #Alimentary * Maintain on Protonix * Started TF on 08/01/2017 * Q6 finger stick #DVT prophylaxis: Being addressed by IV heparin #CODE STATUS Full code Problem List: 1. Respiratory failure 2. Paroxysmal atrial fibrillation Pain Ratin Tomorrow's Labs & Rationales: CBC to monitor H&H ICU bundle to monitor electrolytes Plan DVT/Prophylaxis: Kirill Jameson MD 08/07/17 1058: Attending MD Review Statement Attending Sign Off Attending Cosign Statement: I have: examined this patient, reviewed avalbl EMR data, personally reviewd images, discussd w/resident/PA/OPERATORS TEACHER, discussed mgmt plan w/jessica, discussed mgmt plan w/CM, discussed mgmt plan w/pt, agreed w/resident/PA/OPERATORS TEACHER, amended to note. Other Findings: IKirill M.D. have examined this patient, reviewed available EMR data, personally reviewed images, discussed with resident/PA/OPERATORS TEACHER, discussed management plan with housestaff and nursing staff, discussed managment plan all of healthcare providers, discussed management plan with patient and/or family, agreed with resident/PA/OPERATORS TEACHER. The past history and parts of the chart have been autopopulated. Impression 86 year old woman * extubated * ESRD on HD Plan -CARLOS without vegetations -nephrology, cardiology appreciated -f/u ID for staph aureus -HD per renal -cont current vent settings -swallow evaluation DVT prophylaxis at all times TTS 35 min
--- NOTE | 2017-08-07 09:28 | PN- Cardiology ---
Subjective Subjective: The patient is awake, alert A paroxysm of atrial fibrillation was noted overnight The events of the last 24 hours as well as telemetry were reviewed. Review of Systems: The review of systems is negative for chest pains, palpitations nor lightheadedness. The remainder of the 14 point review of systems is noncontributory with the exception of above. Objective Vital Signs and I&Os Vital Signs Date Time Temp Pulse Resp B/P B/P Pulse O2 O2 Flow FiO2 Mean Ox Delivery Rate 08/07 0530 115 160/70 08/07 0400 92 Aerosol 60% Mask 08/07 0000 98.5 74 27 132/64 93 Nasal 5.0L Cannula 08/07 0000 93 Nasal 5.0L Cannula 08/06 2214 74 143/74 08/06 2000 96 Venti Mask 50% 08/06 1645 35 08/06 1600 100.3 67 15 132/50 95 Ventilator 30% 08/06 1600 95 Ventilator 30% 08/06 1435 35 08/06 1200 97.2 75 19 128/80 98 Ventilator 35% 08/06 1200 98 Ventilator 35% 08/06 1140 35 08/06 1138 80 151/64 Intake & Output 08/07 1600 08/07 0800 08/07 0000 08/06 1600 08/06 0800 08/06 0000 Intake Total 0 555 1011 447 368 Output Total 0 0 0 0 Balance 0 555 1011 447 368 Intake, IV 0 425 459 90 92 Intake, Oral 0 25 0 Intake, Other 70 100 Intake, Tube 35 221 257 146 Feeding Intake, Tube 331 130 Irrigant Number 5 3 2 1 4 Bowel Movements Output, Urine 0 0 0 0 Patient 106 lb Weight Weight Bed scale Measurement Method Physical Exam: General: Nontoxic, no apparent distress. HEENT: Sclera and conjunctiva within normal limits, without xanthelasmas. Neck: Carotids 2+ without bruits. Respiratory: Diffuse rhonchi and rales, air movement is decreased at bases, without accessory respiratory muscle use. Heart: Regular rate and rhythm, 2/6 systolic ejection murmur left sternal border , without JVD. Abdomen: Soft, nontender, no masses, normoactive bowel sounds. Extremities: Without clubbing, cyanosis, without edema. Neuro: Nonfocal exam, strength, 5 out of 5 Skin: Within normal limits without lesions. Psych: Mood and affect: Normal Current Medications: Current Medications Sig/King Start time Last Medication Dose Route Stop Time Status Admin Amlodipine Besylate 10 MG DAILY 07/30 1000 AC 08/06 PO 1138 Aspirin 81 MG DAILY 07/30 1049 AC 08/06 PO 1138 Atorvastatin Calcium 80 MG 1700 07/30 1700 AC 08/06 PO 1634 Calcium Carbonate 2,500 MG TID 08/05 2200 AC 08/06 PO 1634 Clopidogrel Bisulfate 75 MG DAILY 08/01 1000 AC 08/06 PO 1138 Diltiazem HCl 125 MG Q24H 08/07 0615 AC Sodium Chloride 100 ML IV Diltiazem HCl 10 MG ONCE ONE 08/07 0515 DC 08/07 IV 08/07 0516 0530 Diphenhydramine HCl 25 MG ONCE ONE 08/06 2230 DC 08/06 IV 08/06 2231 2235 Epoetin Vamshi 2,000 UNIT TuThSa PRN 08/03 0700 AC IV Fentanyl Citrate 1,000 MCG Q20H 08/03 1030 AC 08/06 Dextrose/Water 250 ML IV 0411 Heparin Sodium 5,000 UNIT Q8 08/06 0600 DC 08/06 (Porcine) SC 1351 Lorazepam 1 MG Q4P PRN 07/30 0700 AC 08/05 IV 2111 Metoprolol Tartrate 25 MG BID 08/02 2200 AC 08/06 PO 2214 Pantoprazole Sodium 40 MG DAILY 07/30 1000 AC 08/06 IV 1139 Vancomycin HCl 750 MG ONCE ONE 08/06 1115 DC 08/06 Dextrose/Water 250 ML IV 08/06 1214 1234 Vitamin A/Vitamin D 1 JENNIE BID 08/07 1000 AC TOP Zinc Oxide 1 JENNIE BID PRN 08/07 0600 AC TOP Results Last 48 Hrs of Labs/Mics: Laboratory Tests 08/07/17 0530: pH 7.39, pCO2 33 L, pO2 70 L, HCO3 19 L, ABG O2 Sat (Measured) 92.0 L, P-50 (Temp Corrected) Y, Carboxyhemoglobin 0.5 L, O2 Concentration % 60%, Temperature 99.1, O2 Delivery Method A/M, Anion Gap 10, Estimated GFR 13 L, Glucose 182 H, Calcium 9.6, Phosphorus 3.1, Magnesium 2.1, Total Bilirubin 0.8, AST 112 H, ALT 64 H, Troponin I Pending, Albumin 3.6, TSH Pending, Free T4 Pending, CBC w Diff MAN DIFF ORDERED, RBC 3.42 L, MCV 93.6, MCH 30.4, MCHC 32.5 L, RDW 16.4 H, MPV 9.6, Gran % 87.0 H, Lymphocytes % 3.5 L, Monocytes % 7.8, Eosinophils % 1.6, Basophils % 0.1, Absolute Granulocytes 18.7 H, Segmented Neutrophils 90 H, Band Neutrophils 2, Absolute Lymphocytes 0.7 L, Lymphocytes 2 L, Monocytes 5, Absolute Monocytes 1.7 H, Eosinophils 1, Absolute Eosinophils 0.3, Absolute Basophils 0, Platelet Estimate ADEQUATE, Polychromasia 1+, Hypochromic-Microcytic 1+, Poikilocytosis 1+, Ovalocytes 1+, Phlebotomy Draw Site RIGHT RADIAL, Fld Total RBCs Counted 100 08/06/17 1750: pH 7.44, pCO2 40, pO2 61 L, HCO3 27, ABG O2 Sat (Measured) 90.0 L, P-50 (Temp Corrected) Y, Carboxyhemoglobin 0.3 L, O2 Concentration % 40%, Temperature 99.7 , O2 Delivery Method T-PIECE, Phlebotomy Draw Site RIGHT RADIAL 08/06/17 0430: Anion Gap 13, Estimated GFR 7 L, Glucose 118 H, Calcium 8.8, Phosphorus 4.1, Magnesium 1.9, Total Bilirubin 0.4, AST 82 H, ALT 54 H, Albumin 2.7 L, CBC w Diff NO MAN DIFF REQ, RBC 2.92 L, MCV 92.5, MCH 31.3 H, MCHC 33.8, RDW 16.7 H , MPV 9.5, Gran % 75.2, Lymphocytes % 9.4 L, Monocytes % 7.6, Eosinophils % 7.5 H, Basophils % 0.3, Absolute Granulocytes 6.5, Absolute Lymphocytes 0.8 L, Absolute Monocytes 0.7 H, Absolute Eosinophils 0.6, Absolute Basophils 0, Vancomycin Trough 15.4 08/05/17 2030: CBC w Diff NO MAN DIFF REQ, RBC 3.13 L, MCV 94.0, MCH 31.5 H, MCHC 33.5, RDW 16.2 H, MPV 9.2, Gran % 78.4 H, Lymphocytes % 7.6 L, Monocytes % 8.7, Eosinophils % 5.1 H, Basophils % 0.2, Absolute Granulocytes 9.3 H, Absolute Lymphocytes 0.9 L, Absolute Monocytes 1.0 H, Absolute Eosinophils 0.6, Absolute Basophils 0 Assessment/Plan Assessment/Plan 1. Cardiopulmonary arrest with acute hypoxemic respiratory failure of unclear etiology 2. Chronic left bundle branch block 3. History of ischemic cardiomyopathy, EF now 50 % with mild to moderate anteroseptal hypokinesis 4. End-stage renal disease on hemodialysis 5. Coronary artery disease by history status post stent approximately 3 years ago 6. Hypertension by history 7. Aspiration PNA 8. Elevated troponin of unclear etiology s/p CPR 9. Frequent APCs 10. Positive blood cultures Bacteremia: A transesophageal echocardiogram performed August 05 demonstrated no evidence of vegetations. There was mild mitral regurgitation. The LVEF is approximately 50% with septal dyssynchrony and mild septal hypokinesis only. We will continue to treat as per ID. Status post: Cardiopulmonary arrest: We will continue with supportive care. A follow-up ischemic workup will need to be performed once she is improved. Paroxysmal atrial fibrillation: Thyroid studies are pending. Given her concurrent respiratory issues, the etiology of her atrial fibrillation may be secondary to the same. As an hemodialysis, anticoagulation would need to be performed with warfarin; however, we may use IV heparin at this time and switched warfarin prior to discharge the event further inpatient procedures would need to be performed. Continue telemetry? Yes
--- NOTE | 2017-08-07 10:19 | PN- Nephrology ---
Assessment/Plan Nephrology Assessment: 1 end-stage renal disease. Patient for dialysis tomorrow 2. MRSA in sputum 3. Status post cardiac arrest. 4. positive blood cultures. Has micrococcus in the blood cultures. 5. Hyperphosphatemia. 6. Respiratory failure. Apparently just did not do well with breathing on her own. 7. Hyponatremia. This is addressed by dialysis. Would avoid mixing anything in D5W. Remember this is NOT SIADH she has renal failure. Suggestion: 1. Hemodialysis in progress. The next dialysis will take place on . 2. Her phosphorus is now at target. 3. Hemodialysis again tomorrow Subjective Subjective: Awake alert and extubated. She recognizes me and knows me quite well. Objective Vital Signs and I&Os Vital Signs Date Time Temp Pulse Resp B/P B/P Pulse O2 O2 Flow FiO2 Mean Ox Delivery Rate 08/07 0800 98.1 75 20 138/64 95 Aerosol 60% Mask 08/07 0530 115 160/70 08/07 0400 92 Aerosol 60% Mask 08/07 0000 98.5 74 27 132/64 93 Nasal 5.0L Cannula 08/07 0000 93 Nasal 5.0L Cannula 08/06 2214 74 143/74 08/06 2000 96 Venti Mask 50% 08/06 1645 35 08/06 1600 100.3 67 15 132/50 95 Ventilator 30% 08/06 1600 95 Ventilator 30% 08/06 1435 35 08/06 1200 97.2 75 19 128/80 98 Ventilator 35% 08/06 1200 98 Ventilator 35% 08/06 1140 35 08/06 1138 80 151/64 Intake & Output 08/07 1600 08/07 0400 08/06 1600 08/06 0400 08/05 1600 08/05 0400 Intake Total 0 555 1458 368 682 398 Output Total 0 0 0 0 0 Balance 0 555 1458 368 682 398 Intake, Blood 350 Product Intake, IV 0 425 549 92 272 93 Intake, Oral 0 25 0 Intake, Other 70 100 Intake, Tube 35 478 146 205 Feeding Intake, Tube 331 130 60 100 Irrigant Number 5 3 3 4 4 2 Bowel Movements Output, Urine 0 0 0 0 0 Patient 106 lb 108 lb Weight Weight Bed scale Bed scale Measurement Method Physical Exam: General Appearance: well developed/nourished, no apparent distress, Head: atraumatic, normocephalic Neck: trachea mid line, no masses, no JVD Respiratory: normal breath sounds, chest non-tender, lungs clear Cardiovascular: regular rate/rhythm Abdomen: normal bowel sounds, soft, non-tender, no organomegaly Extremities: patient has ecchymoses over her left bauman. Neurologic/Psychiatric: Somewhat lethargic. She usually is quite with it and put together. Skin: ecchymosis over the legs Current Medications: Current Medications Sig/King Start time Last Medication Dose Route Stop Time Status Admin Amlodipine Besylate 10 MG DAILY 07/30 1000 AC 08/06 PO 1138 Aspirin 81 MG DAILY 07/30 1049 AC 08/06 PO 1138 Atorvastatin Calcium 80 MG 1700 07/30 1700 AC 08/06 PO 1634 Calcium Carbonate 2,500 MG TID 08/05 2200 AC 08/06 PO 1634 Clopidogrel Bisulfate 75 MG DAILY 08/01 1000 AC 08/06 PO 1138 Diltiazem HCl 125 MG Q24H 08/07 0615 DC Sodium Chloride 100 ML IV Diltiazem HCl 10 MG ONCE ONE 08/07 0515 DC 08/07 IV 08/07 0516 0530 Diphenhydramine HCl 25 MG ONCE ONE 08/06 2230 DC 08/06 IV 08/06 2231 2235 Epoetin Vamshi 2,000 UNIT TuThSa PRN 08/03 0700 AC IV Fentanyl Citrate 1,000 MCG Q20H 08/03 1030 DC 08/06 Dextrose/Water 250 ML IV 0411 Heparin Sodium 5,000 UNIT Q8 08/07 1400 AC (Porcine) SC Heparin Sodium 5,000 UNIT Q8 08/06 0600 DC 08/06 (Porcine) SC 1351 Lorazepam 1 MG Q4P PRN 07/30 0700 AC 08/05 IV 2111 Metoprolol Tartrate 25 MG BID 08/02 2200 AC 08/06 PO 2214 Pantoprazole Sodium 40 MG DAILY 07/30 1000 AC 08/07 IV 0955 Vancomycin HCl 750 MG ONCE ONE 08/06 1115 DC 08/06 Dextrose/Water 250 ML IV 08/06 1214 1234 Vitamin A/Vitamin D 1 JENNIE BID 08/07 1000 AC 08/07 TOP 0955 Zinc Oxide 1 JENNIE BID PRN 08/07 0600 AC 08/07 TOP 0955 Results Pertinent Lab Results: Laboratory Tests 08/07 08/06 0530 1750 Blood Gas pH (7.35 - 7.45 PH) 7.39 7.44 pCO2 (35 - 45 TORR) 33 L 40 pO2 (80 - 100 TORR) 70 L 61 L HCO3 (21 - 28 MEQ/L) 19 L 27 ABG O2 Sat (Measured) (>96.0 %) 92.0 L 90.0 L P-50 (Temp Corrected) Y Y Carboxyhemoglobin (1.5 - 5.0 %) 0.5 L 0.3 L O2 Concentration % 60% 40% Temperature (97.0 - 100.0 FARH) 99.1 99.7 O2 Delivery Method A/M T-PIECE Chemistry Sodium (137 - 145 mmol/L) 134 L Potassium (3.5 - 5.1 mmol/L) 3.8 Chloride (98 - 107 mmol/L) 97 L Carbon Dioxide (22 - 30 mmol/L) 27 Anion Gap (5 - 16) 10 BUN (7 - 17 mg/dL) 18 H Creatinine (0.5 - 1.0 mg/dL) 3.3 H Estimated GFR (>60 ml/min) 13 L Glucose (65 - 99 mg/dL) 182 H Calcium (8.4 - 10.2 mg/dL) 9.6 Phosphorus (2.5 - 4.5 mg/dL) 3.1 Magnesium (1.6 - 2.3 mg/dL) 2.1 Total Bilirubin (0.2 - 1.3 mg/dL) 0.8 AST (14 - 36 U/L) 112 H ALT (9 - 52 U/L) 64 H Troponin I (< 0.11 ng/ml) 0.21 *H Albumin (3.5 - 5.0 g/dL) 3.6 TSH (0.270 - 4.200 uIU/mL) 1.020 Free T4 (0.85 - 1.93 ng/dL) 1.55 Hematology CBC w Diff MAN DIFF ORDERED WBC (4.8 - 10.8 /CUMM) 21.5 H RBC (4.20 - 5.40 /CUMM) 3.42 L Hgb (12.0 - 16.0 G/DL) 10.4 L Hct (37 - 47 %) 32.0 L MCV (81.0 - 99.0 FL) 93.6 MCH (27.0 - 31.0 PG) 30.4 MCHC (33.0 - 37.0 G/DL) 32.5 L RDW (11.5 - 14.5 %) 16.4 H Plt Count (130 - 400 /CUMM) 339 MPV (7.4 - 10.4 FL) 9.6 Gran % (42.2 - 75.2 %) 87.0 H Lymphocytes % (20.5 - 51.1 %) 3.5 L Monocytes % (1.7 - 9.3 %) 7.8 Eosinophils % (0 - 5 %) 1.6 Basophils % (0.0 - 2.0 %) 0.1 Absolute Granulocytes (1.4 - 6.5 /CUMM) 18.7 H Segmented Neutrophils (42.2 - 75.2 %) 90 H Band Neutrophils (0.0 - 5.0 %) 2 Absolute Lymphocytes (1.2 - 3.4 /CUMM) 0.7 L Lymphocytes (20.5 - 51.1 %) 2 L Monocytes (1.7 - 9.3 %) 5 Absolute Monocytes (0.10 - 0.60 /CUMM) 1.7 H Eosinophils (0 - 5.0 %) 1 Absolute Eosinophils (0.0 - 0.7 /CUMM) 0.3 Absolute Basophils (0.0 - 0.2 /CUMM) 0 Platelet Estimate (ADEQUATE) ADEQUATE Polychromasia 1+ Hypochromic-Microcytic 1+ Poikilocytosis 1+ Ovalocytes 1+ Miscellaneous Phlebotomy Draw Site RIGHT RADIAL RIGHT RADIAL Other Body Source Fld Total RBCs Counted (%) 100 08/06 08/05 0430 2030 Chemistry Sodium (137 - 145 mmol/L) 126 L Potassium (3.5 - 5.1 mmol/L) 4.1 Chloride (98 - 107 mmol/L) 89 L Carbon Dioxide (22 - 30 mmol/L) 23 Anion Gap (5 - 16) 13 BUN (7 - 17 mg/dL) 36 H Creatinine (0.5 - 1.0 mg/dL) 5.9 *H Estimated GFR (>60 ml/min) 7 L Glucose (65 - 99 mg/dL) 118 H Calcium (8.4 - 10.2 mg/dL) 8.8 Phosphorus (2.5 - 4.5 mg/dL) 4.1 Magnesium (1.6 - 2.3 mg/dL) 1.9 Total Bilirubin (0.2 - 1.3 mg/dL) 0.4 AST (14 - 36 U/L) 82 H ALT (9 - 52 U/L) 54 H Albumin (3.5 - 5.0 g/dL) 2.7 L Hematology CBC w Diff NO MAN DIFF REQ NO MAN DIFF REQ WBC (4.8 - 10.8 /CUMM) 8.7 11.9 H RBC (4.20 - 5.40 /CUMM) 2.92 L 3.13 L Hgb (12.0 - 16.0 G/DL) 9.1 L 9.9 L Hct (37 - 47 %) 27.0 L 29.4 L MCV (81.0 - 99.0 FL) 92.5 94.0 MCH (27.0 - 31.0 PG) 31.3 H 31.5 H MCHC (33.0 - 37.0 G/DL) 33.8 33.5 RDW (11.5 - 14.5 %) 16.7 H 16.2 H Plt Count (130 - 400 /CUMM) 194 215 MPV (7.4 - 10.4 FL) 9.5 9.2 Gran % (42.2 - 75.2 %) 75.2 78.4 H Lymphocytes % (20.5 - 51.1 %) 9.4 L 7.6 L Monocytes % (1.7 - 9.3 %) 7.6 8.7 Eosinophils % (0 - 5 %) 7.5 H 5.1 H Basophils % (0.0 - 2.0 %) 0.3 0.2 Absolute Granulocytes (1.4 - 6.5 /CUMM) 6.5 9.3 H Absolute Lymphocytes (1.2 - 3.4 /CUMM) 0.8 L 0.9 L Absolute Monocytes (0.10 - 0.60 /CUMM) 0.7 H 1.0 H Absolute Eosinophils (0.0 - 0.7 /CUMM) 0.6 0.6 Absolute Basophils (0.0 - 0.2 /CUMM) 0 0 Toxicology Vancomycin Trough (10.0 - 20.0 ug/mL) 15.4 02/26 08/04 0635 2018 Chemistry Sodium (137 - 145 mmol/L) 128 L Potassium (3.5 - 5.1 mmol/L) 4.3 Chloride (98 - 107 mmol/L) 92 L Carbon Dioxide (22 - 30 mmol/L) 26 Anion Gap (5 - 16) 10 BUN (7 - 17 mg/dL) 29 H Creatinine (0.5 - 1.0 mg/dL) 4.8 H Estimated GFR (>60 ml/min) 9 L Glucose (65 - 99 mg/dL) 110 H Lactic Acid (0.7 - 2.1 mmol/L) 1.3 Calcium (8.4 - 10.2 mg/dL) 8.7 Phosphorus (2.5 - 4.5 mg/dL) 3.5 Magnesium (1.6 - 2.3 mg/dL) 1.9 Total Bilirubin (0.2 - 1.3 mg/dL) 0.7 AST (14 - 36 U/L) 73 H ALT (9 - 52 U/L) 45 Albumin (3.5 - 5.0 g/dL) 2.8 L Coagulation PT (9.4 - 12.5 SEC) 11.7 INR (0.90 - 1.19) 1.12 APTT (25 - 37 SEC) 29 Fibrinogen Activity (200 - 393 MG/DL) 621 H Hematology CBC w Diff NO MAN DIFF REQ NO MAN DIFF REQ WBC (4.8 - 10.8 /CUMM) 10.8 8.4 RBC (4.20 - 5.40 /CUMM) 2.90 L 2.32 L Hgb (12.0 - 16.0 G/DL) 9.1 L 7.4 *L Hct (37 - 47 %) 27.1 L 22.4 L MCV (81.0 - 99.0 FL) 93.4 96.9 MCH (27.0 - 31.0 PG) 31.5 H 32.2 H MCHC (33.0 - 37.0 G/DL) 33.7 33.2 RDW (11.5 - 14.5 %) 17.1 H 15.7 H Plt Count (130 - 400 /CUMM) 202 186 MPV (7.4 - 10.4 FL) 9.7 9.3 Gran % (42.2 - 75.2 %) 78.2 H 77.2 H Lymphocytes % (20.5 - 51.1 %) 8.6 L 9.2 L Monocytes % (1.7 - 9.3 %) 9.5 H 10.8 H Eosinophils % (0 - 5 %) 3.6 2.4 Basophils % (0.0 - 2.0 %) 0.1 0.4 Absolute Granulocytes (1.4 - 6.5 /CUMM) 8.4 H 6.5 Absolute Lymphocytes (1.2 - 3.4 /CUMM) 0.9 L 0.8 L Absolute Monocytes (0.10 - 0.60 /CUMM) 1.0 H 0.9 H Absolute Eosinophils (0.0 - 0.7 /CUMM) 0.4 0.2 Absolute Basophils (0.0 - 0.2 /CUMM) 0 0 02/25 1658 Chemistry Lactic Acid (0.7 - 2.1 mmol/L) 1.6
[2017-08-07 12:00] VITALS: BP 144/60
--- NOTE | 2017-08-07 12:10 | PN- Infect Dx ---
Subjective Subjective: Extubated; low grade fever 100.3 F. Loose stools. Review of Systems Comments: 12 points reviewed as noted, otherwise neagative. Objective Last 24 Hrs of Vital Signs/I&O Vital Signs Date Time Temp Pulse Resp B/P B/P Pulse O2 O2 Flow FiO2 Mean Ox Delivery Rate 08/07 1151 82 144/60 08/07 1151 82 144/60 08/07 0800 98.1 75 20 138/64 95 Aerosol 60% Mask 08/07 0800 95 Aerosol 60% Mask 08/07 0530 115 160/70 08/07 0400 92 Aerosol 60% Mask 08/07 0000 98.5 74 27 132/64 93 Nasal 5.0L Cannula 08/07 0000 93 Nasal 5.0L Cannula 08/06 2214 74 143/74 08/06 2000 96 Venti Mask 50% 08/06 1645 35 08/06 1600 100.3 67 15 132/50 95 Ventilator 30% 08/06 1600 95 Ventilator 30% 08/06 1435 35 Intake & Output 08/07 1600 08/07 0800 08/07 0000 Intake Total 0 555 Output Total 0 Balance 0 555 Intake, IV 0 425 Intake, Oral 0 25 Intake, Other 70 Intake, Tube 35 Feeding Number 5 3 Bowel Movements Output, Urine 0 Physical Exam Other Physical Findings: Elderly female extubated HEENT ETT/OG in place, temporal wasting Neck No MARQUES Lungs BS present/diminished bases, few rhonchi Heart S1 S2 present, no murmur Abdomen is soft, nontender, bowel sounds present Extremities scattered ecchymoses; LUE AVF Results Last 24 Hours of Lab Results: Laboratory Tests 08/07 08/06 0530 1750 Blood Gas pH (7.35 - 7.45 PH) 7.39 7.44 pCO2 (35 - 45 TORR) 33 L 40 pO2 (80 - 100 TORR) 70 L 61 L HCO3 (21 - 28 MEQ/L) 19 L 27 ABG O2 Sat (Measured) (>96.0 %) 92.0 L 90.0 L P-50 (Temp Corrected) Y Y Carboxyhemoglobin (1.5 - 5.0 %) 0.5 L 0.3 L O2 Concentration % 60% 40% Temperature (97.0 - 100.0 FARH) 99.1 99.7 O2 Delivery Method A/M T-PIECE Chemistry Sodium (137 - 145 mmol/L) 134 L Potassium (3.5 - 5.1 mmol/L) 3.8 Chloride (98 - 107 mmol/L) 97 L Carbon Dioxide (22 - 30 mmol/L) 27 Anion Gap (5 - 16) 10 BUN (7 - 17 mg/dL) 18 H Creatinine (0.5 - 1.0 mg/dL) 3.3 H Estimated GFR (>60 ml/min) 13 L Glucose (65 - 99 mg/dL) 182 H Calcium (8.4 - 10.2 mg/dL) 9.6 Phosphorus (2.5 - 4.5 mg/dL) 3.1 Magnesium (1.6 - 2.3 mg/dL) 2.1 Total Bilirubin (0.2 - 1.3 mg/dL) 0.8 AST (14 - 36 U/L) 112 H ALT (9 - 52 U/L) 64 H Troponin I (< 0.11 ng/ml) 0.21 *H Albumin (3.5 - 5.0 g/dL) 3.6 TSH (0.270 - 4.200 uIU/mL) 1.020 Free T4 (0.85 - 1.93 ng/dL) 1.55 Hematology CBC w Diff MAN DIFF ORDERED WBC (4.8 - 10.8 /CUMM) 21.5 H RBC (4.20 - 5.40 /CUMM) 3.42 L Hgb (12.0 - 16.0 G/DL) 10.4 L Hct (37 - 47 %) 32.0 L MCV (81.0 - 99.0 FL) 93.6 MCH (27.0 - 31.0 PG) 30.4 MCHC (33.0 - 37.0 G/DL) 32.5 L RDW (11.5 - 14.5 %) 16.4 H Plt Count (130 - 400 /CUMM) 339 MPV (7.4 - 10.4 FL) 9.6 Gran % (42.2 - 75.2 %) 87.0 H Lymphocytes % (20.5 - 51.1 %) 3.5 L Monocytes % (1.7 - 9.3 %) 7.8 Eosinophils % (0 - 5 %) 1.6 Basophils % (0.0 - 2.0 %) 0.1 Absolute Granulocytes (1.4 - 6.5 /CUMM) 18.7 H Segmented Neutrophils (42.2 - 75.2 %) 90 H Band Neutrophils (0.0 - 5.0 %) 2 Absolute Lymphocytes (1.2 - 3.4 /CUMM) 0.7 L Lymphocytes (20.5 - 51.1 %) 2 L Monocytes (1.7 - 9.3 %) 5 Absolute Monocytes (0.10 - 0.60 /CUMM) 1.7 H Eosinophils (0 - 5.0 %) 1 Absolute Eosinophils (0.0 - 0.7 /CUMM) 0.3 Absolute Basophils (0.0 - 0.2 /CUMM) 0 Platelet Estimate (ADEQUATE) ADEQUATE Polychromasia 1+ Hypochromic-Microcytic 1+ Poikilocytosis 1+ Ovalocytes 1+ Miscellaneous Phlebotomy Draw Site RIGHT RADIAL RIGHT RADIAL Other Body Source Fld Total RBCs Counted (%) 100 Last 24 Hours of Lex Results: SPEC #: [id number] OSMAR: 08/04/17 STATUS: COMP RECD: 08/04/[address]: Nicol PARKINSON, Dilip SOURCE: STOOL ENTR: 08/04/[address]: Merline PARKINSON,Colton Kidd SPDESC: Kirill Schaefer MD ORDERED: C.DIFFICILE EIA COMMENT: Has pt had antimicrobial/antineoplastic rx in past 4-6wks? Y Has pt had abd pain, fever, or constipation? N Procedure Result > C. DIFFICILE TOXIN A & B EIA Final 08/04/17 NEGATIVE FOR CLOSTRIDIUM DIFFICILE TOXINS A & B BY EIA Recent Imaging Studies: XAMINATION: XR PORTABLE CHEST CLINICAL INFORMATION: Hypoxemia COMPARISON: 08/06/2017 TECHNIQUE: Portable frontal view of the chest was obtained. FINDINGS: Cardiac leads overlie the chest. The lungs are well expanded. Increased perihilar interstitial markings with hazy opacity. Small right pleural effusion. No pneumothorax. The cardiomediastinal silhouette is unchanged. Status post extubation. IMPRESSION: Increased interstitial markings with hazy opacities suggestive of pulmonary edema. DICTATED BY: Cesar PARKINSON,Joel DATE/TIME DICTATED:08/07/17637 LEAD PAINTER:BRAYAN DATE/TIME TRANSCRIBED:08/07/17637 Assessment/Plan ID Impression: 86-year-old woman with a history of CAD, hypertension, HFpEF and ESRD, maintained on HD (Tue, Thur and Sat) via a left upper extremity fistula, admitted on July 30 after a cardiac arrest at home, requiring 5 minutes of CPR, found on admission to be hypothermic with a white blood cell count of 17, 000, with elevated troponin, and positive blood cultures 2 for gram-positive cocci identified as Micrococcus (sensitivity pending; and likely representing skin contaminant). IE endocarditis ruled out as CARLOS negative. Incidental finding small PFO. Intermittent fever Severe leukocytosis today ? aspiration pneumonia? C. difficile infection ? reactive due to HF MRSA bronchitis vs aspiration pneumonia vs colonization (procal ordered) Suggestion: 1. C. difficile stool assay toxin PCR if persistent diarrhea. 2. Consider CT chest eval pneumonia. 3. Trend CBC/CMP. 4. If recurrent fever BC x2 from AVF. 5. Continue Vancomycin 750 mg iv post HD; tx for 14 d. Goal vancomycin trough 15-20; trough therapeutic previous day (15.4).
[2017-08-07 16:00] VITALS: BP 124/60
[2017-08-07 18:20] LABS: PTT 59 SEC (25-37)
[2017-08-08] VITALS: BP 181/80
[2017-08-08 01:11] LABS: PTT 89 SEC (25-37)
[2017-08-08 04:41] LABS: ABSOLUTE BASOPHIL COUNT 0 /CUMM (0.0-0.2); ABSOLUTE EOSINOPHIL COUNT 0 /CUMM (0.0-0.7); ABSOLUTE GRANULOCYTE CT 18.5 /CUMM (1.4-6.5); ABSOLUTE LYMPH COUNT 0.4 /CUMM (1.2-3.4); ABSOLUTE MONOCYTE COUNT 0.6 /CUMM (0.10-0.60); BASOPHIL % 0 % (0.0-2.0); EOSINOPHIL % 0.2 % (0-5); GRANULOCYTE % 94.2 % (42.2-75.2); HEMATOCRIT 30.3 % (37-47); MEAN CORPUSCULAR HGB 31.1 PG (27.0-31.0); MEAN CORPUSCULAR HGB CONC 33.2 G/DL (33.0-37.0); MEAN CORPUSCULAR VOLUME 93.8 FL (81.0-99.0); MEAN PLATELET VOLUME 9.1 FL (7.4-10.4); PLATELET COUNT 308 /CUMM (130-400); RBC DISTRIBUTION WIDTH 16.4 % (11.5-14.5); RED BLOOD CELL CT 3.23 /CUMM (4.20-5.40); WHITE BLOOD CELL COUNT 19.7 /CUMM (4.8-10.8)
[2017-08-08 08:00] VITALS: BP 154/72
--- NOTE | 2017-08-08 08:28 | PN- Resident CRCU ---
Earl Calles 08/08/17 0828: Subjective HPI/CRCU Issues: The patient was seen and examined this morning. Reported shortness of breath, and moderate respiratory distress. Her oxygen requirements increased. Denied having any headache, dizziness, lightheadedness, nausea, vomiting, chest pain, abdominal pain, urinary symptoms. Objective Vital Signs & I&O Last 8 Hrs of Vitals and I&O: Intake & Output 08/08 1600 Intake Total 150 Output Total 3000 Balance -2850 Intake, IV 150 Output, 3000 Dialysate Patient 108 lb Weight Weight Bed scale Measurement Method Exam General Appearance: moderate distress Other Physical Findings: HEENT: NCAT, PERRL, EOMI, anciteric sclera NECK: Supple, no JVD, trachea midline CARD: normal S1/S2 w/o m/g/r; RRR PULM: Diminished bibasilar airflow; diffuse expiratory wheezes ABD: Soft, NT, ND, BS+ NEURO: Awake and alert EXT: normal pulses, no cyanosis, scattered ecchymosis Weaning Parameters NIF: 29 Minute Volume: 10.6 Resp rate: 32 Vt: 330 Heart Rate: 74 Weaning Schedule Start Time: 1645 Minute Volume: 6 Resp Rate: 20 Vt: 320 Heart Rate: 74 End Time: 2040 Minute Volume: 3.58 Resp Rate: 18 Vt: 200 Heart Rate: 72 Start Time: 1810 Minute Volume: 6.1 Resp Rate: 22 Vt: 400 Heart Rate: 78 End Time: 1158 Minute Volume: 7.50 Resp Rate: 21 Vt: 290 Heart Rate: 72 Current Medications: Current Medications Sig/King Start time Last Medication Dose Route Stop Time Status Admin Albuterol Sulfate 3 ML ONCE ONE 08/08 0915 DC 08/08 INH 08/08 0916 0833 Amlodipine Besylate 10 MG DAILY 07/30 1000 AC 08/08 PO 1428 Aspirin 81 MG DAILY 07/30 1049 AC 08/08 PO 1426 Atorvastatin Calcium 80 MG 1700 07/30 1700 AC 08/08 PO 1821 Clopidogrel Bisulfate 75 MG DAILY 08/01 1000 AC 08/08 PO 1427 Epoetin Vamshi 2,000 UNIT TuThSa PRN 08/03 0700 AC IV Heparin Sodium 25,000 UNIT Q24H 08/07 1045 AC 08/08 (Porcine) IV 1414 Sodium Chloride 500 ML Lorazepam 1 MG Q4P PRN 07/30 0700 AC 08/09 IV 0118 Melatonin 5 MG AT BEDTIME 08/07 2200 AC 08/08 PO 2120 Metoprolol Tartrate 25 MG BID 08/02 2200 AC 08/08 PO 2120 Ondansetron HCl 4 MG Q6P PRN 08/07 1730 AC 08/08 IV 0036 Pantoprazole Sodium 40 MG DAILY 07/30 1000 DC 08/07 IV 0955 Sevelamer Carbonate 2,400 MG WM 08/07 1700 AC PO Vancomycin HCl 500 MG ONCE ONE 08/08 1315 DC 08/08 Dextrose/Water 250 ML IV 08/08 1414 1548 Vitamin A/Vitamin D 1 JENNIE BID 08/07 1000 AC 08/08 TOP 2120 Zinc Oxide 1 JENNIE BID PRN 08/07 0600 AC 08/07 TOP 0955 Impression/Plan Impression/Problem List Impression: This is a 86 year old lady with PMH significant for ESRD on HD, HFpEF, and CAD brought in by ambulance after being found unresponsive s/p CPR with ROSC. She has remained intubated on a ventilator despite being awake and alert. She follows commands but is impulsive and remains in bilateral upper extremity soft restraints for fear of self-extubation. She is continued on tube feeds but will remain NPO saturday evening for a CARLOS possibly on saturday or saturday. She received hemodialysis yesterday and a dose of vancomycin. BCs negative. Resp cultures positive for MRSA. Assessment/plan: #Acute hypoxemic respiratory failure and PEA: * Was thought to be likely 2/2 possible inectious precipitant leading to NH and PEA. OtherDdx: flash pulm edema, arrhythmia, septic shock. * Her CAT scan reveals bilateral pleural effusions. * Sputum cx came positive for MRSA, her nares swab was positive for MRSA. * Blood cultures 2 are now GPC's. Initially was concern for aspiration pneumonia in this patient. Given evidence of blood cultures and sputum cultures positive for staph was started on vancomycin to treat for pneumonia * 2nd blood cultures neg; blood culture from 08/04/2017 negative to date. * Negative lower extremity Doppler for DVT * CAT w/o evidence of PE. * Episode of desaturation with respiratory distress and wheezing today. Chest x -ray, ABG, IV Solu-Medrol 40 mg 1 ordered. Also she underwent dialysis. * She was made nothing by mouth, repeat swallow evaluation recommended pure with thin liquids. * Nephrology suggested another dialysis session tomorrow. #Acute anemia: * Underwent 1 unit PRBC Transfusion overnight: H&H this mornin.07/06.1 * Will hold off on starting subcutaneous heparin * IV heparin has been discontinued yesterday * Monitor H&H, guaiac stool #Leukocytosis-resolved * Treating for PNA, ntoe bcx x2 + for GPC. * Knee US shows no aspirable colelction * On vanco for concern of PNA. Initially treated w/ Unasyn for aspiration. MUST DOSE ANTIBIOTICS IN CONJUNCTION WITH DIALYSIS * Vancomycin trough was ordered for Saturday morning before dialysis * Con't monitor * Titrate abx per cx * BCs as above * Ceftriaxone was DC'd * Continue with vancomycin after each dialysis #Hx CAD and Pulseless arrest found in field: * Coronary artery disease status post NSTEMI and 4 stents (2015 - 2 stents, 2016 - 2 stents) currently on aspirin and plavix, symptomatic bradycardia s/p pacemaker placement, HTN, ECHO in 2016 showing stage 1 diastolic dysfunction, dyslipidemia, hypothyroidism presenting this admission with left arm pain She has hx of stenting done in [place] around 2014. * She sees Dr. Boyer. This time apparently patient was pulseless in the field. * Currently intubated and sedated on ventilator. * Currently evaluating for cause of CP arrest. * She was having elevated troponin and new EKG changes in context of old LBBB. Trops peaked at 1.85 and subsequently trended down. Multiple PACs present in EKG. * Appreciate cardio consult * Started in IV heparin 07/31/2016 which was discontinued after 24 hours per cardiology instructions * ASA * Metoprolol 12.5mg bid--> increased to 25 bid given htn. * Started on Plavix with 300mg load now on 75 * Continue aspirin * Continue atorvastatin 80 mg daily * ECHO shows EF 50 but some septal hypokinesis * CARLOS w/o vegetations #Paroxysmal atrial fibrillation: * Had an episode of atrial fibrillation this morning, Cardizem 10 mg 1 given. * Per cardiology instructions was started on IV heparin without bolus. * Possible transition to warfarin #Hypertension * Con't Amlodipine * Con't Metoprolol # Anion gap acidosis: * Initially thought to be secondary to lactic acidosis in the setting of decreased perfusion as well as underlying renal insufficiency. * Now likely due to renal failure as lactate has normalized. * Con't monitor #End stage renal today disease on hemodialysis: Saturday and Saturday * Appreciate nephro consult * HD Saturday. MUST DOSE ANTIBIOTICS WITH DIALYSIS * Vanc trough before dosing: Today's vanc trouph: 15.4 #Alimentary * Maintain on Protonix * Started TF on 08/01/2017 * Q6 finger stick #DVT prophylaxis: Being addressed by IV heparin #CODE STATUS Full code Problem List: 1. DVT prophylaxis 2. Respiratory failure Pain Ratin Tomorrow's Labs & Rationales: CBC to monitor H&H ICU bundle to monitor electrolytes Plan DVT/Prophylaxis: Kirill Jameson MD 08/08/17 1050: Attending MD Review Statement Attending Sign Off Attending Cosign Statement: I have: examined this patient, reviewed avalbl EMR data, personally reviewd images, discussd w/resident/PA/HEALTH PSYCHOLOGIST, discussed mgmt plan w/jessica, discussed mgmt plan w/CM, discussed mgmt plan w/pt, agreed w/resident/PA/HEALTH PSYCHOLOGIST, amended to note. Other Findings: IKirill M.D. have examined this patient, reviewed available EMR data, personally reviewed images, discussed with resident/PA/HEALTH PSYCHOLOGIST, discussed management plan with housestaff and nursing staff, discussed managment plan all of healthcare providers, discussed management plan with patient and/or family, agreed with resident/PA/HEALTH PSYCHOLOGIST. The past history and parts of the chart have been autopopulated. Impression 86 year old woman * extubated * ESRD on HD Plan -NIV for reduction of wob -cont HD -CARLOS without vegetations -nephrology, cardiology appreciated -f/u ID for staph aureus -HD per renal -cont current vent settings -swallow evaluation DVT prophylaxis at all times TTS 35 min
--- NOTE | 2017-08-08 09:00 | RADIOLOGY REPORT ---
EXAMINATION: XR PORTABLE CHEST CLINICAL INFORMATION: Dyspnea COMPARISON: 08/07/2017 TECHNIQUE: Portable frontal view of the chest was obtained. FINDINGS: Pulmonary edema with basilar opacities and small pleural effusions has progressed. Cardiomegaly. IMPRESSION: Increased moderate interstitial edema, pleural effusions and basilar atelectasis.
--- NOTE | 2017-08-08 10:00 | PN- Nephrology ---
Assessment/Plan Nephrology Assessment: ESRD - Routine HD today. Will increase goal to 2-3L as tolerated given pulmonary findings. Anemia - Hg at goal on current dose of Epogen. Cardiac arrest - Underlying cause remains unclear. Fever/leukocystosis - ?aspiration PNA. ID following. Suggestion: -HD today - 2-3L UF as tolerated -Plan for next HD on Saturday - may need HD on Saturday as well depending on respiratory status and chest imaging -Cont Epogen Please call [phone] with ?'s Subjective Subjective: Pt seen and examined on dialysis Noted to be desatting - on high flow nasal cannula Tmax 100.3 yesterday - blood cultures from 08/04 neg; WBC 19.7 Objective Vital Signs and I&Os Vital Signs Date Time Temp Pulse Resp B/P B/P Pulse O2 O2 Flow FiO2 Mean Ox Delivery Rate 08/08 0830 94 Nasal 75% Cannula 08/08 0758 93 Nasal 70% Cannula 08/08 0400 95 Nasal 70% Cannula 08/08 0132 89 Nasal 60% Cannula 08/08 0000 96 Nasal 60% Cannula 08/08 0000 97.7 78 39 181/80 96 Nasal 60% Cannula 08/07 2057 86 182/87 08/07 2000 92 Nasal 60% Cannula 08/07 1657 91 Nasal 65% Cannula 08/07 1600 98.7 69 25 124/60 95 Nasal 60% Cannula 08/07 1600 92 Nasal 65% Cannula 08/07 1443 92 Nasal 60% Cannula 08/07 1200 98.6 67 30 144/60 95 Nasal 60% Cannula 08/07 1200 95 Nasal 60% Cannula 08/07 1151 82 144/60 08/07 1151 82 144/60 Intake & Output 08/08 1600 08/08 0400 08/07 1600 08/07 0400 08/06 1600 08/06 0400 Intake Total 267 301 582 950 3546 368 Output Total 0 0 0 0 Balance 267 301 550 199 8378 368 Intake, IV 147 131 64 425 549 92 Intake, Oral 120 170 450 25 0 Intake, Other 70 100 Intake, Tube 35 478 146 Feeding Intake, Tube 331 130 Irrigant Number 1 6 3 3 4 Bowel Movements Output, Urine 0 0 0 0 Patient 107 lb 106 lb Weight Weight Bed scale Bed scale Measurement Method Physical Exam: Gen - ill appearing HEENT - supple CV - RRR, no m/r/g Chest - clear anteriorly, no w/r/r Abd - soft, NTND Ext - no edema, MARY AVF +bruit/+thrill Neuro - drowsy but oriented Current Medications: Current Medications Sig/King Start time Last Medication Dose Route Stop Time Status Admin Acetaminophen 650 MG ONCE ONE 08/07 1200 DC 08/07 PO 08/07 1201 1152 Albuterol Sulfate 3 ML ONCE ONE 08/08 0915 DC 08/08 INH 08/08 0916 0833 Amlodipine Besylate 10 MG DAILY 07/30 1000 AC 08/07 PO 1151 Aspirin 81 MG DAILY 07/30 1049 AC 08/07 PO 1152 Atorvastatin Calcium 80 MG 1700 07/30 1700 AC 08/06 PO 1634 Calcium Carbonate 2,500 MG TID 08/05 2200 DC 08/06 PO 1634 Clopidogrel Bisulfate 75 MG DAILY 08/01 1000 AC 08/07 PO 1151 Diltiazem HCl 125 MG Q24H 08/07 0615 DC Sodium Chloride 100 ML IV Diphenhydramine HCl 50 MG ONCE ONE 08/07 2115 DC 08/07 PO 08/07 211 2105 Diphenhydramine HCl 50 MG .STK-MED ONE 08/07 2104 DC PO 08/07 210 Epoetin Vamshi 2,000 UNIT TuThSa PRN 08/03 0700 AC IV Fentanyl Citrate 1,000 MCG Q20H 08/03 1030 DC 08/06 Dextrose/Water 250 ML IV 0411 Heparin Sodium 1,900 UNIT ONCE ONE 08/07 1900 DC 08/07 (Porcine) IV 08/07 1901 1910 Heparin Sodium 5,000 UNIT Q8 08/07 1400 DC (Porcine) SC Heparin Sodium 25,000 UNIT Q24H 08/07 1045 AC 08/07 (Porcine) IV 1152 Sodium Chloride 500 ML Lorazepam 1 MG Q4P PRN 07/30 0700 AC 08/08 IV 0036 Melatonin 5 MG AT BEDTIME 08/07 2200 AC 08/07 PO 2105 Methylprednisolone 40 MG ONCE ONE 08/08 0830 DC 08/08 IV 08/08 0831 0831 Metoprolol Tartrate 25 MG BID 08/02 2200 AC 08/07 PO 2057 Ondansetron HCl 4 MG Q6P PRN 08/07 1730 AC 08/08 IV 0036 Pantoprazole Sodium 40 MG DAILY 07/30 1000 AC 08/07 IV 0955 Sevelamer Carbonate 2,400 MG WM 08/07 1700 AC PO Sevelamer Carbonate 800 MG TID 08/07 1600 DC PO Vitamin A/Vitamin D 1 JENNIE BID 08/07 1000 AC 08/07 TOP 2057 Zinc Oxide 1 JENNIE BID PRN 08/07 0600 08/07 TOP 0955 Results Pertinent Lab Results: Laboratory Tests 08/08 08/08 0835 0341 Blood Gas pH (7.35 - 7.45 PH) 7.47 H pCO2 (35 - 45 TORR) 32 L pO2 (80 - 100 TORR) 62 L HCO3 (21 - 28 MEQ/L) 23 ABG O2 Sat (Measured) (>96.0 %) 92.0 L P-50 (Temp Corrected) NO Carboxyhemoglobin (1.5 - 5.0 %) 0.1 L O2 Concentration % 75%/55LPM O2 Delivery Method HFNC Miscellaneous Phlebotomy Draw Site RIGHT BRACHIAL Toxicology Vancomycin Trough (10.0 - 20.0 ug/mL) 17.0 08/08 08/08 08/07 08/07 0341 0040 1912 1700 Chemistry Sodium (137 - 145 mmol/L) 133 L Potassium (3.5 - 5.1 mmol/L) 4.4 Chloride (98 - 107 mmol/L) 94 L Carbon Dioxide (22 - 30 mmol/L) 26 Anion Gap (5 - 16) 13 BUN (7 - 17 mg/dL) 22 H Creatinine (0.5 - 1.0 mg/dL) 4.5 H Estimated GFR (>60 ml/min) 9 L Glucose (65 - 99 mg/dL) 133 H Calcium (8.4 - 10.2 mg/dL) 9.2 Phosphorus (2.5 - 4.5 mg/dL) 4.3 Magnesium (1.6 - 2.3 mg/dL) 2.1 Total Bilirubin (0.2 - 1.3 mg/dL) 0.7 AST (14 - 36 U/L) 73 H ALT (9 - 52 U/L) 59 H Albumin (3.5 - 5.0 g/dL) 3.3 L Coagulation APTT (25 - 37 SEC) 89 H 59 H Hematology CBC w Diff MAN DIFF ORDERED WBC (4.8 - 10.8 /CUMM) 19.7 H RBC (4.20 - 5.40 /CUMM) 3.23 L Hgb (12.0 - 16.0 G/DL) 10.0 L Hct (37 - 47 %) 30.3 L MCV (81.0 - 99.0 FL) 93.8 MCH (27.0 - 31.0 PG) 31.1 H MCHC (33.0 - 37.0 G/DL) 33.2 RDW (11.5 - 14.5 %) 16.4 H Plt Count (130 - 400 /CUMM) 308 MPV (7.4 - 10.4 FL) 9.1 Gran % (42.2 - 75.2 %) 94.2 H Lymphocytes % (20.5 - 51.1 %) 2.3 L Monocytes % (1.7 - 9.3 %) 3.3 Eosinophils % (0 - 5 %) 0.2 Basophils % (0.0 - 2.0 %) 0 Absolute Granulocytes (1.4 - 6.5 /CUMM) 18.5 H Segmented Neutrophils (42.2 - 75.2 %) 91 H Band Neutrophils (0.0 - 5.0 %) 3 Absolute Lymphocytes (1.2 - 3.4 /CUMM) 0.4 L Lymphocytes (20.5 - 51.1 %) 3 L Monocytes (1.7 - 9.3 %) 3 Absolute Monocytes (0.10 - 0.60 /CUMM) 0.6 Absolute Eosinophils (0.0 - 0.7 /CUMM) 0 Absolute Basophils (0.0 - 0.2 /CUMM) 0 Platelet Estimate (ADEQUATE) ADEQUATE Polychromasia 1+ Basophilic Stippling RARE Anisocytosis 1+ Macrocytic Cells FEW Stomatocytes FEW Elliptocytes 1+ Serology C. difficile Tox B Gene Pending Toxicology Vancomycin Trough Cancelled 08/07 08/06 0530 1750 Blood Gas pH (7.35 - 7.45 PH) 7.39 7.44 pCO2 (35 - 45 TORR) 33 L 40 pO2 (80 - 100 TORR) 70 L 61 L HCO3 (21 - 28 MEQ/L) 19 L 27 ABG O2 Sat (Measured) (>96.0 %) 92.0 L 90.0 L P-50 (Temp Corrected) Y Y Carboxyhemoglobin (1.5 - 5.0 %) 0.5 L 0.3 L O2 Concentration % 60% 40% Temperature (97.0 - 100.0 FARH) 99.1 99.7 O2 Delivery Method A/M T-PIECE Chemistry Sodium (137 - 145 mmol/L) 134 L Potassium (3.5 - 5.1 mmol/L) 3.8 Chloride (98 - 107 mmol/L) 97 L Carbon Dioxide (22 - 30 mmol/L) 27 Anion Gap (5 - 16) 10 BUN (7 - 17 mg/dL) 18 H Creatinine (0.5 - 1.0 mg/dL) 3.3 H Estimated GFR (>60 ml/min) 13 L Glucose (65 - 99 mg/dL) 182 H Calcium (8.4 - 10.2 mg/dL) 9.6 Phosphorus (2.5 - 4.5 mg/dL) 3.1 Magnesium (1.6 - 2.3 mg/dL) 2.1 Total Bilirubin (0.2 - 1.3 mg/dL) 0.8 AST (14 - 36 U/L) 112 H ALT (9 - 52 U/L) 64 H Troponin I (< 0.11 ng/ml) 0.21 *H Albumin (3.5 - 5.0 g/dL) 3.6 TSH (0.270 - 4.200 uIU/mL) 1.020 Free T4 (0.85 - 1.93 ng/dL) 1.55 Hematology CBC w Diff MAN DIFF ORDERED WBC (4.8 - 10.8 /CUMM) 21.5 H RBC (4.20 - 5.40 /CUMM) 3.42 L Hgb (12.0 - 16.0 G/DL) 10.4 L Hct (37 - 47 %) 32.0 L MCV (81.0 - 99.0 FL) 93.6 MCH (27.0 - 31.0 PG) 30.4 MCHC (33.0 - 37.0 G/DL) 32.5 L RDW (11.5 - 14.5 %) 16.4 H Plt Count (130 - 400 /CUMM) 339 MPV (7.4 - 10.4 FL) 9.6 Gran % (42.2 - 75.2 %) 87.0 H Lymphocytes % (20.5 - 51.1 %) 3.5 L Monocytes % (1.7 - 9.3 %) 7.8 Eosinophils % (0 - 5 %) 1.6 Basophils % (0.0 - 2.0 %) 0.1 Absolute Granulocytes (1.4 - 6.5 /CUMM) 18.7 H Segmented Neutrophils (42.2 - 75.2 %) 90 H Band Neutrophils (0.0 - 5.0 %) 2 Absolute Lymphocytes (1.2 - 3.4 /CUMM) 0.7 L Lymphocytes (20.5 - 51.1 %) 2 L Monocytes (1.7 - 9.3 %) 5 Absolute Monocytes (0.10 - 0.60 /CUMM) 1.7 H Eosinophils (0 - 5.0 %) 1 Absolute Eosinophils (0.0 - 0.7 /CUMM) 0.3 Absolute Basophils (0.0 - 0.2 /CUMM) 0 Platelet Estimate (ADEQUATE) ADEQUATE Polychromasia 1+ Hypochromic-Microcytic 1+ Poikilocytosis 1+ Ovalocytes 1+ Miscellaneous Phlebotomy Draw Site RIGHT RADIAL RIGHT RADIAL Other Body Source Fld Total RBCs Counted (%) 100 08/06 08/05 0430 2030 Chemistry Sodium (137 - 145 mmol/L) 126 L Potassium (3.5 - 5.1 mmol/L) 4.1 Chloride (98 - 107 mmol/L) 89 L Carbon Dioxide (22 - 30 mmol/L) 23 Anion Gap (5 - 16) 13 BUN (7 - 17 mg/dL) 36 H Creatinine (0.5 - 1.0 mg/dL) 5.9 *H Estimated GFR (>60 ml/min) 7 L Glucose (65 - 99 mg/dL) 118 H Calcium (8.4 - 10.2 mg/dL) 8.8 Phosphorus (2.5 - 4.5 mg/dL) 4.1 Magnesium (1.6 - 2.3 mg/dL) 1.9 Total Bilirubin (0.2 - 1.3 mg/dL) 0.4 AST (14 - 36 U/L) 82 H ALT (9 - 52 U/L) 54 H Albumin (3.5 - 5.0 g/dL) 2.7 L Hematology CBC w Diff NO MAN DIFF REQ NO MAN DIFF REQ WBC (4.8 - 10.8 /CUMM) 8.7 11.9 H RBC (4.20 - 5.40 /CUMM) 2.92 L 3.13 L Hgb (12.0 - 16.0 G/DL) 9.1 L 9.9 L Hct (37 - 47 %) 27.0 L 29.4 L MCV (81.0 - 99.0 FL) 92.5 94.0 MCH (27.0 - 31.0 PG) 31.3 H 31.5 H MCHC (33.0 - 37.0 G/DL) 33.8 33.5 RDW (11.5 - 14.5 %) 16.7 H 16.2 H Plt Count (130 - 400 /CUMM) 194 215 MPV (7.4 - 10.4 FL) 9.5 9.2 Gran % (42.2 - 75.2 %) 75.2 78.4 H Lymphocytes % (20.5 - 51.1 %) 9.4 L 7.6 L Monocytes % (1.7 - 9.3 %) 7.6 8.7 Eosinophils % (0 - 5 %) 7.5 H 5.1 H Basophils % (0.0 - 2.0 %) 0.3 0.2 Absolute Granulocytes (1.4 - 6.5 /CUMM) 6.5 9.3 H Absolute Lymphocytes (1.2 - 3.4 /CUMM) 0.8 L 0.9 L Absolute Monocytes (0.10 - 0.60 /CUMM) 0.7 H 1.0 H Absolute Eosinophils (0.0 - 0.7 /CUMM) 0.6 0.6 Absolute Basophils (0.0 - 0.2 /CUMM) 0 0 Toxicology Vancomycin Trough (10.0 - 20.0 ug/mL) 15.4 Imaging/Other Studies: EXAM TYPE: RAD - XRY-PORTABLE CHEST XRAY EXAMINATION: XR PORTABLE CHEST CLINICAL INFORMATION: Dyspnea COMPARISON: 08/07/2017 TECHNIQUE: Portable frontal view of the chest was obtained. FINDINGS: Pulmonary edema with basilar opacities and small pleural effusions has progressed. Cardiomegaly. IMPRESSION: Increased moderate interstitial edema, pleural effusions and basilar atelectasis.
--- NOTE | 2017-08-08 11:43 | PN- Cardiology ---
Subjective Subjective: Telemetry sinus tachycardia with left bundle branch block. Patient currently currently receiving dialysis Objective Vital Signs and I&Os Vital Signs Date Time Temp Pulse Resp B/P B/P Pulse O2 O2 Flow FiO2 Mean Ox Delivery Rate 08/08 0830 94 Nasal 75% Cannula 08/08 0800 97.5 84 28 154/72 94 Nasal 70% Cannula 08/08 0800 93 Nasal 70% Cannula 08/08 0758 93 Nasal 70% Cannula 08/08 0400 95 Nasal 70% Cannula 08/08 0132 89 Nasal 60% Cannula 08/08 0000 96 Nasal 60% Cannula 08/08 0000 97.7 78 39 181/80 96 Nasal 60% Cannula 08/07 2057 86 182/87 08/07 2000 92 Nasal 60% Cannula 08/07 1657 91 Nasal 65% Cannula 08/07 1600 98.7 69 25 124/60 95 Nasal 60% Cannula 08/07 1600 92 Nasal 65% Cannula 08/07 1443 92 Nasal 60% Cannula 08/07 1200 98.6 67 30 144/60 95 Nasal 60% Cannula 08/07 1200 95 Nasal 60% Cannula 08/07 1151 82 144/60 08/07 1151 82 144/60 Intake & Output 08/08 0808/08 0000 08/07 1600 08/07 0800 08/07 0000 Intake Total 267 301 514 0 555 Output Total 0 0 Balance 267 301 514 0 555 Intake, IV 147 131 64 0 425 Intake, Oral 120 170 450 0 25 Intake, Other 70 Intake, Tube 35 Feeding Number 1 1 5 3 Bowel Movements Output, Urine 0 0 Patient 108 lb 107 lb Weight Weight Bed scale Bed scale Measurement Method Physical Exam: Physical exam patient receiving dialysis Head normocephalic atraumatic Eyes sclera anicteric conjunctiva showed no pallor extraocular muscles were normal Chest lungs were clear cardiac exam revealed regular rhythm somewhat fast heart rate S2 was paradoxically split. 1-2/6 systolic murmur Abdomen soft no organomegaly extremities no edema Neurological was not tested. Current Medications: Current Medications Sig/King Start time Last Medication Dose Route Stop Time Status Admin Acetaminophen 650 MG ONCE ONE 08/07 1200 DC 08/07 PO 08/07 1201 1152 Albuterol Sulfate 3 ML ONCE ONE 08/08 0915 DC 08/08 INH 08/08 0916 0833 Amlodipine Besylate 10 MG DAILY 07/30 1000 AC 08/07 PO 1151 Aspirin 81 MG DAILY 07/30 1049 AC 08/07 PO 1152 Atorvastatin Calcium 80 MG 1700 07/30 1700 AC 08/06 PO 1634 Calcium Carbonate 2,500 MG TID 08/05 2200 DC 08/06 PO 1634 Clopidogrel Bisulfate 75 MG DAILY 08/01 1000 AC 08/07 PO 1151 Diphenhydramine HCl 50 MG ONCE ONE 08/07 2115 DC 08/07 PO 08/07 2115 210 Diphenhydramine HCl 50 MG .STK-MED ONE 08/07 2104 DC PO 08/07 210 Epoetin Vamshi 2,000 UNIT TuThSa PRN 08/03 0700 AC IV Heparin Sodium 1,900 UNIT ONCE ONE 08/07 1900 DC 08/07 (Porcine) IV 08/07 1901 1910 Heparin Sodium 5,000 UNIT Q8 08/07 1400 DC (Porcine) SC Heparin Sodium 25,000 UNIT Q24H 08/07 1045 AC 08/07 (Porcine) IV 1152 Sodium Chloride 500 ML Lorazepam 1 MG Q4P PRN 07/30 0700 AC 08/08 IV 0036 Melatonin 5 MG AT BEDTIME 08/07 2200 AC 08/07 PO 2105 Methylprednisolone 40 MG ONCE ONE 08/08 0830 DC 08/08 IV 08/08 0831 0831 Metoprolol Tartrate 25 MG BID 08/02 2200 AC 08/07 PO 2057 Ondansetron HCl 4 MG Q6P PRN 08/07 1730 AC 08/08 IV 0036 Pantoprazole Sodium 40 MG DAILY 07/30 1000 AC 08/07 IV 0955 Sevelamer Carbonate 2,400 MG WM 08/07 1700 AC PO Sevelamer Carbonate 800 MG TID 08/07 1600 DC PO Vitamin A/Vitamin D 1 JENNIE BID 08/07 1000 AC 08/07 TOP 2057 Zinc Oxide 1 JENNIE BID PRN 08/07 0600 AC 08/07 TOP 0955 Results Last 48 Hrs of Labs/Mics: Laboratory Tests 08/08/17 0835: pH 7.47 H, pCO2 32 L, pO2 62 L, HCO3 23, ABG O2 Sat (Measured) 92.0 L, P-50 (Temp Corrected) NO, Carboxyhemoglobin 0.1 L, O2 Concentration % 75%/55LPM, O2 Delivery Method HFNC, Phlebotomy Draw Site RIGHT BRACHIAL 08/08/17 0341: Vancomycin Trough 17.0 08/08/17 0341: Anion Gap 13, Estimated GFR 9 L, Glucose 133 H, Calcium 9.2, Phosphorus 4.3, Magnesium 2.1, Total Bilirubin 0.7, AST 73 H, ALT 59 H, Albumin 3.3 L, CBC w Diff MAN DIFF ORDERED, RBC 3.23 L, MCV 93.8, MCH 31.1 H, MCHC 33.2, RDW 16.4 H, MPV 9.1, Gran % 94.2 H, Lymphocytes % 2.3 L, Monocytes % 3.3, Eosinophils % 0.2, Basophils % 0, Absolute Granulocytes 18.5 H, Segmented Neutrophils 91 H, Band Neutrophils 3, Absolute Lymphocytes 0.4 L, Lymphocytes 3 L, Monocytes 3, Absolute Monocytes 0.6, Absolute Eosinophils 0, Absolute Basophils 0, Platelet Estimate ADEQUATE, Polychromasia 1+, Basophilic Stippling RARE, Anisocytosis 1+, Macrocytic Cells FEW, Stomatocytes FEW, Elliptocytes 1+, Vancomycin Trough Cancelled 08/08/17 0040: APTT 89 H 08/07/17 1912: C. difficile Tox B Gene Pending 08/07/17 1700: APTT 59 H 08/07/17 0530: pH 7.39, pCO2 33 L, pO2 70 L, HCO3 19 L, ABG O2 Sat (Measured) 92.0 L, P-50 (Temp Corrected) Y, Carboxyhemoglobin 0.5 L, O2 Concentration % 60%, Temperature 99.1, O2 Delivery Method A/M, Anion Gap 10, Estimated GFR 13 L, Glucose 182 H, Calcium 9.6, Phosphorus 3.1, Magnesium 2.1, Total Bilirubin 0.8, AST 112 H, ALT 64 H, Troponin I 0.21 *H, Albumin 3.6, TSH 1.020, Free T4 1.55, CBC w Diff MAN DIFF ORDERED, RBC 3.42 L, MCV 93.6, MCH 30.4, MCHC 32.5 L, RDW 16.4 H, MPV 9.6, Gran % 87.0 H, Lymphocytes % 3.5 L, Monocytes % 7.8, Eosinophils % 1.6, Basophils % 0.1, Absolute Granulocytes 18.7 H, Segmented Neutrophils 90 H, Band Neutrophils 2, Absolute Lymphocytes 0.7 L, Lymphocytes 2 L, Monocytes 5, Absolute Monocytes 1.7 H, Eosinophils 1, Absolute Eosinophils 0.3, Absolute Basophils 0, Platelet Estimate ADEQUATE, Polychromasia 1+, Hypochromic-Microcytic 1+, Poikilocytosis 1+, Ovalocytes 1+, Phlebotomy Draw Site RIGHT RADIAL, Fld Total RBCs Counted 100 08/06/17 1750: pH 7.44, pCO2 40, pO2 61 L, HCO3 27, ABG O2 Sat (Measured) 90.0 L, P-50 (Temp Corrected) Y, Carboxyhemoglobin 0.3 L, O2 Concentration % 40%, Temperature 99.7 , O2 Delivery Method T-PIECE, Phlebotomy Draw Site RIGHT RADIAL Assessment/Plan Assessment/Plan In summary this 86-year-old female has the following problemsardiopulmonary arrest with acute hypoxemic respiratory failure of unclear etiology 2. Chronic left bundle branch block 3. History of ischemic cardiomyopathy, EF now 50 % with mild to moderate anteroseptal hypokinesis 4. End-stage renal disease on hemodialysis 5. Coronary artery disease by history status post stent approximately 3 years ago 6. Hypertension by history 7. Aspiration PNA 8. Elevated troponin of unclear etiology s/p CPR 9. Frequent APCs 10. Positive blood cultures The plan is for her to be on heparin and transition to warfarin because of paroxysmal atrial fibrillation. Continue telemetry? Yes
--- NOTE | 2017-08-08 12:02 | PN- Infect Dx ---
Subjective Subjective: Fever previous day; increased SOB last evening and this morning; feeling better after HD. Noted increased cough after drinking water. Review of Systems Comments: 12 points reviewed as noted, otherwise negative. Objective Last 24 Hrs of Vital Signs/I&O Vital Signs Date Time Temp Pulse Resp B/P B/P Pulse O2 O2 Flow FiO2 Mean Ox Delivery Rate 08/09 0730 94 Nasal 75% Cannula 08/08 08 97.5 84 28 154/72 94 Nasal 70% Cannula 08/08 08 93 Nasal 70% Cannula 08/08 0758 93 Nasal 70% Cannula 08/08 0400 95 Nasal 70% Cannula 08/08 0132 89 Nasal 60% Cannula 08/08 0000 96 Nasal 60% Cannula 08/08 0000 97.7 78 39 181/80 96 Nasal 60% Cannula 08/07 2057 86 182/87 08/07 2000 92 Nasal 60% Cannula 08/07 1657 91 Nasal 65% Cannula 08/07 1600 98.7 69 25 124/60 95 Nasal 60% Cannula 08/07 1600 92 Nasal 65% Cannula 08/07 1443 92 Nasal 60% Cannula 08/07 1200 98.6 67 30 144/60 95 Nasal 60% Cannula 08/07 1200 95 Nasal 60% Cannula Intake & Output 08/08 1600 08/08 0800 08/08 0000 Intake Total 267 301 Output Total 0 Balance 267 301 Intake, IV 147 131 Intake, Oral 120 170 Number 1 Bowel Movements Output, Urine 0 Patient 108 lb Weight Weight Bed scale Measurement Method Physical Exam Other Physical Findings: Elderly female appearing chronically ill HEENT ETT/OG in place, temporal wasting Neck No MARQUES Lungs BS present/diminished bases, few rhonchi Heart S1 S2 present, no murmur Abdomen is soft, nontender, bowel sounds present Extremities scattered ecchymoses; LUE AVF Results Last 24 Hours of Lab Results: Laboratory Tests 08/08 08/08 0835 0341 Blood Gas pH (7.35 - 7.45 PH) 7.47 H pCO2 (35 - 45 TORR) 32 L pO2 (80 - 100 TORR) 62 L HCO3 (21 - 28 MEQ/L) 23 ABG O2 Sat (Measured) (>96.0 %) 92.0 L P-50 (Temp Corrected) NO Carboxyhemoglobin (1.5 - 5.0 %) 0.1 L O2 Concentration % 75%/55LPM O2 Delivery Method HFNC Miscellaneous Phlebotomy Draw Site RIGHT BRACHIAL Toxicology Vancomycin Trough (10.0 - 20.0 ug/mL) 17.0 08/08 08/08 08/07 08/07 0341 0040 1912 1700 Chemistry Sodium (137 - 145 mmol/L) 133 L Potassium (3.5 - 5.1 mmol/L) 4.4 Chloride (98 - 107 mmol/L) 94 L Carbon Dioxide (22 - 30 mmol/L) 26 Anion Gap (5 - 16) 13 BUN (7 - 17 mg/dL) 22 H Creatinine (0.5 - 1.0 mg/dL) 4.5 H Estimated GFR (>60 ml/min) 9 L Glucose (65 - 99 mg/dL) 133 H Calcium (8.4 - 10.2 mg/dL) 9.2 Phosphorus (2.5 - 4.5 mg/dL) 4.3 Magnesium (1.6 - 2.3 mg/dL) 2.1 Total Bilirubin (0.2 - 1.3 mg/dL) 0.7 AST (14 - 36 U/L) 73 H ALT (9 - 52 U/L) 59 H Albumin (3.5 - 5.0 g/dL) 3.3 L Coagulation APTT (25 - 37 SEC) 89 H 59 H Hematology CBC w Diff MAN DIFF ORDERED WBC (4.8 - 10.8 /CUMM) 19.7 H RBC (4.20 - 5.40 /CUMM) 3.23 L Hgb (12.0 - 16.0 G/DL) 10.0 L Hct (37 - 47 %) 30.3 L MCV (81.0 - 99.0 FL) 93.8 MCH (27.0 - 31.0 PG) 31.1 H MCHC (33.0 - 37.0 G/DL) 33.2 RDW (11.5 - 14.5 %) 16.4 H Plt Count (130 - 400 /CUMM) 308 MPV (7.4 - 10.4 FL) 9.1 Gran % (42.2 - 75.2 %) 94.2 H Lymphocytes % (20.5 - 51.1 %) 2.3 L Monocytes % (1.7 - 9.3 %) 3.3 Eosinophils % (0 - 5 %) 0.2 Basophils % (0.0 - 2.0 %) 0 Absolute Granulocytes (1.4 - 6.5 /CUMM) 18.5 H Segmented Neutrophils (42.2 - 75.2 %) 91 H Band Neutrophils (0.0 - 5.0 %) 3 Absolute Lymphocytes (1.2 - 3.4 /CUMM) 0.4 L Lymphocytes (20.5 - 51.1 %) 3 L Monocytes (1.7 - 9.3 %) 3 Absolute Monocytes (0.10 - 0.60 /CUMM) 0.6 Absolute Eosinophils (0.0 - 0.7 /CUMM) 0 Absolute Basophils (0.0 - 0.2 /CUMM) 0 Platelet Estimate (ADEQUATE) ADEQUATE Polychromasia 1+ Basophilic Stippling RARE Anisocytosis 1+ Macrocytic Cells FEW Stomatocytes FEW Elliptocytes 1+ Serology C. difficile Tox B Gene Pending Toxicology Vancomycin Trough Cancelled Last 24 Hours of Lex Results: SPEC #: [id number] OSMAR: 08/04/17 STATUS: RES RECD: 08/04/[address]: Marli PARKINSON, Jayson SOURCE: BLOOD ENTR: 08/04/17154 [facility] DR: Merline PARKINSON,Colton Kidd SPDESC: 2ND/VENOUS Kirill Schaefer MD ORDERED: BLOOD CULTURE Procedure Result > BLOOD CULTURE REPORT Preliminary 08/05/17 No growth after 1 day incubation. Specimen is examined continuously for 5 days before final report unless culture becomes positive. Recent Imaging Studies: CXR 08/08 IMPRESSION: Increased moderate interstitial edema, pleural effusions and basilar atelectasis. DICTATED BY: Kenny Rene MD DATE/TIME DICTATED:08/08/17854 PERFORMANCE TEST CONSULTANT:BRAYAN DATE/TIME TRANSCRIBED:08/08/17854 Assessment/Plan ID Impression: 86-year-old woman with a history of CAD, hypertension, HFpEF and ESRD, maintained on HD (Tue, Thur and Sat) via a left upper extremity fistula, admitted on July 30 after a cardiac arrest at home, requiring 5 minutes of CPR, found on admission to be hypothermic with a white blood cell count of 17, 000, with elevated troponin, and positive blood cultures 2 for gram-positive cocci identified as Micrococcus (sensitivity pending; and likely representing skin contaminant). IE endocarditis ruled out as CARLOS negative. Incidental finding small PFO. Intermittent fever Severe leukocytosis today ? aspiration pneumonia? C. difficile infection ? reactive due to HF MRSA bronchitis vs aspiration pneumonia vs colonization (procal ordered) Suggestion: 1. C. difficile stool assay toxin PCR if persistent diarrhea. 2. Consider MBS r/o aspiration 3. Trend CBC/CMP. 4. If recurrent fever BC x2 from AVF. 5. Continue Vancomycin 500 mg iv post HD; tx for 14 d. Goal vancomycin trough 15-20; trough therapeutic at 17.
[2017-08-08 14:29] LABS: PTT 68 SEC (25-37)
[2017-08-08 16:00] VITALS: BP 132/60
--- NOTE | 2017-08-08 17:39 | RADIOLOGY REPORT ---
EXAMINATION: XR PORTABLE CHEST CLINICAL INFORMATION: Shortness of breath, compared to the prior study postdialysis. COMPARISON: 08/08/2017 at 8:34 AM TECHNIQUE: Portable frontal view of the chest was obtained. FINDINGS: Interval decrease in the hazy opacities involving both lungs. No pneumothorax. Suspect small bilateral pleural effusions. Stable cardiomegaly. Atherosclerosis and tortuosity thoracic aorta. No definite acute osseous abnormality. EKG leads project over the chest. IMPRESSION: Interval decrease in the hazy lung opacities bilaterally indicating improvement in the interstitial edema since dialysis. Small bilateral pleural effusions are suspected.
[2017-08-09] VITALS: BP 140/60
[2017-08-09 00:55] LABS: PTT 62 SEC (25-37)
[2017-08-09 04:25] LABS: C.DIFFICILE TOXIN B QL PCR NOT DETECTED (NOT DETECTED)
[2017-08-09 05:50] LABS: ABSOLUTE BASOPHIL COUNT 0 /CUMM (0.0-0.2); ABSOLUTE EOSINOPHIL COUNT 0.1 /CUMM (0.0-0.7); ABSOLUTE GRANULOCYTE CT 12.7 /CUMM (1.4-6.5); ABSOLUTE LYMPH COUNT 0.9 /CUMM (1.2-3.4); ABSOLUTE MONOCYTE COUNT 1.4 /CUMM (0.10-0.60); BASOPHIL % 0.1 % (0.0-2.0); EOSINOPHIL % 0.3 % (0-5); GRANULOCYTE % 84.3 % (42.2-75.2); HEMATOCRIT 28.2 % (37-47); MEAN CORPUSCULAR HGB 31.2 PG (27.0-31.0); MEAN CORPUSCULAR HGB CONC 33.3 G/DL (33.0-37.0); MEAN CORPUSCULAR VOLUME 93.6 FL (81.0-99.0); PLATELET COUNT 339 /CUMM (130-400); RBC DISTRIBUTION WIDTH 16.1 % (11.5-14.5); RED BLOOD CELL CT 3.01 /CUMM (4.20-5.40)
[2017-08-09 08:00] VITALS: BP 130/76
--- NOTE | 2017-08-09 08:35 | PN- Resident CRCU ---
Earl Calles 08/09/17 0834: Subjective HPI/CRCU Issues: The patient was seen and examined this morning. Offers no complaints. Resting comfortably in bed. Denies having any headache, dizziness, lightheadedness, nausea, vomiting, chest pain, abdominal pain, urinary symptoms. Scheduled for another HD this morning. Objective Vital Signs & I&O Last 8 Hrs of Vitals and I&O: Intake & Output 08/09 1600 Intake Total 390 Output Total 1999 Balance -1610 Intake, IV 150 Intake, Oral 240 Output, 2000 Dialysate Patient 101 lb Weight Weight Bed scale Measurement Method Exam General Appearance: no apparent distress, alert, awake Other Physical Findings: HEENT: NCAT, PERRL, EOMI, anciteric sclera NECK: Supple, no JVD, trachea midline CARD: normal S1/S2 w/o m/g/r; RRR PULM: Diminished bibasilar airflow, no expiratory wheezing noted ABD: Soft, NT, ND, BS+ NEURO: Awake and alert EXT: normal pulses, no cyanosis, scattered ecchymosis Weaning Parameters NIF: 29 Minute Volume: 10.6 Resp rate: 32 Vt: 330 Heart Rate: 74 Weaning Schedule Start Time: 1645 Minute Volume: 6 Resp Rate: 20 Vt: 320 Heart Rate: 74 End Time: 2040 Minute Volume: 3.58 Resp Rate: 18 Vt: 200 Heart Rate: 72 Start Time: 1810 Minute Volume: 6.1 Resp Rate: 22 Vt: 400 Heart Rate: 78 End Time: 1158 Minute Volume: 7.50 Resp Rate: 21 Vt: 290 Heart Rate: 72 Current Medications: Current Medications Sig/King Start time Last Medication Dose Route Stop Time Status Admin Amlodipine Besylate 10 MG DAILY 07/30 1000 AC 08/09 PO 1447 Aspirin 81 MG DAILY 07/30 1049 AC 08/09 PO 1201 Atorvastatin Calcium 80 MG 1700 07/30 1700 AC 08/08 PO 1821 Clopidogrel Bisulfate 75 MG DAILY 08/01 1000 AC 08/09 PO 1201 Epoetin Vamshi 2,000 UNIT TuThSa PRN 08/03 0700 AC IV Heparin Sodium 25,000 UNIT Q24H 08/07 1045 AC 08/08 (Porcine) IV 1414 Sodium Chloride 500 ML Lidocaine/Prilocaine 1 JENNIE DAILY NEEDED PRN 08/09 1045 AC TOP Lorazepam 1 MG Q4P PRN 07/30 0700 AC 08/09 IV 0118 Melatonin 5 MG AT BEDTIME 08/07 2200 AC 08/08 PO 2120 Metoprolol Tartrate 25 MG BID 08/02 2200 AC 08/09 PO 1159 Ondansetron HCl 4 MG Q6P PRN 08/07 1730 AC 08/08 IV 0036 Pantoprazole Sodium 40 MG DAILY 07/30 1000 DC 08/07 IV 0955 Sevelamer Carbonate 2,400 MG WM 08/07 1700 AC 08/09 PO 1200 Vitamin A/Vitamin D 1 JENNIE BID 08/07 1000 AC 08/09 TOP 1000 Zinc Oxide 1 JENNIE BID PRN 08/07 0600 AC 08/07 TOP 0955 Impression/Plan Impression/Problem List Impression: This is a 86 year old lady with PMH significant for ESRD on HD, HFpEF, and CAD brought in by ambulance after being found unresponsive s/p CPR with ROSC. She has remained intubated on a ventilator despite being awake and alert. She follows commands but is impulsive and remains in bilateral upper extremity soft restraints for fear of self-extubation. She is continued on tube feeds but will remain NPO saturday evening for a CARLOS possibly on saturday or saturday. She received hemodialysis yesterday and a dose of vancomycin. BCs negative. Resp cultures positive for MRSA. Assessment/plan: #Acute hypoxemic respiratory failure and PEA: * Was thought to be likely 2/2 possible inectious precipitant leading to DE and PEA. OtherDdx: flash pulm edema, arrhythmia, septic shock. * Her CAT scan reveals bilateral pleural effusions. * Sputum cx came positive for MRSA, her nares swab was positive for MRSA. * Blood cultures 2 are now GPC's. Initially was concern for aspiration pneumonia in this patient. Given evidence of blood cultures and sputum cultures positive for staph was started on vancomycin to treat for pneumonia * 2nd blood cultures neg; blood culture from 08/04/2017 negative to date. * Negative lower extremity Doppler for DVT * CAT w/o evidence of PE. * Scheduled for another hemodialysis today. #Acute anemia: * Underwent 1 unit PRBC Transfusion overnight: H&H this mornin.1/27.1 * Will hold off on starting subcutaneous heparin * IV heparin has been discontinued yesterday * Monitor H&H, guaiac stool #Leukocytosis-resolved * Treating for PNA, ntoe bcx x2 + for GPC. * Knee US shows no aspirable colelction * On vanco for concern of PNA. Initially treated w/ Unasyn for aspiration. MUST DOSE ANTIBIOTICS IN CONJUNCTION WITH DIALYSIS * Per ID, Continue Vancomycin 500 mg iv post HD on Saturday; tx for 14 d. Goal vancomycin trough 15-20; trough therapeutic at 20. next vancomycin trough 3/5. * Vancomycin trough trough 3/5. * Con't monitor * Titrate abx per cx * BCs as above * Ceftriaxone was DC'd * Continue with vancomycin after each dialysis #Hx CAD and Pulseless arrest found in field: * Coronary artery disease status post NSTEMI and 4 stents (2015 - 2 stents, 2016 - 2 stents) currently on aspirin and plavix, symptomatic bradycardia s/p pacemaker placement, HTN, ECHO in 2016 showing stage 1 diastolic dysfunction, dyslipidemia, hypothyroidism presenting this admission with left arm pain She has hx of stenting done in [place] around 2014. * She sees Dr. Boyer. This time apparently patient was pulseless in the field. * Currently intubated and sedated on ventilator. * Currently evaluating for cause of CP arrest. * She was having elevated troponin and new EKG changes in context of old LBBB. Trops peaked at 1.85 and subsequently trended down. Multiple PACs present in EKG. * Appreciate cardio consult * Started in IV heparin 07/31/2016 which was discontinued after 24 hours per cardiology instructions * ASA * Metoprolol 12.5mg bid--> increased to 25 bid given htn. * Started on Plavix with 300mg load now on 75 * Continue aspirin * Continue atorvastatin 80 mg daily * ECHO shows EF 50 but some septal hypokinesis * CARLOS w/o vegetations #Paroxysmal atrial fibrillation: * Had an episode of atrial fibrillation this morning, Cardizem 10 mg 1 given. * Per cardiology instructions was started on IV heparin without bolus. * Possible transition to warfarin * Per cardiology should remain on IV heparin while in the ICU and critically ill #Hypertension * Con't Amlodipine * Con't Metoprolol # Anion gap acidosis-resolved. * Initially thought to be secondary to lactic acidosis in the setting of decreased perfusion as well as underlying renal insufficiency. * Later was thougth to be likely due to renal failure as lactate has normalized. #End stage renal today disease on hemodialysis: Saturday and Saturday * Appreciate nephro consult * HD Saturday. MUST DOSE ANTIBIOTICS WITH DIALYSIS * Vanc trough before dosing: Today's vanc trouph: 20.1 #Alimentary * Maintain on Protonix * Started TF on 08/01/2017 #DVT prophylaxis: Being addressed by IV heparin #CODE STATUS Full code Problem List: 1. Atrial fibrillation with rapid ventricular response 2. Cardiac arrest 3. Respiratory failure Pain Ratin Tomorrow's Labs & Rationales: CBC to monitor H&H ICU bundle to monitor electrolytes Plan DVT/Prophylaxis: mechanical, pharmacological Kirill Schaefer MD 08/09/17 1148: Attending MD Review Statement Attending Sign Off Attending Cosign Statement: I have: examined this patient, reviewed avalbl EMR data, personally reviewd images, discussd w/resident/PA/PROVER, discussed mgmt plan w/jessica, discussed mgmt plan w/CM, discussed mgmt plan w/pt, agreed w/resident/PA/PROVER, amended to note. Other Findings: IKirill M.D. have examined this patient, reviewed available EMR data, personally reviewed images, discussed with resident/PA/PROVER, discussed management plan with housestaff and nursing staff, discussed managment plan all of healthcare providers, discussed management plan with patient and/or family, agreed with resident/PA/PROVER. The past history and parts of the chart have been autopopulated. Impression 86 year old woman * extubated * ESRD on HD Plan -NIV for reduction of wob if needed -cont HD -CARLOS without vegetations -nephrology, cardiology appreciated -f/u ID for staph aureus -HD per renal -cont current vent settings -swallow evaluation DVT prophylaxis at all times TTS 35 min
--- NOTE | 2017-08-09 10:37 | PN- Nephrology ---
Assessment/Plan Nephrology Assessment: ESRD - Extra HD session today given pulmonary edema. Will also be getting dialysis tomorrow. Given respiratory issues, I do not think she'll be able to wait until Saturday for dialysis so we can plan for Saturday as well. Anemia - On Epogen. Cardiac arrest - Underlying cause remains unclear. Fever/leukocystosis - ?aspiration PNA. Afebrile over the last day and WBC downtrending. Suggestion: -HD today - 2-3L UF as tolerated -HD tomorrow -Cont Epogen -Please have patient use EMLA (lidocaine-prilocaine) cream 1hr prior to dialysis (schedule for dialysis not yet known and it may be difficult to administer exactly 1hr prior) Please call [phone] with ?'s Subjective Subjective: Pt seen and examined on dialysis Respiratory status noticed to be improved after dialysis yesterday Afebrile; no new cultures; WBC down to 15 Objective Vital Signs and I&Os Vital Signs Date Time Temp Pulse Resp B/P B/P Pulse O2 O2 Flow FiO2 Mean Ox Delivery Rate 08/09 0800 97.4 98 30 130/76 92 Nasal 60% Cannula 08/09 0800 92 Nasal 60% Cannula 08/09 0400 90 Nasal 60% Cannula 08/09 0045 91 Nasal 60% Cannula 08/09 0000 95 Nasal 60% Cannula 08/09 0000 98.4 100 14 140/60 95 Nasal 60% Cannula 08/08 2240 93 Nasal 60% Cannula 08/08 2120 87 27 136/71 / 2000 93 Nasal 70% Cannula 08/08 2000 94 Nasal 70% Cannula 08/08 1703 94 Nasal 70% Cannula 08/08 1600 98.9 96 32 132/60 97 Nasal 70% Cannula 08/08 1600 97 Nasal 70% Cannula 08/08 1428 98 140/69 08/08 1428 98 140/69 08/08 1338 Nasal Cannula 08/08 1200 96 Nasal 75% Cannula Intake & Output 08/09 0400 08/08 1600 08/08 0400 08/07 1600 08/07 0400 Intake Total 140 389 417 301 514 555 Output Total 0 0 3000 0 Balance 140 389 -2583 301 514 555 Intake, IV 140 140 297 131 64 425 Intake, Oral 249 120 170 450 25 Intake, Other 70 Intake, Tube 35 Feeding Number 3 2 1 6 3 Bowel Movements Output, 3000 Dialysate Output, Urine 0 0 0 0 Patient 105 lb 103 lb 107 lb Weight Weight Bed scale Bed scale Bed scale Measurement Method Physical Exam: Gen - OK appearing HEENT - supple CV - RRR, no m/r/g Chest - clear anteriorly Abd - soft, NTND Ext - no edema, MARY AVF +thrill/+bruit Neuro - alert, oriented Current Medications: Current Medications Sig/King Start time Last Medication Dose Route Stop Time Status Admin Amlodipine Besylate 10 MG DAILY 07/30 1000 AC 08/08 PO 1428 Aspirin 81 MG DAILY 07/30 1049 AC 08/08 PO 1426 Atorvastatin Calcium 80 MG 1700 07/30 1700 AC 08/08 PO 1821 Clopidogrel Bisulfate 75 MG DAILY 08/01 1000 AC 08/08 PO 1427 Epoetin Vamshi 2,000 UNIT TuThSa PRN 08/03 0700 AC IV Heparin Sodium 25,000 UNIT Q24H 08/07 1045 AC 08/08 (Porcine) IV 1414 Sodium Chloride 500 ML Lorazepam 1 MG Q4P PRN 07/30 0700 AC 08/09 IV 0118 Melatonin 5 MG AT BEDTIME 08/07 2200 AC 08/08 PO 2120 Metoprolol Tartrate 25 MG BID 08/02 2200 AC 08/08 PO 2120 Non-Formulary 0 SEE ADMIN CRITERIA 08/09 1045 UNVr Medication ANY Ondansetron HCl 4 MG Q6P PRN 08/07 1730 AC 08/08 IV 0036 Pantoprazole Sodium 40 MG DAILY 07/30 1000 DC 08/07 IV 0955 Sevelamer Carbonate 2,400 MG WM 08/07 1700 AC PO Vancomycin HCl 500 MG ONCE ONE 08/08 1315 DC 08/08 Dextrose/Water 250 ML IV 08/08 1414 1548 Vitamin A/Vitamin D 1 JENNIE BID 08/07 1000 AC 08/08 TOP 2120 Zinc Oxide 1 JENNIE BID PRN 08/07 0600 AC 08/07 TOP 0955 Results Pertinent Lab Results: Laboratory Tests 08/09 08/09 08/08 0417 0010 1330 Chemistry Sodium (137 - 145 mmol/L) 137 Potassium (3.5 - 5.1 mmol/L) 4.3 Chloride (98 - 107 mmol/L) 98 Carbon Dioxide (22 - 30 mmol/L) 26 Anion Gap (5 - 16) 13 BUN (7 - 17 mg/dL) 19 H Creatinine (0.5 - 1.0 mg/dL) 2.9 H Estimated GFR (>60 ml/min) 15 L Glucose (65 - 99 mg/dL) 112 H Calcium (8.4 - 10.2 mg/dL) 8.7 Phosphorus (2.5 - 4.5 mg/dL) 2.5 Magnesium (1.6 - 2.3 mg/dL) 2.1 Total Bilirubin (0.2 - 1.3 mg/dL) 0.7 AST (14 - 36 U/L) 62 H ALT (9 - 52 U/L) 63 H Albumin (3.5 - 5.0 g/dL) 3.1 L Coagulation APTT (25 - 37 SEC) 62 H Cancelled Hematology CBC w Diff MAN DIFF ORDERED WBC (4.8 - 10.8 /CUMM) 15.0 H RBC (4.20 - 5.40 /CUMM) 3.01 L Hgb (12.0 - 16.0 G/DL) 9.4 L Hct (37 - 47 %) 28.2 L MCV (81.0 - 99.0 FL) 93.6 MCH (27.0 - 31.0 PG) 31.2 H MCHC (33.0 - 37.0 G/DL) 33.3 RDW (11.5 - 14.5 %) 16.1 H Plt Count (130 - 400 /CUMM) 339 MPV (7.4 - 10.4 FL) 9.0 Gran % (42.2 - 75.2 %) 84.3 H Lymphocytes % (20.5 - 51.1 %) 6.1 L Monocytes % (1.7 - 9.3 %) 9.2 Eosinophils % (0 - 5 %) 0.3 Basophils % (0.0 - 2.0 %) 0.1 Absolute Granulocytes (1.4 - 6.5 /CUMM) 12.7 H Segmented Neutrophils (42.2 - 75.2 %) 91 H Absolute Lymphocytes (1.2 - 3.4 /CUMM) 0.9 L Lymphocytes (20.5 - 51.1 %) 3 L Monocytes (1.7 - 9.3 %) 5 Absolute Monocytes (0.10 - 0.60 /CUMM) 1.4 H Absolute Eosinophils (0.0 - 0.7 /CUMM) 0.1 Basophils (0.0 - 2.0 %) 1 Absolute Basophils (0.0 - 0.2 /CUMM) 0 Platelet Estimate (ADEQUATE) ADEQUATE Polychromasia 1+ Poikilocytosis 1+ Ovalocytes 1+ Other Body Source Fld Total RBCs Counted (%) 100 Toxicology Vancomycin Trough (10.0 - 20.0 ug/mL) 20.1 H 0308/08 1225 0835 0341 Blood Gas pH (7.35 - 7.45 PH) 7.47 H pCO2 (35 - 45 TORR) 32 L pO2 (80 - 100 TORR) 62 L HCO3 (21 - 28 MEQ/L) 23 ABG O2 Sat (Measured) (>96.0 %) 92.0 L P-50 (Temp Corrected) NO Carboxyhemoglobin (1.5 - 5.0 %) 0.1 L O2 Concentration % 75%/55LPM O2 Delivery Method HFNC Coagulation APTT (25 - 37 SEC) 68 H Miscellaneous Phlebotomy Draw Site RIGHT BRACHIAL Toxicology Vancomycin Trough (10.0 - 20.0 ug/mL) 17.0 08/08 08/08 08/07 0341 0040 1912 Chemistry Sodium (137 - 145 mmol/L) 133 L Potassium (3.5 - 5.1 mmol/L) 4.4 Chloride (98 - 107 mmol/L) 94 L Carbon Dioxide (22 - 30 mmol/L) 26 Anion Gap (5 - 16) 13 BUN (7 - 17 mg/dL) 22 H Creatinine (0.5 - 1.0 mg/dL) 4.5 H Estimated GFR (>60 ml/min) 9 L Glucose (65 - 99 mg/dL) 133 H Calcium (8.4 - 10.2 mg/dL) 9.2 Phosphorus (2.5 - 4.5 mg/dL) 4.3 Magnesium (1.6 - 2.3 mg/dL) 2.1 Total Bilirubin (0.2 - 1.3 mg/dL) 0.7 AST (14 - 36 U/L) 73 H ALT (9 - 52 U/L) 59 H Albumin (3.5 - 5.0 g/dL) 3.3 L Coagulation APTT (25 - 37 SEC) 89 H Hematology CBC w Diff MAN DIFF ORDERED WBC (4.8 - 10.8 /CUMM) 19.7 H RBC (4.20 - 5.40 /CUMM) 3.23 L Hgb (12.0 - 16.0 G/DL) 10.0 L Hct (37 - 47 %) 30.3 L MCV (81.0 - 99.0 FL) 93.8 MCH (27.0 - 31.0 PG) 31.1 H MCHC (33.0 - 37.0 G/DL) 33.2 RDW (11.5 - 14.5 %) 16.4 H Plt Count (130 - 400 /CUMM) 308 MPV (7.4 - 10.4 FL) 9.1 Gran % (42.2 - 75.2 %) 94.2 H Lymphocytes % (20.5 - 51.1 %) 2.3 L Monocytes % (1.7 - 9.3 %) 3.3 Eosinophils % (0 - 5 %) 0.2 Basophils % (0.0 - 2.0 %) 0 Absolute Granulocytes (1.4 - 6.5 /CUMM) 18.5 H Segmented Neutrophils (42.2 - 75.2 %) 91 H Band Neutrophils (0.0 - 5.0 %) 3 Absolute Lymphocytes (1.2 - 3.4 /CUMM) 0.4 L Lymphocytes (20.5 - 51.1 %) 3 L Monocytes (1.7 - 9.3 %) 3 Absolute Monocytes (0.10 - 0.60 /CUMM) 0.6 Absolute Eosinophils (0.0 - 0.7 /CUMM) 0 Absolute Basophils (0.0 - 0.2 /CUMM) 0 Platelet Estimate (ADEQUATE) ADEQUATE Polychromasia 1+ Basophilic Stippling RARE Anisocytosis 1+ Macrocytic Cells FEW Stomatocytes FEW Elliptocytes 1+ Serology C. difficile Tox B Gene (NOT DETECTED) NOT DETECTED Toxicology Vancomycin Trough Cancelled 08/07 08/07 08/06 1700 0530 1750 Blood Gas pH (7.35 - 7.45 PH) 7.39 7.44 pCO2 (35 - 45 TORR) 33 L 40 pO2 (80 - 100 TORR) 70 L 61 L HCO3 (21 - 28 MEQ/L) 19 L 27 ABG O2 Sat (Measured) (>96.0 %) 92.0 L 90.0 L P-50 (Temp Corrected) Y Y Carboxyhemoglobin (1.5 - 5.0 %) 0.5 L 0.3 L O2 Concentration % 60% 40% Temperature (97.0 - 100.0 FARH) 99.1 99.7 O2 Delivery Method A/M T-PIECE Chemistry Sodium (137 - 145 mmol/L) 134 L Potassium (3.5 - 5.1 mmol/L) 3.8 Chloride (98 - 107 mmol/L) 97 L Carbon Dioxide (22 - 30 mmol/L) 27 Anion Gap (5 - 16) 10 BUN (7 - 17 mg/dL) 18 H Creatinine (0.5 - 1.0 mg/dL) 3.3 H Estimated GFR (>60 ml/min) 13 L Glucose (65 - 99 mg/dL) 182 H Calcium (8.4 - 10.2 mg/dL) 9.6 Phosphorus (2.5 - 4.5 mg/dL) 3.1 Magnesium (1.6 - 2.3 mg/dL) 2.1 Total Bilirubin (0.2 - 1.3 mg/dL) 0.8 AST (14 - 36 U/L) 112 H ALT (9 - 52 U/L) 64 H Troponin I (< 0.11 ng/ml) 0.21 *H Albumin (3.5 - 5.0 g/dL) 3.6 TSH (0.270 - 4.200 uIU/mL) 1.020 Free T4 (0.85 - 1.93 ng/dL) 1.55 Coagulation APTT (25 - 37 SEC) 59 H Hematology CBC w Diff MAN DIFF ORDERED WBC (4.8 - 10.8 /CUMM) 21.5 H RBC (4.20 - 5.40 /CUMM) 3.42 L Hgb (12.0 - 16.0 G/DL) 10.4 L Hct (37 - 47 %) 32.0 L MCV (81.0 - 99.0 FL) 93.6 MCH (27.0 - 31.0 PG) 30.4 MCHC (33.0 - 37.0 G/DL) 32.5 L RDW (11.5 - 14.5 %) 16.4 H Plt Count (130 - 400 /CUMM) 339 MPV (7.4 - 10.4 FL) 9.6 Gran % (42.2 - 75.2 %) 87.0 H Lymphocytes % (20.5 - 51.1 %) 3.5 L Monocytes % (1.7 - 9.3 %) 7.8 Eosinophils % (0 - 5 %) 1.6 Basophils % (0.0 - 2.0 %) 0.1 Absolute Granulocytes (1.4 - 6.5 /CUMM) 18.7 H Segmented Neutrophils (42.2 - 75.2 %) 90 H Band Neutrophils (0.0 - 5.0 %) 2 Absolute Lymphocytes (1.2 - 3.4 /CUMM) 0.7 L Lymphocytes (20.5 - 51.1 %) 2 L Monocytes (1.7 - 9.3 %) 5 Absolute Monocytes (0.10 - 0.60 /CUMM) 1.7 H Eosinophils (0 - 5.0 %) 1 Absolute Eosinophils (0.0 - 0.7 /CUMM) 0.3 Absolute Basophils (0.0 - 0.2 /CUMM) 0 Platelet Estimate (ADEQUATE) ADEQUATE Polychromasia 1+ Hypochromic-Microcytic 1+ Poikilocytosis 1+ Ovalocytes 1+ Miscellaneous Phlebotomy Draw Site RIGHT RADIAL RIGHT RADIAL Other Body Source Fld Total RBCs Counted (%) 100 Imaging/Other Studies: EXAM TYPE: RAD - XRY-PORTABLE CHEST XRAY EXAMINATION: XR PORTABLE CHEST CLINICAL INFORMATION: Dyspnea COMPARISON: 08/07/2017 TECHNIQUE: Portable frontal view of the chest was obtained. FINDINGS: Pulmonary edema with basilar opacities and small pleural effusions has progressed. Cardiomegaly. IMPRESSION: Increased moderate interstitial edema, pleural effusions and basilar atelectasis.
--- NOTE | 2017-08-09 10:51 | PN- Cardiology ---
Subjective Subjective: The patient is awake, alert The events of the last 24 hours as well as telemetry were reviewed. Review of Systems: The review of systems is negative for chest pains, palpitations nor lightheadedness. The remainder of the 14 point review of systems is noncontributory with the exception of above. Objective Vital Signs and I&Os Vital Signs Date Time Temp Pulse Resp B/P B/P Pulse O2 O2 Flow FiO2 Mean Ox Delivery Rate 08/10 799 97.4 98 30 130/76 92 Nasal 60% Cannula 08/09 08 92 Nasal 60% Cannula 08/09 0400 90 Nasal 60% Cannula 08/09 0045 91 Nasal 60% Cannula 08/09 0000 95 Nasal 60% Cannula 08/09 0000 98.4 100 14 140/60 95 Nasal 60% Cannula 08/08 2240 93 Nasal 60% Cannula 08/08 2120 87 27 136/71 08/08 2000 93 Nasal 70% Cannula 08/08 2000 94 Nasal 70% Cannula 08/08 1703 94 Nasal 70% Cannula 08/08 1600 98.9 96 32 132/60 97 Nasal 70% Cannula 08/08 1600 97 Nasal 70% Cannula 08/08 1428 98 140/69 08/08 1428 98 140/69 08/08 1338 Nasal Cannula 08/08 1200 96 Nasal 75% Cannula Intake & Output 08/09 1600 08/09 0808/09 0000 08/08 1600 08/08 0800 08/08 0000 Intake Total 140 389 150 267 301 Output Total 0 0 3000 0 Balance 140 389 -2850 267 301 Intake, IV 140 140 150 147 131 Intake, Oral 249 120 170 Number 3 2 1 Bowel Movements Output, 3000 Dialysate Output, Urine 0 0 0 Patient 105 lb 103 lb 108 lb Weight Weight Bed scale Bed scale Bed scale Measurement Method Physical Exam: General: Nontoxic, no apparent distress. HEENT: Sclera and conjunctiva within normal limits, without xanthelasmas. Neck: Carotids 2+ without bruits. Respiratory: Scattered rhonchi, air movement is decreased at bases, without accessory respiratory muscle use. Heart: Irregularly irregular rate and rhythm, 2/6 systolic ejection murmur at left sternal border, without JVD. Abdomen: Soft, nontender, no masses, normoactive bowel sounds. Extremities: Without clubbing, cyanosis, without edema. Neuro: Nonfocal exam, strength, 5 out of 5 Skin: Within normal limits without lesions. Psych: Mood and affect: Normal Current Medications: Current Medications Sig/King Start time Last Medication Dose Route Stop Time Status Admin Amlodipine Besylate 10 MG DAILY 07/30 1000 AC 08/08 PO 1428 Aspirin 81 MG DAILY 07/30 1049 AC 08/08 PO 1426 Atorvastatin Calcium 80 MG 1700 07/30 1700 AC 08/08 PO 1821 Clopidogrel Bisulfate 75 MG DAILY 08/01 1000 AC 08/08 PO 1427 Epoetin Vamshi 2,000 UNIT TuThSa PRN 08/03 0700 AC IV Heparin Sodium 25,000 UNIT Q24H 08/07 1045 AC 08/08 (Porcine) IV 1414 Sodium Chloride 500 ML Lidocaine/Prilocaine 1 JENNIE DAILY NEEDED PRN 08/09 1045 AC TOP Lorazepam 1 MG Q4P PRN 07/30 0700 AC 08/09 IV 0118 Melatonin 5 MG AT BEDTIME 08/07 2200 AC 08/08 PO 2120 Metoprolol Tartrate 25 MG BID 08/02 2200 AC 08/08 PO 2120 Ondansetron HCl 4 MG Q6P PRN 08/07 1730 AC 08/08 IV 0036 Pantoprazole Sodium 40 MG DAILY 07/30 1000 DC 08/07 IV 0955 Sevelamer Carbonate 2,400 MG WM 08/07 1700 AC PO Vancomycin HCl 500 MG ONCE ONE 08/08 1315 DC 08/08 Dextrose/Water 250 ML IV 08/08 1414 1548 Vitamin A/Vitamin D 1 JENNIE BID 08/07 1000 AC 08/08 TOP 2120 Zinc Oxide 1 JENNIE BID PRN 08/07 0600 AC 08/07 TOP 0955 Results Last 48 Hrs of Labs/Mics: Laboratory Tests 08/09/17 0417: Anion Gap 13, Estimated GFR 15 L, Glucose 112 H, Calcium 8.7, Phosphorus 2.5, Magnesium 2.1, Total Bilirubin 0.7, AST 62 H, ALT 63 H, Albumin 3.1 L, CBC w Diff MAN DIFF ORDERED, RBC 3.01 L, MCV 93.6, MCH 31.2 H, MCHC 33.3, RDW 16.1 H, MPV 9.0, Gran % 84.3 H, Lymphocytes % 6.1 L, Monocytes % 9.2, Eosinophils % 0.3, Basophils % 0.1, Absolute Granulocytes 12.7 H, Segmented Neutrophils 91 H , Absolute Lymphocytes 0.9 L, Lymphocytes 3 L, Monocytes 5, Absolute Monocytes 1.4 H, Absolute Eosinophils 0.1, Basophils 1, Absolute Basophils 0, Platelet Estimate ADEQUATE, Polychromasia 1+, Poikilocytosis 1+, Ovalocytes 1+, Fld Total RBCs Counted 100, Vancomycin Trough 20.1 H 08/09/17 0010: APTT 62 H 08/08/17 1330: APTT Cancelled 08/08/17 1225: APTT 68 H 08/08/17 0835: pH 7.47 H, pCO2 32 L, pO2 62 L, HCO3 23, ABG O2 Sat (Measured) 92.0 L, P-50 (Temp Corrected) NO, Carboxyhemoglobin 0.1 L, O2 Concentration % 75%/55LPM, O2 Delivery Method HFNC, Phlebotomy Draw Site RIGHT BRACHIAL 08/08/17 0341: Vancomycin Trough 17.0 08/08/17 0341: Anion Gap 13, Estimated GFR 9 L, Glucose 133 H, Calcium 9.2, Phosphorus 4.3, Magnesium 2.1, Total Bilirubin 0.7, AST 73 H, ALT 59 H, Albumin 3.3 L, CBC w Diff MAN DIFF ORDERED, RBC 3.23 L, MCV 93.8, MCH 31.1 H, MCHC 33.2, RDW 16.4 H, MPV 9.1, Gran % 94.2 H, Lymphocytes % 2.3 L, Monocytes % 3.3, Eosinophils % 0.2, Basophils % 0, Absolute Granulocytes 18.5 H, Segmented Neutrophils 91 H, Band Neutrophils 3, Absolute Lymphocytes 0.4 L, Lymphocytes 3 L, Monocytes 3, Absolute Monocytes 0.6, Absolute Eosinophils 0, Absolute Basophils 0, Platelet Estimate ADEQUATE, Polychromasia 1+, Basophilic Stippling RARE, Anisocytosis 1+, Macrocytic Cells FEW, Stomatocytes FEW, Elliptocytes 1+, Vancomycin Trough Cancelled 08/08/17 0040: APTT 89 H 08/07/17 1912: C. difficile Tox B Gene NOT DETECTED 08/07/17 1700: APTT 59 H Assessment/Plan Assessment/Plan 1. Cardiopulmonary arrest with acute hypoxemic respiratory failure of unclear etiology 2. Chronic left bundle branch block 3. History of ischemic cardiomyopathy, EF now 50 % with mild to moderate anteroseptal hypokinesis 4. End-stage renal disease on hemodialysis 5. Coronary artery disease by history status post stent approximately 3 years ago 6. Hypertension by history 7. Aspiration PNA 8. Elevated troponin of unclear etiology s/p CPR 9. Frequent APCs 10. Positive blood cultures Bacteremia: A transesophageal echocardiogram performed August 05 demonstrated no evidence of vegetations. There was mild mitral regurgitation. The LVEF is approximately 50% with septal dyssynchrony and mild septal hypokinesis only. We will continue to treat as per ID. Status post: Cardiopulmonary arrest: We will continue with supportive care. A follow-up ischemic workup will need to be performed once she is improved. Paroxysmal atrial fibrillation: Thyroid studies are pending. Given her concurrent respiratory issues, the etiology of her atrial fibrillation may be secondary to the same. Given her renal function, anticoagulation would need to be performed with warfarin; however, we may use IV heparin at this time and switched warfarin prior to discharge the event further inpatient procedures would need to be performed. Continue telemetry? Yes
[2017-08-09 13:15] LABS: PTT 61 SEC (25-37)
--- NOTE | 2017-08-09 13:50 | PN- Infect Dx ---
Subjective Subjective: No fever. Dry cough. Review of Systems Comments: 12 points reviewed as noted, otherwise negative. Objective Last 24 Hrs of Vital Signs/I&O Vital Signs Date Time Temp Pulse Resp B/P B/P Pulse O2 O2 Flow FiO2 Mean Ox Delivery Rate 08/09 1333 96 Nasal 45% Cannula 08/09 1200 96 Nasal 60% Cannula 08/09 1159 88 142/64 08/09 0800 97.4 98 30 130/76 92 Nasal 60% Cannula 08/09 0800 92 Nasal 60% Cannula 08/09 0400 90 Nasal 60% Cannula 08/09 0045 91 Nasal 60% Cannula 08/09 0000 95 Nasal 60% Cannula 08/09 0000 98.4 100 14 140/60 95 Nasal 60% Cannula 08/08 2240 93 Nasal 60% Cannula 08/08 2120 87 27 136/71 08/08 2000 93 Nasal 70% Cannula 08/08 2000 94 Nasal 70% Cannula 08/08 1703 94 Nasal 70% Cannula 08/08 1600 98.9 96 32 132/60 97 Nasal 70% Cannula 08/08 1600 97 Nasal 70% Cannula 08/08 1428 98 140/69 08/08 1428 98 140/69 Intake & Output 08/09 1600 08/09 0800 08/09 0000 Intake Total 140 389 Output Total 0 0 Balance 140 389 Intake, IV 140 140 Intake, Oral 249 Number 3 2 Bowel Movements Output, Urine 0 0 Patient 105 lb Weight Weight Bed scale Measurement Method Physical Exam Other Physical Findings: Elderly female appearing chronically ill HEENT ETT/OG in place, temporal wasting Neck No MARQUES Lungs BS present/diminished bases, few rhonchi Heart S1 S2 present, no murmur Abdomen is soft, nontender, bowel sounds present Extremities scattered ecchymoses; LUE AVF Results Last 24 Hours of Lab Results: Laboratory Tests 08/09 08/09 08/09 1238 0417 0010 Chemistry Sodium (137 - 145 mmol/L) 137 Potassium (3.5 - 5.1 mmol/L) 4.3 Chloride (98 - 107 mmol/L) 98 Carbon Dioxide (22 - 30 mmol/L) 26 Anion Gap (5 - 16) 13 BUN (7 - 17 mg/dL) 19 H Creatinine (0.5 - 1.0 mg/dL) 2.9 H Estimated GFR (>60 ml/min) 15 L Glucose (65 - 99 mg/dL) 112 H Calcium (8.4 - 10.2 mg/dL) 8.7 Phosphorus (2.5 - 4.5 mg/dL) 2.5 Magnesium (1.6 - 2.3 mg/dL) 2.1 Total Bilirubin (0.2 - 1.3 mg/dL) 0.7 AST (14 - 36 U/L) 62 H ALT (9 - 52 U/L) 63 H Albumin (3.5 - 5.0 g/dL) 3.1 L Coagulation APTT (25 - 37 SEC) 61 H 62 H Hematology CBC w Diff MAN DIFF ORDERED WBC (4.8 - 10.8 /CUMM) 15.0 H RBC (4.20 - 5.40 /CUMM) 3.01 L Hgb (12.0 - 16.0 G/DL) 9.4 L Hct (37 - 47 %) 28.2 L MCV (81.0 - 99.0 FL) 93.6 MCH (27.0 - 31.0 PG) 31.2 H MCHC (33.0 - 37.0 G/DL) 33.3 RDW (11.5 - 14.5 %) 16.1 H Plt Count (130 - 400 /CUMM) 339 MPV (7.4 - 10.4 FL) 9.0 Gran % (42.2 - 75.2 %) 84.3 H Lymphocytes % (20.5 - 51.1 %) 6.1 L Monocytes % (1.7 - 9.3 %) 9.2 Eosinophils % (0 - 5 %) 0.3 Basophils % (0.0 - 2.0 %) 0.1 Absolute Granulocytes (1.4 - 6.5 /CUMM) 12.7 H Segmented Neutrophils (42.2 - 75.2 %) 91 H Absolute Lymphocytes (1.2 - 3.4 /CUMM) 0.9 L Lymphocytes (20.5 - 51.1 %) 3 L Monocytes (1.7 - 9.3 %) 5 Absolute Monocytes (0.10 - 0.60 /CUMM) 1.4 H Absolute Eosinophils (0.0 - 0.7 /CUMM) 0.1 Basophils (0.0 - 2.0 %) 1 Absolute Basophils (0.0 - 0.2 /CUMM) 0 Platelet Estimate (ADEQUATE) ADEQUATE Polychromasia 1+ Poikilocytosis 1+ Ovalocytes 1+ Other Body Source Fld Total RBCs Counted (%) 100 Toxicology Vancomycin Trough (10.0 - 20.0 ug/mL) 20.1 H Last 24 Hours of Lex Results: reviewed Recent Imaging Studies: CXR 08/08 IMPRESSION: Increased moderate interstitial edema, pleural effusions and basilar atelectasis. DICTATED BY: Kenny Rene MD DATE/TIME DICTATED:08/08/17854 CONTRACT TECHNICAL WRITER:BRAYAN DATE/TIME TRANSCRIBED:08/08/17854 Assessment/Plan ID Impression: 86-year-old woman with a history of CAD, hypertension, HFpEF and ESRD, maintained on HD (Tue, Thur and Sat) via a left upper extremity fistula, admitted on July 30 after a cardiac arrest at home, requiring 5 minutes of CPR, found on admission to be hypothermic with a white blood cell count of 17, 000, with elevated troponin, and positive blood cultures 2 for gram-positive cocci identified as Micrococcus (sensitivity pending; and likely representing skin contaminant). IE endocarditis ruled out as CARLOS negative. Incidental finding small PFO. Intermittent fever Severe leukocytosis today ? aspiration pneumonia? ? reactive due to HF; s/p extra HD session today MRSA bronchitis vs aspiration pneumonia vs colonization Suggestion: 1. Consider MBS r/o aspiration 2. Trend CBC. 3. Continue Vancomycin 500 mg iv post HD on Saturday; tx for 14 d. Goal vancomycin trough 15-20; trough therapeutic at 20. next vancomycin trough 08/12. 4. Call if fever.
[2017-08-09 16:00] VITALS: BP 130/74
[2017-08-10] VITALS: BP 130/44
[2017-08-10 01:09] LABS: PTT 54 SEC (25-37)
[2017-08-10 05:19] LABS: ABSOLUTE BASOPHIL COUNT 0.1 /CUMM (0.0-0.2); ABSOLUTE EOSINOPHIL COUNT 0.7 /CUMM (0.0-0.7); ABSOLUTE GRANULOCYTE CT 11.4 /CUMM (1.4-6.5); ABSOLUTE LYMPH COUNT 2.4 /CUMM (1.2-3.4); ABSOLUTE MONOCYTE COUNT 1.4 /CUMM (0.10-0.60); BASOPHIL % 0.3 % (0.0-2.0); EOSINOPHIL % 4.5 % (0-5); GRANULOCYTE % 71.4 % (42.2-75.2); HEMATOCRIT 29.7 % (37-47); MEAN CORPUSCULAR HGB 30.9 PG (27.0-31.0); MEAN CORPUSCULAR HGB CONC 32.8 G/DL (33.0-37.0); MEAN CORPUSCULAR VOLUME 94.2 FL (81.0-99.0); PLATELET COUNT 385 /CUMM (130-400); RBC DISTRIBUTION WIDTH 16.3 % (11.5-14.5); RED BLOOD CELL CT 3.15 /CUMM (4.20-5.40); WHITE BLOOD CELL COUNT 15.9 /CUMM (4.8-10.8)
--- NOTE | 2017-08-10 07:46 | Event Note ---
Event Note Event Note: Situation Patient walked from her bed and had an unwitnessed fall with evident bleeding. Brief Patient is a 86 YO F presented with cardiac arrest - intubated and extubated recently. She apparently was confused overnight. In the am at around 7:30 she was found unresponsive, without gown lying on the floor in between the door and recliner. She did have bleed coming from her left side specifically in the lower extrmities. Her bed and floor and soiled with her bowel movement. Immediately we tried to immobilize her neck with collar, moved her from floor to bed. VS - saturating 50% intially, improved to 90% on nonrebreather. HR 115, BP 140/ 80mmHg. Physical exam Alert with in 2 min, yelling her knee hurts. Heart S1, S2 normal, Chest diffuse expiratory wheezing heard anteriorly, Neuro CN intact, Strength 5/5 all four extremities. Bleeding from the left knee region. Upon further asking she reported she tried to stop TV so started ambulating. She was not able to find the remote in the bed. Assessment Unwitnessed ambulation leading to fall due to confusion and possible darkness in the room. Plan Stat head and cervical CT requested ABG, CXR, Knee Xrays CBC Updated daughter on phone - she felt disappointed and trying to reach hospital this am.
[2017-08-10 08:00] VITALS: BP 150/80
--- NOTE | 2017-08-10 08:16 | PN- Resident [facility] ---
Objective Weaning Parameters NIF: 29 Minute Volume: 10.6 Resp rate: 32 Vt: 330 Heart Rate: 74 Weaning Schedule Start Time: 1645 Minute Volume: 6 Resp Rate: 20 Vt: 320 Heart Rate: 74 End Time: 2040 Minute Volume: 3.58 Resp Rate: 18 Vt: 200 Heart Rate: 72 Start Time: 1810 Minute Volume: 6.1 Resp Rate: 22 Vt: 400 Heart Rate: 78 End Time: 1158 Minute Volume: 7.50 Resp Rate: 21 Vt: 290 Heart Rate: 72 Impression/Plan Plan DVT/Prophylaxis: mechanical, pharmacological
--- NOTE | 2017-08-10 08:39 | PN- Resident CRCU ---
Dilip Camarena 08/10/17 0839: Subjective HPI/CRCU Issues: Status post Cardiopulmonary arrest Acute respiratory failure End-stage renal disease History of ischemic cardiomyopathy, EF now 50 % with mild to moderate anteroseptal hypokinesis Chronic left bundle branch block 24 Hour Events: Around 7 AM this morning patient had a fall. Please see event note from night team On my interview she explained that she wanted to turn the TV so she decided to get out of bed she went in between the spaces of the railing and states that she fell down hitting her knee. Daughter was at bedside Denies hitting her head or any other part of her body. Denies shortness of breath, chest pain, abdominal pain. Complains of left knee pain. Currently undergoing dialysis. Afebrile overnight Blood pressure systolic [id number]/diastolic 5673 Currently on high flow at 55% saturating 96% Objective Vital Signs & I&O Last 8 Hrs of Vitals and I&O: Intake & Output 08/10 1600 08/10 0800 08/10 0000 Intake Total 286.8 78 Output Total Balance 286.8 78 Intake, IV 166.8 78 Intake, Oral 120 Patient 104 lb Weight Weight Bed scale Measurement Method Laboratory Tests 08/10 08/10 0815 0810 Blood Gas pH (7.35 - 7.45 PH) 7.53 H pCO2 (35 - 45 TORR) 33 L pO2 (80 - 100 TORR) 57 L HCO3 (21 - 28 MEQ/L) 27 ABG O2 Sat (Measured) (>96.0 %) 91.0 L P-50 (Temp Corrected) N Carboxyhemoglobin (1.5 - 5.0 %) 0.1 L O2 Concentration % 55% O2 Delivery Method HFNC WITH 40L FLOW Coagulation APTT Pending Hematology CBC w Diff Pending WBC Pending RBC Pending Hgb Pending Hct Pending MCV Pending MCH Pending MCHC Pending RDW Pending Plt Count Pending MPV Pending Miscellaneous Phlebotomy Draw Site RIGHT BRACHIAL 08/10 08/10 08/09 0430 0015 1238 Chemistry Sodium (137 - 145 mmol/L) 139 Potassium (3.5 - 5.1 mmol/L) 4.4 Chloride (98 - 107 mmol/L) 100 Carbon Dioxide (22 - 30 mmol/L) 29 Anion Gap (5 - 16) 9 BUN (7 - 17 mg/dL) 13 Creatinine (0.5 - 1.0 mg/dL) 2.5 H Estimated GFR (>60 ml/min) 18 L Glucose (65 - 99 mg/dL) 101 H Calcium (8.4 - 10.2 mg/dL) 8.8 Phosphorus (2.5 - 4.5 mg/dL) 2.1 L Magnesium (1.6 - 2.3 mg/dL) 2.1 Total Bilirubin (0.2 - 1.3 mg/dL) 0.9 AST (14 - 36 U/L) 50 H ALT (9 - 52 U/L) 57 H Albumin (3.5 - 5.0 g/dL) 3.3 L Coagulation APTT (25 - 37 SEC) 54 H 61 H Hematology CBC w Diff NO MAN DIFF REQ WBC (4.8 - 10.8 /CUMM) 15.9 H RBC (4.20 - 5.40 /CUMM) 3.15 L Hgb (12.0 - 16.0 G/DL) 9.7 L Hct (37 - 47 %) 29.7 L MCV (81.0 - 99.0 FL) 94.2 MCH (27.0 - 31.0 PG) 30.9 MCHC (33.0 - 37.0 G/DL) 32.8 L RDW (11.5 - 14.5 %) 16.3 H Plt Count (130 - 400 /CUMM) 385 MPV (7.4 - 10.4 FL) 9.0 Gran % (42.2 - 75.2 %) 71.4 Lymphocytes % (20.5 - 51.1 %) 15.0 L Monocytes % (1.7 - 9.3 %) 8.8 Eosinophils % (0 - 5 %) 4.5 Basophils % (0.0 - 2.0 %) 0.3 Absolute Granulocytes (1.4 - 6.5 /CUMM) 11.4 H Absolute Lymphocytes (1.2 - 3.4 /CUMM) 2.4 Absolute Monocytes (0.10 - 0.60 /CUMM) 1.4 H Absolute Eosinophils (0.0 - 0.7 /CUMM) 0.7 Absolute Basophils (0.0 - 0.2 /CUMM) 0.1 Exam General Appearance: alert, awake, comfortable, cervical collar in place Head: atraumatic Neck: cervical collar Respiratory: quiet respiration Cardiovascular: regular rate/rhythm, normal peripheral pulses Gastrointestinal: normal bowel sounds, soft, non-tender Extremities: no edema Cranial Nerves: normal speech, PERRL Skin: skin laceration over left knee joint. No swelling or increased warmth noted. Weaning Parameters NIF: 29 Minute Volume: 10.6 Resp rate: 32 Vt: 330 Heart Rate: 74 Weaning Schedule Start Time: 1645 Minute Volume: 6 Resp Rate: 20 Vt: 320 Heart Rate: 74 End Time: 2040 Minute Volume: 3.58 Resp Rate: 18 Vt: 200 Heart Rate: 72 Start Time: 1810 Minute Volume: 6.1 Resp Rate: 22 Vt: 400 Heart Rate: 78 End Time: 1158 Minute Volume: 7.50 Resp Rate: 21 Vt: 290 Heart Rate: 72 IV Drips IV Drips: IV heparin -currently on hold Nutrition Nutrition: renal dialyis Current Medications: Current Medications Sig/King Start time Last Medication Dose Route Stop Time Status Admin Amlodipine Besylate 10 MG DAILY 07/30 1000 AC 08/09 PO 1447 Aspirin 81 MG DAILY 07/30 1049 AC 08/09 PO 1201 Atorvastatin Calcium 80 [place] [address]007/30 1700 AC 08/09 PO 1744 Clopidogrel Bisulfate 75 MG DAILY 08/01 1000 AC 08/09 PO 1201 Epoetin Vamshi 2,000 UNIT TuThSa PRN 08/03 0700 AC IV Heparin Sodium 1,834 UNIT BOLUS ONE 08/10 0130 DC 08/10 (Porcine) IV 08/10 0131 0219 Heparin Sodium 25,000 UNIT Q24H 08/07 1045 AC 08/09 (Porcine) IV 1743 Sodium Chloride 500 ML Lidocaine/Prilocaine 1 JENNIE DAILY NEEDED PRN 08/09 1045 AC TOP Lorazepam 1 MG Q4P PRN 07/30 0700 AC 08/09 IV 2049 Melatonin 5 MG AT BEDTIME 08/07 2200 AC 08/09 PO 204 Metoprolol Tartrate 25 MG BID 08/02 2200 AC 08/09 PO 2048 Ondansetron HCl 4 MG Q6P PRN 08/07 1730 AC 08/08 IV 0036 Sevelamer Carbonate 2,400 MG WM 08/07 1700 AC 08/09 PO 1744 Tramadol HCl 25 MG Q12 08/10 0930 AC PO Vitamin A/Vitamin D 1 JENNIE BID 08/07 1000 AC 08/09 TOP 2048 Zinc Oxide 1 JENNIE BID PRN 08/07 0600 AC 08/07 TOP 0955 Impression/Plan Impression/Problem List Impression: 86 year old woman with a PMH of PMH significant for ESRD on HD Sat//Sat, coronary artery disease status post NSTEMI and 4 stents (2015 - 2 stents, 2016- 2 stents), ischemic cardiomyopathy HFpEF, HTN, HLD, NSTEMI, LBBB, and secondary hyperparathyroidism current admisson for PEA s/p intubation, CPR and epi x1 with successful ROSC. On admission to be hypothermic with a white blood cell count of 17,000, with elevated troponin. Assessment/plan Fall Unwitnessed CT scan ruled out ICH, acute skull fractures and acute cervical spine fracture. X-ray of hip and knee pending Complaining of pain will start tramadol 25 q12 given her renal insufficiency and transaminitis skin laceration of left knee, daily dressing, will continue to monitor closely continue 1:1 sitter Acute hypoxemic respiratory failure: Likely mutlifactorial Aspiration/pneumonia/pulmonary edema Intubated on 07/30/17 and extubated 08/04/17. CAT scan showed bilateral pleural effusions. Sputum cx came back positive for MRSA, her nares swab was positive for MRSA. Blood cultures 2 are now GPC's. ID on board appreciate recommendations currently on Vancomycin 500 mg iv post HD ; tx for 14 d. Goal vancomycin trough 15-20; trough therapeutic at 20. next vancomycin trough 3/5. If recurrent fever BC x2 from AVF. swallow eval done on 08/07/17, recommending puree diet. CTA was negative for pulmonary embolism Hx CAD/positive troponins/hypertension Transesophageal echocardiogram performed August 05 demonstrated no evidence of vegetations. There was mild mitral regurgitation. The LVEF is approximately 50 % with septal dyssynchrony and mild septal hypokinesis. Elevated troponin and new EKG changes in context of old LBBB. Trops peaked at 1.85 and subsequently trended down secondary to demand ischemia Currently on aspirin, plavix, Metoprolol 25 mg bid, Norvasc 10 mg daily, atorvastatin 80 mg daily hold antihypertensives for hypotension systolic <100 Appreciate cardio consult Started on IV heparin 07/31/2016 End stage renal today disease on hemodialysis: Saturday and Saturday Appreciate nephro consult HD done today. Continue Renvela Alimentary Maintain on Protonix renal dialysis diet DVT prophylaxis: heparin drip CODE STATUS Full code Problem List: 1. Acute renal failure 2. ESRD (end stage renal disease) 3. Cardiac arrest Pain Ratin Tomorrow's Labs & Rationales: cbc/icu bundle Plan DVT/Prophylaxis: mechanical, pharmacological Kirill Schaefer MD 08/10/17 1004: Attending MD Review Statement Attending Sign Off Attending Cosign Statement: I have: examined this patient, reviewed avalbl EMR data, personally reviewd images, discussd w/resident/PA/AUTO WASHER, discussed mgmt plan w/jessica, discussed mgmt plan w/CM, discussed mgmt plan w/pt, agreed w/resident/PA/AUTO WASHER, amended to note. Other Findings: IKirill M.D. have examined this patient, reviewed available EMR data, personally reviewed images, discussed with resident/PA/AUTO WASHER, discussed management plan with housestaff and nursing staff, discussed managment plan all of healthcare providers, discussed management plan with patient and/or family, agreed with resident/PA/AUTO WASHER. The past history and parts of the chart have been autopopulated. Impression 86 year old woman * extubated * ESRD on HD Plan -NIV for reduction of wob if needed -cont HD -CARLOS without vegetations -nephrology, cardiology appreciated -f/u ID for staph aureus -HD per renal -cont current vent settings -swallow evaluation DVT prophylaxis at all times TTS 35 min
[2017-08-10 08:51] VITALS: BP 150/78
--- NOTE | 2017-08-10 09:02 | CT SCAN REPORT ---
EXAMINATION: CT HEAD WITHOUT CONTRAST CLINICAL INFORMATION: Fall with head injury COMPARISON: February 01, 2014 and July 30, 2017 TECHNIQUE: Contiguous axial imaging was performed from the skull base to vertex without intravenous administration of contrast. DLP: 529.16 mGy-cm FINDINGS: There is no evidence of acute intracranial hemorrhage or territorial infarction. No abnormal mass effect or midline shift is seen. Rowan to white matter differentiation is well preserved. No extra-axial fluid collections are identified. There is prominence of the ventricles, sulci, and cisterns consistent with atrophy. Periventricular white matter low density is again seen consistent with microangiopathy. No acute skull fractures identified. Old nasal bone fractures seen. The mastoid air cells and visualized portions of the paranasal sinuses are well aerated. IMPRESSION: No acute intracranial pathology.
--- NOTE | 2017-08-10 09:45 | CT SCAN REPORT ---
EXAMINATION: CT CERVICAL SPINE WITHOUT CONTRAST CLINICAL INFORMATION: Fall COMPARISON: July 30, 2017 TECHNIQUE: CT cervical spine without intrathecal contrast. DLP: 1012.98 mGy-cm FINDINGS: No abnormal prevertebral soft tissue swelling is seen. No paraspinal muscle edema or loss of fat planes. No acute cervical spine fracture is seen. There is mild anterior subluxation of C2 on C3 by approximately 2 mm. Disc space narrowing with marginal sclerosis and spurring and subchondral cysts are seen multiple levels of the cervical spine most significant at C3-C4 and C5-C7 levels. Multilevel facet arthropathy present. Pterygoid plates intact. Visualized mastoid air cells and paranasal sinuses aerated. Cerumen is noted within both external auditory canals. Calcified plaque seen within carotid arteries. Bilateral pleural effusions present. IMPRESSION: Cervical spondylosis as described. No acute cervical spine fracture.
[2017-08-10 09:59] LABS: PTT 41 SEC (25-37)
[2017-08-10 10:03] LABS: ABSOLUTE BASOPHIL COUNT 0.1 /CUMM (0.0-0.2); ABSOLUTE EOSINOPHIL COUNT 0.6 /CUMM (0.0-0.7); ABSOLUTE GRANULOCYTE CT 12.6 /CUMM (1.4-6.5); ABSOLUTE LYMPH COUNT 1.3 /CUMM (1.2-3.4); ABSOLUTE MONOCYTE COUNT 1.1 /CUMM (0.10-0.60); BASOPHIL % 0.4 % (0.0-2.0); EOSINOPHIL % 3.7 % (0-5); GRANULOCYTE % 80.9 % (42.2-75.2); HEMATOCRIT 28.6 % (37-47); MEAN CORPUSCULAR HGB 31.2 PG (27.0-31.0); MEAN CORPUSCULAR HGB CONC 33.1 G/DL (33.0-37.0); MEAN CORPUSCULAR VOLUME 94.3 FL (81.0-99.0); MEAN PLATELET VOLUME 9.1 FL (7.4-10.4); PLATELET COUNT 368 /CUMM (130-400); RBC DISTRIBUTION WIDTH 16.1 % (11.5-14.5); RED BLOOD CELL CT 3.04 /CUMM (4.20-5.40); WHITE BLOOD CELL COUNT 15.6 /CUMM (4.8-10.8)
--- NOTE | 2017-08-10 11:24 | RADIOLOGY REPORT ---
EXAMINATION: XR PORTABLE CHEST CLINICAL INFORMATION: 86-year-old woman with fall. COMPARISON: 08/08/2017 chest radiograph TECHNIQUE: Portable frontal view of the chest was obtained. FINDINGS: Lung volumes remain quite low. No displaced rib fracture or focal pulmonary contusion is appreciated. Mid to lower lung airspace opacities are unchanged, as is obscuration of the left hemidiaphragm. Moderate cardiomegaly is approximately stable. Severe degenerative changes are noted at the left glenohumeral joint. IMPRESSION: Limited by low lung volumes. No convincing radiographic evidence of acute cardiothoracic injury.
--- NOTE | 2017-08-10 11:48 | PN- Infect Dx ---
Subjective Subjective: No fever; improved SOB previous day. Increased productive cough according to the patient. S/P fall Review of Systems Comments: 12 points reviewed as noted, otherwise negative. Objective Last 24 Hrs of Vital Signs/I&O Vital Signs Date Time Temp Pulse Resp B/P B/P Pulse O2 O2 Flow FiO2 Mean Ox Delivery Rate 08/10 0851 97.9 98 26 150/78 08/10 0400 94 Nasal 55% Cannula 08/10 0256 91 Nasal 55% Cannula 08/10 0058 92 Nasal 50% Cannula 08/10 0000 Nasal 50% Cannula 08/10 0000 98.8 78 26 130/44 92 Nasal 40% Cannula 08/09 2200 93 Nasal 50% Cannula 08/09 2048 80 152/65 08/09 2000 96 Nasal 50% Cannula 08/09 1710 92 Nasal 50% Cannula 08/09 1600 98.8 82 28 130/74 92 Nasal 45% Cannula 08/09 1600 92 Nasal 45% Cannula 08/09 1447 88 147/66 08/09 1333 96 Nasal 45% Cannula 08/09 1200 96 Nasal 60% Cannula 08/09 1159 88 142/64 Intake & Output 08/10 1600 08/10 0800 08/10 0000 Intake Total 286.8 78 Output Total Balance 286.8 78 Intake, IV 166.8 78 Intake, Oral 120 Patient 94 lb 2 oz 104 lb Weight Weight Bed scale Bed scale Measurement Method Physical Exam Other Physical Findings: Elderly female appearing chronically ill HEENT ETT/OG in place, temporal wasting Neck No MARQUES Lungs BS present/diminished bases, few rhonchi Heart S1 S2 present, no murmur Abdomen is soft, nontender, bowel sounds present Extremities scattered ecchymoses; LUE AVF Results Last 24 Hours of Lab Results: Laboratory Tests 08/10 08/10 0815 0810 Blood Gas pH (7.35 - 7.45 PH) 7.53 H pCO2 (35 - 45 TORR) 33 L pO2 (80 - 100 TORR) 57 L HCO3 (21 - 28 MEQ/L) 27 ABG O2 Sat (Measured) (>96.0 %) 91.0 L P-50 (Temp Corrected) N Carboxyhemoglobin (1.5 - 5.0 %) 0.1 L O2 Concentration % 55% O2 Delivery Method HFNC WITH 40L FLOW Coagulation APTT (25 - 37 SEC) 41 H Hematology CBC w Diff NO MAN DIFF REQ WBC (4.8 - 10.8 /CUMM) 15.6 H RBC (4.20 - 5.40 /CUMM) 3.04 L Hgb (12.0 - 16.0 G/DL) 9.5 L Hct (37 - 47 %) 28.6 L MCV (81.0 - 99.0 FL) 94.3 MCH (27.0 - 31.0 PG) 31.2 H MCHC (33.0 - 37.0 G/DL) 33.1 RDW (11.5 - 14.5 %) 16.1 H Plt Count (130 - 400 /CUMM) 368 MPV (7.4 - 10.4 FL) 9.1 Gran % (42.2 - 75.2 %) 80.9 H Lymphocytes % (20.5 - 51.1 %) 8.0 L Monocytes % (1.7 - 9.3 %) 7.0 Eosinophils % (0 - 5 %) 3.7 Basophils % (0.0 - 2.0 %) 0.4 Absolute Granulocytes (1.4 - 6.5 /CUMM) 12.6 H Absolute Lymphocytes (1.2 - 3.4 /CUMM) 1.3 Absolute Monocytes (0.10 - 0.60 /CUMM) 1.1 H Absolute Eosinophils (0.0 - 0.7 /CUMM) 0.6 Absolute Basophils (0.0 - 0.2 /CUMM) 0.1 Miscellaneous Phlebotomy Draw Site RIGHT BRACHIAL 08/10 08/10 08/09 0430 0015 1238 Chemistry Sodium (137 - 145 mmol/L) 139 Potassium (3.5 - 5.1 mmol/L) 4.4 Chloride (98 - 107 mmol/L) 100 Carbon Dioxide (22 - 30 mmol/L) 29 Anion Gap (5 - 16) 9 BUN (7 - 17 mg/dL) 13 Creatinine (0.5 - 1.0 mg/dL) 2.5 H Estimated GFR (>60 ml/min) 18 L Glucose (65 - 99 mg/dL) 101 H Calcium (8.4 - 10.2 mg/dL) 8.8 Phosphorus (2.5 - 4.5 mg/dL) 2.1 L Magnesium (1.6 - 2.3 mg/dL) 2.1 Total Bilirubin (0.2 - 1.3 mg/dL) 0.9 AST (14 - 36 U/L) 50 H ALT (9 - 52 U/L) 57 H Albumin (3.5 - 5.0 g/dL) 3.3 L Coagulation APTT (25 - 37 SEC) 54 H 61 H Hematology CBC w Diff NO MAN DIFF REQ WBC (4.8 - 10.8 /CUMM) 15.9 H RBC (4.20 - 5.40 /CUMM) 3.15 L Hgb (12.0 - 16.0 G/DL) 9.7 L Hct (37 - 47 %) 29.7 L MCV (81.0 - 99.0 FL) 94.2 MCH (27.0 - 31.0 PG) 30.9 MCHC (33.0 - 37.0 G/DL) 32.8 L RDW (11.5 - 14.5 %) 16.3 H Plt Count (130 - 400 /CUMM) 385 MPV (7.4 - 10.4 FL) 9.0 Gran % (42.2 - 75.2 %) 71.4 Lymphocytes % (20.5 - 51.1 %) 15.0 L Monocytes % (1.7 - 9.3 %) 8.8 Eosinophils % (0 - 5 %) 4.5 Basophils % (0.0 - 2.0 %) 0.3 Absolute Granulocytes (1.4 - 6.5 /CUMM) 11.4 H Absolute Lymphocytes (1.2 - 3.4 /CUMM) 2.4 Absolute Monocytes (0.10 - 0.60 /CUMM) 1.4 H Absolute Eosinophils (0.0 - 0.7 /CUMM) 0.7 Absolute Basophils (0.0 - 0.2 /CUMM) 0.1 Last 24 Hours of Lex Results: reviewed Recent Imaging Studies: CXR 3/3 s/p fall IMPRESSION: Limited by low lung volumes. No convincing radiographic evidence of acute cardiothoracic injury. DICTATED BY: Jacqueline Zhang MD DATE/TIME DICTATED:08/10/171118 [employer] WARE MAKER:BRAYAN DATE/TIME TRANSCRIBED:08/10/171118 Assessment/Plan ID Impression: Impression: 86-year-old woman with a history of CAD, hypertension, HFpEF and ESRD, maintained on HD (Tue, Thur and Sat) via a left upper extremity fistula, admitted on July 30 after a cardiac arrest at home, requiring 5 minutes of CPR, found on admission to be hypothermic with a white blood cell count of 17, 000, with elevated troponin, and positive blood cultures 2 for gram-positive cocci identified as Micrococcus (sensitivity pending; and likely representing skin contaminant). IE endocarditis ruled out as CARLOS negative. Incidental finding small PFO. Intermittent fever; Severe leukocytosis today ? aspiration pneumonia? ? reactive due to HF MRSA bronchitis vs aspiration pneumonia vs colonization S/P fall Suggestion: 1. CBC/vanco trough at HD on 08/12. 2. Continue Vancomycin 500 mg iv post HD on Saturday; tx for 14 d. Goal vancomycin trough 15-20; most recent trough therapeutic at 20. 3. Aspiration precautions.
[2017-08-10 12:00] VITALS: BP 124/60
--- NOTE | 2017-08-10 14:49 | RADIOLOGY REPORT ---
EXAMINATION: XR HIP, RIGHT XR HIP, LEFT XR KNEE, RIGHT XR KNEE, LEFT CLINICAL INFORMATION: Fall. Rule out fracture. COMPARISON: Left femur radiography 02/03/2014. TECHNIQUE: Frontal view of the pelvis and 2 views of each hip were obtained. 4 views of each knee were obtained. FINDINGS: Pelvis/Hips: No discrete fracture or dislocation. The pelvic rings are maintained. No widening of the pubic symphysis or sacroiliac joints. Lower lumbar degenerative change. Decreased bone mineral density. Bilateral femoral heads are situated within the acetabula. There is no convincing femoral neck fracture. Hypertrophic changes at the bilateral hip joints with mild cartilage space narrowing. Scattered atherosclerotic calcification. Right Knee: No fracture or dislocation. Mild degenerative changes of the knee. There is chondrocalcinosis. Trace knee joint effusion without evidence of lipohemarthrosis. Atherosclerotic calcification. Left Knee: No fracture or dislocation. Mild degenerative changes of the knee. There is chondrocalcinosis. Prepatellar soft tissue swelling. Small knee joint effusion without evidence of lipohemarthrosis. IMPRESSION: 1. No discrete pelvic or hip fracture demonstrated. Given the decreased bone mineral density, if there is strong clinical suspicion for radiographically occult fracture, further evaluation with pelvic MRI could be obtained to increase sensitivity. 2. No acute fracture of either knee. Prepatellar swelling of the left knee. 3. Chronic findings as above.
--- NOTE | 2017-08-10 14:55 | PN- Nephrology ---
Assessment/Plan Nephrology Assessment: ESRD - HD performed today. Given tenuous respiratory status, I would prefer doing an extra HD session on Saturday to avoid a 72hr stretch without dialysis. Anemia - On Epogen. Cardiac arrest - Underlying cause remains unclear. Fever/leukocystosis - ?aspiration PNA. ID following. Suggestion: -HD performed today -Next HD on Saturday -Cont Epogen -Please have patient use EMLA (lidocaine-prilocaine) cream 1hr prior to dialysis - next dialysis on Saturday morning Please call [phone] with ?'s Subjective Subjective: HD performed earlier today Feels like breathing is better Events of fall noted - imaging neg for fracture Pt's only complaint is not getting her EMLA (Lidocaine-Prilocaine) cream prior to dialysis Objective Vital Signs and I&Os Vital Signs Date Time Temp Pulse Resp B/P B/P Pulse O2 O2 Flow FiO2 Mean Ox Delivery Rate 08/10 1221 89 119/61 08/10 1200 96 Nasal 60% Cannula 08/10 1200 98.2 88 35 124/60 96 Nasal 60% Cannula 08/10 0851 97.9 98 26 150/78 08/10 0800 98.4 96 34 150/80 91 Non 50% ReBreather 08/10 0800 95 Nasal 55% Cannula 08/10 0400 94 Nasal 55% Cannula 08/10 0256 91 Nasal 55% Cannula 08/10 0058 92 Nasal 50% Cannula 08/10 0000 Nasal 50% Cannula 08/10 0000 98.8 78 26 130/44 92 Nasal 40% Cannula 08/09 2200 93 Nasal 50% Cannula 08/09 2048 80 152/65 08/09 2000 96 Nasal 50% Cannula 08/09 1710 92 Nasal 50% Cannula 08/09 1600 98.8 82 28 130/74 92 Nasal 45% Cannula 08/09 1600 92 Nasal 45% Cannula Intake & Output 08/10 1600 08/10 0400 08/09 1600 08/09 0400 08/08 1600 08/08 0400 Intake Total 566.8 78 530 389 417 301 Output Total 1999 0 3000 Balance 566.8 78 -1470 389 -2583 301 Intake, IV 296.8 78 290 140 297 131 Intake, Oral 270 240 249 120 170 Number 1 3 2 1 Bowel Movements Output, 1999 3000 Dialysate Output, Urine 0 0 0 Patient 94 lb 2 oz 101 lb 103 lb Weight Weight Bed scale Bed scale Bed scale Measurement Method Physical Exam: Gen - OK appearing HEENT - supple CV - RRR, no m/r/g Chest - clear anteriorly Abd - soft, NTND Ext - no edema, MARY AVF +thrill/+bruit Neuro - alert, oriented Current Medications: Current Medications Sig/King Start time Last Medication Dose Route Stop Time Status Admin Amlodipine Besylate 10 MG DAILY 07/30 1000 AC 08/10 PO 1221 Aspirin 81 MG DAILY 07/30 1049 AC 08/10 PO 1145 Atorvastatin Calcium 80 MG 1700 07/30 1700 AC 08/09 PO 1744 Clopidogrel Bisulfate 75 MG DAILY 08/01 1000 AC 08/10 PO 1145 Epoetin Vamshi 2,000 UNIT TuThSa PRN 08/03 0700 AC IV Heparin Sodium 5,000 UNIT .STK-MED ONE 08/10 0217 DC (Porcine) IV 08/10 0218 Heparin Sodium 1,834 UNIT BOLUS ONE 08/10 0130 DC 08/10 (Porcine) IV 08/10 0131 0219 Heparin Sodium 25,000 UNIT Q24H 08/07 1045 AC 08/10 (Porcine) IV 1037 Sodium Chloride 500 ML Lidocaine/Prilocaine 1 JENNIE DAILY NEEDED PRN 08/09 1045 AC TOP Lorazepam 1 MG Q4P PRN 07/30 0700 DC 08/09 IV 2049 Melatonin 5 MG AT BEDTIME 08/07 2200 AC 08/09 PO 2047 Metoprolol Tartrate 25 MG BID 08/02 2200 AC 08/10 PO 1221 Ondansetron HCl 4 MG Q6P PRN 08/07 1730 DC 08/08 IV 0036 Sevelamer Carbonate 2,400 MG WM 08/07 1700 AC 08/10 PO 1145 Tramadol HCl 25 MG Q12 08/10 0930 AC 08/10 PO 0954 Vitamin A/Vitamin D 1 JENNIE BID 08/07 1000 AC 08/10 TOP 0830 Zinc Oxide 1 JENNIE BID PRN 08/07 0600 AC 08/07 TOP 0955 Results Pertinent Lab Results: Laboratory Tests 08/10 08/10 0815 0810 Blood Gas pH (7.35 - 7.45 PH) 7.53 H pCO2 (35 - 45 TORR) 33 L pO2 (80 - 100 TORR) 57 L HCO3 (21 - 28 MEQ/L) 27 ABG O2 Sat (Measured) (>96.0 %) 91.0 L P-50 (Temp Corrected) N Carboxyhemoglobin (1.5 - 5.0 %) 0.1 L O2 Concentration % 55% O2 Delivery Method HFNC WITH 40L FLOW Coagulation APTT (25 - 37 SEC) 41 H Hematology CBC w Diff NO MAN DIFF REQ WBC (4.8 - 10.8 /CUMM) 15.6 H RBC (4.20 - 5.40 /CUMM) 3.04 L Hgb (12.0 - 16.0 G/DL) 9.5 L Hct (37 - 47 %) 28.6 L MCV (81.0 - 99.0 FL) 94.3 MCH (27.0 - 31.0 PG) 31.2 H MCHC (33.0 - 37.0 G/DL) 33.1 RDW (11.5 - 14.5 %) 16.1 H Plt Count (130 - 400 /CUMM) 368 MPV (7.4 - 10.4 FL) 9.1 Gran % (42.2 - 75.2 %) 80.9 H Lymphocytes % (20.5 - 51.1 %) 8.0 L Monocytes % (1.7 - 9.3 %) 7.0 Eosinophils % (0 - 5 %) 3.7 Basophils % (0.0 - 2.0 %) 0.4 Absolute Granulocytes (1.4 - 6.5 /CUMM) 12.6 H Absolute Lymphocytes (1.2 - 3.4 /CUMM) 1.3 Absolute Monocytes (0.10 - 0.60 /CUMM) 1.1 H Absolute Eosinophils (0.0 - 0.7 /CUMM) 0.6 Absolute Basophils (0.0 - 0.2 /CUMM) 0.1 Miscellaneous Phlebotomy Draw Site RIGHT BRACHIAL 08/10 08/10 08/09 0430 0015 1238 Chemistry Sodium (137 - 145 mmol/L) 139 Potassium (3.5 - 5.1 mmol/L) 4.4 Chloride (98 - 107 mmol/L) 100 Carbon Dioxide (22 - 30 mmol/L) 29 Anion Gap (5 - 16) 9 BUN (7 - 17 mg/dL) 13 Creatinine (0.5 - 1.0 mg/dL) 2.5 H Estimated GFR (>60 ml/min) 18 L Glucose (65 - 99 mg/dL) 101 H Calcium (8.4 - 10.2 mg/dL) 8.8 Phosphorus (2.5 - 4.5 mg/dL) 2.1 L Magnesium (1.6 - 2.3 mg/dL) 2.1 Total Bilirubin (0.2 - 1.3 mg/dL) 0.9 AST (14 - 36 U/L) 50 H ALT (9 - 52 U/L) 57 H Albumin (3.5 - 5.0 g/dL) 3.3 L Coagulation APTT (25 - 37 SEC) 54 H 61 H Hematology CBC w Diff NO MAN DIFF REQ WBC (4.8 - 10.8 /CUMM) 15.9 H RBC (4.20 - 5.40 /CUMM) 3.15 L Hgb (12.0 - 16.0 G/DL) 9.7 L Hct (37 - 47 %) 29.7 L MCV (81.0 - 99.0 FL) 94.2 MCH (27.0 - 31.0 PG) 30.9 MCHC (33.0 - 37.0 G/DL) 32.8 L RDW (11.5 - 14.5 %) 16.3 H Plt Count (130 - 400 /CUMM) 385 MPV (7.4 - 10.4 FL) 9.0 Gran % (42.2 - 75.2 %) 71.4 Lymphocytes % (20.5 - 51.1 %) 15.0 L Monocytes % (1.7 - 9.3 %) 8.8 Eosinophils % (0 - 5 %) 4.5 Basophils % (0.0 - 2.0 %) 0.3 Absolute Granulocytes (1.4 - 6.5 /CUMM) 11.4 H Absolute Lymphocytes (1.2 - 3.4 /CUMM) 2.4 Absolute Monocytes (0.10 - 0.60 /CUMM) 1.4 H Absolute Eosinophils (0.0 - 0.7 /CUMM) 0.7 Absolute Basophils (0.0 - 0.2 /CUMM) 0.1 08/09 08/09 08/08 0417 0010 1330 Chemistry Sodium (137 - 145 mmol/L) 137 Potassium (3.5 - 5.1 mmol/L) 4.3 Chloride (98 - 107 mmol/L) 98 Carbon Dioxide (22 - 30 mmol/L) 26 Anion Gap (5 - 16) 13 BUN (7 - 17 mg/dL) 19 H Creatinine (0.5 - 1.0 mg/dL) 2.9 H Estimated GFR (>60 ml/min) 15 L Glucose (65 - 99 mg/dL) 112 H Calcium (8.4 - 10.2 mg/dL) 8.7 Phosphorus (2.5 - 4.5 mg/dL) 2.5 Magnesium (1.6 - 2.3 mg/dL) 2.1 Total Bilirubin (0.2 - 1.3 mg/dL) 0.7 AST (14 - 36 U/L) 62 H ALT (9 - 52 U/L) 63 H Albumin (3.5 - 5.0 g/dL) 3.1 L Coagulation APTT (25 - 37 SEC) 62 H Cancelled Hematology CBC w Diff MAN DIFF ORDERED WBC (4.8 - 10.8 /CUMM) 15.0 H RBC (4.20 - 5.40 /CUMM) 3.01 L Hgb (12.0 - 16.0 G/DL) 9.4 L Hct (37 - 47 %) 28.2 L MCV (81.0 - 99.0 FL) 93.6 MCH (27.0 - 31.0 PG) 31.2 H MCHC (33.0 - 37.0 G/DL) 33.3 RDW (11.5 - 14.5 %) 16.1 H Plt Count (130 - 400 /CUMM) 339 MPV (7.4 - 10.4 FL) 9.0 Gran % (42.2 - 75.2 %) 84.3 H Lymphocytes % (20.5 - 51.1 %) 6.1 L Monocytes % (1.7 - 9.3 %) 9.2 Eosinophils % (0 - 5 %) 0.3 Basophils % (0.0 - 2.0 %) 0.1 Absolute Granulocytes (1.4 - 6.5 /CUMM) 12.7 H Segmented Neutrophils (42.2 - 75.2 %) 91 H Absolute Lymphocytes (1.2 - 3.4 /CUMM) 0.9 L Lymphocytes (20.5 - 51.1 %) 3 L Monocytes (1.7 - 9.3 %) 5 Absolute Monocytes (0.10 - 0.60 /CUMM) 1.4 H Absolute Eosinophils (0.0 - 0.7 /CUMM) 0.1 Basophils (0.0 - 2.0 %) 1 Absolute Basophils (0.0 - 0.2 /CUMM) 0 Platelet Estimate (ADEQUATE) ADEQUATE Polychromasia 1+ Poikilocytosis 1+ Ovalocytes 1+ Other Body Source Fld Total RBCs Counted (%) 100 Toxicology Vancomycin Trough (10.0 - 20.0 ug/mL) 20.1 H 08/08 08/08 08/08 1225 0835 0341 Blood Gas pH (7.35 - 7.45 PH) 7.47 H pCO2 (35 - 45 TORR) 32 L pO2 (80 - 100 TORR) 62 L HCO3 (21 - 28 MEQ/L) 23 ABG O2 Sat (Measured) (>96.0 %) 92.0 L P-50 (Temp Corrected) NO Carboxyhemoglobin (1.5 - 5.0 %) 0.1 L O2 Concentration % 75%/55LPM O2 Delivery Method HFNC Coagulation APTT (25 - 37 SEC) 68 H Miscellaneous Phlebotomy Draw Site RIGHT BRACHIAL Toxicology Vancomycin Trough (10.0 - 20.0 ug/mL) 17.0 0308/08 0341 0040 1912 Chemistry Sodium (137 - 145 mmol/L) 133 L Potassium (3.5 - 5.1 mmol/L) 4.4 Chloride (98 - 107 mmol/L) 94 L Carbon Dioxide (22 - 30 mmol/L) 26 Anion Gap (5 - 16) 13 BUN (7 - 17 mg/dL) 22 H Creatinine (0.5 - 1.0 mg/dL) 4.5 H Estimated GFR (>60 ml/min) 9 L Glucose (65 - 99 mg/dL) 133 H Calcium (8.4 - 10.2 mg/dL) 9.2 Phosphorus (2.5 - 4.5 mg/dL) 4.3 Magnesium (1.6 - 2.3 mg/dL) 2.1 Total Bilirubin (0.2 - 1.3 mg/dL) 0.7 AST (14 - 36 U/L) 73 H ALT (9 - 52 U/L) 59 H Albumin (3.5 - 5.0 g/dL) 3.3 L Coagulation APTT (25 - 37 SEC) 89 H Hematology CBC w Diff MAN DIFF ORDERED WBC (4.8 - 10.8 /CUMM) 19.7 H RBC (4.20 - 5.40 /CUMM) 3.23 L Hgb (12.0 - 16.0 G/DL) 10.0 L Hct (37 - 47 %) 30.3 L MCV (81.0 - 99.0 FL) 93.8 MCH (27.0 - 31.0 PG) 31.1 H MCHC (33.0 - 37.0 G/DL) 33.2 RDW (11.5 - 14.5 %) 16.4 H Plt Count (130 - 400 /CUMM) 308 MPV (7.4 - 10.4 FL) 9.1 Gran % (42.2 - 75.2 %) 94.2 H Lymphocytes % (20.5 - 51.1 %) 2.3 L Monocytes % (1.7 - 9.3 %) 3.3 Eosinophils % (0 - 5 %) 0.2 Basophils % (0.0 - 2.0 %) 0 Absolute Granulocytes (1.4 - 6.5 /CUMM) 18.5 H Segmented Neutrophils (42.2 - 75.2 %) 91 H Band Neutrophils (0.0 - 5.0 %) 3 Absolute Lymphocytes (1.2 - 3.4 /CUMM) 0.4 L Lymphocytes (20.5 - 51.1 %) 3 L Monocytes (1.7 - 9.3 %) 3 Absolute Monocytes (0.10 - 0.60 /CUMM) 0.6 Absolute Eosinophils (0.0 - 0.7 /CUMM) 0 Absolute Basophils (0.0 - 0.2 /CUMM) 0 Platelet Estimate (ADEQUATE) ADEQUATE Polychromasia 1+ Basophilic Stippling RARE Anisocytosis 1+ Macrocytic Cells FEW Stomatocytes FEW Elliptocytes 1+ Serology C. difficile Tox B Gene (NOT DETECTED) NOT DETECTED Toxicology Vancomycin Trough Cancelled 08/07 1700 Coagulation APTT (25 - 37 SEC) 59 H Imaging/Other Studies: CT imaging and chest x-ray from this AM reviewed
[2017-08-10 16:00] VITALS: BP 112/56
[2017-08-10 17:44] LABS: PTT 89 SEC (25-37)
--- NOTE | 2017-08-10 19:33 | PN- Cardiology ---
Subjective Subjective: Patient is comfortable. No current complaints. No chest pain. No palpitations. No diaphoresis Objective Vital Signs and I&Os Vital Signs Date Time Temp Pulse Resp B/P B/P Pulse O2 O2 Flow FiO2 Mean Ox Delivery Rate 08/11 1999 93 Nasal 60% Cannula 08/10 1946 94 Nasal 60% Cannula 08/10 1631 98 Nasal 60% Cannula 08/10 1600 96 Nasal 60% Cannula 08/10 1600 99.5 72 26 112/56 96 Nasal 60% Cannula 08/10 1450 95 Nasal 60% Cannula 08/10 1221 89 119/61 08/10 1210 95 Nasal 60% Cannula 08/10 1200 96 Nasal 60% Cannula 08/10 1200 98.2 88 35 124/60 96 Nasal 60% Cannula 08/10 0851 97.9 98 26 150/78 08/10 0810 92 Nasal 55% Cannula 08/10 0800 98.4 96 34 150/80 91 Non 50% ReBreather 08/10 0800 95 Nasal 55% Cannula 08/10 0400 94 Nasal 55% Cannula 08/10 0256 91 Nasal 55% Cannula 08/10 0058 92 Nasal 50% Cannula 08/10 0000 Nasal 50% Cannula 08/10 0000 98.8 78 26 130/44 92 Nasal 40% Cannula 08/09 2200 93 Nasal 50% Cannula Intake & Output 08/10 0800 08/10 0000 08/09 0800 08/09 0000 Intake Total 280 286.8 78 390 140 389 Output Total 1999 0 0 Balance 280 286.8 78 -1610 140 389 Intake, IV 130 166.8 78 150 140 140 Intake, Oral 150 120 240 249 Number 1 3 2 Bowel Movements Output, 1999 Dialysate Output, Urine 0 0 Patient 94 lb 2 oz 104 lb 101 lb 105 lb Weight Weight Bed scale Bed scale Bed scale Bed scale Measurement Method Physical Exam: General: Nontoxic, no apparent distress. HEENT: Sclera and conjunctiva within normal limits, without xanthelasmas. Neck: Carotids 2+ without bruits. Respiratory: Scattered rhonchi, air movement is decreased at bases, without accessory respiratory muscle use. Heart: Irregularly irregular rate and rhythm, 2/6 systolic ejection murmur at left sternal border, without JVD. Abdomen: Soft, nontender, no masses, normoactive bowel sounds. Extremities: Without clubbing, cyanosis, without edema. Neuro: Nonfocal exam, strength, 5 out of 5 Skin: Within normal limits without lesions. Psych: Mood and affect: Normal Current Medications: Current Medications Sig/King Start time Last Medication Dose Route Stop Time Status Admin Amlodipine Besylate 10 MG DAILY 07/30 1000 AC 08/10 PO 1221 Aspirin 81 MG DAILY 07/30 1049 AC 08/10 PO 1145 Atorvastatin Calcium 80 MG 1700 07/30 1700 AC 08/10 PO 1637 Clopidogrel Bisulfate 75 MG DAILY 08/01 1000 AC 08/10 PO 1145 Epoetin Vamshi 2,000 UNIT TuThSa PRN 08/03 0700 AC IV Heparin Sodium 5,000 UNIT .STK-MED ONE 08/10 0217 DC (Porcine) IV 08/10 0218 Heparin Sodium 1,834 UNIT BOLUS ONE 08/10 0130 DC 08/10 (Porcine) IV 08/10 0131 0219 Heparin Sodium 25,000 UNIT Q24H 08/07 1045 AC 08/10 (Porcine) IV 1037 Sodium Chloride 500 ML Lidocaine/Prilocaine 1 JENNIE TuThSa PRN 08/10 1900 AC TOP Lidocaine/Prilocaine 1 JENNIE DAILY NEEDED PRN 08/09 1045 DC TOP Lorazepam 1 MG Q4P PRN 07/30 0700 DC 08/09 IV 2049 Melatonin 5 MG AT BEDTIME 08/07 2200 AC 08/09 PO 2047 Metoprolol Tartrate 25 MG BID 08/02 2200 AC 08/10 PO 1221 Ondansetron HCl 4 MG Q6P PRN 08/07 1730 DC 08/08 IV 0036 Sevelamer Carbonate 2,400 MG WM 08/07 1700 AC 08/10 PO 1637 Tramadol HCl 25 MG Q12 08/10 0930 AC 08/10 PO 0954 Vitamin A/Vitamin D 1 JENNIE BID 08/07 1000 AC 08/10 TOP 0830 Zinc Oxide 1 JENNIE BID PRN 08/07 0600 AC 08/07 TOP 0955 Results Last 48 Hrs of Labs/Mics: Laboratory Tests 08/10/17 1700: APTT 89 H 08/10/17 0815: APTT 41 H, CBC w Diff NO MAN DIFF REQ, RBC 3.04 L, MCV 94.3, MCH 31.2 H, MCHC 33.1, RDW 16.1 H, MPV 9.1, Gran % 80.9 H, Lymphocytes % 8.0 L, Monocytes % 7.0, Eosinophils % 3.7, Basophils % 0.4, Absolute Granulocytes 12.6 H, Absolute Lymphocytes 1.3, Absolute Monocytes 1.1 H, Absolute Eosinophils 0.6, Absolute Basophils 0.1 08/10/17 0810: pH 7.53 H, pCO2 33 L, pO2 57 L, HCO3 27, ABG O2 Sat (Measured) 91.0 L, P-50 (Temp Corrected) N, Carboxyhemoglobin 0.1 L, O2 Concentration % 55%, O2 Delivery Method HFNC WITH 40L FLOW, Phlebotomy Draw Site RIGHT BRACHIAL 08/10/17 0430: Anion Gap 9, Estimated GFR 18 L, Glucose 101 H, Calcium 8.8, Phosphorus 2.1 L , Magnesium 2.1, Total Bilirubin 0.9, AST 50 H, ALT 57 H, Albumin 3.3 L, CBC w Diff NO MAN DIFF REQ, RBC 3.15 L, MCV 94.2, MCH 30.9, MCHC 32.8 L, RDW 16.3 H, MPV 9.0, Gran % 71.4, Lymphocytes % 15.0 L, Monocytes % 8.8, Eosinophils % 4.5, Basophils % 0.3, Absolute Granulocytes 11.4 H, Absolute Lymphocytes 2.4, Absolute Monocytes 1.4 H, Absolute Eosinophils 0.7, Absolute Basophils 0.1 08/10/17 0015: APTT 54 H 08/09/17 1238: APTT 61 H 08/09/17 0417: Anion Gap 13, Estimated GFR 15 L, Glucose 112 H, Calcium 8.7, Phosphorus 2.5, Magnesium 2.1, Total Bilirubin 0.7, AST 62 H, ALT 63 H, Albumin 3.1 L, CBC w Diff MAN DIFF ORDERED, RBC 3.01 L, MCV 93.6, MCH 31.2 H, MCHC 33.3, RDW 16.1 H, MPV 9.0, Gran % 84.3 H, Lymphocytes % 6.1 L, Monocytes % 9.2, Eosinophils % 0.3, Basophils % 0.1, Absolute Granulocytes 12.7 H, Segmented Neutrophils 91 H , Absolute Lymphocytes 0.9 L, Lymphocytes 3 L, Monocytes 5, Absolute Monocytes 1.4 H, Absolute Eosinophils 0.1, Basophils 1, Absolute Basophils 0, Platelet Estimate ADEQUATE, Polychromasia 1+, Poikilocytosis 1+, Ovalocytes 1+, Fld Total RBCs Counted 100, Vancomycin Trough 20.1 H 08/09/17 0010: APTT 62 H Assessment/Plan Assessment/Plan 1. Cardiopulmonary arrest with acute hypoxemic respiratory failure of unclear etiology 2. Chronic left bundle branch block 3. History of ischemic cardiomyopathy, EF now 50 % with mild to moderate anteroseptal hypokinesis 4. End-stage renal disease on hemodialysis 5. Coronary artery disease by history status post stent approximately 3 years ago 6. Hypertension by history 7. Aspiration PNA 8. Elevated troponin of unclear etiology s/p CPR 9. Frequent APCs 10. Positive blood cultures Plan: * Continue IV heparin * Continue cardiac medication Continue telemetry? Yes
[2017-08-10 23:46] VITALS: BP 140/58
[2017-08-11 03:48] LABS: ABSOLUTE BASOPHIL COUNT 0.1 /CUMM (0.0-0.2); ABSOLUTE EOSINOPHIL COUNT 0.6 /CUMM (0.0-0.7); ABSOLUTE GRANULOCYTE CT 8.3 /CUMM (1.4-6.5); ABSOLUTE LYMPH COUNT 1.9 /CUMM (1.2-3.4); BASOPHIL % 0.6 % (0.0-2.0); EOSINOPHIL % 5.1 % (0-5); HEMATOCRIT 27.2 % (37-47); MEAN CORPUSCULAR HGB 30.9 PG (27.0-31.0); MEAN CORPUSCULAR HGB CONC 32.7 G/DL (33.0-37.0); MEAN CORPUSCULAR VOLUME 94.5 FL (81.0-99.0); MEAN PLATELET VOLUME 8.3 FL (7.4-10.4); PLATELET COUNT 316 /CUMM (130-400); RED BLOOD CELL CT 2.88 /CUMM (4.20-5.40); WHITE BLOOD CELL COUNT 11.9 /CUMM (4.8-10.8)
[2017-08-11 03:56] LABS: PTT 85 SEC (25-37)
[2017-08-11 08:00] VITALS: BP 144/56
--- NOTE | 2017-08-11 09:34 | PN- Resident CRCU ---
Oswaldo PARKINSON,[facility] 08/11/17 0933: Subjective HPI/CRCU Issues: S/PEA and ROSC Extubated Hypertension Tmax 99.4, HR 80-114, RR 23-35, BP 165/68-102/54 Satting 97% on 5L nasal cannula IV heparin drip 24 Hour Events: Yesterday at 7:30 am pt had unwitnessed fall. Since then has 1:1 sitter and no overnight events. Was able to wean her off high flow to nasal cannula. This is the most awake and alert I have seen Ms. Fairbanks. She does not offer any complaints Objective Vital Signs & I&O Last 8 Hrs of Vitals and I&O: Intake & Output 08/11 1600 Intake Total 110 Output Total Balance 110 Intake, IV 10 Intake, Oral 100 Exam General Appearance: well developed/nourished, no apparent distress, alert, awake , comfortable Head: atraumatic, normal appearance Ears, Nose, Throat: normal ENT inspection Neck: supple Respiratory: no respiratory distress, crackles Cardiovascular: murmur, irregular rhythm Gastrointestinal: soft, non-tender Extremities: ecchymoses in bilat le. L. knee has large abrasion and is slightly swollen without warmth. Weaning Parameters NIF: 29 Minute Volume: 10.6 Resp rate: 32 Vt: 330 Heart Rate: 74 Weaning Schedule Start Time: 1645 Minute Volume: 6 Resp Rate: 20 Vt: 320 Heart Rate: 74 End Time: 2040 Minute Volume: 3.58 Resp Rate: 18 Vt: 200 Heart Rate: 72 Start Time: 1810 Minute Volume: 6.1 Resp Rate: 22 Vt: 400 Heart Rate: 78 End Time: 1158 Minute Volume: 7.50 Resp Rate: 21 Vt: 290 Heart Rate: 72 Current Medications: Current Medications Sig/King Start time Last Medication Dose Route Stop Time Status Admin Amlodipine Besylate 10 MG DAILY 07/30 1000 AC 08/11 PO 1003 Aspirin 81 MG DAILY 07/30 1049 AC 08/11 PO 1003 Atorvastatin Calcium 80 MG 1700 07/30 1700 AC 08/11 PO 1639 Clopidogrel Bisulfate 75 MG DAILY 08/01 1000 AC 08/11 PO 1003 Epoetin Vamshi 2,000 UNIT TuThSa PRN 08/03 0700 AC IV Heparin Sodium 25,000 UNIT Q24H 08/07 1045 AC 08/10 (Porcine) IV 1037 Sodium Chloride 500 ML Lidocaine/Prilocaine 1 JENNIE TuThSa PRN 08/10 1900 AC TOP Melatonin 5 MG AT BEDTIME 08/07 2200 AC / PO 2130 Metoprolol Tartrate 25 MG BID 08/02 2200 AC 08/11 PO 2129 Sevelamer Carbonate 2,400 MG WM 08/07 1700 AC 03/04 PO 1639 Tramadol HCl 25 MG Q12P PRN 08/11 1341 AC PO Tramadol HCl 25 MG Q12 08/10 0930 DC 08/11 PO 1004 Vitamin A/Vitamin D 1 JENNIE BID 08/07 1000 AC 08/11 TOP 2130 Zinc Oxide 1 JENNIE BID PRN 08/07 0600 AC 08/07 TOP 0955 Impression/Plan Impression/Problem List Impression: This is a 86 yo woman with PMH significant for ESRD on HD Sat//Sat, CAD s/p stent placement 3 years ago, HFpEF, HTN, HLD, NSTEMI, LBBB, and secondary hyperparathyroidism BIBA PEA s/p intubation, CPR and epi x1 with successful ROSC. Pt was not cooled on arrival. She was intubated but never required pressors. She had elevation in troponin and started on heparin drip. Subsequently extubated successfully and heparin drip d/c. Pt on 5l o2 today and hemodynamically stable. Will down grade to telemetry unit as pt no longer requires ICU level care. ----- PLAN: 1.Cardiopulmonary arrest with acute hypoxic respiratory failure of unclear etiology: She has PMH of coronary artery disease status post NSTEMI and 4 stents (2015 - 2 stents, 2016- 2 stents), symptomatic bradycardia s/p pacemaker placement, and HTN. Working theory for cardiac arrest is possible inectious precipitant leading to SD and PEA. OtherDdx: flash pulm edema, arrhythmia, septic shock. EF now 50 % with mild to moderate anteroseptal hypokinesis. She was having elevated troponin and new EKG changes in context of old LBBB. Trops peaked at 1.85 and subsequently trended down. Multiple PACs present in EKG. At that time pt was not candidate for cath given tenuous hemodynamic circumstance. Started her on heparin drip. Note she has hx of stent placement at [facility] 3 yrs ago. * Repeat blood cultures neg * Negative lower extremity Doppler for DVT * CAT w/o evidence of PE * Con't heparin drip--> Duration is per cardiology. Will need to follow up. * Metoprolol 12.5mg bid--> increased to 25 bid given htn. * Started on Plavix with 300mg load now on 75 * Continue on aspirin * switched to atorvastatin 80 mg daily * Appreciate cardio consult 2. Pneumonia: Treating for PNA, Sputum cx came back positive for MRSA, her nares swab was positive for MRSA, given pt was initially intubated we treated for PNA.. Blood cultures 2 initially positive for micrococcus which was thought to be disseminated secondary to CPR. Additionally, there is concern for aspiration pneumonia in this patient. CARLOS negative for evidence of vegetations. * On vanco for concern of PNA. Initially treated w/ Unasyn for aspiration. MUST DOSE ANTIBIOTICS IN CONJUNCTION WITH DIALYSIS. Duration is for 14 days. Vanc trough on Saturday. Goal trough 15-20. * Con't monitor * Titrate abx per cx 3. Hypertension * Con't Amlodipine 10mg * Con't Metoprolol 25mg 4. Anion gap acidosis: RESOLVED. Initially thought to be secondary to lactic acidosis in the setting of decreased perfusion as well as underlying renal insufficiency. Now likely due to renal failure as lactate has normalized. 6. End stage renal today disease on hemodialysis: Saturday and Saturday * Appreciate nephro consult * HD tomorrow on Saturday. MUST DOSE ANTIBIOTICS WITH DIALYSIS 7. Alimentary * Maintain on Protonix * Pt on mechanical soft/ground and regular thin liquid renal dialysis diet. Consider repeat swallow eval to see if pt can advance to reg diet. * Q6 finger stick DVT prophylaxis: heparin drip CODE STATUS Full code Problem List: 1. Atrial fibrillation with rapid ventricular response 2. Cardiac arrest Pain Ratin Tomorrow's Labs & Rationales: cbc icu Plan DVT/Prophylaxis: mechanical, pharmacological Kirill Schaefer MD 08/11/17 1008: Attending MD Review Statement Attending Sign Off Attending Cosign Statement: I have: examined this patient, reviewed avalbl EMR data, personally reviewd images, discussd w/resident/PA/RADIOLOGY RECEPTIONIST, discussed mgmt plan w/jessica, discussed mgmt plan w/CM, discussed mgmt plan w/pt, agreed w/resident/PA/RADIOLOGY RECEPTIONIST, amended to note. Other Findings: I, Kirill Schaefer M.D. have examined this patient, reviewed available EMR data, personally reviewed images, discussed with resident/PA/RADIOLOGY RECEPTIONIST, discussed management plan with housestaff and nursing staff, discussed managment plan all of healthcare providers, discussed management plan with patient and/or family, agreed with resident/PA/RADIOLOGY RECEPTIONIST. The past history and parts of the chart have been autopopulated. Impression 86 year old woman * acute hyopxemic respiratory failure * ESRD on HD * s/p fall Plan -down to nasal cannula - 5Liters - saturation 97% - reduce fio2 as tolerated to a goal >92% -cont HD -CARLOS without vegetations -nephrology, cardiology appreciated -f/u ID for staph aureus - vancomycin tx total 14 day goal -HD per renal -f/u nutrition/swallow recommendations DVT prophylaxis at all times TTS 35 min Telemetry downgrade
--- NOTE | 2017-08-11 13:42 | PN- Infect Dx ---
Subjective Subjective: Improved cough. No fever. S/P recent fall previous day; no L shoulder pain. Review of Systems Comments: 12 points reviewed as noted, otherwise negative. Objective Last 24 Hrs of Vital Signs/I&O Vital Signs Date Time Temp Pulse Resp B/P B/P Pulse O2 O2 Flow FiO2 Mean Ox Delivery Rate 08/11 1312 93 Nasal 3.0L Cannula 08/11 1056 97 Nasal 5.0L Cannula 08/11 1003 64 146/62 08/11 0800 Nasal 60% Cannula 08/11 0800 98.9 70 24 144/56 100 Nasal 60% Cannula 08/11 0400 96 Nasal 60% Cannula 08/11 0025 92 Nasal 60% Cannula 08/11 0000 93 Nasal 60% Cannula 08/10 2346 99.4 71 24 140/58 94 Nasal 60% Cannula 08/10 2233 94 Nasal 60% Cannula 08/10 2142 82 132/62 08/10 2000 93 Nasal 60% Cannula 08/10 1946 94 Nasal 60% Cannula 08/10 1631 98 Nasal 60% Cannula 08/10 1600 96 Nasal 60% Cannula 08/10 1600 99.5 72 26 112/56 96 Nasal 60% Cannula 08/10 1450 95 Nasal 60% Cannula Intake & Output 08/11 1600 08/11 0800 03/ 0000 Intake Total 201.6 135.6 Output Total Balance 201.6 135.6 Intake, IV 201.6 75.6 Intake, Oral 60 Patient 103 lb Weight Weight Bed scale Measurement Method Physical Exam Other Physical Findings: Elderly female appearing chronically ill HEENT ETT/OG in place, temporal wasting Neck No MARQUES Lungs BS present/diminished bases, few rhonchi, few rales L base Heart S1 S2 present, no murmur Abdomen is soft, nontender, bowel sounds present Extremities scattered ecchymoses; LUE AVF Results Last 24 Hours of Lab Results: Laboratory Tests 08/11 08/10 0323 1700 Chemistry Sodium (137 - 145 mmol/L) 136 L Potassium (3.5 - 5.1 mmol/L) 4.1 Chloride (98 - 107 mmol/L) 98 Carbon Dioxide (22 - 30 mmol/L) 31 H Anion Gap (5 - 16) 7 BUN (7 - 17 mg/dL) 13 Creatinine (0.5 - 1.0 mg/dL) 2.5 H Estimated GFR (>60 ml/min) 18 L Glucose (65 - 99 mg/dL) 94 Calcium (8.4 - 10.2 mg/dL) 8.5 Phosphorus (2.5 - 4.5 mg/dL) 2.3 L Magnesium (1.6 - 2.3 mg/dL) 2.0 Total Bilirubin (0.2 - 1.3 mg/dL) 0.9 AST (14 - 36 U/L) 28 ALT (9 - 52 U/L) 46 Albumin (3.5 - 5.0 g/dL) 3.0 L Coagulation APTT (25 - 37 SEC) 85 H 89 H Hematology CBC w Diff NO MAN DIFF REQ WBC (4.8 - 10.8 /CUMM) 11.9 H RBC (4.20 - 5.40 /CUMM) 2.88 L Hgb (12.0 - 16.0 G/DL) 8.9 L Hct (37 - 47 %) 27.2 L MCV (81.0 - 99.0 FL) 94.5 MCH (27.0 - 31.0 PG) 30.9 MCHC (33.0 - 37.0 G/DL) 32.7 L RDW (11.5 - 14.5 %) 16.0 H Plt Count (130 - 400 /CUMM) 316 MPV (7.4 - 10.4 FL) 8.3 Gran % (42.2 - 75.2 %) 70.0 Lymphocytes % (20.5 - 51.1 %) 15.8 L Monocytes % (1.7 - 9.3 %) 8.5 Eosinophils % (0 - 5 %) 5.1 H Basophils % (0.0 - 2.0 %) 0.6 Absolute Granulocytes (1.4 - 6.5 /CUMM) 8.3 H Absolute Lymphocytes (1.2 - 3.4 /CUMM) 1.9 Absolute Monocytes (0.10 - 0.60 /CUMM) 1.0 H Absolute Eosinophils (0.0 - 0.7 /CUMM) 0.6 Absolute Basophils (0.0 - 0.2 /CUMM) 0.1 Last 24 Hours of Lex Results: No new cx's. Recent Imaging Studies: CXR 08/10 IMPRESSION: Limited by low lung volumes. No convincing radiographic evidence of acute cardiothoracic injury. DICTATED BY: Jacqueline Zhang MD DATE/TIME DICTATED:08/10/171118 TRACTOR TRAILER TECHNICIAN:BRAYAN DATE/TIME TRANSCRIBED:08/10/171118 Assessment/Plan ID Impression: 86-year-old woman with a history of CAD, hypertension, HFpEF and ESRD, maintained on HD (Tue, Thur and Sat) via a left upper extremity fistula, admitted on July 30 after a cardiac arrest at home, requiring 5 minutes of CPR, found on admission to be hypothermic with a white blood cell count of 17, 000, with elevated troponin, and positive blood cultures 2 for gram-positive cocci identified as Micrococcus (sensitivity pending; and likely representing skin contaminant). IE endocarditis ruled out as CARLOS negative. Incidental finding small PFO. Intermittent fever; now resolved Reactive leukocytosis, WBC is trending down MRSA bronchitis vs aspiration pneumonia vs colonization Ac/chronic HF (clinically improved w/ HD extra sessions) S/P fall Suggestion: 1. CBC/vanco trough at HD on 08/12. 2. Continue Vancomycin 500 mg iv post HD on Saturday; tx for 14 d. Goal vancomycin trough 15-20; most recent trough therapeutic at 20. 3. Aspiration precautions.
[2017-08-11 16:00] VITALS: BP 138/50
[2017-08-11 18:31] LABS: PTT 95 SEC (25-37)
--- NOTE | 2017-08-11 19:54 | PN- Cardiology ---
Subjective Subjective: The patient reports that she is feeling well. No chest pain. No palpitations. No shortness of breath. No diaphoresis. Objective Vital Signs and I&Os Vital Signs Date Time Temp Pulse Resp B/P B/P Pulse O2 O2 Flow FiO2 Mean Ox Delivery Rate 08/11 1600 94 Nasal 4.0L Cannula 08/11 1600 98.4 73 21 138/50 94 Nasal 4.0L Cannula 08/11 1312 93 Nasal 3.0L Cannula 08/11 1056 97 Nasal 5.0L Cannula 08/11 1003 64 146/62 08/11 0800 Nasal 60% Cannula 08/11 0800 98.9 70 24 144/56 100 Nasal 60% Cannula 08/11 0400 96 Nasal 60% Cannula 08/11 0025 92 Nasal 60% Cannula 08/11 0000 93 Nasal 60% Cannula 08/10 2346 99.4 71 24 140/58 94 Nasal 60% Cannula 08/10 2233 94 Nasal 60% Cannula 08/10 2142 82 132/62 08/10 2000 93 Nasal 60% Cannula Intake & Output 08/11 1600 08/11 0800 08/11 0000 08/10 1600 08/10 0800 08/10 0000 Intake Total 110 201.6 135.6 280 286.8 78 Output Total Balance 110 201.6 135.6 280 286.8 78 Intake, IV 10 201.6 75.6 130 166.8 78 Intake, Oral 100 60 150 120 Number 1 Bowel Movements Patient 103 lb 94 lb 2 oz 104 lb Weight Weight Bed scale Bed scale Bed scale Measurement Method Physical Exam: General: Nontoxic, no apparent distress. HEENT: Sclera and conjunctiva within normal limits, without xanthelasmas. Neck: Carotids 2+ without bruits. Respiratory: Scattered rhonchi, air movement is decreased at bases, without accessory respiratory muscle use. Heart: Irregularly irregular rate and rhythm, 2/6 systolic ejection murmur at left sternal border, without JVD. Abdomen: Soft, nontender, no masses, normoactive bowel sounds. Extremities: Without clubbing, cyanosis, without edema. Neuro: Nonfocal exam, strength, 5 out of 5 Skin: Within normal limits without lesions. Psych: Mood and affect: Normal Current Medications: Current Medications Sig/King Start time Last Medication Dose Route Stop Time Status Admin Amlodipine Besylate 10 MG DAILY 07/30 1000 AC 08/11 PO 1003 Aspirin 81 MG DAILY 07/30 1049 AC 08/11 PO 1003 Atorvastatin Calcium 80 MG 1700 07/30 1700 AC 08/11 PO 1639 Clopidogrel Bisulfate 75 MG DAILY 08/01 1000 AC 08/11 PO 1003 Epoetin Vamshi 2,000 UNIT TuThSa PRN 08/03 0700 AC IV Heparin Sodium 25,000 UNIT Q24H 08/07 1045 AC 08/10 (Porcine) IV 1037 Sodium Chloride 500 ML Lidocaine/Prilocaine 1 JENNIE TuThSa PRN 08/10 1900 AC TOP Melatonin 5 MG AT BEDTIME 08/07 2200 AC 08/10 PO 2142 Metoprolol Tartrate 25 MG BID 08/02 2200 AC 08/11 PO 1003 Sevelamer Carbonate 2,400 MG WM 08/07 1700 AC 08/11 PO 1639 Tramadol HCl 25 MG Q12P PRN 08/11 1341 AC PO Tramadol HCl 25 MG Q12 08/10 0930 DC 08/11 PO 1004 Vitamin A/Vitamin D 1 JENNIE BID 08/07 1000 AC 08/11 TOP 1003 Zinc Oxide 1 JENNIE BID PRN 08/07 0600 AC 08/07 TOP 0955 Results Last 48 Hrs of Labs/Mics: Laboratory Tests 08/11/17 1628: APTT 95 H 08/11/17 0323: Anion Gap 7, Estimated GFR 18 L, Glucose 94, Calcium 8.5, Phosphorus 2.3 L, Magnesium 2.0, Total Bilirubin 0.9, AST 28, ALT 46, Albumin 3.0 L, APTT 85 H, CBC w Diff NO MAN DIFF REQ, RBC 2.88 L, MCV 94.5, MCH 30.9, MCHC 32.7 L, RDW 16.0 H, MPV 8.3, Gran % 70.0, Lymphocytes % 15.8 L, Monocytes % 8.5, Eosinophils % 5.1 H, Basophils % 0.6, Absolute Granulocytes 8.3 H, Absolute Lymphocytes 1.9, Absolute Monocytes 1.0 H, Absolute Eosinophils 0.6, Absolute Basophils 0.1 08/10/17 1700: APTT 89 H 08/10/17 0815: APTT 41 H, CBC w Diff NO MAN DIFF REQ, RBC 3.04 L, MCV 94.3, MCH 31.2 H, MCHC 33.1, RDW 16.1 H, MPV 9.1, Gran % 80.9 H, Lymphocytes % 8.0 L, Monocytes % 7.0, Eosinophils % 3.7, Basophils % 0.4, Absolute Granulocytes 12.6 H, Absolute Lymphocytes 1.3, Absolute Monocytes 1.1 H, Absolute Eosinophils 0.6, Absolute Basophils 0.1 08/10/17 0810: pH 7.53 H, pCO2 33 L, pO2 57 L, HCO3 27, ABG O2 Sat (Measured) 91.0 L, P-50 (Temp Corrected) N, Carboxyhemoglobin 0.1 L, O2 Concentration % 55%, O2 Delivery Method HFNC WITH 40L FLOW, Phlebotomy Draw Site RIGHT BRACHIAL 08/10/17 0430: Anion Gap 9, Estimated GFR 18 L, Glucose 101 H, Calcium 8.8, Phosphorus 2.1 L , Magnesium 2.1, Total Bilirubin 0.9, AST 50 H, ALT 57 H, Albumin 3.3 L, CBC w Diff NO MAN DIFF REQ, RBC 3.15 L, MCV 94.2, MCH 30.9, MCHC 32.8 L, RDW 16.3 H, MPV 9.0, Gran % 71.4, Lymphocytes % 15.0 L, Monocytes % 8.8, Eosinophils % 4.5, Basophils % 0.3, Absolute Granulocytes 11.4 H, Absolute Lymphocytes 2.4, Absolute Monocytes 1.4 H, Absolute Eosinophils 0.7, Absolute Basophils 0.1 08/10/17 0015: APTT 54 H Assessment/Plan Assessment/Plan 1. Cardiopulmonary arrest with acute hypoxemic respiratory failure of unclear etiology 2. Chronic left bundle branch block 3. History of ischemic cardiomyopathy, EF now 50 % with mild to moderate anteroseptal hypokinesis 4. End-stage renal disease on hemodialysis 5. Coronary artery disease by history status post stent approximately 3 years ago 6. Hypertension by history 7. Aspiration PNA 8. Elevated troponin of unclear etiology s/p CPR 9. Frequent APCs 10. Positive blood cultures Plan: * Continue IV heparin. Will change to warfarin prior to discharge. * Continue other cardiac medicationS Continue telemetry? Yes
[2017-08-11 22:24] VITALS: BP 140/70
[2017-08-12 03:55] LABS: ABSOLUTE BASOPHIL COUNT 0.1 /CUMM (0.0-0.2); ABSOLUTE EOSINOPHIL COUNT 0.7 /CUMM (0.0-0.7); ABSOLUTE GRANULOCYTE CT 9.8 /CUMM (1.4-6.5); ABSOLUTE LYMPH COUNT 1.7 /CUMM (1.2-3.4); ABSOLUTE MONOCYTE COUNT 0.8 /CUMM (0.10-0.60); BASOPHIL % 0.6 % (0.0-2.0); EOSINOPHIL % 5.2 % (0-5); MEAN CORPUSCULAR HGB 30.9 PG (27.0-31.0); MEAN CORPUSCULAR HGB CONC 32.8 G/DL (33.0-37.0); MEAN CORPUSCULAR VOLUME 94.1 FL (81.0-99.0); MEAN PLATELET VOLUME 8.7 FL (7.4-10.4); PLATELET COUNT 301 /CUMM (130-400); RBC DISTRIBUTION WIDTH 15.7 % (11.5-14.5); RED BLOOD CELL CT 3.08 /CUMM (4.20-5.40); WHITE BLOOD CELL COUNT 13.1 /CUMM (4.8-10.8)
[2017-08-12 04:02] LABS: PTT 67 SEC (25-37)
[2017-08-12 06:41] VITALS: BP 154/66
--- NOTE | 2017-08-12 07:10 | PN- Housestaff ---
Frances PARKINSON,Miguelina 08/12/17 0710: Subjective Follow-up For: S/PEA and ROSC Extubated Hypertension Tele-Events Since Last Visit: No overnight events, NSR, first-degree AV block, heart rate 6580, 0.14, 0.22 Subjective: Patient was seen and examined at bedside, denies any complaints no overnight events, went to hemodialysis this morning, Review of Systems Constitutional: Reports: see HPI. Objective Last 24 Hrs of Vital Signs/I&O Vital Signs Date Time Temp Pulse Resp B/P B/P Pulse O2 O2 Flow FiO2 Mean Ox Delivery Rate 08/12 0800 95 Nasal 4.0L Cannula 08/12 0641 98.2 72 22 154/66 91 Nasal 4.0L Cannula / 2224 98.5 80 22 140/70 90 Nasal 4.0L Cannula 08/11 2200 Nasal 4.0L Cannula / 2129 69 142/70 08/11 1600 94 Nasal 4.0L Cannula / 1600 98.4 73 21 138/50 94 Nasal 4.0L Cannula 08/11 1312 93 Nasal 3.0L Cannula Intake & Output 08/12 1600 08/12 0800 08/12 0000 Intake Total 236.4 440 Output Total 0 Balance 236.4 440 Intake, IV 186.4 200 Intake, Oral 50 240 Number 1 Bowel Movements Output, Urine 0 Patient 99 lb 6 oz Weight Weight Bed scale Measurement Method Physical Exam General Appearance: Alert, Cooperative, No Acute Distress HEENT: Atraumatic, PERRLA, EOMI, Mucous Membr. moist/pink Neck: Supple, No JVD Cardiovascular: IRREGULAR, MURMUR Lungs: Clear to Auscultation Abdomen: Normal Bowel Sounds, Soft, No Tenderness Extremities: MULTIPLE ECCHYMOSIS IN BOTH LE, LARGE ABRASION ON THE LEFT KNEE Vascular: Normal Pulses Assessment/Plan Assessment: 86 yo female with PMH of ESRD on HD Sat//Sat, CAD s/p stent placement 3 years ago, HFpEF, HTN, HLD, NSTEMI, LBBB, and secondary hyperparathyroidism BIBA PEA s/p intubation, CPR and epi x1 with successful ROSC. Pt was not cooled on arrival. She was intubated but never required pressors. She had elevation in troponin and was started on heparin drip. Subsequently extubated successfully and heparin drip d/c. Pt on 4 L o2 today and hemodynamically stable, receiving hemodialysis this morning ----- PLAN: 1.Cardiopulmonary arrest with acute hypoxic respiratory failure of unclear etiology: She has PMH of coronary artery disease status post NSTEMI and 4 stents (2015 - 2 stents, 2016- 2 stents), symptomatic bradycardia s/p pacemaker placement, and HTN. Differential diagnosis of the cause of her cardiac arrest includes NE and PEA. OtherDdx: flash pulm edema, arrhythmia, septic shock. EF now 50 % with mild to moderate anteroseptal hypokinesis. * Repeat blood cultures neg * Negative lower extremity Doppler for DVT * CAT w/o evidence of PE * DC heparin drip * start p.o. warfarin 5 mg today to be dosed according to PT/INR * PT/INR daily * Continue metoprolol increased to 25 bid given htn. * Continue Plavix with 300mg load now on 75 * Continue on aspirin * Continue atorvastatin 80 mg daily * Appreciate cardio recommendation 2. Pneumonia: Treating for PNA, Sputum cx came back positive for MRSA, her nares swab was positive for MRSA, given pt was initially intubated we treated for PNA.. Blood cultures 2 initially positive for micrococcus which was thought to be disseminated secondary to CPR. Additionally, there is concern for aspiration pneumonia in this patient. CARLOS negative for evidence of vegetations. * DC vancomycin as per ID recommendation * Con't monitor 3. Hypertension * Con't Amlodipine 10mg * Con't Metoprolol 25mg 4. Anion gap acidosis: RESOLVED. Initially thought to be secondary to lactic acidosis in the setting of decreased perfusion as well as underlying renal insufficiency. Now likely due to renal failure as lactate has normalized. 6. End stage renal today disease on hemodialysis: Saturday and Saturday * Appreciate nephro consult * HD today 7. Alimentary * Maintain on Protonix * Pt on mechanical soft/ground and regular thin liquid renal dialysis diet. Consider repeat swallow eval to see if pt can advance to reg diet. * Q6 finger stick DVT prophylaxis: heparin drip CODE STATUS Full code Problem List: 1. Atrial fibrillation with rapid ventricular response 2. Cardiac arrest Pain Ratin Pain Location: N/A Pain Goal: Remain pain free Pain Plan: PATHWAY Tomorrow's Labs & Rationales: CBC BERobert Donavon Ontiveros 08/12/17 1514: Attending MD Review Statement Attending Statement Attending MD Statement: examined this patient, discuss w/resident/PA/PETROLEUM ENGINEER, agreed w/resident/PA/PETROLEUM ENGINEER, reviewed EMR data (avail), discussed with nursing, discussed with case mgmt Attending Assessment/Plan: dc heparin drip and start pt on coumadin 5mg daily. Dc vancomycin. d/w pt the care plan. pt underwent HD today. did ok with hemodialysis.
--- NOTE | 2017-08-12 09:52 | PN- Nephrology ---
Assessment/Plan Nephrology Assessment: ESRD - Extra HD today for fluid removal given tenuous respiratory status. Seems to be doing well. Will need to go down on her outpatient dry weight. Anemia - On Epogen. Cardiac arrest - Underlying cause remains unclear. Fever/leukocystosis - ?aspiration PNA. Afebrile with stable WBC and no new micro. ID following. Suggestion: -HD today -HD tomorrow to get back on schedule -Will need outpatient dry weight to be titrated -Cont Epogen -Please have patient use EMLA (lidocaine-prilocaine) cream 1hr prior to dialysis - next dialysis tomorrow Please call [phone] with ?'s Subjective Subjective: Pt seen and examined on dialysis Breathing is OK - on nasal cannula Objective Vital Signs and I&Os Vital Signs Date Time Temp Pulse Resp B/P B/P Pulse O2 O2 Flow FiO2 Mean Ox Delivery Rate 08/12 0800 95 Nasal 4.0L Cannula / 0641 98.2 72 22 154/66 91 Nasal 4.0L Cannula / 2224 98.5 80 22 140/70 90 Nasal 4.0L Cannula /04 2200 Nasal 4.0L Cannula 03/04 2129 69 142/70 03/04 1600 94 Nasal 4.0L Cannula 03/04 1600 98.4 73 21 138/50 94 Nasal 4.0L Cannula /04 1312 93 Nasal 3.0L Cannula 03/04 1056 97 Nasal 5.0L Cannula 03/04 1003 64 146/62 Intake & Output 03/05 1600 03/05 0400 03/04 1600 /04 0400 / 1600 / 0400 Intake Total 236.4 440 311.6 135.6 566.8 78 Output Total 0 Balance 236.4 440 311.6 135.6 566.8 78 Intake, IV 186.4 200 211.6 75.6 296.8 78 Intake, Oral 50 240 100 60 270 Number 1 1 Bowel Movements Output, Urine 0 Patient 99 lb 6 oz 103 lb 94 lb 2 oz Weight Weight Bed scale Bed scale Bed scale Measurement Method Physical Exam: Gen - OK appearing HEENT - supple CV - RRR, no m/r/g Chest - clear anteriorly Abd - soft, NTND Ext - no edema, MARY AVF +thrill/+bruit Neuro - alert, oriented Current Medications: Current Medications Sig/King Start time Last Medication Dose Route Stop Time Status Admin Amlodipine Besylate 10 MG DAILY 07/30 1000 AC 08/11 PO 1003 Aspirin 81 MG DAILY 07/30 1049 AC 08/11 PO 1003 Atorvastatin Calcium 80 MG 1700 07/30 1700 AC 08/11 PO 1639 Clopidogrel Bisulfate 75 MG DAILY 08/01 1000 AC 08/11 PO 1003 Epoetin Vamshi 2,000 UNIT TuThSa PRN 08/03 0700 AC IV Heparin Sodium 25,000 UNIT Q24H 08/07 1045 AC 08/10 (Porcine) IV 1037 Sodium Chloride 500 ML Lidocaine/Prilocaine 1 JENNIE TuThSa PRN 08/10 1900 AC TOP Melatonin 5 MG AT BEDTIME 08/07 2200 AC 08/11 PO 2130 Metoprolol Tartrate 25 MG BID 08/02 2200 AC 08/11 PO 2129 Sevelamer Carbonate 2,400 MG WM 08/07 1700 AC 08/11 PO 1639 Tramadol HCl 25 MG Q12P PRN 08/11 1341 AC PO Tramadol HCl 25 MG Q12 08/10 0930 DC 08/11 PO 1004 Vitamin A/Vitamin D 1 JENNIE BID 08/07 1000 AC 08/11 TOP 2130 Zinc Oxide 1 JENNIE BID PRN 08/07 0600 AC 08/07 TOP 0955 Results Pertinent Lab Results: Laboratory Tests 08/12 08/11 0300 1628 Chemistry Sodium (137 - 145 mmol/L) 138 Potassium (3.5 - 5.1 mmol/L) 4.5 Chloride (98 - 107 mmol/L) 96 L Carbon Dioxide (22 - 30 mmol/L) 30 Anion Gap (5 - 16) 12 BUN (7 - 17 mg/dL) 23 H Creatinine (0.5 - 1.0 mg/dL) 4.3 H Estimated GFR (>60 ml/min) 10 L BUN/Creatinine Ratio (7 - 25 %) 5.3 L Coagulation APTT (25 - 37 SEC) 67 H 95 H Hematology CBC w Diff NO MAN DIFF REQ WBC (4.8 - 10.8 /CUMM) 13.1 H RBC (4.20 - 5.40 /CUMM) 3.08 L Hgb (12.0 - 16.0 G/DL) 9.5 L Hct (37 - 47 %) 29.0 L MCV (81.0 - 99.0 FL) 94.1 MCH (27.0 - 31.0 PG) 30.9 MCHC (33.0 - 37.0 G/DL) 32.8 L RDW (11.5 - 14.5 %) 15.7 H Plt Count (130 - 400 /CUMM) 301 MPV (7.4 - 10.4 FL) 8.7 Gran % (42.2 - 75.2 %) 75.0 Lymphocytes % (20.5 - 51.1 %) 12.8 L Monocytes % (1.7 - 9.3 %) 6.4 Eosinophils % (0 - 5 %) 5.2 H Basophils % (0.0 - 2.0 %) 0.6 Absolute Granulocytes (1.4 - 6.5 /CUMM) 9.8 H Absolute Lymphocytes (1.2 - 3.4 /CUMM) 1.7 Absolute Monocytes (0.10 - 0.60 /CUMM) 0.8 H Absolute Eosinophils (0.0 - 0.7 /CUMM) 0.7 Absolute Basophils (0.0 - 0.2 /CUMM) 0.1 Toxicology Vancomycin Trough (10.0 - 20.0 ug/mL) 12.5 03/04 03/03 0323 1700 Chemistry Sodium (137 - 145 mmol/L) 136 L Potassium (3.5 - 5.1 mmol/L) 4.1 Chloride (98 - 107 mmol/L) 98 Carbon Dioxide (22 - 30 mmol/L) 31 H Anion Gap (5 - 16) 7 BUN (7 - 17 mg/dL) 13 Creatinine (0.5 - 1.0 mg/dL) 2.5 H Estimated GFR (>60 ml/min) 18 L Glucose (65 - 99 mg/dL) 94 Calcium (8.4 - 10.2 mg/dL) 8.5 Phosphorus (2.5 - 4.5 mg/dL) 2.3 L Magnesium (1.6 - 2.3 mg/dL) 2.0 Total Bilirubin (0.2 - 1.3 mg/dL) 0.9 AST (14 - 36 U/L) 28 ALT (9 - 52 U/L) 46 Albumin (3.5 - 5.0 g/dL) 3.0 L Coagulation APTT (25 - 37 SEC) 85 H 89 H Hematology CBC w Diff NO MAN DIFF REQ WBC (4.8 - 10.8 /CUMM) 11.9 H RBC (4.20 - 5.40 /CUMM) 2.88 L Hgb (12.0 - 16.0 G/DL) 8.9 L Hct (37 - 47 %) 27.2 L MCV (81.0 - 99.0 FL) 94.5 MCH (27.0 - 31.0 PG) 30.9 MCHC (33.0 - 37.0 G/DL) 32.7 L RDW (11.5 - 14.5 %) 16.0 H Plt Count (130 - 400 /CUMM) 316 MPV (7.4 - 10.4 FL) 8.3 Gran % (42.2 - 75.2 %) 70.0 Lymphocytes % (20.5 - 51.1 %) 15.8 L Monocytes % (1.7 - 9.3 %) 8.5 Eosinophils % (0 - 5 %) 5.1 H Basophils % (0.0 - 2.0 %) 0.6 Absolute Granulocytes (1.4 - 6.5 /CUMM) 8.3 H Absolute Lymphocytes (1.2 - 3.4 /CUMM) 1.9 Absolute Monocytes (0.10 - 0.60 /CUMM) 1.0 H Absolute Eosinophils (0.0 - 0.7 /CUMM) 0.6 Absolute Basophils (0.0 - 0.2 /CUMM) 0.1 08/10 03 0815 0810 Blood Gas pH (7.35 - 7.45 PH) 7.53 H pCO2 (35 - 45 TORR) 33 L pO2 (80 - 100 TORR) 57 L HCO3 (21 - 28 MEQ/L) 27 ABG O2 Sat (Measured) (>96.0 %) 91.0 L P-50 (Temp Corrected) N Carboxyhemoglobin (1.5 - 5.0 %) 0.1 L O2 Concentration % 55% O2 Delivery Method HFNC WITH 40L FLOW Coagulation APTT (25 - 37 SEC) 41 H Hematology CBC w Diff NO MAN DIFF REQ WBC (4.8 - 10.8 /CUMM) 15.6 H RBC (4.20 - 5.40 /CUMM) 3.04 L Hgb (12.0 - 16.0 G/DL) 9.5 L Hct (37 - 47 %) 28.6 L MCV (81.0 - 99.0 FL) 94.3 MCH (27.0 - 31.0 PG) 31.2 H MCHC (33.0 - 37.0 G/DL) 33.1 RDW (11.5 - 14.5 %) 16.1 H Plt Count (130 - 400 /CUMM) 368 MPV (7.4 - 10.4 FL) 9.1 Gran % (42.2 - 75.2 %) 80.9 H Lymphocytes % (20.5 - 51.1 %) 8.0 L Monocytes % (1.7 - 9.3 %) 7.0 Eosinophils % (0 - 5 %) 3.7 Basophils % (0.0 - 2.0 %) 0.4 Absolute Granulocytes (1.4 - 6.5 /CUMM) 12.6 H Absolute Lymphocytes (1.2 - 3.4 /CUMM) 1.3 Absolute Monocytes (0.10 - 0.60 /CUMM) 1.1 H Absolute Eosinophils (0.0 - 0.7 /CUMM) 0.6 Absolute Basophils (0.0 - 0.2 /CUMM) 0.1 Miscellaneous Phlebotomy Draw Site RIGHT BRACHIAL 08/10 08/10 08/09 0430 0015 1238 Chemistry Sodium (137 - 145 mmol/L) 139 Potassium (3.5 - 5.1 mmol/L) 4.4 Chloride (98 - 107 mmol/L) 100 Carbon Dioxide (22 - 30 mmol/L) 29 Anion Gap (5 - 16) 9 BUN (7 - 17 mg/dL) 13 Creatinine (0.5 - 1.0 mg/dL) 2.5 H Estimated GFR (>60 ml/min) 18 L Glucose (65 - 99 mg/dL) 101 H Calcium (8.4 - 10.2 mg/dL) 8.8 Phosphorus (2.5 - 4.5 mg/dL) 2.1 L Magnesium (1.6 - 2.3 mg/dL) 2.1 Total Bilirubin (0.2 - 1.3 mg/dL) 0.9 AST (14 - 36 U/L) 50 H ALT (9 - 52 U/L) 57 H Albumin (3.5 - 5.0 g/dL) 3.3 L Coagulation APTT (25 - 37 SEC) 54 H 61 H Hematology CBC w Diff NO MAN DIFF REQ WBC (4.8 - 10.8 /CUMM) 15.9 H RBC (4.20 - 5.40 /CUMM) 3.15 L Hgb (12.0 - 16.0 G/DL) 9.7 L Hct (37 - 47 %) 29.7 L MCV (81.0 - 99.0 FL) 94.2 MCH (27.0 - 31.0 PG) 30.9 MCHC (33.0 - 37.0 G/DL) 32.8 L RDW (11.5 - 14.5 %) 16.3 H Plt Count (130 - 400 /CUMM) 385 MPV (7.4 - 10.4 FL) 9.0 Gran % (42.2 - 75.2 %) 71.4 Lymphocytes % (20.5 - 51.1 %) 15.0 L Monocytes % (1.7 - 9.3 %) 8.8 Eosinophils % (0 - 5 %) 4.5 Basophils % (0.0 - 2.0 %) 0.3 Absolute Granulocytes (1.4 - 6.5 /CUMM) 11.4 H Absolute Lymphocytes (1.2 - 3.4 /CUMM) 2.4 Absolute Monocytes (0.10 - 0.60 /CUMM) 1.4 H Absolute Eosinophils (0.0 - 0.7 /CUMM) 0.7 Absolute Basophils (0.0 - 0.2 /CUMM) 0.1 Imaging/Other Studies: No new imaging
--- NOTE | 2017-08-12 12:26 | PN- Cardiology ---
Subjective Subjective: The patient is awake, alert The events of the last 24 hours as well as telemetry were reviewed. Review of Systems: The review of systems is negative for chest pains, palpitations nor lightheadedness. The remainder of the 14 point review of systems is noncontributory with the exception of above. Objective Vital Signs and I&Os Vital Signs Date Time Temp Pulse Resp B/P B/P Pulse O2 O2 Flow FiO2 Mean Ox Delivery Rate 08/12 0800 95 Nasal 4.0L Cannula 08/12 0641 98.2 72 22 154/66 91 Nasal 4.0L Cannula 08/11 2224 98.5 80 22 140/70 90 Nasal 4.0L Cannula 08/11 2200 Nasal 4.0L Cannula 08/11 2129 69 142/70 08/11 1600 94 Nasal 4.0L Cannula / 1600 98.4 73 21 138/50 94 Nasal 4.0L Cannula 08/11 1312 93 Nasal 3.0L Cannula Intake & Output 08/12 1600 08/12 0808/12 0000 / 1600 08/11 0800 08/11 0000 Intake Total 236.4 440 110 201.6 135.6 Output Total 0 Balance 236.4 440 110 201.6 135.6 Intake, IV 186.4 200 10 201.6 75.6 Intake, Oral 50 240 100 60 Number 1 Bowel Movements Output, Urine 0 Patient 99 lb 6 oz 103 lb Weight Weight Bed scale Bed scale Measurement Method Physical Exam: General: Nontoxic, no apparent distress. HEENT: Sclera and conjunctiva within normal limits, without xanthelasmas. Neck: Carotids 2+ without bruits. Respiratory: Clear to auscultation, air movement is good, without accessory respiratory muscle use. Heart: Regular rate and rhythm, without murmurs, without JVD. Abdomen: Soft, nontender, no masses, normoactive bowel sounds. Extremities: Without clubbing, cyanosis, without edema. Neuro: Nonfocal exam, strength, 5 out of 5 Skin: Within normal limits without lesions. Psych: Mood and affect: Normal Current Medications: Current Medications Sig/King Start time Last Medication Dose Route Stop Time Status Admin Amlodipine Besylate 10 MG DAILY 07/30 1000 AC 08/11 PO 1003 Aspirin 81 MG DAILY 07/30 1049 AC 08/11 PO 1003 Atorvastatin Calcium 80 MG 1700 07/30 1700 AC 08/11 PO 1639 Clopidogrel Bisulfate 75 MG DAILY 08/01 1000 AC 08/11 PO 1003 Epoetin Vamshi 2,000 UNIT TuThSa PRN 08/03 0700 AC IV Heparin Sodium 25,000 UNIT Q24H 08/07 1045 AC 08/10 (Porcine) IV 1037 Sodium Chloride 500 ML Lidocaine/Prilocaine 1 JENNIE TuThSa PRN 08/10 1900 AC TOP Melatonin 5 MG AT BEDTIME 08/07 2200 AC 08/11 PO 2130 Metoprolol Tartrate 25 MG BID 08/02 2200 AC 08/11 PO 2129 Sevelamer Carbonate 2,400 MG WM 08/07 1700 AC 08/11 PO 1639 Tramadol HCl 25 MG Q12P PRN 08/11 1341 AC PO Tramadol HCl 25 MG Q12 08/10 0930 DC 08/11 PO 1004 Vitamin A/Vitamin D 1 JENNIE BID 08/07 1000 AC 08/11 TOP 2130 Zinc Oxide 1 JENNIE BID PRN 08/07 0600 AC 08/07 TOP 0955 Results Last 48 Hrs of Labs/Mics: Laboratory Tests 08/12/17 0300: Anion Gap 12, Estimated GFR 10 L, BUN/Creatinine Ratio 5.3 L, APTT 67 H, CBC w Diff NO MAN DIFF REQ, RBC 3.08 L, MCV 94.1, MCH 30.9, MCHC 32.8 L, RDW 15.7 H, MPV 8.7, Gran % 75.0, Lymphocytes % 12.8 L, Monocytes % 6.4, Eosinophils % 5.2 H, Basophils % 0.6, Absolute Granulocytes 9.8 H, Absolute Lymphocytes 1.7, Absolute Monocytes 0.8 H, Absolute Eosinophils 0.7, Absolute Basophils 0.1, Vancomycin Trough 12.5 08/11/17 1628: APTT 95 H 08/11/17 0323: Anion Gap 7, Estimated GFR 18 L, Glucose 94, Calcium 8.5, Phosphorus 2.3 L, Magnesium 2.0, Total Bilirubin 0.9, AST 28, ALT 46, Albumin 3.0 L, APTT 85 H, CBC w Diff NO MAN DIFF REQ, RBC 2.88 L, MCV 94.5, MCH 30.9, MCHC 32.7 L, RDW 16.0 H, MPV 8.3, Gran % 70.0, Lymphocytes % 15.8 L, Monocytes % 8.5, Eosinophils % 5.1 H, Basophils % 0.6, Absolute Granulocytes 8.3 H, Absolute Lymphocytes 1.9, Absolute Monocytes 1.0 H, Absolute Eosinophils 0.6, Absolute Basophils 0.1 08/10/17 1700: APTT 89 H Assessment/Plan Assessment/Plan 1. Cardiopulmonary arrest with acute hypoxemic respiratory failure of unclear etiology 2. Chronic left bundle branch block 3. History of ischemic cardiomyopathy, EF now 50 % with mild to moderate anteroseptal hypokinesis 4. End-stage renal disease on hemodialysis 5. Coronary artery disease by history status post stent approximately 3 years ago 6. Hypertension by history 7. Aspiration PNA 8. Elevated troponin of unclear etiology s/p CPR 9. Frequent APCs 10. Positive blood cultures The patient is overall improved from a cardiac standpoint, and we will transition her IV heparin to warfarin at this time. Further treatment of her underlying cardiac issues will be undertaken as an outpatient. Continue telemetry? No
--- NOTE | 2017-08-12 13:02 | Transfer of Care Summary ---
Hospital Course Course Hospital Course: This is a 86 yo woman with PMH significant for ESRD on HD Tue/Thur/Sat, CAD s/p stent placement 3 years ago, HFpEF, HTN, HLD, NSTEMI, LBBB, and secondary hyperparathyroidism BIBA PEA s/p intubation, CPR and epi x1 with successful ROSC. Pt was not cooled on arrival. She was intubated but never required pressors. Subsequently, she had elevation in troponin with ekg changes and started on heparin drip. Subsequently successfully extubated. On day of transfer pt was on 5L O2 and hemodynamically stable without any pressors or positive pressure ventilation. Her mental status continues to be an issue as pt is unaware of her limitations and tries to ambulate without assistance with resulting falls. Will down grade to telemetry unit as pt no longer requires ICU level care. ----- PLAN: #Cardiopulmonary arrest with acute hypoxic respiratory failure of unclear etiology: She has PMH of coronary artery disease status post NSTEMI and 4 stents (2015 - 2 stents, 2016- 2 stents), symptomatic bradycardia s/p pacemaker placement, and HTN. Working theory for cardiac arrest is possible inectious precipitant leading to CT and PEA. OtherDdx: flash pulm edema, arrhythmia, septic shock. EF now 50 % with mild to moderate anteroseptal hypokinesis. She was having elevated troponin and new EKG changes in context of old LBBB. Trops peaked at 1.85 and subsequently trended down. Multiple PACs present in EKG. At that time pt was not candidate for cath given tenuous hemodynamic circumstance. Started her on heparin drip. Trops trended down. * Repeat blood cultures neg * Negative lower extremity Doppler for DVT * CAT w/o evidence of PE * Metoprolol 12.5mg bid--> increased to 25 bid given htn. * Started on Plavix with 300mg load now on 75 * Continue on aspirin * switched to atorvastatin 80 mg daily * Appreciate cardio consult * WILL NEED TO TRANSITION TO ORAL ANTICOAGULATION! #Paroxysmal atrial fibrillation:The patient was noted to be in paroxysmal atrial fibrillation on August 07 2017. Received IV Cardizem 10 mg 1 and was started on IV heparin per cardiology instructions. * She will need eventual transition to warfarin. #Pneumonia: Treating for PNA, Sputum cx came back positive for MRSA, her nares swab was positive for MRSA, given pt was initially intubated we treated for PNA.. Blood cultures 2 initially positive for micrococcus which was thought to be disseminated secondary to CPR. Additionally, there is concern for aspiration pneumonia in this patient. CARLOS negative for evidence of vegetations. * On vanco for concern of PNA. Initially treated w/ Unasyn for aspiration. MUST DOSE ANTIBIOTICS IN CONJUNCTION WITH DIALYSIS. Duration is for 14 days. Vanc trough on Saturday. Goal trough 15-20. * Con't monitor * Titrate abx per cx #Hypertension * Con't Amlodipine 10mg * Con't Metoprolol 25mg #Anion gap acidosis: RESOLVED. Initially thought to be secondary to lactic acidosis in the setting of decreased perfusion as well as underlying renal insufficiency. Now likely due to renal failure as lactate has normalized. #End stage renal today disease on hemodialysis: Saturday and Saturday * Appreciate nephro consult * HD tomorrow on Saturday. MUST DOSE ANTIBIOTICS WITH DIALYSIS #Alimentary * Maintain on Protonix * Pt on mechanical soft/ground and regular thin liquid renal dialysis diet. Consider repeat swallow eval to see if pt can advance to reg diet. * Q6 finger stick DVT prophylaxis: heparin drip CODE STATUS Full code Significant Procedures: TRANSESOPHAGEAL ECHO 08/05/2017 CONCLUSIONS Normal LV chamber size and wall thickness. The estimated LVEF is 45%. There is septal wall hypokinesis and dyssynchrony. A small PFO was seen through color flow analysis. Mildly thickened and calcified mitral valve leaflets with a calcified mitral valve annulus. No vegetations are seen. There is mild mitral regurgitation. There is mild aortic insufficiency. No valvular vegetations are seen. Assessment/Plan: See above
[2017-08-12 14:31] VITALS: BP 128/70
--- NOTE | 2017-08-12 16:21 | PN- Infect Dx ---
Subjective Subjective: Afebrile without complaints Objective Last 24 Hrs of Vital Signs/I&O Vital Signs Date Time Temp Pulse Resp B/P B/P Pulse O2 O2 Flow FiO2 Mean Ox Delivery Rate 08/12 1431 120/70 08/12 1431 120/70 08/12 1431 98.0 64 20 128/70 96 08/12 0800 95 Nasal 4.0L Cannula 08/12 0641 98.2 72 22 154/66 91 Nasal 4.0L Cannula 08/11 2224 98.5 80 22 140/70 90 Nasal 4.0L Cannula 08/11 2200 Nasal 4.0L Cannula 08/11 2129 69 142/70 Intake & Output 08/12 1600 08/12 0800 08/12 0000 Intake Total 800 236.4 440 Output Total 0 0 Balance 800 236.4 440 Intake, IV 200 186.4 200 Intake, Oral 600 50 240 Number 1 Bowel Movements Output, Urine 0 0 Patient 99 lb 6 oz Weight Weight Bed scale Measurement Method Physical Exam Other Physical Findings: She appears comfortable in no acute distress Lungs decreased breath sounds bilaterally Heart regular rhythm with no murmur Extremities no cyanosis, clubbing or edema Results Last 24 Hours of Lab Results: Laboratory Tests 08/12 08/12 08/12 1435 1435 0300 Chemistry Sodium (137 - 145 mmol/L) 138 Potassium (3.5 - 5.1 mmol/L) 4.5 Chloride (98 - 107 mmol/L) 96 L Carbon Dioxide (22 - 30 mmol/L) 30 Anion Gap (5 - 16) 12 BUN (7 - 17 mg/dL) 23 H Creatinine (0.5 - 1.0 mg/dL) 4.3 H Estimated GFR (>60 ml/min) 10 L BUN/Creatinine Ratio (7 - 25 %) 5.3 L Coagulation PT Pending INR Pending APTT (25 - 37 SEC) Pending 67 H Hematology CBC w Diff NO MAN DIFF REQ WBC (4.8 - 10.8 /CUMM) 13.1 H RBC (4.20 - 5.40 /CUMM) 3.08 L Hgb (12.0 - 16.0 G/DL) 9.5 L Hct (37 - 47 %) 29.0 L MCV (81.0 - 99.0 FL) 94.1 MCH (27.0 - 31.0 PG) 30.9 MCHC (33.0 - 37.0 G/DL) 32.8 L RDW (11.5 - 14.5 %) 15.7 H Plt Count (130 - 400 /CUMM) 301 MPV (7.4 - 10.4 FL) 8.7 Gran % (42.2 - 75.2 %) 75.0 Lymphocytes % (20.5 - 51.1 %) 12.8 L Monocytes % (1.7 - 9.3 %) 6.4 Eosinophils % (0 - 5 %) 5.2 H Basophils % (0.0 - 2.0 %) 0.6 Absolute Granulocytes (1.4 - 6.5 /CUMM) 9.8 H Absolute Lymphocytes (1.2 - 3.4 /CUMM) 1.7 Absolute Monocytes (0.10 - 0.60 /CUMM) 0.8 H Absolute Eosinophils (0.0 - 0.7 /CUMM) 0.7 Absolute Basophils (0.0 - 0.2 /CUMM) 0.1 Toxicology Vancomycin Trough (10.0 - 20.0 ug/mL) 12.5 03/04 1628 Coagulation APTT (25 - 37 SEC) 95 H Last 24 Hours of Lex Results: No recent cultures Assessment/Plan ID Impression: Stable, with overall improvement in her respiratory status and with her temperatures remaining normal, on Vancomycin now Day 11 of treatment for possible MRSA pneumonia, with her sputum culture positive for MRSA, though her chest x-ray never revealed any evidence of consolidation. Her white blood cell count remains mildly elevated, of unclear significance, and can be followed. The positive blood cultures for Micrococci presumably represent contamination and should not require treatment. Suggestion: 1. Discontinue Vancomycin and follow off antibiotics
[2017-08-12 16:52] LABS: PTT 79 SEC (25-37)
[2017-08-12 22:11] VITALS: BP 124/64
[2017-08-13 04:11] LABS: ABSOLUTE BASOPHIL COUNT 0.1 /CUMM (0.0-0.2); ABSOLUTE EOSINOPHIL COUNT 0.4 /CUMM (0.0-0.7); ABSOLUTE GRANULOCYTE CT 9.2 /CUMM (1.4-6.5); ABSOLUTE LYMPH COUNT 1.6 /CUMM (1.2-3.4); ABSOLUTE MONOCYTE COUNT 0.8 /CUMM (0.10-0.60); BASOPHIL % 0.8 % (0.0-2.0); EOSINOPHIL % 3.7 % (0-5); GRANULOCYTE % 75.7 % (42.2-75.2); HEMATOCRIT 29.4 % (37-47); MEAN CORPUSCULAR HGB 30.9 PG (27.0-31.0); MEAN CORPUSCULAR HGB CONC 32.8 G/DL (33.0-37.0); MEAN CORPUSCULAR VOLUME 94.1 FL (81.0-99.0); MEAN PLATELET VOLUME 8.3 FL (7.4-10.4); PLATELET COUNT 308 /CUMM (130-400); RBC DISTRIBUTION WIDTH 15.8 % (11.5-14.5); RED BLOOD CELL CT 3.12 /CUMM (4.20-5.40); WHITE BLOOD CELL COUNT 12.1 /CUMM (4.8-10.8)
[2017-08-13 04:15] LABS: PT 12.1 SEC (9.4-12.5)
[2017-08-13 04:18] LABS: PTT 85 SEC (25-37)
[2017-08-13 07:01] VITALS: BP 138/70
--- NOTE | 2017-08-13 07:14 | PN- Housestaff ---
Frances PARKINSON,Miguelina 08/13/17 0714: Subjective Follow-up For: S/PEA and ROSC Extubated Hypertension ESRD on HD Tele-Events Since Last Visit: Sinus bradycardia 5464, QRS 0.1, SD 0.28 Subjective: Patient is seen and examined at bedside, denies any complaints, no overnight events Review of Systems Constitutional: Denies: no symptoms. Cardiovascular: Denies: no symptoms. Respiratory: Denies: no symptoms. Gastrointestinal: Denies: no symptoms. Genitourinary: Denies: no symptoms. Musculoskeletal: Denies: no symptoms. Objective Last 24 Hrs of Vital Signs/I&O Vital Signs Date Time Temp Pulse Resp B/P B/P Pulse O2 O2 Flow FiO2 Mean Ox Delivery Rate 08/13 0701 98.1 68 20 138/70 94 Nasal Cannula 08/13 0000 Nasal 3.0L Cannula 08/12 2211 98.4 74 20 124/64 94 Nasal 3.0L Cannula 08/12 2041 74 124/64 03 1600 Nasal 3.0L Cannula 08/12 1431 120/70 03/05 1431 120/70 03/05 1431 98.0 64 20 128/70 96 Intake & Output 08/13 1600 03/06 0800 03/06 0000 Intake Total 320 666.4 Output Total 0 Balance 320 666.4 Intake, IV 200 186.4 Intake, Oral 120 480 Number 2 Bowel Movements Output, Urine 0 Patient 97 lb 3 oz Weight Weight Bed scale Measurement Method Physical Exam General Appearance: Alert, Oriented X3, Cooperative, No Acute Distress HEENT: Atraumatic, PERRLA, EOMI, Mucous Membr. moist/pink Cardiovascular: Normal S1, Normal S2, No Murmurs Lungs: Clear to Auscultation Abdomen: Normal Bowel Sounds, Soft, No Tenderness Extremities: multiple bruises, abrasions on the knee Vascular: Normal Pulses Assessment/Plan Assessment: 86 yo female with PMH of ESRD on HD e//Sat, CAD s/p stent placement 3 years ago, HFpEF, HTN, HLD, NSTEMI, LBBB, and secondary hyperparathyroidism BIBA PEA s/p intubation, CPR and epi x1 with successful ROSC. Pt was not cooled on arrival. She was intubated but never required pressors. She had elevation in troponin and was started on heparin drip. Subsequently extubated successfully and heparin drip d/c. Pt on 4 L o2 today and hemodynamically stable, receiving hemodialysis this morning ----- PLAN: 1.Cardiopulmonary arrest with acute hypoxic respiratory failure of unclear etiology: She has PMH of coronary artery disease status post NSTEMI and 4 stents (2015 - 2 stents, 2016- 2 stents), symptomatic bradycardia s/p pacemaker placement, and HTN. Differential diagnosis of the cause of her cardiac arrest includes TN and PEA. OtherDdx: flash pulm edema, arrhythmia, septic shock. EF now 50 % with mild to moderate anteroseptal hypokinesis. * Repeat blood cultures neg * Negative lower extremity Doppler for DVT * CAT w/o evidence of PE * Continue p.o. warfarin 5 mg today to be dosed according to PT/INR (INR today is 1.1 on day 2 of warfarin therapy) * PT/INR daily * Continue metoprolol 25 bid given htn. * Continue Plavix with 300mg * Continue on aspirin * Continue atorvastatin 80 mg daily * Appreciate cardio recommendation 2. Pneumonia: Treating for PNA, Sputum cx came back positive for MRSA, her nares swab was positive for MRSA, given pt was initially intubated we treated for PNA.. Blood cultures 2 initially positive for micrococcus which was thought to be disseminated secondary to CPR. Additionally, there is concern for aspiration pneumonia in this patient. CARLOS negative for evidence of vegetations. * Con't monitor off antibiotics 3. Hypertension Controlled * Con't Amlodipine 10mg * Con't Metoprolol 25mg 4. Anion gap acidosis: RESOLVED. Initially thought to be secondary to lactic acidosis in the setting of decreased perfusion as well as underlying renal insufficiency. Now likely due to renal failure as lactate has normalized. 6. End stage renal today disease on hemodialysis: Saturday and Saturday * Appreciate nephro consult * HD tomorrow 7. Alimentary * Maintain on Protonix * Q6 finger stick DVT prophylaxis: heparin drip CODE STATUS Full code renal dialysis diet Problem List: 1. Atrial fibrillation with rapid ventricular response 2. Cardiac arrest 3. ESRD (end stage renal disease) Pain Ratin Pain Location: N/A Pain Goal: Remain pain free Pain Plan: pathway Tomorrow's Labs & Rationales: cbc bep PT/INR DVT/Prophylaxis: mechanical, pharmacological Donavon Ontiveros 08/13/17 1329: Attending MD Review Statement Attending Statement Attending MD Statement: examined this patient, discuss w/resident/PA/SCIENTIFIC PROGRAMMER, agreed w/resident/PA/SCIENTIFIC PROGRAMMER, reviewed EMR data (avail), discussed with nursing, discussed with case mgmt Attending Assessment/Plan: d/w pt about discharge planning. She underwent HD today . Pt prefers to go to [facility]. d/w Gene high risk case manager her preference. d/w pt the care plan.
--- NOTE | 2017-08-13 10:25 | PN- Nephrology ---
Assessment/Plan Nephrology Assessment: ESRD - Routine HD today. Tentative plans to continue on TTS schedule as volume status much better. Anemia - On Epogen. Cardiac arrest - Underlying cause remains unclear. Cards following - no LHC. Aspiration PNA - Now off abx. ID following. Suggestion: -HD today - 2-3L UF as tolerated -EDW will need to be downtitrated on discharge Please call [phone] with ?'s Subjective Subjective: Pt seen and examined on dialysis Feeling well - says she needs to try and walk Breathing OK - continues on nasal cannula Objective Vital Signs and I&Os Vital Signs Date Time Temp Pulse Resp B/P B/P Pulse O2 O2 Flow FiO2 Mean Ox Delivery Rate 08/13 0701 98.1 68 20 138/70 94 Nasal Cannula 08/13 0000 Nasal 3.0L Cannula 08/12 2211 98.4 74 20 124/64 94 Nasal 3.0L Cannula 08/12 2041 74 124/64 08/12 1600 Nasal 3.0L Cannula 08/12 1431 120/70 08/12 1431 120/70 08/12 1431 98.0 64 20 128/70 96 Intake & Output 08/13 1600 /06 0400 08/12 1600 08/12 0400 08/11 1600 03/ 0400 Intake Total 320 666.4 1036.4 440 311.6 135.6 Output Total 0 0 Balance 320 666.4 1036.4 440 311.6 135.6 Intake, IV 200 186.4 386.4 200 211.6 75.6 Intake, Oral 120 480 650 240 100 60 Number 2 1 Bowel Movements Output, Urine 0 0 Patient 97 lb 3 oz 99 lb 6 oz 103 lb Weight Weight Bed scale Bed scale Bed scale Measurement Method Physical Exam: Gen - OK appearing HEENT - supple CV - RRR, no m/r/g Chest - clear anteriorly Abd - soft, NTND Ext - no edema, MARY AVF +thrill/+bruit Neuro - alert, oriented Current Medications: Current Medications Sig/King Start time Last Medication Dose Route Stop Time Status Admin Amlodipine Besylate 10 MG DAILY 07/30 1000 AC 03/05 PO 1431 Aspirin 81 MG DAILY 07/30 1049 AC 03/05 PO 1430 Atorvastatin Calcium 80 MG 1700 07/30 1700 AC 03/05 PO 1619 Clopidogrel Bisulfate 75 MG DAILY 08/01 1000 AC 08/12 PO 1431 Epoetin Vamshi 2,000 UNIT TuThSa PRN 08/03 0700 AC IV Heparin Sodium 25,000 UNIT Q24H 08/07 1045 DC 08/12 (Porcine) IV 2040 Sodium Chloride 500 ML Lidocaine/Prilocaine 1 JENNIE TuThSa PRN 08/10 1900 AC TOP Melatonin 5 MG AT BEDTIME 08/07 2200 AC 08/12 PO 2040 Metoprolol Tartrate 25 MG BID 08/02 2200 AC 08/12 PO 204 Polyethylene Glycol 17 GM DAILY 08/13 1000 AC PO Sevelamer Carbonate 2,400 MG WM 08/07 1700 AC 08/12 PO 1709 Tramadol HCl 25 MG Q12P PRN 08/11 1341 AC 08/12 PO 1620 Vitamin A/Vitamin D 1 JENNIE BID 08/07 1000 AC 08/12 TOP 2040 Warfarin Sodium 5 MG COUMADIN 1700 ONE 08/13 1700 AC PO 08/13 1701 Warfarin Sodium 5 MG COUMADIN 1700 ONE 08/12 1700 DC 08/12 PO 08/12 1701 1619 Zinc Oxide 1 JENNIE BID PRN 08/07 0600 AC 08/07 TOP 0955 Results Pertinent Lab Results: Laboratory Tests 08/13 08/13 08/12 08/12 0315 0315 1435 1435 Chemistry Sodium (137 - 145 mmol/L) 139 Potassium (3.5 - 5.1 mmol/L) 4.5 Chloride (98 - 107 mmol/L) 100 Carbon Dioxide (22 - 30 mmol/L) 28 Anion Gap (5 - 16) 11 BUN (7 - 17 mg/dL) 19 H Creatinine (0.5 - 1.0 mg/dL) 3.0 H Estimated GFR (>60 ml/min) 15 L BUN/Creatinine Ratio (7 - 25 %) 6.3 L Calcium (8.4 - 10.2 mg/dL) 9.3 Phosphorus (2.5 - 4.5 mg/dL) 3.2 Magnesium (1.6 - 2.3 mg/dL) 2.1 Albumin (3.5 - 5.0 g/dL) 3.2 L Coagulation PT (9.4 - 12.5 SEC) 12.1 12.0 INR (0.90 - 1.19) 1.11 1.10 APTT (25 - 37 SEC) 85 H 79 H Hematology CBC w Diff NO MAN DIFF REQ WBC (4.8 - 10.8 /CUMM) 12.1 H RBC (4.20 - 5.40 /CUMM) 3.12 L Hgb (12.0 - 16.0 G/DL) 9.6 L Hct (37 - 47 %) 29.4 L MCV (81.0 - 99.0 FL) 94.1 MCH (27.0 - 31.0 PG) 30.9 MCHC (33.0 - 37.0 G/DL) 32.8 L RDW (11.5 - 14.5 %) 15.8 H Plt Count (130 - 400 /CUMM) 308 MPV (7.4 - 10.4 FL) 8.3 Gran % (42.2 - 75.2 %) 75.7 H Lymphocytes % (20.5 - 51.1 %) 13.0 L Monocytes % (1.7 - 9.3 %) 6.8 Eosinophils % (0 - 5 %) 3.7 Basophils % (0.0 - 2.0 %) 0.8 Absolute Granulocytes (1.4 - 6.5 /CUMM) 9.2 H Absolute Lymphocytes (1.2 - 3.4 /CUMM) 1.6 Absolute Monocytes (0.10 - 0.60 /CUMM) 0.8 H Absolute Eosinophils (0.0 - 0.7 /CUMM) 0.4 Absolute Basophils (0.0 - 0.2 /CUMM) 0.1 03/ 03/04 0300 1628 Chemistry Sodium (137 - 145 mmol/L) 138 Potassium (3.5 - 5.1 mmol/L) 4.5 Chloride (98 - 107 mmol/L) 96 L Carbon Dioxide (22 - 30 mmol/L) 30 Anion Gap (5 - 16) 12 BUN (7 - 17 mg/dL) 23 H Creatinine (0.5 - 1.0 mg/dL) 4.3 H Estimated GFR (>60 ml/min) 10 L BUN/Creatinine Ratio (7 - 25 %) 5.3 L Coagulation APTT (25 - 37 SEC) 67 H 95 H Hematology CBC w Diff NO MAN DIFF REQ WBC (4.8 - 10.8 /CUMM) 13.1 H RBC (4.20 - 5.40 /CUMM) 3.08 L Hgb (12.0 - 16.0 G/DL) 9.5 L Hct (37 - 47 %) 29.0 L MCV (81.0 - 99.0 FL) 94.1 MCH (27.0 - 31.0 PG) 30.9 MCHC (33.0 - 37.0 G/DL) 32.8 L RDW (11.5 - 14.5 %) 15.7 H Plt Count (130 - 400 /CUMM) 301 MPV (7.4 - 10.4 FL) 8.7 Gran % (42.2 - 75.2 %) 75.0 Lymphocytes % (20.5 - 51.1 %) 12.8 L Monocytes % (1.7 - 9.3 %) 6.4 Eosinophils % (0 - 5 %) 5.2 H Basophils % (0.0 - 2.0 %) 0.6 Absolute Granulocytes (1.4 - 6.5 /CUMM) 9.8 H Absolute Lymphocytes (1.2 - 3.4 /CUMM) 1.7 Absolute Monocytes (0.10 - 0.60 /CUMM) 0.8 H Absolute Eosinophils (0.0 - 0.7 /CUMM) 0.7 Absolute Basophils (0.0 - 0.2 /CUMM) 0.1 Toxicology Vancomycin Trough (10.0 - 20.0 ug/mL) 12.5 03/ 03/03 0323 1700 Chemistry Sodium (137 - 145 mmol/L) 136 L Potassium (3.5 - 5.1 mmol/L) 4.1 Chloride (98 - 107 mmol/L) 98 Carbon Dioxide (22 - 30 mmol/L) 31 H Anion Gap (5 - 16) 7 BUN (7 - 17 mg/dL) 13 Creatinine (0.5 - 1.0 mg/dL) 2.5 H Estimated GFR (>60 ml/min) 18 L Glucose (65 - 99 mg/dL) 94 Calcium (8.4 - 10.2 mg/dL) 8.5 Phosphorus (2.5 - 4.5 mg/dL) 2.3 L Magnesium (1.6 - 2.3 mg/dL) 2.0 Total Bilirubin (0.2 - 1.3 mg/dL) 0.9 AST (14 - 36 U/L) 28 ALT (9 - 52 U/L) 46 Albumin (3.5 - 5.0 g/dL) 3.0 L Coagulation APTT (25 - 37 SEC) 85 H 89 H Hematology CBC w Diff NO MAN DIFF REQ WBC (4.8 - 10.8 /CUMM) 11.9 H RBC (4.20 - 5.40 /CUMM) 2.88 L Hgb (12.0 - 16.0 G/DL) 8.9 L Hct (37 - 47 %) 27.2 L MCV (81.0 - 99.0 FL) 94.5 MCH (27.0 - 31.0 PG) 30.9 MCHC (33.0 - 37.0 G/DL) 32.7 L RDW (11.5 - 14.5 %) 16.0 H Plt Count (130 - 400 /CUMM) 316 MPV (7.4 - 10.4 FL) 8.3 Gran % (42.2 - 75.2 %) 70.0 Lymphocytes % (20.5 - 51.1 %) 15.8 L Monocytes % (1.7 - 9.3 %) 8.5 Eosinophils % (0 - 5 %) 5.1 H Basophils % (0.0 - 2.0 %) 0.6 Absolute Granulocytes (1.4 - 6.5 /CUMM) 8.3 H Absolute Lymphocytes (1.2 - 3.4 /CUMM) 1.9 Absolute Monocytes (0.10 - 0.60 /CUMM) 1.0 H Absolute Eosinophils (0.0 - 0.7 /CUMM) 0.6 Absolute Basophils (0.0 - 0.2 /CUMM) 0.1 Imaging/Other Studies: No new imaging
--- NOTE | 2017-08-13 10:45 | PN- Cardiology ---
Subjective Subjective: The patient is awake, alert The events of the last 24 hours as well as telemetry were reviewed. Review of Systems: The review of systems is negative for chest pains, palpitations nor lightheadedness. The remainder of the 14 point review of systems is noncontributory with the exception of above. Objective Vital Signs and I&Os Vital Signs Date Time Temp Pulse Resp B/P B/P Pulse O2 O2 Flow FiO2 Mean Ox Delivery Rate 08/13 0701 98.1 68 20 138/70 94 Nasal Cannula 08/13 0000 Nasal 3.0L Cannula 08/12 2211 98.4 74 20 124/64 94 Nasal 3.0L Cannula / 2041 74 124/64 03/05 1600 Nasal 3.0L Cannula 08/12 1431 120/70 03/ 1431 120/70 03/ 1431 98.0 64 20 128/70 96 Intake & Output 08/13 1600 / 0800 03/06 0000 03/05 1600 / 0800 03/ 0000 Intake Total 320 666.4 800 236.4 440 Output Total 0 0 0 Balance 320 666.4 800 236.4 440 Intake, IV 200 186.4 200 186.4 200 Intake, Oral 120 480 600 50 240 Number 2 1 Bowel Movements Output, Urine 0 0 0 Patient 97 lb 3 oz 99 lb 6 oz Weight Weight Bed scale Bed scale Measurement Method Physical Exam: General: Nontoxic, no apparent distress. HEENT: Sclera and conjunctiva within normal limits, without xanthelasmas. Neck: Carotids 2+ without bruits. Respiratory: Clear to auscultation, air movement is good, without accessory respiratory muscle use. Heart: Regular rate and rhythm, without murmurs, without JVD. Abdomen: Soft, nontender, no masses, normoactive bowel sounds. Extremities: Without clubbing, cyanosis, without edema. Neuro: Nonfocal exam, strength, 5 out of 5 Skin: Within normal limits without lesions. Psych: Mood and affect: Normal Current Medications: Current Medications Sig/King Start time Last Medication Dose Route Stop Time Status Admin Amlodipine Besylate 10 MG DAILY 07/30 1000 AC 03/05 PO 1431 Aspirin 81 MG DAILY 07/30 1049 AC 03/ PO 1430 Atorvastatin Calcium 80 MG 1700 07/30 1700 AC 03/05 PO 1619 Clopidogrel Bisulfate 75 MG DAILY 08/01 1000 AC 08/12 PO 1431 Epoetin Vamshi 2,000 UNIT TuThSa PRN 08/03 0700 AC IV Heparin Sodium 25,000 UNIT Q24H 08/07 1045 DC 08/12 (Porcine) IV 2040 Sodium Chloride 500 ML Lidocaine/Prilocaine 1 JENNIE TuThSa PRN 08/10 1900 AC TOP Melatonin 5 MG AT BEDTIME 08/07 2200 AC 08/12 PO 2040 Metoprolol Tartrate 25 MG BID 08/02 2200 AC 08/12 PO 204 Polyethylene Glycol 17 GM DAILY 08/13 1000 AC PO Sevelamer Carbonate 2,400 MG WM 08/07 1700 AC 08/12 PO 1709 Tramadol HCl 25 MG Q12P PRN 08/11 1341 AC 08/12 PO 1620 Vitamin A/Vitamin D 1 JENNIE BID 08/07 1000 AC 08/12 TOP 2040 Warfarin Sodium 5 MG COUMADIN 1700 ONE 08/13 1700 AC PO 08/13 1701 Warfarin Sodium 5 MG COUMADIN 1700 ONE 08/12 1700 DC 08/12 PO 08/12 1701 1619 Zinc Oxide 1 JENNIE BID PRN 08/07 0600 AC 08/07 TOP 0955 Results Last 48 Hrs of Labs/Mics: Laboratory Tests 08/13/17314: PT 12.1, INR 1.11 08/13/17314: Anion Gap 11, Estimated GFR 15 L, BUN/Creatinine Ratio 6.3 L, Calcium 9.3, Phosphorus 3.2, Magnesium 2.1, Albumin 3.2 L, APTT 85 H, CBC w Diff NO MAN DIFF REQ, RBC 3.12 L, MCV 94.1, MCH 30.9, MCHC 32.8 L, RDW 15.8 H, MPV 8.3, Gran % 75.7 H, Lymphocytes % 13.0 L, Monocytes % 6.8, Eosinophils % 3.7, Basophils % 0.8, Absolute Granulocytes 9.2 H, Absolute Lymphocytes 1.6, Absolute Monocytes 0.8 H, Absolute Eosinophils 0.4, Absolute Basophils 0.1 08/12/17 1435: PT 12.0, INR 1.10 08/12/17 1435: APTT 79 H 08/12/17 0300: Anion Gap 12, Estimated GFR 10 L, BUN/Creatinine Ratio 5.3 L, APTT 67 H, CBC w Diff NO MAN DIFF REQ, RBC 3.08 L, MCV 94.1, MCH 30.9, MCHC 32.8 L, RDW 15.7 H, MPV 8.7, Gran % 75.0, Lymphocytes % 12.8 L, Monocytes % 6.4, Eosinophils % 5.2 H, Basophils % 0.6, Absolute Granulocytes 9.8 H, Absolute Lymphocytes 1.7, Absolute Monocytes 0.8 H, Absolute Eosinophils 0.7, Absolute Basophils 0.1, Vancomycin Trough 12.5 08/11/17 1628: APTT 95 H Assessment/Plan Assessment/Plan 1. Cardiopulmonary arrest with acute hypoxemic respiratory failure of unclear etiology 2. Chronic left bundle branch block 3. History of ischemic cardiomyopathy, EF now 50 % with mild to moderate anteroseptal hypokinesis 4. End-stage renal disease on hemodialysis 5. Coronary artery disease by history status post stent approximately 3 years ago 6. Hypertension by history 7. Aspiration PNA 8. Elevated troponin of unclear etiology s/p CPR 9. Frequent APCs 10. Positive blood cultures The patient is overall improved from a cardiac standpoint, and we will anticoagulation with warfarin. Continue treatment as per ID and nephrology. Further cardiac treatments may be performed as an outpatient. Continue telemetry? No
[2017-08-13 14:00] VITALS: BP 136/50
--- NOTE | 2017-08-13 15:26 | Discharge Summary ---
Visit Information Visit Dates Admission Date: 07/30/17 Discharge Date: 08/16/2017 Hospital Course Course Attending Physician: Weston PARKINSON,Donavon Peace Primary Care Physician: Colton Rick MD Hospital Course: This is a 86 year old woman with PMH significant for ESRD on HD e//Sat, CAD s/p stent placement 3 years ago, HFpEF, HTN, HLD, NSTEMI, LBBB, and secondary hyperparathyroidism, BIBA PEA s/p intubation, CPR and epi x1 with successful ROSC. Cardiac arrest with acute hypoxic respiratory failure, unclear etiology leading to Aspiration Pneumonia - Patient was admitted to ICU, remained intubated and kept on ventilator. Slowly patient was weaned and extubated (2017 - Jul).Post extubation period was uneventful and she was transfered to [facility] on 08/12/2017. Post CPR/Demand ischemia - Patient was having elevated troponin(0.04, 0.12, peak 1.85) with new EKG changes , IV heparin was started and cardiology consult was obtained. Advised for echocardiogram and continued on home medication including metoprolol. D-dimer was elevated to 621, follow-up CTA was negative for PE.Echocardiogram does show LVEF 50% with mild to moderate anteroseptal hypokinesis, mild left atrial dilatation. We continued ASA/statin/Heparin and loaded Plavix 300 mg x 1 followed by 75 mg daily and increased B-eugenio to 12.5 mg PO BID. Troponin trended down.During her course she had episode of PAF.She continued on heparin drip and switched to oral coumadin on 08/12/2017. It was advised that depend on the clinical course and neurological function, patient can be a candidate for cardiac catheterization versus noninvasive ischemic testing in future. Bacteremia -Micrococcus Blood cultures showed gram positive bacteria, and surveillance culture from upper and lower respiratory tract did grew MRSA. A transesophageal echocardiogram performed on August 05 demonstrated no evidence of vegetations, mild MR, LVEF 50%, with septal dyssynchrony and mild septal hypokinesis only. patient was initially started on IV Unasyn to treat aspiration pneumonia but later converted to vancomycin as he was going gram-positive bacteria. We adjusted the dose of vancomycin according to the vancomycin trough level. She responded well, blood culture grew Micrococcus. We stopped antibiotics. She had Episodes of diarrhea -Stool for C diff was negative. Episodes of paroxysmal atrial fibrillation(07/30/2017) - converted to NSR - Small PFO - We obtained cardiology consult and advised to start patient on IV heparin drip initiall. Later switched to aspirin, Plavix and Coumadin.She had an episode of bloody bowel movement later on, so we stopped Plavix and Coumadin and continued aspirin as an outpatient. Stool with blood, stable hemodynamically, need outpatient colonoscopy - At time of presentation she was Guiac negative.She had two episode of blood in the stool (08/15/2017), we did regular CBC monitoring and obtained GI consult. Patient refused colonoscopy. As her hemoglobin remained stable, we decided and advised her to have colonoscopy as an outpatient. At timeof discharge her Hb was 9.5. End-stage renal disease on hemodialysis - She had regular dialysis as advised by occupational therapy assistant. At the time of discharge target was outpatient EDW of 44.0kg (street clothes) and to continue Epogen. Allergies: Coded Allergies: No Known Allergies (05/16/17) Disposition Summary Disposition Principal Diagnosis: Cardiac arrest with acute hypoxic respiratory failure, unclear etiology leading to Aspiration Pneumonia Post CPR/Demand ischemia leading to Elevation in troponin Bacteremia -Micrococcus Episodes of paroxysmal atrial fibrillation(07/30/2017) - converted to NSR - Small PFO Stool with blood, stable hemodynamically, need outpatient colonoscopy Additional Diagnosis: coronary artery disease status post NSTEMI and 4 stents (2015 - 2 stents, 2016- 2 stents), symptomatic bradycardia s/p pacemaker placement, Hypertension Chronic left bundle branch block History of ischemic cardiomyopathy with an EF of 55% End-stage renal disease on hemodialysis Discharge Disposition: SNF Discharge Instructions General Discharge Information Code Status: Full Code Patient's Diet: Renal dialysis diet Patient's Activity: As tolerated Follow-Up Instructions/Appts: Please follow-up with your PCP within a week of discharge Please follow-up with the motel food service supervisor for further evaluation and management of your blood thinner Please take the medication as advised Please watch for the bleeding Please follow-up with your, peanut blancher for further evaluation of GI bleed and possibly colonoscopy. Medications at Discharge Discharge Medications: Continue taking these medications: Aspirin (Ecotrin*) 81 MG TABLET.DR 1 Tablet ORAL DAILY Comments: Last Taken: 05/20/17 Time: 0930AM Amlodipine Besylate (Amlodipine Besylate) 10 MG TABLET 1 Tablet ORAL DAILY Qty = 30 Comments: Last Taken: 05/20/17 Time: 0930AM Sevelamer Carbonate (Renvela) 800 MG TABLET 3 Tablet ORAL THREE TIMES DAILY Qty = 180 Comments: Last Taken:05/20/17 Time: 0800AM Rosuvastatin Calcium (Crestor) 10 MG TABLET 1 Tablet ORAL DAILY Qty = 90 Comments: Last Taken: 05/19/17 Time: 1600PM Folic Acid/Vit Bcomp,C (Radha-Cuong Tablet) (Unknown Strength) TABLET 1 Tablet ORAL DAILY Comments: NOT GIVEN Hydralazine HCl (Hydralazine HCl) 25 MG TABLET 2 Tablet ORAL TWICE DAILY Qty = 60 Comments: Last Taken: 05/20/17 Time: 0930AM Metoprolol Tartrate (Metoprolol Tartrate) 25 MG TABLET 6.25 Milligram ORAL TWICE DAILY Days = 30 Start taking the following new medications: Warfarin Sodium (Coumadin) 5 MG TABLET 5 Milligram ORAL COUMADIN AT 5PM Qty = 30 No Refills Epoetin Vamshi (Procrit) 2,000 UNIT/ML VIAL 2,000 Unit INTRAVEN TuThSa as needed for WITH HEMODIALYSYS Qty = 30 No Refills Polyethylene Glycol 3350 (Miralax) 17 GRAM/DOSE POWDER 17 Gram ORAL DAILY as needed for CONSTIPATION Qty = 3 No Refills Lidocaine/Prilocaine (Lidocaine-Prilocaine Cream) 2.5 %-2.5 % CREAM..G. 1 Application On the skin TuThSa as needed for HD Qty = 30 No Refills Copies To: Merline PARKINSON,Colton Mckay MD Review Statement Documenting Attending: Weston PARKINSON,Donavon Peace
[2017-08-13] MEDS ORDERED: PROCRIT2000 UNIT/ IV (16:09)
[2017-08-13] MEDS ORDERED: MIRALAX119 GM PO (16:09)
[2017-08-13] MEDS ORDERED: LIDOCAINE-PRILO30 GM TOP (16:09)
[2017-08-13] MEDS ORDERED: COUMADIN5 M2 PO (16:09)
[2017-08-13] MEDS ORDERED: PLAVIX75 M1 PO (16:09)
--- NOTE | 2017-08-13 16:27 | Patient Discharge Instructions ---
Discharge Instructions General Discharge Information You were seen/treated for: -Cardiopulmonary arrest with acute hypoxic respiratory failure -Pneumonia -End stage renal disease on hemodialysis -Hypertension Special Instructions: 1please follow-up with your primary care doctor in 1 week of discharge 2please follow-up with your ancillary services manager in 1 week of discharge 3please follow-up with your hand tube bender in 1 week of discharge 4please discuss with hand tube bender if you need coumadin. 5- Please use Xeroform to both wounds with daily cleansing. Barrier cream can be used for protection over her buttocks with offloading. 6-please follow-up with gastroentologist for further evaluation of Gi bleed. 7-please check CBC in 3 days of discharge Diet Continue normal diet: No Recommended Diet: Renal Dialysis Activity Full Activity/No Limits: Yes Acute Coronary Syndrome Inclusion Criteria At DC or during hospital stay patient has or had the following: ACS DIAGNOSIS No Discharge Core Measures Meds if any: Prescribed or Continued at Discharge Meds if any: NOT Prescribed or Continued at Discharge Congestive Heart Failure Inclusion Criteria At DC or during hospital stay patient has or had the following: CHF DIAGNOSIS No Discharge Core Measures Meds if any: Prescribed or Continued at Discharge Meds if any: NOT Prescribed or Continued at Discharge Cerebrovascular accident Inclusion Criteria At DC or during hospital stay patient has or had the following: CVA/TIA Diagnosis No Discharge Core Measures Meds if any: Prescribed or Continued at Discharge Meds if any: NOT Prescribed or Continued at Discharge Venous thromboembolism Inclusion Criteria VTE Diagnosis No VTE Type NONE VTE Confirmed by (Test) NONE Discharge Core Measures - Per Current guidelines, there needs to be overlap - treatment for the first 5 days of Warfarin therapy. - If discharged on Warfarin prior to 5 days of - overlap therapy, the patient will need to be - assessed for post discharge needs including - *Post discharge parental anticoagulation - *Warfarin and/or parental anticoagulation education - *Follow up date to check INR post discharge At least 5 days overlap therapy as Inpatient No Meds if any: Prescribed or Continued at Discharge Note: Overlap Therapy is Warfarin and Anticoagulant Meds if any: NOT Prescribed or Continued at Discharge
[2017-08-13 22:16] VITALS: BP 138/60
[2017-08-14 07:18] VITALS: BP 148/64
[2017-08-14 08:16] LABS: PT 12.4 SEC (9.4-12.5)
--- NOTE | 2017-08-14 09:55 | PN- Housestaff ---
Frances PARKINSON,Miguelina 08/14/17 0955: Subjective Follow-up For: S/PEA and ROSC Extubated Hypertension ESRD on HD Complaints: no complaints Tele-Events Since Last Visit: Sinus bradycardia 5464, QRS 0.1, AR 0.27 Subjective: Patient was seen and examined at bedside, denies any complaints, no acute overnight events Review of Systems Constitutional: Reports: see HPI. Cardiovascular: Denies: no symptoms. Respiratory: Denies: no symptoms. Gastrointestinal: Denies: no symptoms. Genitourinary: Denies: no symptoms. Musculoskeletal: Denies: no symptoms. Objective Last 24 Hrs of Vital Signs/I&O Vital Signs Date Time Temp Pulse Resp B/P B/P Pulse O2 O2 Flow FiO2 Mean Ox Delivery Rate 08/14 1400 98.0 78 20 150/70 96 08/14 0913 71 148/64 08/14 0913 79 148/64 08/14 0718 97.8 71 20 148/64 95 Nasal Cannula 08/13 2216 98.3 84 20 138/60 97 Nasal 2.0L Cannula 08/13 2200 97 Nasal 2.0L Cannula 08/13 2039 84 138/60 08/13 1600 95 Nasal 2.0L Cannula 08/13 1522 Nasal 3.0L Cannula Intake & Output 08/14 1600 08/14 0800 08/14 0000 Intake Total 400 0 420 Output Total 0 0 Balance 400 0 420 Intake, Oral 400 0 420 Number 1 Bowel Movements Output, Urine 0 0 Patient 95 lb 5 oz 95 lb 3 oz Weight Weight Bed scale Bed scale Measurement Method Physical Exam General Appearance: Alert, Oriented X3, Cooperative, No Acute Distress HEENT: Atraumatic, PERRLA, EOMI, Mucous Membr. moist/pink Neck: Supple, No JVD, No thryomegaly Cardiovascular: Normal S1, Normal S2, No Murmurs Lungs: Clear to Auscultation Abdomen: Normal Bowel Sounds, Soft, No Tenderness Neurological: Normal Speech, Strength at 5/5 X4 Ext, Normal Tone, Sensation Intact Extremities: No Clubbing, No Cyanosis, No Edema Vascular: Normal Pulses Assessment/Plan Assessment: 86 yo female with PMH of ESRD on HD Tue/Thur/Sat, CAD s/p stent placement 3 years ago, HFpEF, HTN, HLD, NSTEMI, LBBB, and secondary hyperparathyroidism BIBA PEA s/p intubation, CPR and epi x1 with successful ROSC. Pt was not cooled on arrival. She was intubated but never required pressors. She had elevation in troponin and was started on heparin drip. Subsequently extubated successfully and heparin drip d/c. Pt on 4 L o2 today and hemodynamically stable, receiving hemodialysis this morning ----- PLAN: 1.Cardiopulmonary arrest with acute hypoxic respiratory failure of unclear etiology: She has PMH of coronary artery disease status post NSTEMI and 4 stents (2015 - 2 stents, 2016- 2 stents), symptomatic bradycardia s/p pacemaker placement, and HTN. Differential diagnosis of the cause of her cardiac arrest includes OH and PEA. OtherDdx: flash pulm edema, arrhythmia, septic shock. EF now 50 % with mild to moderate anteroseptal hypokinesis. * Repeat blood cultures neg * Negative lower extremity Doppler for DVT * CAT w/o evidence of PE * Patient was found to have subtherapeutic INR (today is day 2) will dose Coumadin 7.5 p.o. tonight * PT/INR daily * Continue metoprolol 25 bid given htn. * Continue Plavix with 300mg * Continue on aspirin * Continue atorvastatin 80 mg daily * Appreciate cardio recommendation 2. Pneumonia: Treating for PNA, Sputum cx came back positive for MRSA, her nares swab was positive for MRSA, given pt was initially intubated we treated for PNA.. Blood cultures 2 initially positive for micrococcus which was thought to be disseminated secondary to CPR. Additionally, there is concern for aspiration pneumonia in this patient. CARLOS negative for evidence of vegetations. * Con't monitor off antibiotics 3. Hypertension Controlled * Con't Amlodipine 10mg * Con't Metoprolol 25mg 4. Anion gap acidosis: RESOLVED. Initially thought to be secondary to lactic acidosis in the setting of decreased perfusion as well as underlying renal insufficiency. Now likely due to renal failure as lactate has normalized. 6. End stage renal today disease on hemodialysis: Saturday and Saturday * Appreciate nephro consult * HD tomorrow 7. Alimentary * Maintain on Protonix * Q6 finger stick 8.traumatic ulcers of the left shoulder and knee * Wound dressing using Xeroform with daily cleansing * Barrier cream can be used for protection over her buttocks with offloading Patient most likely will be discharged to [facility] tomorrow DVT prophylaxis: heparin drip CODE STATUS Full code renal dialysis diet Problem List: 1. Pneumonia 2. Atrial fibrillation with rapid ventricular response 3. Cardiac arrest 4. ESRD (end stage renal disease) Pain Ratin Pain Location: n/a Pain Goal: Remain pain free Pain Plan: PATHWAY Tomorrow's Labs & Rationales: CBC BEP DVT/Prophylaxis: mechanical, pharmacological Donavon Ontiveros 08/14/17 1456: Attending MD Review Statement Attending Statement Attending MD Statement: examined this patient, discuss w/resident/PA/DIGITIZER, agreed w/resident/PA/DIGITIZER, discussed with family, reviewed EMR data (avail), discussed with nursing, discussed with case mgmt Attending Assessment/Plan: Pt seen and examined at bedside. D/w pt and pts family at bedside the care plan. Pt will be dced tomorrow after hemodialysis. Constipation- give dulcolax suppository. INR still subtherapeutic- will give 7.5 mg coumadin tonight.
--- NOTE | 2017-08-14 11:55 | Cons- Wound Care ---
General Information and HPI Consulting Request Date of Consult: 08/14/17 Requested By: Donavon Ontiveros MD Reason for Consult: Multiple traumatic ulcers present on admission History of Present Illness: Patient is an 86-year-old who presented status post cardiac arrest CPR intubation suffered a fall at home and has multiple traumatic ulcers of her left anterior shoulder and left patella area. Nurses as well noticed a minute abrasion over the right buttock Allergies/Medications Allergies: Coded Allergies: No Known Allergies (05/16/17) Home Med List: Amlodipine Besylate 10 MG TABLET 1 TAB PO DAILY HEART/BP (Reported) Aspirin (Ecotrin*) 81 MG TABLET.DR 1 TAB PO DAILY HEART/BLOOD (Reported) Clopidogrel Bisulfate (Plavix) 75 MG TABLET 75 MG PO DAILY BLOOD THINNER Epoetin Vamshi (Procrit) 2,000 UNIT/ML VIAL 2,000 UNIT IV TuThSa PRN WITH HEMODIALYSYS Folic Acid/Vit Bcomp,C (Radha-Cuong Tablet) (Unknown Strength) TABLET 1 TAB PO DAILY SUPPLEMENT (Reported) Hydralazine HCl 25 MG TABLET 2 TAB PO BID HTN (Reported) Lidocaine/Prilocaine (Lidocaine-Prilocaine Cream) 2.5 %-2.5 % CREAM..G. 1 JENNIE TOP TuThSa PRN HD Metoprolol Tartrate 25 MG TABLET 6.25 MG PO BID htn (Reported) Polyethylene Glycol 3350 (Miralax) 17 GRAM/DOSE POWDER 17 GM PO DAILY PRN CONSTIPATION Rosuvastatin Calcium (Crestor) 10 MG TABLET 1 TAB PO DAILY CHOLESTEROL ( Reported) Sevelamer Carbonate (Renvela) 800 MG TABLET 3 TAB PO TID RENAL (Reported) Warfarin Sodium (Coumadin) 5 MG TABLET 5 MG PO COUMADIN 1700 ANTICOAGULATION Review of Systems Review of Systems: Noncontributory Past History Travel History Traveled to [place] past 21 day No Medical History Neurological: TIA EENT: NONE Cardiovascular: CHF, hypertension, hyperlipidemia, NSTEMI, known left bundle branch block left atrial dilatation mild aortic regurg in the past PAROXYSMAL AFIB Respiratory: bronchitis, pneumonia Gastrointestinal: NONE Hepatic: NONE Renal: ESRD on HD Musculoskeletal: gout Psychiatric: NONE Endocrine: secondary hyperparathyroidism Blood Disorders: anemia Cancer(s): NONE PLASTIC MAKER/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 , Age 69. MOTHER (diabetes). , Age 72. BROTHER (pancreatic cancer). , Age Unknown. SISTER (colon cancer). , Age 60+. BROTHER (brain aneurysm). , Age 50's. Psychosocial History Where Do You Live? Home Who Do You Live With? self Services at Home: None Primary Language: Tamaz[place] Smoking Status: Former Smoker ETOH Use: occasional use Living Will? no Power of Respiratory Care Specialist/HCP? no Functional Ability ADLs Independent: dressing, eating, toileting, bathing. Ambulation: independent IADLs Independent: shopping, housework, finances, food prep, telephone, transportation , medication admin. Exam & Diagnostic Data Vital Signs and I&O Vital Signs Result Date Time B/P 148/64 08/14 912 Pulse 71 08/14 912 Pulse Ox 95 08/14 717 O2 Delivery Nasal Cannula 08/14 717 Temp 97.8 08/14 717 Resp 20 08/14 717 O2 Flow Rate 2.0L 08/13 2216 FiO2 35 08/06 1645 Intake & Output 08/14 0000 08/13 1600 08/13 0800 Intake Total 420 400 320 Output Total 0 2000 Balance 420 -1600 320 Intake, IV 200 Intake, Oral 420 400 120 Number 1 1 Bowel Movements Output, 2000 Dialysate Output, Urine 0 Patient 95 lb 3 oz 95 lb 8 oz Weight Weight Bed scale Bed scale Measurement Method Physical Exam: Exam of the anterior left shoulder shows there to be approximately 4 x 2 cm full -thickness traumatic ulcer with red fill. Over the left patella are 2 ulcers measuring approximately 3 x 2 with dry eschar/there is no undermining sinus tracking or exposed bone/over the right buttock is a minute abrasion with a thin dry scab unstageable/ Assessment/Plan Impression/Plan: 86-year-old status post CPR and traumatic ulcers has fully recovered. Wounds appear overly dry and she is complaining of burning with amorphous hydrogel. Commended duration for Xeroform to both wounds with daily cleansing. Barrier cream can be used for protection over her buttocks with offloading. Address nutritional deficiencies Consult Acknowledgment - Thank you for your consult request.
--- NOTE | 2017-08-14 12:23 | PN- Cardiology ---
Subjective Subjective: The patient is awake, alert The events of the last 24 hours as well as telemetry were reviewed. Review of Systems: The review of systems is negative for chest pains, palpitations nor lightheadedness. The remainder of the 14 point review of systems is noncontributory with the exception of above. Objective Vital Signs and I&Os Vital Signs Date Time Temp Pulse Resp B/P B/P Pulse O2 O2 Flow FiO2 Mean Ox Delivery Rate 08/14 912 71 148/64 08/14 0913 79 148/64 08/14 0718 97.8 71 20 148/64 95 Nasal Cannula 08/13 2216 98.3 84 20 138/60 97 Nasal 2.0L Cannula 08/13 2200 97 Nasal 2.0L Cannula 08/13 2039 84 138/60 08/13 1600 95 Nasal 2.0L Cannula 08/13 1522 Nasal 3.0L Cannula 08/13 1400 98.0 60 20 136/50 95 08/13 1346 67 136/50 08/13 1346 67 136/50 Intake & Output 08/14 1600 08/14 0800 08/14 0000 08/13 1600 08/13 0800 / 0000 Intake Total 0 420 400 320 666.4 Output Total 0 0 2000 0 Balance 0 420 -1600 320 666.4 Intake, IV 200 186.4 Intake, Oral 0 420 400 120 480 Number 1 1 2 Bowel Movements Output, 2000 Dialysate Output, Urine 0 0 0 Patient 95 lb 5 oz 95 lb 3 oz 95 lb 8 oz 97 lb 3 oz Weight Weight Bed scale Bed scale Bed scale Bed scale Measurement Method Physical Exam: General: Nontoxic, no apparent distress. HEENT: Sclera and conjunctiva within normal limits, without xanthelasmas. Neck: Carotids 2+ without bruits. Respiratory: Clear to auscultation, air movement is good, without accessory respiratory muscle use. Heart: Regular rate and rhythm, without murmurs, without JVD. Abdomen: Soft, nontender, no masses, normoactive bowel sounds. Extremities: Without clubbing, cyanosis, without edema. Neuro: Nonfocal exam, strength, 5 out of 5 Skin: Within normal limits without lesions. Psych: Mood and affect: Normal Current Medications: Current Medications Sig/King Start time Last Medication Dose Route Stop Time Status Admin Acetaminophen 325 MG Q6P PRN 08/13 1445 AC 08/13 PO 1450 Amlodipine Besylate 10 MG DAILY 07/30 1000 AC 08/14 PO 0913 Aspirin 81 MG DAILY 07/30 1049 AC 08/14 PO 0913 Atorvastatin Calcium 80 MG 1700 07/30 1700 AC 08/13 PO 1735 Bisacodyl 5 MG ONE ONE 08/14 1130 DC PO 08/14 1131 Clopidogrel Bisulfate 75 MG DAILY 08/01 1000 AC 08/14 PO 0913 Docusate Sodium 100 MG DAILY 08/14 1130 AC PO Epoetin Vamshi 2,000 UNIT TuThSa PRN 08/03 0700 AC IV Lidocaine/Prilocaine 1 JENNIE TuThSa PRN 08/10 1900 AC 08/13 TOP 0800 Melatonin 5 MG AT BEDTIME 08/07 2200 AC 08/13 PO 2039 Metoprolol Tartrate 25 MG BID 08/02 2200 AC 08/14 PO 0913 Polyethylene Glycol 17 GM DAILY 08/13 1000 AC 08/14 PO 0912 Sevelamer Carbonate 2,400 MG WM 08/07 1700 AC 08/14 PO 0753 Tramadol HCl 50 MG Q6P PRN 08/13 1445 AC PO Tramadol HCl 25 MG Q12P PRN 08/11 1341 AC 08/13 PO 1134 Vitamin A/Vitamin D 1 JENNIE BID 08/07 1000 AC 08/14 TOP 0916 Warfarin Sodium 5 MG COUMADIN 1700 ONE 08/14 1700 CAN PO 08/14 1701 Warfarin Sodium 10 MG COUMADIN 1700 ONE 08/14 1700 DC PO 08/14 1701 Warfarin Sodium 7.5 MG COUMADIN 1700 ONE 08/14 1700 AC PO 08/14 1701 Warfarin Sodium 5 MG COUMADIN 1700 ONE 08/13 1700 DC 08/13 PO 08/13 1701 1735 Zinc Oxide 1 JENNIE BID PRN 08/07 0600 AC 08/07 TOP 0955 Assessment/Plan Assessment/Plan 1. Cardiopulmonary arrest with acute hypoxemic respiratory failure of unclear etiology 2. Chronic left bundle branch block 3. History of ischemic cardiomyopathy, EF now 50 % with mild to moderate anteroseptal hypokinesis 4. End-stage renal disease on hemodialysis 5. Coronary artery disease by history status post stent approximately 3 years ago 6. Hypertension by history 7. Aspiration PNA 8. Elevated troponin of unclear etiology s/p CPR 9. Frequent APCs 10. Positive blood cultures The patient is overall improved from a cardiac standpoint, and we will anticoagulation with warfarin. Continue treatment as per ID and nephrology. Further cardiac treatments may be performed as an outpatient. Consideration for outpatient stress testing to determine an underlying burden of ischemia will be made as an outpatient. Continue telemetry? No
[2017-08-14 14:00] VITALS: BP 150/70
[2017-08-14 23:59] VITALS: BP 138/60
--- NOTE | 2017-08-15 03:29 | Event Note ---
Event Note Event Note: S: Blood BM B: Pt admitted for hypoxic resp failure and ROSC after cardiopulmonary arrest AR: Stool appears to be dark and formed with dark red and block blood intermixed into the stool. Repeat vitals; Discontinued aspirin / plavix at this time. Will order hemooccult for documentation. Will begin IV fluids and contact GI if patient becomes unstable. Will give IV protonix x1. Repeat labs at 4am : H/H 9.1/27.7 (9.6/29.4 baseline) BUN 35 (baseline 17-22). Will call GI. Patient will be made NPO.
[2017-08-15 03:30] VITALS: BP 156/70
[2017-08-15 04:00] VITALS: BP 130/56
[2017-08-15 04:22] VITALS: BP 122/50
[2017-08-15 04:40] LABS: ABSOLUTE BASOPHIL COUNT 0 /CUMM (0.0-0.2); ABSOLUTE EOSINOPHIL COUNT 0.5 /CUMM (0.0-0.7); ABSOLUTE GRANULOCYTE CT 12.1 /CUMM (1.4-6.5); ABSOLUTE LYMPH COUNT 1.4 /CUMM (1.2-3.4); ABSOLUTE MONOCYTE COUNT 0.8 /CUMM (0.10-0.60); BASOPHIL % 0.2 % (0.0-2.0); EOSINOPHIL % 3.3 % (0-5); GRANULOCYTE % 81.7 % (42.2-75.2); HEMATOCRIT 27.7 % (37-47); MEAN PLATELET VOLUME 7.9 FL (7.4-10.4); PLATELET COUNT 326 /CUMM (130-400); RBC DISTRIBUTION WIDTH 16.1 % (11.5-14.5); RED BLOOD CELL CT 2.95 /CUMM (4.20-5.40); WHITE BLOOD CELL COUNT 14.9 /CUMM (4.8-10.8)
[2017-08-15 04:49] LABS: PTT 32 SEC (25-37)
--- NOTE | 2017-08-15 07:14 | PN- Housestaff ---
Frances PARKINSON,Miguelina 08/15/17 0714: Subjective Follow-up For: GI bleed S/PEA and ROSC Extubated Hypertension ESRD on HD Tele-Events Since Last Visit: OFF tel Subjective: Patient was seen and examined at bedside, she had 2 bloody bowel movements yesterday, aspirin and Plavix was discontinued, vital signs and H&H are stable Review of Systems Constitutional: Denies: no symptoms. Cardiovascular: Denies: no symptoms. Respiratory: Denies: no symptoms. Gastrointestinal: Reports: bloody stool. Genitourinary: Denies: no symptoms. Objective Last 24 Hrs of Vital Signs/I&O Vital Signs Date Time Temp Pulse Resp B/P B/P Pulse O2 O2 Flow FiO2 Mean Ox Delivery Rate 08/15 0720 98.6 64 20 122/50 96 Nasal Cannula 08/15 0422 122/50 /08 0400 130/56 /08 0330 98.1 65 18 156/70 96 Nasal 2.0L Cannula / 0000 Nasal 2.0L Cannula 08/14 2359 98.0 80 18 138/60 96 Nasal Cannula 08/14 2115 84 138/60 / 1600 Nasal 2.0L Cannula / 1400 98.0 78 20 150/70 96 /07 0913 71 148/64 03/07 0913 79 148/64 Intake & Output 08/15 1600 08 0800 08 0000 Intake Total 400 Output Total Balance 400 Intake, Oral 400 Number 3 2 Bowel Movements Patient 94 lb 7 oz Weight Physical Exam General Appearance: Alert, Oriented X3, Cooperative, No Acute Distress Skin: 2 wounds in the left shoulder and knee, covered with clean dressing HEENT: Atraumatic, PERRLA, EOMI, Mucous Membr. moist/pink Neck: Supple, No JVD Cardiovascular: Normal S1, Normal S2, No Murmurs Lungs: Clear to Auscultation Abdomen: Normal Bowel Sounds, Soft, No Tenderness Neurological: Normal Speech, Strength at 5/5 X4 Ext, Normal Tone, Sensation Intact Extremities: No Clubbing, No Cyanosis, No Edema Vascular: Normal Pulses Assessment/Plan Assessment: 86 yo female with PMH of ESRD on HD Tue/Thur/Sat, CAD s/p stent placement 3 years ago, HFpEF, HTN, HLD, NSTEMI, LBBB, and secondary hyperparathyroidism BIBA PEA s/p intubation, CPR and epi x1 with successful ROSC. Pt was not cooled on arrival. She was intubated but never required pressors. She had elevation in troponin and was started on heparin drip. Subsequently extubated successfully and heparin drip d/c. Pt on 4 L o2 today and hemodynamically stable, receiving hemodialysis this morning ----- PLAN: 1.Cardiopulmonary arrest with acute hypoxic respiratory failure of unclear etiology: She has PMH of coronary artery disease status post NSTEMI and 4 stents (2015 - 2 stents, 2016- 2 stents), symptomatic bradycardia s/p pacemaker placement, and HTN. Differential diagnosis of the cause of her cardiac arrest includes VT and PEA. OtherDdx: flash pulm edema, arrhythmia, septic shock. EF now 50 % with mild to moderate anteroseptal hypokinesis. * Repeat blood cultures neg * Negative lower extremity Doppler for DVT * CAT w/o evidence of PE * Patient was found to have subtherapeutic INR 1.86 (today is day 3) will dose Coumadin if GI approve * PT/INR daily * Continue metoprolol 25 bid given htn. * Aspirin and Plavix on hold for GI bleed * Continue atorvastatin 80 mg daily * Appreciate cardio recommendation 2. Pneumonia: Treating for PNA, Sputum cx came back positive for MRSA, her nares swab was positive for MRSA, given pt was initially intubated we treated for PNA.. Blood cultures 2 initially positive for micrococcus which was thought to be disseminated secondary to CPR. Additionally, there is concern for aspiration pneumonia in this patient. CARLOS negative for evidence of vegetations. * Con't monitor off antibiotics 3. Hypertension Controlled * Con't Amlodipine 10mg * Con't Metoprolol 25mg 4. Anion gap acidosis: RESOLVED. Initially thought to be secondary to lactic acidosis in the setting of decreased perfusion as well as underlying renal insufficiency. Now likely due to renal failure as lactate has normalized. 6. End stage renal today disease on hemodialysis: Saturday and Saturday * Appreciate nephro consult * HD today 7. GI bleed Patient had 2 episodes of dark red bloody bowel movement yesterday Vitals and H&H is stable Continue IV Protonix Hold aspirin and Plavix Will dose, Coumadin after ruling out active GI bleed (will discussed with GI) GI consult appreciated Q6 finger stick 8.traumatic ulcers of the left shoulder and knee * Wound dressing using Xeroform with daily cleansing * Barrier cream can be used for protection over her buttocks with offloading DVT prophylaxis: heparin drip CODE STATUS Full code renal dialysis diet Problem List: 1. Cardiac arrest 2. ESRD (end stage renal disease) 3. Pneumonia 4. GI bleed Pain Ratin Pain Location: n/a Pain Goal: Remain pain free Pain Plan: Pathway Tomorrow's Labs & Rationales: cbc bep INR DVT/Prophylaxis: mechanical, pharmacological Juan Carlos Carty MD 08/15/17 2154: Attending MD Review Statement Attending Statement Attending MD Statement: examined this patient, discuss w/resident/PA/BLENDER, agreed w/resident/PA/BLENDER, discussed with family, reviewed EMR data (avail), discussed with nursing, discussed with case mgmt, amended to note Attending Assessment/Plan: The patient was seen and discussed with house staff and family. Had episode of bleeding machine deburrer (described as black stool with some blood. ASA/Plavix is on hold and Coumadin on hold this evening (due to high INR). Empiric PPI begun. GI and Nephrology input appreciated. Follow-up H/H in morning. If stable consider restart anti-platelet regimen. The patient will return to STR when determined stable.
[2017-08-15 07:20] VITALS: BP 122/50
[2017-08-15 08:40] LABS: ABSOLUTE BASOPHIL COUNT 0 /CUMM (0.0-0.2); ABSOLUTE EOSINOPHIL COUNT 0 /CUMM (0.0-0.7); ABSOLUTE GRANULOCYTE CT 11.6 /CUMM (1.4-6.5); ABSOLUTE LYMPH COUNT 1.2 /CUMM (1.2-3.4); ABSOLUTE MONOCYTE COUNT 0.8 /CUMM (0.10-0.60); BASOPHIL % 0.1 % (0.0-2.0); EOSINOPHIL % 0 % (0-5); HEMATOCRIT 27.2 % (37-47); MEAN PLATELET VOLUME 8.6 FL (7.4-10.4); PLATELET COUNT 323 /CUMM (130-400); WHITE BLOOD CELL COUNT 13.7 /CUMM (4.8-10.8)
[2017-08-15 08:56] LABS: GRANULOCYTE % 85.1 % (42.2-75.2); PT 20.4 SEC (9.4-12.5)
--- NOTE | 2017-08-15 10:33 | PN- Nephrology ---
Assessment/Plan Nephrology Assessment: ESRD - Routine HD today. Nausea and drop in BP with dialysis suggests that she may be approaching euvolemia. Will target inpatient EDW of 43.0kg and outpatient EDW with street clothes of 44.0kg. Anemia - On Epogen. Blood in stool - GI to see. Cardiac arrest - Underlying cause remains unclear. Cards following - no [facility] for [facility]. Suggestion: -HD today - new target inpatient EDW of 43.0kg with tentative plans for outpatient EDW of 44.0kg (street clothes) -Cont Epogen - f/u GI consult Please call [phone] with ?'s Subjective Subjective: Pt seen and examined on dialysis Noted to have blood in stool - GI consult pending Nausea on dialyais Objective Vital Signs and I&Os Vital Signs Date Time Temp Pulse Resp B/P B/P Pulse O2 O2 Flow FiO2 Mean Ox Delivery Rate 08/16 719 98.6 64 20 122/50 96 Nasal Cannula 08/15 0422 122/50 08/15 0400 130/56 08/15 0330 98.1 65 18 156/70 96 Nasal 2.0L Cannula 08/15 0000 Nasal 2.0L Cannula 08/14 2359 98.0 80 18 138/60 96 Nasal Cannula 08/14 2115 84 138/60 08/14 1600 Nasal 2.0L Cannula 08/14 1400 98.0 78 20 150/70 96 Intake & Output 08/15 1600 08 0400 08/14 1600 08/14 0400 08/13 1600 08/13 0400 Intake Total 400 400 420 720 666.4 Output Total 0 0 2000 0 Balance 400 400 420 -1280 666.4 Intake, IV 200 186.4 Intake, Oral 400 400 420 520 480 Number 3 2 1 1 2 Bowel Movements Output, 2000 Dialysate Output, Urine 0 0 0 Patient 94 lb 7 oz 95 lb 5 oz 95 lb 3 oz 95 lb 8 oz 97 lb 3 oz Weight Weight Bed scale Bed scale Bed scale Bed scale Measurement Method Physical Exam: Gen - OK appearing HEENT - supple CV - RRR, no m/r/g Chest - clear anteriorly Abd - soft, NTND Ext - no edema, MARY AVF +thrill/+bruit Neuro - alert, oriented Current Medications: Current Medications Sig/King Start time Last Medication Dose Route Stop Time Status Admin Acetaminophen 325 MG Q6P PRN 08/13 1445 AC 08/13 PO 1450 Amlodipine Besylate 10 MG DAILY 07/30 1000 AC 08/14 PO 0913 Aspirin 81 MG DAILY 07/30 1049 DC 08/14 PO 0913 Atorvastatin Calcium 80 MG 1700 07/30 1700 AC 08/14 PO 1706 Bisacodyl 10 MG DAILY PRN 08/14 1330 AC 08/14 PA 1444 Bisacodyl 5 MG ONE ONE 08/14 1130 DC 08/14 PO 08/14 1131 1315 Clopidogrel Bisulfate 75 MG DAILY 08/01 1000 DC 08/14 PO 0913 Docusate Sodium 100 MG DAILY 08/14 1130 AC 08/14 PO 1315 Epoetin Vamshi 2,000 UNIT TuThSa PRN 08/03 0700 AC IV Lidocaine/Prilocaine 1 JENNIE TuThSa PRN 08/10 1900 AC 08/15 TOP 0722 Melatonin 5 MG AT BEDTIME 08/07 2200 AC 08/14 PO 2112 Metoprolol Tartrate 25 MG BID 08/02 2200 AC 08/14 PO 2115 Pantoprazole Sodium 40 MG ONCE ONE 08/15 0330 DC 08/15 IV 08/15 0331 0350 Polyethylene Glycol 17 GM DAILY 08/13 1000 AC 08/14 PO 0912 Sevelamer Carbonate 2,400 MG WM 08/07 1700 AC 08/14 PO 1706 Tramadol HCl 50 MG Q6P PRN 08/13 1445 AC 08/14 PO 2112 Tramadol HCl 25 MG Q12P PRN 08/11 1341 AC 08/13 PO 1134 Vitamin A/Vitamin D 1 JENNIE BID 08/07 1000 AC 08/14 TOP 2117 Warfarin Sodium 10 MG COUMADIN 1700 ONE 08/14 1700 DC PO 08/14 1701 Warfarin Sodium 7.5 MG COUMADIN 1700 ONE 08/14 1700 DC 08/14 PO 08/14 1701 1707 Zinc Oxide 1 JENNIE BID PRN 08/07 0600 AC 08/07 TOP 0955 Results Pertinent Lab Results: Laboratory Tests 08/15 08/15 08/15 08 0729 0600 Chemistry Sodium (137 - 145 mmol/L) 138 Cancelled Potassium (3.5 - 5.1 mmol/L) 5.4 H Cancelled Chloride (98 - 107 mmol/L) 98 Cancelled Carbon Dioxide (22 - 30 mmol/L) 29 Cancelled Anion Gap (5 - 16) 11 Cancelled BUN (7 - 17 mg/dL) 38 H Cancelled Creatinine (0.5 - 1.0 mg/dL) 5.2 *H Cancelled Estimated GFR (>60 ml/min) 8 L BUN/Creatinine Ratio (7 - 25 %) 7.3 Cancelled Calcium (8.4 - 10.2 mg/dL) 9.1 Phosphorus (2.5 - 4.5 mg/dL) 3.1 Magnesium (1.6 - 2.3 mg/dL) 2.1 Albumin (3.5 - 5.0 g/dL) 3.1 L Coagulation PT (9.4 - 12.5 SEC) 20.4 H Cancelled INR (0.90 - 1.19) 1.86 H Cancelled Hematology CBC w Diff NO MAN DIFF REQ Cancelled WBC (4.8 - 10.8 /CUMM) 13.7 H Cancelled RBC (4.20 - 5.40 /CUMM) 2.90 L Cancelled Hgb (12.0 - 16.0 G/DL) 9.0 L Cancelled Hct (37 - 47 %) 27.2 L Cancelled MCV (81.0 - 99.0 FL) 94.0 Cancelled MCH (27.0 - 31.0 PG) 31.0 Cancelled MCHC (33.0 - 37.0 G/DL) 33.0 Cancelled RDW (11.5 - 14.5 %) 16.0 H Cancelled Plt Count (130 - 400 /CUMM) 323 Cancelled MPV (7.4 - 10.4 FL) 8.6 Cancelled Gran % (42.2 - 75.2 %) 85.1 H Lymphocytes % (20.5 - 51.1 %) 9.0 L Monocytes % (1.7 - 9.3 %) 5.8 Eosinophils % (0 - 5 %) 0 Basophils % (0.0 - 2.0 %) 0.1 Absolute Granulocytes (1.4 - 6.5 /CUMM) 11.6 H Absolute Lymphocytes (1.2 - 3.4 /CUMM) 1.2 Absolute Monocytes (0.10 - 0.60 /CUMM) 0.8 H Absolute Eosinophils (0.0 - 0.7 /CUMM) 0 Absolute Basophils (0.0 - 0.2 /CUMM) 0 Serology Hep Bs Antigen (NONREACTIVE) Pending Cancelled Hep Bs Antibody (NONREACTIVE) Pending Cancelled 08/15 08/14 08/14 0420 0720 0600 Chemistry Sodium (137 - 145 mmol/L) 140 Cancelled Potassium (3.5 - 5.1 mmol/L) 4.8 Cancelled Chloride (98 - 107 mmol/L) 98 Cancelled Carbon Dioxide (22 - 30 mmol/L) 30 Cancelled Anion Gap (5 - 16) 13 Cancelled BUN (7 - 17 mg/dL) 35 H Cancelled Creatinine (0.5 - 1.0 mg/dL) 4.8 H Cancelled Estimated GFR (>60 ml/min) 9 L BUN/Creatinine Ratio (7 - 25 %) 7.3 Cancelled Coagulation PT (9.4 - 12.5 SEC) 12.4 INR (0.90 - 1.19) 1.14 APTT (25 - 37 SEC) 32 Hematology CBC w Diff NO MAN DIFF REQ Cancelled WBC (4.8 - 10.8 /CUMM) 14.9 H Cancelled RBC (4.20 - 5.40 /CUMM) 2.95 L Cancelled Hgb (12.0 - 16.0 G/DL) 9.1 L Cancelled Hct (37 - 47 %) 27.7 L Cancelled MCV (81.0 - 99.0 FL) 94.0 Cancelled MCH (27.0 - 31.0 PG) 31.0 Cancelled MCHC (33.0 - 37.0 G/DL) 33.0 Cancelled RDW (11.5 - 14.5 %) 16.1 H Cancelled Plt Count (130 - 400 /CUMM) 326 Cancelled MPV (7.4 - 10.4 FL) 7.9 Cancelled Gran % (42.2 - 75.2 %) 81.7 H Lymphocytes % (20.5 - 51.1 %) 9.3 L Monocytes % (1.7 - 9.3 %) 5.5 Eosinophils % (0 - 5 %) 3.3 Basophils % (0.0 - 2.0 %) 0.2 Absolute Granulocytes (1.4 - 6.5 /CUMM) 12.1 H Absolute Lymphocytes (1.2 - 3.4 /CUMM) 1.4 Absolute Monocytes (0.10 - 0.60 /CUMM) 0.8 H Absolute Eosinophils (0.0 - 0.7 /CUMM) 0.5 Absolute Basophils (0.0 - 0.2 /CUMM) 0 08/13 08/13 08/13 1515 0315 0315 Chemistry Sodium (137 - 145 mmol/L) 139 Potassium (3.5 - 5.1 mmol/L) 4.5 Chloride (98 - 107 mmol/L) 100 Carbon Dioxide (22 - 30 mmol/L) 28 Anion Gap (5 - 16) 11 BUN (7 - 17 mg/dL) 19 H Creatinine (0.5 - 1.0 mg/dL) 3.0 H Estimated GFR (>60 ml/min) 15 L BUN/Creatinine Ratio (7 - 25 %) 6.3 L Calcium (8.4 - 10.2 mg/dL) 9.3 Phosphorus (2.5 - 4.5 mg/dL) 3.2 Magnesium (1.6 - 2.3 mg/dL) 2.1 Albumin (3.5 - 5.0 g/dL) 3.2 L Coagulation PT (9.4 - 12.5 SEC) 12.1 INR (0.90 - 1.19) 1.11 APTT (25 - 37 SEC) Cancelled 85 H Hematology CBC w Diff NO MAN DIFF REQ WBC (4.8 - 10.8 /CUMM) 12.1 H RBC (4.20 - 5.40 /CUMM) 3.12 L Hgb (12.0 - 16.0 G/DL) 9.6 L Hct (37 - 47 %) 29.4 L MCV (81.0 - 99.0 FL) 94.1 MCH (27.0 - 31.0 PG) 30.9 MCHC (33.0 - 37.0 G/DL) 32.8 L RDW (11.5 - 14.5 %) 15.8 H Plt Count (130 - 400 /CUMM) 308 MPV (7.4 - 10.4 FL) 8.3 Gran % (42.2 - 75.2 %) 75.7 H Lymphocytes % (20.5 - 51.1 %) 13.0 L Monocytes % (1.7 - 9.3 %) 6.8 Eosinophils % (0 - 5 %) 3.7 Basophils % (0.0 - 2.0 %) 0.8 Absolute Granulocytes (1.4 - 6.5 /CUMM) 9.2 H Absolute Lymphocytes (1.2 - 3.4 /CUMM) 1.6 Absolute Monocytes (0.10 - 0.60 /CUMM) 0.8 H Absolute Eosinophils (0.0 - 0.7 /CUMM) 0.4 Absolute Basophils (0.0 - 0.2 /CUMM) 0.1 03/05 03/05 1435 1435 Coagulation PT (9.4 - 12.5 SEC) 12.0 INR (0.90 - 1.19) 1.10 APTT (25 - 37 SEC) 79 H Imaging/Other Studies: None new
[2017-08-15 15:11] VITALS: BP 150/50
--- NOTE | 2017-08-15 15:26 | Cons- Gastroenterology ---
See Addendum General Information and HPI Consulting Request Date of Consult: 08/15/17 Requested By: Weston PARKINSON,Donavon Peace Reason for Consult: I was notified by the hospitalist service a few hours ago of an elective GI consult to assess what appeared to be lower GI bleeding, occurring at 3 AM on . I remotely saw the patient in inpatient GI consultation 02/03/14, at which point she refused any GI intervention, and she still feels the same. HD # 17. Extensive records reviewed. Source of Information: patient, family (pt's son, Adalberto), old records Exam Limitations: no limitations History of Present Illness: 86 y/o female with numerous comorbidities, including hypertension, hyperlipidemia, ESRD on HD (/Sat) since summer 2013, ASHD post multiple cardiac stents (2014- 2 stents, 2015- 2 stents), NSTEMI, CHF with preserved EF, LBBB, PPM, PAF, secondary hyperparathyroidism, MRSA, admitted to [facility] 07/30/17, after being found by daughter at home pulseless without respirations. EMS was called and the patient received 1 round of Epi plus CPR. By the time she reached the [facility], she had a pulse and was hypertensive. She was intubated and initially admitted to the ICU. 07/30/17: BNP 07752. 07/31/17: peak troponin 1.85. The exact etiology of the patient's cardiopulmonary arrest was unclear. She was found to have aspiration pneumonia. She was seen by medicine, ICU, renal, cardiology, & ID services. She has a LUE AVF. The patient was hypothermic on admission with mild leukocytosis and an elevated troponin. 07/30: Echocardiogram- LVEF 50% with mild to moderate anterior septal hypokinesis and mildly dilated LA, mild MS, mild to mod TR. She had Micrococci bacteremia, with 07/30/17: BC 2 positive. A workup for infective endocarditis was performed. The patient was on IV Unasyn, switched to IV Vanco. 08/05/17: CARLOS- LVEF 45% with small PFO, no vegetations, otherwise without change. Subsequent blood cultures were negative.*The patient was initially started on IV heparin. She was also on baby aspirin and Plavix. *Coumadin was later rxd, last taken 12/25. 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 I remotely saw the patient in inpatient GI consult 02/03/14, for brown, OB positive stool and multifactorial anemia. Her Hgb was usually in the 9-10 range at that time, and she was on EPO. Previous iron studies, B12, & folate levels were normal at that time. *She previously refused a baseline colonoscopy, despite the fact that her sister had colon CA in her 60's. *She never had an EGD either, and refused that as well. At the time of the 02/03/14: inpt GI consult, she was on baby aspirin daily, without any NSAIDs or additional antiplatelet agents or anticoagulants. Her GI review of systems from above and below then were completely negative, aside from some slight decreased appetite, which was attributed to uremia. The patient was tentatively scheduled for discharge in the near future. She was slated for her hemodialysis slot earlier this morning, on 08/15/17. She was on solids po. Earlier this morning at 3 AM on 08/15/17, she reportedly had a brown bowel movement accompanied by rectal bleeding. This was followed by clots per rectum. The patient was unaware of the above. She remained hemodynamically stable & afebrile, with O2 sat- 96%. Her Hgb remained relatively stable for her (9.1-> 9.0). *Please note, 08/04/17: Hbg 7.4. *The medical service held the baby aspirin & Plavix, as of 08/15/17. Again, Coumadin was last given 08/14/17. She denied any NSAIDS. Of note, 08/15/17: PT 20.4, INR 1.86, PTT 32 (post Coumadin the p.m before). At present, the patient denied any GERD, odynophagia, dysphagia, nausea, vomiting, early satiety, abdominal pain, hematemesis, melena, diarrhea, constipation, obstipation, change in stool caliber, or tenesmus. She had mild constipation earlier this admission, which resolved after stool softeners. She had no recurrent bleeding since this morning. She denied any prior abdominal surgery and specifically denies any history of AAA. She claimed that aside from her LUE AVF & cardiac stents, she had no additional surgeries, although old records revealed a hysterectomy, details unknown. She was made NPO by the medical housestaff earlier this morning. Allergies/Medications Allergies: Coded Allergies: No Known Allergies (05/16/17) Home Med List: Amlodipine Besylate 10 MG TABLET 1 TAB PO DAILY HEART/BP (Reported) Aspirin (Ecotrin*) 81 MG TABLET.DR 1 TAB PO DAILY HEART/BLOOD (Reported) Clopidogrel Bisulfate (Plavix) 75 MG TABLET 75 MG PO DAILY BLOOD THINNER Epoetin Vamshi (Procrit) 2,000 UNIT/ML VIAL 2,000 UNIT IV TuThSa PRN WITH HEMODIALYSYS Folic Acid/Vit Bcomp,C (Radha-Cuong Tablet) (Unknown Strength) TABLET 1 TAB PO DAILY SUPPLEMENT (Reported) Hydralazine HCl 25 MG TABLET 2 TAB PO BID HTN (Reported) Lidocaine/Prilocaine (Lidocaine-Prilocaine Cream) 2.5 %-2.5 % CREAM..G. 1 JENNIE TOP TuThSa PRN HD Metoprolol Tartrate 25 MG TABLET 6.25 MG PO BID htn (Reported) Polyethylene Glycol 3350 (Miralax) 17 GRAM/DOSE POWDER 17 GM PO DAILY PRN CONSTIPATION Rosuvastatin Calcium (Crestor) 10 MG TABLET 1 TAB PO DAILY CHOLESTEROL ( Reported) Sevelamer Carbonate (Renvela) 800 MG TABLET 3 TAB PO TID RENAL (Reported) Warfarin Sodium (Coumadin) 5 MG TABLET 5 MG PO COUMADIN 1700 ANTICOAGULATION Current Medications: Current Medications Sig/King Start time Last Medication Dose Route Stop Time Status Admin Acetaminophen 325 MG Q6P PRN 08/13 1445 AC 08/13 PO 1450 Amlodipine Besylate 10 MG DAILY 07/30 1000 AC 08/15 PO 1319 Aspirin 81 MG DAILY 07/30 1049 DC 08/14 PO 0913 Atorvastatin Calcium 80 MG 1700 07/30 1700 AC 08/14 PO 1706 Bisacodyl 10 MG DAILY PRN 08/14 1330 AC 08/14 [place] 1444 Clopidogrel Bisulfate 75 MG DAILY 08/01 1000 DC 08/14 PO 0913 Dextrose/Sodium 1,000 ML Q20H 08/15 1130 AC Chloride IV Docusate Sodium 100 MG DAILY 08/14 1130 AC 08/14 PO 1315 Epoetin Vmashi 2,000 UNIT TuThSa PRN 08/03 0700 AC IV Lidocaine/Prilocaine 1 JENNIE TuThSa PRN 08/10 1900 AC 08/15 TOP 0722 Melatonin 5 MG AT BEDTIME 08/07 2200 AC 08/14 PO 2112 Metoprolol Tartrate 25 MG BID 08/02 2200 AC 08/15 PO 1319 Pantoprazole Sodium 40 MG ONCE ONE 08/15 0330 DC 08/15 IV 08/15 0331 0350 Polyethylene Glycol 17 GM DAILY 08/13 1000 AC 08/14 PO 0912 Sevelamer Carbonate 2,400 MG WM 08/07 1700 AC 08/14 PO 1706 Tramadol HCl 50 MG Q6P PRN 08/13 1445 AC 08/14 PO 2112 Tramadol HCl 25 MG Q12P PRN 08/11 1341 AC 08/13 PO 1134 Vitamin A/Vitamin D 1 JENNIE BID 08/07 1000 AC 08/15 TOP 1320 Warfarin Sodium 7.5 MG COUMADIN 1700 ONE 08/14 1700 DC 08/14 PO 08/14 1701 1707 Zinc Oxide 1 JENNIE BID PRN 08/07 0600 AC 08/07 TOP 0955 Past History Travel History Traveled to [place] past 21 day No Medical History Blood Transfusion Hx: Yes (08/05/17) Neurological: TIA EENT: NONE Cardiovascular: CHF, hypertension, hyperlipidemia, NSTEMI, known left bundle branch block left atrial dilatation mild aortic regurg in the past PAROXYSMAL AFIB Respiratory: bronchitis, pneumonia Gastrointestinal: NONE Hepatic: NONE Renal: ESRD on HD Musculoskeletal: degen joint disease, falls, gout Psychiatric: NONE Endocrine: secondary hyperparathyroidism Blood Disorders: NONE (multifactorial), anemia Cancer(s): NONE 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 , Age 69. MOTHER (diabetes). , Age 72. BROTHER (pancreatic cancer). , Age Unknown. SISTER (colon cancer). , Age 60+. BROTHER (brain aneurysm). , Age 50's. Psychosocial History Where Do You Live? Home Who Do You Live With? self Services at Home: None Primary Language: Vincentian Smoking Status: Former Smoker ETOH Use: occasional use Illicit Drug Use: denies illicit drug use Living Will? no Power of Social Insurance Adviser/HCP? no Other Social History: The patient is . Remote smoker ( < 5 pk yr). No EtOH. No drugs. 1 son & 1 daughter- both alive and well. The patient makes her medical decisions but the patient's daughter is involved with the patient's medical care. She lives alone. 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 Functional Ability ADLs Independent: dressing, eating, toileting, bathing. Ambulation: independent IADLs Independent: shopping, housework, finances, food prep, telephone, transportation , medication admin. 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 Review of Systems Constitutional: Reports: weakness. Denies: chills, diaphoresis, fever, malaise, unexplained weight loss. EENTM: Denies: blurred vision, double vision, visual changes, eye pain, eye drainage, eye tearing, icterus, ear discharge, ear pain, ear redness, hearing changes, nasal congestion, epistaxis, nasal pain, throat pain, throat swelling, mouth pain, tooth pain. Cardiovascular: Denies: chest pain, edema, orthopena, palpitations, peripheral edema, syncope. Respiratory: Reports: short of breath (minimal). Denies: cough, hemoptysis, orthopnea, sputum production, stridor, wheezing. GI: Reports: bloody stool (per RN, not pt). Denies: abdominal pain, bloating, constipation, diarrhea, distention, bowel incontinence, melena, nausea, changes in stool, vomiting, steatorrhea. Genitourinary: Denies: discharge, dysuria, frequency, hematuria, hesitation, nocturia, pain, urgency. Musculoskeletal: Reports: joint pain (DJD). Denies: back pain, gout, joint swelling, muscle pain , muscle stiffness, neck pain. Skin: Denies: see HPI, change in skin color, change in hair/nails, dryness, erythema, jaundice, lesions, lymphangitis, lumps, moles, rash. Neurological/Psychological: Denies: anxiety, ataxia, cognitive dysfunction, confusion, depressed, dementia, emotional problems, headache, numbness, paresthesia, pre-existing deficit, petit mal seizures, tingling, tremors, tonic-clonic seizures, unable to move lower ext , unable to move upper ext, weakness. Hematologic/Endocrine: Reports: bruising (extremities- ecchymoses). Denies: bleeding, polyuria, polydipsia. Immunologic/Allergic: Denies: splenectomy, HIV/AIDS, lymphadenopathy. All Other Systems: Reviewed and Negative Exam & Diagnostic Data Vital Signs and I&O Vital Signs Date Time Temp Pulse Resp B/P B/P Pulse O2 O2 Flow FiO2 Mean Ox Delivery Rate 08/15 1319 72 140/50 08/15 1319 72 140/50 08/15 0720 98.6 64 20 122/50 96 Nasal Cannula 08/15 0422 122/50 08/15 0400 130/56 08/15 0330 98.1 65 18 156/70 96 Nasal 2.0L Cannula 08/15 0000 Nasal 2.0L Cannula 08/14 2359 98.0 80 18 138/60 96 Nasal Cannula 08/14 2115 84 138/60 08/14 1600 Nasal 2.0L Cannula Intake & Output 08/15 1600 08/15 0400 08/14 1600 08/14 0400 08/13 1600 08/13 0400 Intake Total 400 400 420 720 666.4 Output Total 0 0 2000 0 Balance 400 400 420 -1280 666.4 Intake, IV 200 186.4 Intake, Oral 400 400 420 520 480 Number 3 2 1 1 2 Bowel Movements Output, 2000 Dialysate Output, Urine 0 0 0 Patient 94 lb 7 oz 95 lb 5 oz 95 lb 3 oz 95 lb 8 oz 97 lb 3 oz Weight Weight Bed scale Bed scale Bed scale Bed scale Measurement Method Physical Exam: Chronically ill-appearing, thin elderly female, nontoxic appearing, in NAD. Sclerae anicteric. Conjunctivae pink. Oropharynx: clear. No lower teeth. No oral thrush. No aphthous ulcers. There is no adenopathy, thyromegaly, or JVD. Carotids 1+ B/L, without bruit. Lungs: Clear to A & P with slight decreased breath sounds at the bases bilaterally. No wheezing, rales, or rhonchi. Heart: irregularly irregular rate and rhythm, S1 S2, soft I/ systolic murmur. No definite rub. No peripheral stigmata of inflammatory bowel disease or chronic liver disease on exam. No spiders on the anterior chest wall. Breast & pelvic exams: API. Abdomen: Normal bowel sounds, soft scaphoid belly, nontender, without guarding or rebound. No mass, no organomegaly, no fluid shift, no pulsatile mass. No epigastric bruit. Repeat digital rectal exam: *refused by paiestuardo, as it was just done earlier today, per RN, reportedly revealing brown OB -positive stool mixed with BRB. Exam of the anterior left shoulder shows 4 x 2 cm full-thickness traumatic ulcer with red fill. Over the left patella are 2 ulcers measuring approximately 3 x 2 cm with dry eschar/there is no undermining sinus tracking or exposed bone/over the right buttock is a minute abrasion with a thin dry scab unstageable. Extremities: Positive stasis dermatitis changes B /L, trace edema. No palpable cords. Diffuse gout & DJD. No tophi. Scattered ecchymoses over extremities.No palmar erythema. No Dupuytren's contractures. LUE AVF: + thrill, + bruit. Cool extremities. Distal pulses 1+ bilaterally. DTR 1+ bilaterally. No tremor. No asterixis. Results Pertinent Lab Results: Laboratory Tests 08/15 08/15 08/15 0800 0729 0600 Chemistry Sodium (137 - 145 mmol/L) 138 Cancelled Potassium (3.5 - 5.1 mmol/L) 5.4 H Cancelled Chloride (98 - 107 mmol/L) 98 Cancelled Carbon Dioxide (22 - 30 mmol/L) 29 Cancelled Anion Gap (5 - 16) 11 Cancelled BUN (7 - 17 mg/dL) 38 H Cancelled Creatinine (0.5 - 1.0 mg/dL) 5.2 *H Cancelled Estimated GFR (>60 ml/min) 8 L BUN/Creatinine Ratio (7 - 25 %) 7.3 Cancelled Calcium (8.4 - 10.2 mg/dL) 9.1 Phosphorus (2.5 - 4.5 mg/dL) 3.1 Magnesium (1.6 - 2.3 mg/dL) 2.1 Albumin (3.5 - 5.0 g/dL) 3.1 L Coagulation PT (9.4 - 12.5 SEC) 20.4 H Cancelled INR (0.90 - 1.19) 1.86 H Cancelled Hematology CBC w Diff NO MAN DIFF REQ Cancelled WBC (4.8 - 10.8 /CUMM) 13.7 H Cancelled RBC (4.20 - 5.40 /CUMM) 2.90 L Cancelled Hgb (12.0 - 16.0 G/DL) 9.0 L Cancelled Hct (37 - 47 %) 27.2 L Cancelled MCV (81.0 - 99.0 FL) 94.0 Cancelled MCH (27.0 - 31.0 PG) 31.0 Cancelled MCHC (33.0 - 37.0 G/DL) 33.0 Cancelled RDW (11.5 - 14.5 %) 16.0 H Cancelled Plt Count (130 - 400 /CUMM) 323 Cancelled MPV (7.4 - 10.4 FL) 8.6 Cancelled Gran % (42.2 - 75.2 %) 85.1 H Lymphocytes % (20.5 - 51.1 %) 9.0 L Monocytes % (1.7 - 9.3 %) 5.8 Eosinophils % (0 - 5 %) 0 Basophils % (0.0 - 2.0 %) 0.1 Absolute Granulocytes (1.4 - 6.5 /CUMM) 11.6 H Absolute Lymphocytes (1.2 - 3.4 /CUMM) 1.2 Absolute Monocytes (0.10 - 0.60 /CUMM) 0.8 H Absolute Eosinophils (0.0 - 0.7 /CUMM) 0 Absolute Basophils (0.0 - 0.2 /CUMM) 0 Serology Hep Bs Antigen (NONREACTIVE) NONREACTIVE Cancelled Hep Bs Antibody (NONREACTIVE) NONREACTIVE Cancelled 08/15 08/14 08/14 0420 0720 0600 Chemistry Sodium (137 - 145 mmol/L) 140 Cancelled Potassium (3.5 - 5.1 mmol/L) 4.8 Cancelled Chloride (98 - 107 mmol/L) 98 Cancelled Carbon Dioxide (22 - 30 mmol/L) 30 Cancelled Anion Gap (5 - 16) 13 Cancelled BUN (7 - 17 mg/dL) 35 H Cancelled Creatinine (0.5 - 1.0 mg/dL) 4.8 H Cancelled Estimated GFR (>60 ml/min) 9 L BUN/Creatinine Ratio (7 - 25 %) 7.3 Cancelled Coagulation PT (9.4 - 12.5 SEC) 12.4 INR (0.90 - 1.19) 1.14 APTT (25 - 37 SEC) 32 Hematology CBC w Diff NO MAN DIFF REQ Cancelled WBC (4.8 - 10.8 /CUMM) 14.9 H Cancelled RBC (4.20 - 5.40 /CUMM) 2.95 L Cancelled Hgb (12.0 - 16.0 G/DL) 9.1 L Cancelled Hct (37 - 47 %) 27.7 L Cancelled MCV (81.0 - 99.0 FL) 94.0 Cancelled MCH (27.0 - 31.0 PG) 31.0 Cancelled MCHC (33.0 - 37.0 G/DL) 33.0 Cancelled RDW (11.5 - 14.5 %) 16.1 H Cancelled Plt Count (130 - 400 /CUMM) 326 Cancelled MPV (7.4 - 10.4 FL) 7.9 Cancelled Gran % (42.2 - 75.2 %) 81.7 H Lymphocytes % (20.5 - 51.1 %) 9.3 L Monocytes % (1.7 - 9.3 %) 5.5 Eosinophils % (0 - 5 %) 3.3 Basophils % (0.0 - 2.0 %) 0.2 Absolute Granulocytes (1.4 - 6.5 /CUMM) 12.1 H Absolute Lymphocytes (1.2 - 3.4 /CUMM) 1.4 Absolute Monocytes (0.10 - 0.60 /CUMM) 0.8 H Absolute Eosinophils (0.0 - 0.7 /CUMM) 0.5 Absolute Basophils (0.0 - 0.2 /CUMM) 0 08/13 08/13 08/13 1515 0315 0315 Chemistry Sodium (137 - 145 mmol/L) 139 Potassium (3.5 - 5.1 mmol/L) 4.5 Chloride (98 - 107 mmol/L) 100 Carbon Dioxide (22 - 30 mmol/L) 28 Anion Gap (5 - 16) 11 BUN (7 - 17 mg/dL) 19 H Creatinine (0.5 - 1.0 mg/dL) 3.0 H Estimated GFR (>60 ml/min) 15 L BUN/Creatinine Ratio (7 - 25 %) 6.3 L Calcium (8.4 - 10.2 mg/dL) 9.3 Phosphorus (2.5 - 4.5 mg/dL) 3.2 Magnesium (1.6 - 2.3 mg/dL) 2.1 Albumin (3.5 - 5.0 g/dL) 3.2 L Coagulation PT (9.4 - 12.5 SEC) 12.1 INR (0.90 - 1.19) 1.11 APTT (25 - 37 SEC) Cancelled 85 H Hematology CBC w Diff NO MAN DIFF REQ WBC (4.8 - 10.8 /CUMM) 12.1 H RBC (4.20 - 5.40 /CUMM) 3.12 L Hgb (12.0 - 16.0 G/DL) 9.6 L Hct (37 - 47 %) 29.4 L MCV (81.0 - 99.0 FL) 94.1 MCH (27.0 - 31.0 PG) 30.9 MCHC (33.0 - 37.0 G/DL) 32.8 L RDW (11.5 - 14.5 %) 15.8 H Plt Count (130 - 400 /CUMM) 308 MPV (7.4 - 10.4 FL) 8.3 Gran % (42.2 - 75.2 %) 75.7 H Lymphocytes % (20.5 - 51.1 %) 13.0 L Monocytes % (1.7 - 9.3 %) 6.8 Eosinophils % (0 - 5 %) 3.7 Basophils % (0.0 - 2.0 %) 0.8 Absolute Granulocytes (1.4 - 6.5 /CUMM) 9.2 H Absolute Lymphocytes (1.2 - 3.4 /CUMM) 1.6 Absolute Monocytes (0.10 - 0.60 /CUMM) 0.8 H Absolute Eosinophils (0.0 - 0.7 /CUMM) 0.4 Absolute Basophils (0.0 - 0.2 /CUMM) 0.1 Imaging/Other Studies: *Please refer to the [facility] x-ray section for imaging studies of 07/30/17 to , none of which were pertinent to the GI tract. *08/01/17: CTA chest- negative for PE with nonspecific hypodense foci within the liver, not definitely hepatic cysts. 07/30/17: EKG- A. fib @ 141, LBBB. 08/10/17: EKG- aflutter @ 84, LBBB. Assessment/Plan Assessment/Recommendations: 86 y/o female with numerous comorbidities, including hypertension, hyperlipidemia, ESRD on HD (T//Sat) since summer 2013, ASHD post multiple cardiac stents (2015- 2 stents, 2016- 2 stents), NSTEMI, CHF with preserved EF, LBBB, PPM, PAF, secondary hyperparathyroidism, MRSA, admitted to [facility] 07/30/17, after being found by daughter at home pulseless without respirations. EMS was called and the patient received 1 round of Epi plus CPR. By the time she reached the [facility] ER, she had a pulse and was hypertensive. She was intubated and initially admitted to the ICU. 07/30/17: BNP 15836. 07/31/17: peak troponin 1.85. The exact etiology of the patient's cardiopulmonary arrest was unclear. She was found to have aspiration pneumonia. She was seen by medicine, ICU, renal, cardiology, & ID services. She has a LUE AVF. The patient was hypothermic on admission with mild leukocytosis and an elevated troponin. 07/30: Echocardiogram- LVEF 50% with mild to moderate anterior septal hypokinesis and mildly dilated LA, mild MS, mild to mod TR. She had Micrococci bacteremia, with 07/30/17: BC 2 positive. A workup for infective endocarditis was performed. The patient was on Unasyn, switched to IV Vanco. 08/05/17: CARLOS- LVEF 45% with small PFO, no vegetations, otherwise without change. Subsequent blood cultures were negative.*The patient was initially started on IV heparin. She was also on baby aspirin and Plavix. *Coumadin was later rxd, last taken . 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 I remotely saw the patient in inpatient GI consult 02/03/14, for brown, OB positive stool and multifactorial anemia. Her Hgb was usually in the 9-10 range at that time, and she was on EPO. Previous iron studies, B12, & folate levels were normal at that time. *She previously refused a baseline colonoscopy, despite the fact that her sister had colon CA in her 60's. *She never had an EGD either, and refused that as well. At the time of the 02/03/14: inpt GI consult, she was on baby aspirin daily, without any NSAIDs or additional antiplatelet agents or anticoagulants. Her GI review of systems from above and below then were completely negative, aside from some slight decreased appetite, which was attributed to uremia. The patient was tentatively scheduled for discharge in the near future. She was slated for her hemodialysis slot earlier this morning, on 08/15/17. She was on solids po. Earlier this morning at 3 AM on 08/15/17, she reportedly had a brown bowel movement accompanied by rectal bleeding. This was followed by clots per rectum. The patient was unaware of the above. She remained hemodynamically stable & afebrile, with O2 sat- 96%. Her Hgb remained relatively stable for her (9.1-> 9.0). *Please note, 08/04/17: Hbg 7.4. *The medical service held the baby aspirin & Plavix, as of 08/15/17. Again, Coumadin was last given 08/14/17. She denied any NSAIDS. Of note, 08/15/17: PT 20.4, INR 1.86, PTT 32 (post Coumadin the p.m before). At present, the patient denied any GERD, odynophagia, dysphagia, nausea, vomiting, early satiety, abdominal pain, hematemesis, melena, diarrhea, constipation, obstipation, change in stool caliber, or tenesmus. She had mild constipation earlier this admission, which resolved after stool softeners. She had no recurrent bleeding since this morning. She denied any prior abdominal surgery and specifically denies any history of AAA. She claimed that aside from her LUE AVF & cardiac stents, she had no additional surgeries, although old records revealed a hysterectomy, details unknown. She was made NPO by the medical housestaff earlier this morning. *As of the time of the 08/15/17 GI consultation, no recurrent GI bleeding was noted. The patient continued to refuse a baseline colonoscopy and/or baseline EGD, also keeping in mind the fact that her sister from colon cancer in her 60's. She refused a digital rectal exam by myself at the time of GI consultation. As the patient did not witness the bleeding herself, I can only go by what the RN described, namely brown stool accompanied by bright red blood, followed by clots. According to the nurse, there was no melena. The bleeding was painless in nature, without any hemodynamic instability. Hgb 9.1-> 9.0, without significant change. The patient had been on Coumadin for PAF, and was on ASA 81 mg daily & Plavix post multiple cardiac stents, last in 2016 (? type). Clinically, the patient appeared to have a lower GI bleed > upper GI source. Differential diagnosis is vast, ranging from benign to malignant causes , including diverticular bleed, angiodysplasia, colon CA, polyp, and/or colitis (i.e.- ischemic > 2nd peak IBD > infectious). There was no diarrhea regarding the latter possibility. A rapid transit upper GI bleed accounting for the above seemed much less likely. The above diagnostic possibilities were discussed with the patient, and her son, Adalberto, at the bedside 08/15/17, as per patient request. I gave her son, Adalberto, my office number for future reference. Despite the above possibilities, the patient adamantly refused a baseline colonoscopy and/or baseline EGD. She was made aware that I could not be held responsible for any adverse outcome or misdiagnosis due to her noncompliance. Furthermore, I could not make any decision regarding her antiplatelet agents or anticoagulation therapy from a risk stratification point of view, if she refuses a diagnostic workup. *SUGGEST: Resume diet as tolerated. Nutrition consult for supplements (low albumin). Follow-up CBC daily for now. O2- 2L nc as needed. Strict I/O's. Keep Hgb > 8 ( hx ASHD). Continue EPO as per renal. Empiric PPI (prefer Protonix 40 mg po daily, if Plavix resumed). Gentle IV fluids. No NSAIDs. If active LGIB, consider CTA abdomen (clear with renal, but already on HD). Again, the patient refuses baseline colonoscopy/EGD. Will defer to cardiology regarding ASA 81 mg, Plavix, & Coumadin, as it is extremely difficult to risk stratify the patient, as she refused GI workup. *Consider RUQ sono vs. CT liver with IV contrast (would clear with renal, but already on HD) to follow-up the incidental nonspecific hypodense foci within the liver, not definitely hepatic cysts, noted on the previous 08/01/17: CTA of chest. If the patient changes her mind, I will be happy to see her as an outpatient. She and her son, Adalberto, were given my office number. Further inpatient GI follow-up, as patient allows. The above was discussed with the medical house staff. Problem List: 1. GI bleed 2. Anemia 3. Malnutrition 4. Family history of colon cancer 5. CHRONIC RENAL FAILURE 6. Paroxysmal atrial fibrillation Copies To: Weston PARKINSON,Donavon Peace; Merline PARKINSON,Colton Kidd; Lilia PARKINSON,Skyler Bean; Jessiac PARKINSON, Alejandro Ruggiero; Merlin PARKINSON,Loc Consult Acknowledgment - Thank you for your consult request.
[2017-08-15 18:57] LABS: ABSOLUTE BASOPHIL COUNT 0.1 /CUMM (0.0-0.2); ABSOLUTE EOSINOPHIL COUNT 0.3 /CUMM (0.0-0.7); ABSOLUTE GRANULOCYTE CT 7.9 /CUMM (1.4-6.5); ABSOLUTE LYMPH COUNT 1.3 /CUMM (1.2-3.4); ABSOLUTE MONOCYTE COUNT 0.7 /CUMM (0.10-0.60); BASOPHIL % 0.6 % (0.0-2.0); EOSINOPHIL % 2.8 % (0-5); GRANULOCYTE % 76.6 % (42.2-75.2); HEMATOCRIT 28.1 % (37-47); MEAN CORPUSCULAR HGB 30.6 PG (27.0-31.0); MEAN CORPUSCULAR HGB CONC 32.3 G/DL (33.0-37.0); MEAN CORPUSCULAR VOLUME 94.8 FL (81.0-99.0); MEAN PLATELET VOLUME 8.4 FL (7.4-10.4); PLATELET COUNT 321 /CUMM (130-400); RBC DISTRIBUTION WIDTH 16.3 % (11.5-14.5); RED BLOOD CELL CT 2.97 /CUMM (4.20-5.40); WHITE BLOOD CELL COUNT 10.3 /CUMM (4.8-10.8)
[2017-08-15 23:09] VITALS: BP 130/56
[2017-08-16 07:13] VITALS: BP 160/67
--- NOTE | 2017-08-16 07:50 | RADIOLOGY REPORT ---
EXAMINATION: XR PORTABLE CHEST CLINICAL INFORMATION: Chest pain. Tender to touch. COMPARISON: Chest radiograph dated 08/10/2017. TECHNIQUE: Portable frontal view of the chest was obtained. FINDINGS: The cardiomediastinal silhouette remains stable in size and configuration. There is dense calcification of the aortic knob. There is improved aeration within the right middle lobe. There is a left lower lobe consolidation. No pneumothorax or large pleural effusion. Severe degenerative changes of the right glenohumeral joint. No displaced rib fracture is identified. IMPRESSION: 1. Improved right middle lobe aeration. 2. Left lower lobe consolidation, similar to prior study. 3. No displaced rib fracture is identified.
[2017-08-16 07:53] LABS: PT 25.8 SEC (9.4-12.5)
[2017-08-16 08:05] LABS: ABSOLUTE BASOPHIL COUNT 0.1 /CUMM (0.0-0.2); ABSOLUTE EOSINOPHIL COUNT 0.3 /CUMM (0.0-0.7); ABSOLUTE GRANULOCYTE CT 7.8 /CUMM (1.4-6.5); ABSOLUTE LYMPH COUNT 1.3 /CUMM (1.2-3.4); ABSOLUTE MONOCYTE COUNT 0.7 /CUMM (0.10-0.60); BASOPHIL % 1.1 % (0.0-2.0); EOSINOPHIL % 2.8 % (0-5); GRANULOCYTE % 76.6 % (42.2-75.2); HEMATOCRIT 29.2 % (37-47); MEAN CORPUSCULAR HGB 30.7 PG (27.0-31.0); MEAN CORPUSCULAR HGB CONC 32.6 G/DL (33.0-37.0); MEAN CORPUSCULAR VOLUME 94.1 FL (81.0-99.0); MEAN PLATELET VOLUME 8.5 FL (7.4-10.4); PLATELET COUNT 323 /CUMM (130-400); RBC DISTRIBUTION WIDTH 16.5 % (11.5-14.5); RED BLOOD CELL CT 3.11 /CUMM (4.20-5.40); WHITE BLOOD CELL COUNT 10.2 /CUMM (4.8-10.8)
--- NOTE | 2017-08-16 08:16 | PN- Wound Care ---
Subjective Subjective: Patient is awake alert Objective Vital Signs and I&Os Vital Signs Result Date Time B/P 160/67 08/16 736 Pulse 77 08/16 736 Pulse Ox 95 08/16 712 Temp 97.5 08/16 712 Resp 20 08/16 712 O2 Delivery Nasal Cannula 08/16 O2 Flow Rate 2.0L 08/16 FiO2 35 08/06 1645 Intake & Output 08/16 0000 08/15 1600 08/15 0800 Intake Total 320 200 Output Total 600 Balance 320 -400 Intake, Oral 320 200 Number 1 3 Bowel Movements Output, 600 Dialysate Patient 95 lb 6 oz 94 lb 7 oz Weight Left anterior shoulder wound has areas of rasta-epithelialization, left knee traumatic ulcer has softening slough, Impression/Plan Impression/Plan Impression/Plan: 86-year-old status post code 3 has multiple traumatic ulcers present on admission. Wounds require aggressive cleansing and daily moist wound care with Xeroform
--- NOTE | 2017-08-16 08:24 | PN- Housestaff ---
Frances PARKINSON,Miguelina 08/16/17 0823: Subjective Follow-up For: GI bleed S/PEA and ROSC Extubated Hypertension ESRD on HD Complaints: pain scale (0-10) Tele-Events Since Last Visit: Off tele Subjective: ` Patient was seen and examined at bedside, she complains of chest pain 8/10 left side of the chest, increased with deep breathing and palpation. Troughs and EKG were negative, chest x-ray did not show any changes. Denies any bloody bowel movement, nausea ,vomiting diarrhea constipation Review of Systems Constitutional: Denies: no symptoms. EENTM: Denies: no symptoms. Cardiovascular: Reports: chest pain. Denies: edema, orthopena, palpitations, peripheral edema. Respiratory: Denies: no symptoms. Gastrointestinal: Denies: no symptoms, abdominal pain, bloating, constipation, diarrhea, distention, bloody stool. Genitourinary: Denies: no symptoms. Musculoskeletal: Denies: no symptoms. Objective Last 24 Hrs of Vital Signs/I&O Vital Signs Date Time Temp Pulse Resp B/P B/P Pulse O2 O2 Flow FiO2 Mean Ox Delivery Rate 08/16 0737 77 160/67 08/16 0736 77 160/67 08/16 0713 97.5 77 20 160/67 95 / 0000 Nasal 2.0L Cannula 08/15 2309 97.8 86 20 130/56 95 Nasal Cannula 08/15 2133 72 130/56 08/15 1600 Nasal 2.0L Cannula 08/15 1511 97.0 91 20 150/50 99 Intake & Output 08/16 1600 08/16 0800 08/16 0000 Intake Total 320 Output Total Balance 320 Intake, Oral 320 Number 1 Bowel Movements Patient 95 lb 6 oz Weight Physical Exam General Appearance: Alert, Oriented X3, Cooperative, No Acute Distress HEENT: Atraumatic, PERRLA, EOMI, Mucous Membr. moist/pink Neck: Supple, No JVD Cardiovascular: Normal S1, Normal S2, No Murmurs Lungs: Clear to Auscultation Abdomen: Normal Bowel Sounds, Soft, No Tenderness Assessment/Plan Assessment: 86 yo female with PMH of ESRD on HD Tue/Thur/Sat, CAD s/p stent placement 3 years ago, HFpEF, HTN, HLD, NSTEMI, LBBB, and secondary hyperparathyroidism BIBA PEA s/p intubation, CPR and epi x1 with successful ROSC. Pt was not cooled on arrival. She was intubated but never required pressors. She had elevation in troponin and was started on heparin drip. Subsequently extubated successfully and heparin drip d/c. Pt on 4 L o2 today and hemodynamically stable, receiving hemodialysis this morning ----- PLAN: 1.Cardiopulmonary arrest with acute hypoxic respiratory failure of unclear etiology: She has PMH of coronary artery disease status post NSTEMI and 4 stents (2015 - 2 stents, 2016- 2 stents), symptomatic bradycardia s/p pacemaker placement, and HTN. Differential diagnosis of the cause of her cardiac arrest includes [place] and PEA. OtherDdx: flash pulm edema, arrhythmia, septic shock. EF now 50 % with mild to moderate anteroseptal hypokinesis. * Repeat blood cultures neg * Negative lower extremity Doppler for DVT * CAT w/o evidence of PE * Patient was found to have therapeutic INR 2.35(today is day 4) Coumadin has been held for GI bleed * PT/INR daily * Continue metoprolol 25 bid given htn. * Aspirin and Plavix on hold for GI bleed * Continue atorvastatin 80 mg daily * Appreciate cardio recommendation 2. Pneumonia: Treating for PNA, Sputum cx came back positive for MRSA, her nares swab was positive for MRSA, given pt was initially intubated we treated for PNA.. Blood cultures 2 initially positive for micrococcus which was thought to be disseminated secondary to CPR. Additionally, there is concern for aspiration pneumonia in this patient. CARLOS negative for evidence of vegetations. * Con't monitor off antibiotics 3. Hypertension Controlled * Con't Amlodipine 10mg * Con't Metoprolol 25mg 4. Anion gap acidosis: RESOLVED. Initially thought to be secondary to lactic acidosis in the setting of decreased perfusion as well as underlying renal insufficiency. Now likely due to renal failure as lactate has normalized. 6. End stage renal today disease on hemodialysis: Saturday and Saturday * Appreciate nephro consult * HD today 7. GI bleed Patient had 2 episodes of dark red bloody bowel movement yesterday Vitals and H&H is stable Continue IV Protonix Hold Coumadin, aspirin and Plavix Will dose, Coumadin after ruling out active GI bleed (will discussed with GI) The patient did not have any bloody bowel movement yesterday or today, H and H and vitals stable Will need to have colonoscopy as outpatient Q6 finger stick 8.traumatic ulcers of the left shoulder and knee * Wound dressing using Xeroform with daily cleansing * Barrier cream can be used for protection over her buttocks with offloading 9. Chest pain: Most likely muscular in origin This morning the patient was complaining of chest pain 8/10 in severity, the pain increases with deep inspiration and palpation of the chest Troponins and EKG were negative Chest x-ray did not show any active issues or refracture Pain control with Tylenol and tramadol as needed DVT prophylaxis: Alps CODE STATUS Full code Problem List: 1. GI bleed 2. Atrial fibrillation with rapid ventricular response 3. Cardiac arrest Pain Ratin Pain Location: left side of the chest Pain Goal: Pain 4 or less Pain Plan: pathway Tomorrow's Labs & Rationales: N/A Donavon Ontiveros 08/16/17 1414: Attending MD Review Statement Attending Statement Attending MD Statement: examined this patient, discuss w/resident/PA/ECDIS N NAVIGATION OPERATOR, agreed w/resident/PA/ECDIS N NAVIGATION OPERATOR, discussed with family, reviewed EMR data (avail), discussed with nursing, discussed with case mgmt Attending Assessment/Plan: pt being dced to [facility]. d/w pt and pts daughter garrett over the phone the care plan. Pt will f/u [facility] as an outpatinet. pts hb has stayed stable over the last one week and likely the blood in her stool was secondary to hemorrhoids and constipation.
[2017-08-16] MEDS ORDERED: VITAMIN A & D56.7 GM TOP (12:57)
[2017-08-16] MEDS ORDERED: METOPROLOL TART25 M1 PO (12:57)
[2017-08-16] MEDS ORDERED: MELATONIN5 M7 PO (12:57)
[2017-08-16] MEDS ORDERED: RENVELA800 M1 PO ×2 (12:57→13:02)
[2017-08-16] MEDS ORDERED: CRESTOR20 M2 PO (12:58)
[2017-08-16 14:00] VITALS: BP 120/80
--- NOTE | 2017-08-16 15:09 | PN- Nephrology ---
Assessment/Plan Nephrology Assessment: ESRD - Routine HD today. No fluid on exam. Nausea/hypotension during last couple of HD treatments. I think we can target an outpatient EDW of 44.5kg. Anemia - On Epogen. Seen by GI - pt refusing EGD/C-scope. Hg stable. Cardiac arrest - Underlying cause remains unclear. Cards following - no [facility] for now. Suggestion: -Outpatient HD tomorrow - target EDW 44.5kg Please call [phone] with ?'s Subjective Subjective: HD performed yesterday c/b nausea and hypotension Pt refusing EGD/C-scope at this time - Hg stable Breathing OK - no fluid on chest x-ray Tentative plans for discharge today Objective Vital Signs and I&Os Vital Signs Date Time Temp Pulse Resp B/P B/P Pulse O2 O2 Flow FiO2 Mean Ox Delivery Rate 08/16 1400 96.6 69 18 120/80 98 Nasal 2.0L Cannula 08/16 0737 77 160/67 08/16 0736 77 160/67 08/16 0713 97.5 77 20 160/67 95 08/16 0000 Nasal 2.0L Cannula 08/15 2309 97.8 86 20 130/56 95 Nasal Cannula 08/15 2133 72 130/56 08/15 1600 Nasal 2.0L Cannula 08/15 1511 97.0 91 20 150/50 99 Intake & Output 08/16 1600 08/16 0400 08/15 1600 08/15 0400 08/14 1600 08/14 0400 Intake Total 400 320 200 400 400 420 Output Total 600 0 0 Balance 400 320 -400 400 400 420 Intake, Oral 400 320 200 400 400 420 Number 1 3 2 1 Bowel Movements Output, 600 Dialysate Output, Urine 0 0 Patient 95 lb 6 oz 94 lb 7 oz 95 lb 5 oz 95 lb 3 oz Weight Weight Bed scale Bed scale Measurement Method Physical Exam: Gen - OK appearing HEENT - supple CV - RRR, no m/r/g Chest - clear anteriorly Abd - soft, NTND Ext - no edema, MARY AVF +thrill/+bruit Neuro - alert, oriented Current Medications: Current Medications Sig/King Start time Last Medication Dose Route Stop Time Status Admin Acetaminophen 325 MG Q6P PRN 08/13 1445 AC 08/13 PO 1450 Amlodipine Besylate 10 MG DAILY 07/30 1000 AC 08/16 PO 0737 Atorvastatin Calcium 80 MG 1700 07/30 1700 AC 08/15 PO 1733 Bisacodyl 10 MG DAILY PRN 08/14 1330 AC 08/14 NV 1444 Dextrose/Sodium 1,000 ML Q20H 08/15 1130 DC Chloride IV Docusate Sodium 100 MG DAILY 08/14 1130 AC 08/14 PO 1315 Epoetin Vamshi 2,000 UNIT TuThSa PRN 08/03 0700 AC IV Lidocaine/Prilocaine 1 JENNIE TuThSa PRN 08/10 1900 AC 08/15 TOP 0722 Melatonin 5 MG AT BEDTIME 08/07 2200 AC 08/15 PO 2133 Metoprolol Tartrate 25 MG BID 08/02 2200 AC 08/16 PO 0736 Polyethylene Glycol 17 GM DAILY 08/13 1000 AC 08/14 PO 0912 Sevelamer Carbonate 2,400 MG WM 08/07 1700 AC 08/16 PO 1257 Tramadol HCl 50 MG Q6P PRN 08/13 1445 AC 08/14 PO 2112 Tramadol HCl 25 MG Q12P PRN 08/11 1341 AC 08/13 PO 1134 Vitamin A/Vitamin D 1 JENNIE BID 08/07 1000 AC 08/16 TOP 0739 Zinc Oxide 1 JENNIE BID PRN 08/07 0600 AC 08/07 TOP 0955 Results Pertinent Lab Results: Laboratory Tests 08/16 08/16 0658 0648 Chemistry Sodium (137 - 145 mmol/L) 138 Potassium (3.5 - 5.1 mmol/L) 4.9 Chloride (98 - 107 mmol/L) 99 Carbon Dioxide (22 - 30 mmol/L) 30 Anion Gap (5 - 16) 10 BUN (7 - 17 mg/dL) 23 H Creatinine (0.5 - 1.0 mg/dL) 4.0 H Estimated GFR (>60 ml/min) 11 L BUN/Creatinine Ratio (7 - 25 %) 5.8 L Troponin I (< 0.11 ng/ml) 0.04 Cancelled Coagulation PT (9.4 - 12.5 SEC) 25.8 H INR (0.90 - 1.19) 2.35 H Hematology CBC w Diff NO MAN DIFF REQ WBC (4.8 - 10.8 /CUMM) 10.2 RBC (4.20 - 5.40 /CUMM) 3.11 L Hgb (12.0 - 16.0 G/DL) 9.5 L Hct (37 - 47 %) 29.2 L MCV (81.0 - 99.0 FL) 94.1 MCH (27.0 - 31.0 PG) 30.7 MCHC (33.0 - 37.0 G/DL) 32.6 L RDW (11.5 - 14.5 %) 16.5 H Plt Count (130 - 400 /CUMM) 323 MPV (7.4 - 10.4 FL) 8.5 Gran % (42.2 - 75.2 %) 76.6 H Lymphocytes % (20.5 - 51.1 %) 12.4 L Monocytes % (1.7 - 9.3 %) 7.1 Eosinophils % (0 - 5 %) 2.8 Basophils % (0.0 - 2.0 %) 1.1 Absolute Granulocytes (1.4 - 6.5 /CUMM) 7.8 H Absolute Lymphocytes (1.2 - 3.4 /CUMM) 1.3 Absolute Monocytes (0.10 - 0.60 /CUMM) 0.7 H Absolute Eosinophils (0.0 - 0.7 /CUMM) 0.3 Absolute Basophils (0.0 - 0.2 /CUMM) 0.1 08 03/08 1815 0800 Chemistry Sodium (137 - 145 mmol/L) 138 Potassium (3.5 - 5.1 mmol/L) 5.4 H Chloride (98 - 107 mmol/L) 98 Carbon Dioxide (22 - 30 mmol/L) 29 Anion Gap (5 - 16) 11 BUN (7 - 17 mg/dL) 38 H Creatinine (0.5 - 1.0 mg/dL) 5.2 *H Estimated GFR (>60 ml/min) 8 L BUN/Creatinine Ratio (7 - 25 %) 7.3 Calcium (8.4 - 10.2 mg/dL) 9.1 Phosphorus (2.5 - 4.5 mg/dL) 3.1 Magnesium (1.6 - 2.3 mg/dL) 2.1 Albumin (3.5 - 5.0 g/dL) 3.1 L Coagulation PT (9.4 - 12.5 SEC) 20.4 H INR (0.90 - 1.19) 1.86 H Hematology CBC w Diff NO MAN DIFF REQ NO MAN DIFF REQ WBC (4.8 - 10.8 /CUMM) 10.3 13.7 H RBC (4.20 - 5.40 /CUMM) 2.97 L 2.90 L Hgb (12.0 - 16.0 G/DL) 9.1 L 9.0 L Hct (37 - 47 %) 28.1 L 27.2 L MCV (81.0 - 99.0 FL) 94.8 94.0 MCH (27.0 - 31.0 PG) 30.6 31.0 MCHC (33.0 - 37.0 G/DL) 32.3 L 33.0 RDW (11.5 - 14.5 %) 16.3 H 16.0 H Plt Count (130 - 400 /CUMM) 321 323 MPV (7.4 - 10.4 FL) 8.4 8.6 Gran % (42.2 - 75.2 %) 76.6 H 85.1 H Lymphocytes % (20.5 - 51.1 %) 12.8 L 9.0 L Monocytes % (1.7 - 9.3 %) 7.2 5.8 Eosinophils % (0 - 5 %) 2.8 0 Basophils % (0.0 - 2.0 %) 0.6 0.1 Absolute Granulocytes (1.4 - 6.5 /CUMM) 7.9 H 11.6 H Absolute Lymphocytes (1.2 - 3.4 /CUMM) 1.3 1.2 Absolute Monocytes (0.10 - 0.60 /CUMM) 0.7 H 0.8 H Absolute Eosinophils (0.0 - 0.7 /CUMM) 0.3 0 Absolute Basophils (0.0 - 0.2 /CUMM) 0.1 0 Serology Hep Bs Antigen (NONREACTIVE) NONREACTIVE Hep Bs Antibody (NONREACTIVE) NONREACTIVE 08/15 08/15 08/15 0729 0600 0420 Chemistry Sodium (137 - 145 mmol/L) Cancelled 140 Potassium (3.5 - 5.1 mmol/L) Cancelled 4.8 Chloride (98 - 107 mmol/L) Cancelled 98 Carbon Dioxide (22 - 30 mmol/L) Cancelled 30 Anion Gap (5 - 16) Cancelled 13 BUN (7 - 17 mg/dL) Cancelled 35 H Creatinine (0.5 - 1.0 mg/dL) Cancelled 4.8 H Estimated GFR (>60 ml/min) 9 L BUN/Creatinine Ratio (7 - 25 %) Cancelled 7.3 Coagulation PT Cancelled INR Cancelled APTT (25 - 37 SEC) 32 Hematology CBC w Diff Cancelled NO MAN DIFF REQ WBC (4.8 - 10.8 /CUMM) Cancelled 14.9 H RBC (4.20 - 5.40 /CUMM) Cancelled 2.95 L Hgb (12.0 - 16.0 G/DL) Cancelled 9.1 L Hct (37 - 47 %) Cancelled 27.7 L MCV (81.0 - 99.0 FL) Cancelled 94.0 MCH (27.0 - 31.0 PG) Cancelled 31.0 MCHC (33.0 - 37.0 G/DL) Cancelled 33.0 RDW (11.5 - 14.5 %) Cancelled 16.1 H Plt Count (130 - 400 /CUMM) Cancelled 326 MPV (7.4 - 10.4 FL) Cancelled 7.9 Gran % (42.2 - 75.2 %) 81.7 H Lymphocytes % (20.5 - 51.1 %) 9.3 L Monocytes % (1.7 - 9.3 %) 5.5 Eosinophils % (0 - 5 %) 3.3 Basophils % (0.0 - 2.0 %) 0.2 Absolute Granulocytes (1.4 - 6.5 /CUMM) 12.1 H Absolute Lymphocytes (1.2 - 3.4 /CUMM) 1.4 Absolute Monocytes (0.10 - 0.60 /CUMM) 0.8 H Absolute Eosinophils (0.0 - 0.7 /CUMM) 0.5 Absolute Basophils (0.0 - 0.2 /CUMM) 0 Serology Hep Bs Antigen Cancelled Hep Bs Antibody Cancelled 08/14 08/14 08/13 0720 0600 1515 Chemistry Sodium Cancelled Potassium Cancelled Chloride Cancelled Carbon Dioxide Cancelled Anion Gap Cancelled BUN Cancelled Creatinine Cancelled BUN/Creatinine Ratio Cancelled Coagulation PT (9.4 - 12.5 SEC) 12.4 INR (0.90 - 1.19) 1.14 APTT Cancelled Hematology CBC w Diff Cancelled WBC Cancelled RBC Cancelled Hgb Cancelled Hct Cancelled MCV Cancelled MCH Cancelled MCHC Cancelled RDW Cancelled Plt Count Cancelled MPV Cancelled Imaging/Other Studies: EXAM TYPE: RAD - XRY-PORTABLE CHEST XRAY EXAMINATION: XR PORTABLE CHEST CLINICAL INFORMATION: Chest pain. Tender to touch. COMPARISON: Chest radiograph dated 08/10/2017. TECHNIQUE: Portable frontal view of the chest was obtained. FINDINGS: The cardiomediastinal silhouette remains stable in size and configuration. There is dense calcification of the aortic knob. There is improved aeration within the right middle lobe. There is a left lower lobe consolidation. No pneumothorax or large pleural effusion. Severe degenerative changes of the right glenohumeral joint. No displaced rib fracture is identified. IMPRESSION: 1. Improved right middle lobe aeration. 2. Left lower lobe consolidation, similar to prior study. 3. No displaced rib fracture is identified.
--- NOTE | 2017-08-16 15:53 | PN- Infect Dx ---
Subjective Subjective: Afebrile. She has had several bowel movements with clotted blood overnight. She also complained of chest pain this morning, with no changes in her EKG or troponins. Objective Last 24 Hrs of Vital Signs/I&O Vital Signs Date Time Temp Pulse Resp B/P B/P Pulse O2 O2 Flow FiO2 Mean Ox Delivery Rate 08/16 1400 96.6 69 18 120/80 98 Nasal 2.0L Cannula 08/16 0737 77 160/67 08/16 0736 77 160/67 08/16 0713 97.5 77 20 160/67 95 08/16 0000 Nasal 2.0L Cannula 08/15 2309 97.8 86 20 130/56 95 Nasal Cannula 08/15 2133 72 130/56 08/15 1600 Nasal 2.0L Cannula Intake & Output 08/16 1600 08/16 0800 08/16 0000 Intake Total 400 320 Output Total Balance 400 320 Intake, Oral 400 320 Number 1 Bowel Movements Patient 95 lb 6 oz Weight Physical Exam Other Physical Findings: She appears comfortable in no acute distress Lungs are clear Chest tender on palpation over the mid chest Extremities no cyanosis, clubbing or edema Results Last 24 Hours of Lab Results: Laboratory Tests 08/16 08/16 0658 0648 Chemistry Sodium (137 - 145 mmol/L) 138 Potassium (3.5 - 5.1 mmol/L) 4.9 Chloride (98 - 107 mmol/L) 99 Carbon Dioxide (22 - 30 mmol/L) 30 Anion Gap (5 - 16) 10 BUN (7 - 17 mg/dL) 23 H Creatinine (0.5 - 1.0 mg/dL) 4.0 H Estimated GFR (>60 ml/min) 11 L BUN/Creatinine Ratio (7 - 25 %) 5.8 L Troponin I (< 0.11 ng/ml) 0.04 Cancelled Coagulation PT (9.4 - 12.5 SEC) 25.8 H INR (0.90 - 1.19) 2.35 H Hematology CBC w Diff NO MAN DIFF REQ WBC (4.8 - 10.8 /CUMM) 10.2 RBC (4.20 - 5.40 /CUMM) 3.11 L Hgb (12.0 - 16.0 G/DL) 9.5 L Hct (37 - 47 %) 29.2 L MCV (81.0 - 99.0 FL) 94.1 MCH (27.0 - 31.0 PG) 30.7 MCHC (33.0 - 37.0 G/DL) 32.6 L RDW (11.5 - 14.5 %) 16.5 H Plt Count (130 - 400 /CUMM) 323 MPV (7.4 - 10.4 FL) 8.5 Gran % (42.2 - 75.2 %) 76.6 H Lymphocytes % (20.5 - 51.1 %) 12.4 L Monocytes % (1.7 - 9.3 %) 7.1 Eosinophils % (0 - 5 %) 2.8 Basophils % (0.0 - 2.0 %) 1.1 Absolute Granulocytes (1.4 - 6.5 /CUMM) 7.8 H Absolute Lymphocytes (1.2 - 3.4 /CUMM) 1.3 Absolute Monocytes (0.10 - 0.60 /CUMM) 0.7 H Absolute Eosinophils (0.0 - 0.7 /CUMM) 0.3 Absolute Basophils (0.0 - 0.2 /CUMM) 0.1 08/15 1814 Hematology CBC w Diff NO MAN DIFF REQ WBC (4.8 - 10.8 /CUMM) 10.3 RBC (4.20 - 5.40 /CUMM) 2.97 L Hgb (12.0 - 16.0 G/DL) 9.1 L Hct (37 - 47 %) 28.1 L MCV (81.0 - 99.0 FL) 94.8 MCH (27.0 - 31.0 PG) 30.6 MCHC (33.0 - 37.0 G/DL) 32.3 L RDW (11.5 - 14.5 %) 16.3 H Plt Count (130 - 400 /CUMM) 321 MPV (7.4 - 10.4 FL) 8.4 Gran % (42.2 - 75.2 %) 76.6 H Lymphocytes % (20.5 - 51.1 %) 12.8 L Monocytes % (1.7 - 9.3 %) 7.2 Eosinophils % (0 - 5 %) 2.8 Basophils % (0.0 - 2.0 %) 0.6 Absolute Granulocytes (1.4 - 6.5 /CUMM) 7.9 H Absolute Lymphocytes (1.2 - 3.4 /CUMM) 1.3 Absolute Monocytes (0.10 - 0.60 /CUMM) 0.7 H Absolute Eosinophils (0.0 - 0.7 /CUMM) 0.3 Absolute Basophils (0.0 - 0.2 /CUMM) 0.1 Last 24 Hours of Lex Results: No new cultures Recent Imaging Studies: Chest x-ray August 16 reveals improved right middle lobe aeration with no change in the left lower lobe density Assessment/Plan ID Impression: Stable, with her temperatures and white blood cell count remaining normal, off antibiotics after over 10 days of Vancomycin for possible MRSA pneumonia in the setting of a recent cardiac arrest. Her chest pain may well be musculoskeletal in origin, with no changes on her EKG or troponin rise. The significance of her bloody bowel movements is unclear, with her H&H stable, and she has been evaluated by GI, with no plans for any further evaluation at this time. Suggestion: 1. Continue to follow off antibiotics
== END 2017-08-16 15:30 | DRG 207 ==
LOC: ERH 04:25 → 1NO 05:42 → ERHI 05:42 → CRI 05:42 → ENRESERV 07:06 → ENTRNSPT 07:33 → EDTRNSPTSTS 07:55 → EDTRNSPT 07:55 → CMPTRNSPT 08:22 → CRI 08:24 → ENTRNSPT 08-11 12:36 → EDTRNSPTSTS 08-11 12:50 → CMPTRNSPT 08-11 13:12 → 1NO 08-11 13:32 → ENPENDDIS 08-16 13:19 → 1NO 08-16 15:30
PROVIDERS: Dermatology; Internal Medicine; Internal Medicine Critical Care Medicine; Internal Medicine Endocrinology, Diabetes & Metabolism; Internal Medicine Infectious Disease; Internal Medicine Interventional Cardiology; Internal Medicine Nephrology; Orthopaedic Surgery; Pediatrics; Student in an Organized Health Care Education/Training Program
PROC: 0BH17EZ Insertion of Endotracheal Airway into Trachea, Via Natural or Artificial Opening (ICD-10-PCS; principal; 2017-07-30)
PROC: 5A1955Z Respiratory Ventilation, Greater than 96 Consecutive Hours (ICD-10-PCS; principal; 2017-07-30)
PROC: 06HM33Z Insertion of Infusion Device into Right Femoral Vein, Percutaneous Approach (ICD-10-PCS; 2017-07-30)
PROC: 5A1D70Z Performance of Urinary Filtration, Intermittent, Less than 6 Hours Per Day (ICD-10-PCS; 2017-07-30)
PROC: B246ZZ4 Ultrasonography of Right and Left Heart, Transesophageal (ICD-10-PCS; 2017-08-05)
PROC: 30233N1 Transfusion of Nonautologous Red Blood Cells into Peripheral Vein, Percutaneous Approach (ICD-10-PCS; 2017-08-05)
DX: J96.01 Acute respiratory failure with hypoxia (principal); J69.0 Pneumonitis due to inhalation of food and vomit; I46.9 Cardiac arrest, cause unspecified; J15.212 Pneumonia due to Methicillin resistant Staphylococcus aureus; I13.2 Hypertensive heart and chronic kidney disease with heart failure and with stage 5 chronic kidney disease, or end stage renal disease; E46 Unspecified protein-calorie malnutrition; N17.9 Acute kidney failure, unspecified; I24.8 Other forms of acute ischemic heart disease; E83.39 Other disorders of phosphorus metabolism; I50.32 Chronic diastolic (congestive) heart failure; N18.6 End stage renal disease; E87.2 Acidosis; E87.1 Hypo-osmolality and hyponatremia; K92.2 Gastrointestinal hemorrhage, unspecified; N25.81 Secondary hyperparathyroidism of renal origin; I48.92 Unspecified atrial flutter; L97.829 Non-pressure chronic ulcer of other part of left lower leg with unspecified severity; L98.498 Non-pressure chronic ulcer of skin of other sites with other specified severity; I48.0 Paroxysmal atrial fibrillation; E03.9 Hypothyroidism, unspecified; I44.7 Left bundle-branch block, unspecified; I25.10 Atherosclerotic heart disease of native coronary artery without angina pectoris; I25.2 Old myocardial infarction; E78.5 Hyperlipidemia, unspecified; Z99.2 Dependence on renal dialysis; I34.0 Nonrheumatic mitral (valve) insufficiency; I25.5 Ischemic cardiomyopathy; M11.262 Other chondrocalcinosis, left knee; K64.9 Unspecified hemorrhoids; D64.9 Anemia, unspecified; R68.0 Hypothermia, not associated with low environmental temperature; Z95.5 Presence of coronary angioplasty implant and graft; K59.00 Constipation, unspecified; Z68.21 Body mass index [BMI] 21.0-21.9, adult; Z80.0 Family history of malignant neoplasm of digestive organs; W19.XXXA Unspecified fall, initial encounter; Y92.009 Unspecified place in unspecified non-institutional (private) residence as the place of occurrence of the external cause
CPT/HCPCS: 1NP; 87184; 87493; CCU; 36415; 36592; 71045; 73502-LT; 73502-RT; 73562-LT; 73562-RT; 73630-LT; 74176; 76881; 80307; 82436; 86920; 87040; 87070; 87071; 87086; 87147; 93005; 93010; 93306; 93325; 93970; 94799; 96374; 97110-GO; 97161-GP; 97530-GO; 99291; G0480; J0131; J0696; J0885; J1200; J1644; J2405; J2920; J3010; J3370; J3490; J7042; J7060; P9016

== ENCOUNTER 2017-10-15 16:17 | Emergency (ER) | payer OTHER ==
[~2017-10-15] VITALS: Ht 154.9 cm; Wt 42.3 kg
[~2017-10-15 16:17] MED LIST changes: +COUMADIN5 M2 PO; +CRESTOR20 M2 PO; +LIDOCAINE-PRILO30 GM TOP; +MELATONIN5 M7 PO; +MIRALAX119 GM PO; +PLAVIX75 M1 PO; +PROCRIT2000 UNIT/ IV; +VITAMIN A & D56.7 GM TOP
--- NOTE | 2017-10-15 18:07 | ED GENERAL ADULT ---
History of Present Illness General Chief Complaint: General Adult Stated Complaint: PT HAS RASH AND LT SHOULDER PAIN Source: patient, family Exam Limitations: no limitations Vital Signs & Intake/Output Vital Signs & Intake/Output Vital Signs Date Time Temp Pulse Resp B/P B/P Pulse O2 O2 Flow FiO2 Mean Ox Delivery Rate 10/15 2000 97.8 76 20 185/84 98 Room Air 10/15 1826 152/64 10/15 1625 97.0 72 18 173/79 98 Room Air Room Air Allergies Coded Allergies: No Known Allergies (05/16/17) Reconcile Medications Amlodipine Besylate 10 MG TABLET 1 TAB PO DAILY HEART/BP (Reported) Aspirin (Ecotrin*) 81 MG TABLET.DR 1 TAB PO DAILY HEART/BLOOD (Reported) Epoetin Vamshi (Procrit) 2,000 UNIT/ML VIAL 2,000 UNIT IV TuThSa PRN WITH HEMODIALYSYS Folic Acid/Vit Bcomp,C (Radha-Cuong Tablet) (Unknown Strength) TABLET 1 TAB PO DAILY SUPPLEMENT (Reported) Lidocaine/Prilocaine (Lidocaine-Prilocaine Cream) 2.5 %-2.5 % CREAM..G. 1 JENNIE TOP TuThSa PRN HD Melatonin 5 MG TABLET 5 MG PO AT BEDTIME PRN sleep problem Metoprolol Tartrate 25 MG TABLET 1 TAB PO BID htn Polyethylene Glycol 3350 (Miralax) 17 GRAM/DOSE POWDER 17 GM PO DAILY PRN CONSTIPATION Rosuvastatin Calcium (Crestor) 20 MG TABLET 1 TAB PO DAILY HYPERLIPIDEMIA Sevelamer Carbonate (Renvela) 800 MG TABLET 3 TAB PO SEE ADMIN CRITERIA RENAL three tomes a day on saturday and saturday Vitamin A & D (Vitamin A & D Ointment) 56.7 GM OINT...G. 1 JENNIE TOP BID WOUND Triage Note: PT TO ED WITH C/O LEFT SHOULDER BRUISING SINCE LAST SATURDAY, NOW DOWN LEFT ARM, CHEST AND BACK. PT ON COUMADIN, BUT IS INR WAS 1.3 LAST SATURDAY, DUE FOR RE-CHECK THIS WEEK. Triage Nurses Notes Reviewed? yes Onset: Abrupt Duration: day(s): Timing: recent history Severity: moderate HPI: 10/15/17 86-year-old female presents to the emergency department for worsening rash to the left upper anterior hemithorax. According to the patient's daughter she developed a rash to the left shoulder. It is progressed in severity over the past 5 days. No fever. No chest pain. She does have discomfort to the left shoulder. There is a history of left shoulder trauma although she denies having fallen recently. She did go to dialysis today. She has a left AV graft in her arm. (Oneil Burnett DO) Past History Travel History Traveled to [place] past 21 day No Medical History Any Pertinent Medical History? 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 , Age 69. MOTHER (diabetes). , Age 72. BROTHER (pancreatic cancer). , Age Unknown. SISTER (colon cancer). , Age 60+. BROTHER (brain aneurysm). , Age 50's. Relation not specified for: colon cancer Hx Contributory? No (Oneil Burnett DO) Review of Systems Review of Systems Constitutional: Denies: fever. EENTM: Denies: visual changes. Respiratory: Denies: short of breath. Cardiovascular: Denies: chest pain. GI: Denies: abdominal pain. Genitourinary: Reports: see HPI. Musculoskeletal: Reports: no symptoms. Skin: Reports: see HPI. Neurological/Psychological: Reports: no symptoms. Hematologic/Endocrine: Reports: bruising. (Oneil Burnett DO) Physical Exam Physical Exam General Appearance: alert, awake, anxious, mild distress Head: atraumatic, normal appearance Eyes: Bilateral: normal appearance, PERRL, EOMI. Ears, Nose, Throat: normal pharynx, normal ENT inspection Neck: normal inspection, supple Respiratory: normal breath sounds, chest non-tender, no respiratory distress Cardiovascular: regular rate/rhythm Peripheral Pulses: 4+ radial (R), 4+ radial (L) Gastrointestinal: soft, non-tender Back: normal range of motion Extremities: left upper extremity AV graft, minimal left shoulder tenderness. She has free range of motion to the left shoulder Neurologic/Psych: no motor/sensory deficits, awake, alert, oriented x 3 Skin: ecchymosis Core Measures ACS in differential dx? No CVA/TIA Diagnosis: No Sepsis Present: No Sepsis Focused Exam Completed? No (Oneil Burnett DO) Progress Differential Diagnoses I considered the following diagnoses in my evaluation of the patient: [ Ecchymosis, coagulopathy, hemarthrosis, shoulder fracture, cellulitis, herpes zoster] Plan of Care: Orders Procedure Date/time Status Add-on Test (ER Only) 10/15 1831 Active EKG 10/15 183 Active TROPONIN LEVEL 10/15 1745 Complete PARTIAL THROMBOPLASTIN TIME 10/15 1712 Complete PROTHROMBIN TIME 10/15 171 Complete COMPREHENSIVE METABOLIC PANEL 10/15 171 Complete CBC WITHOUT DIFFERENTIAL 10/15 171 Complete Laboratory Tests 10/15/17 1745: Anion Gap 14, Estimated GFR 11 L, BUN/Creatinine Ratio 5.8 L, Glucose 100 H, Calcium 8.0 L, Total Bilirubin 0.8, AST 25, ALT 22, Alkaline Phosphatase 157 H , Troponin I 0.06, Total Protein 7.0, Albumin 4.4, Globulin 2.6, Albumin/ Globulin Ratio 1.7, PT 21.5 H, INR 1.96 H, APTT 40 H, CBC w Diff NO MAN DIFF REQ, RBC 3.75 L, MCV 96.7, MCH 31.0, MCHC 32.1 L, RDW 19.4 H, MPV 8.0, Gran % 76.8 H, Lymphocytes % 14.0 L, Monocytes % 5.8, Eosinophils % 3.2, Basophils % 0.2, Absolute Granulocytes 6.9 H, Absolute Lymphocytes 1.2, Absolute Monocytes 0.5, Absolute Eosinophils 0.3, Absolute Basophils 0 Initial ED EKG: NSR, LBBB Prior EKG: unchanged (Oneil Burnett DO) Diagnostic Imaging: Discussed w/RAD: Radiology Read. Radiology Impression: PATIENT: OFELIA EL PRESENT AGE: 86 PATIENT ACCOUNT NO: [id number] : 29 LOCATION: [facility] ORDERING PHYSICIAN: Oneil Burnett DO SERVICE DATE: 10/15/17 EXAM TYPE: RAD - XRY-CHEST XRAY, TWO VIEWS; XRY-SHOULDER COMPLETE-LEFT EXAMINATION: CR SHOULDER, LEFT CR CHEST X-RAY CLINICAL INFORMATION: Left arm pain and ecchymosis. COMPARISON: Several prior chest x-rays, most recent of which is dated 2017. TECHNIQUE: PA and lateral views of the chest. AP external rotation, Grashey, scapular Y, and axillary views of the left shoulder. FINDINGS: CHEST X- RAY: The cardiomediastinal silhouette is enlarged. Calcification and tortuosity of the aorta is seen. The pulmonary delonte bilaterally are prominent, similar to the prior study, consistent with pulmonary arterial hypertension. Lungs bilaterally are symmetrically hyperinflated with slight coarsening of the bronchovascular lung markings seen. No focal consolidation, effusion, pulmonary edema or pneumothorax seen. No focal consolidation, effusion or pneumothorax is seen. Diffuse osteopenia is noted with multilevel vertebral spondylosis and S- shaped thoracolumbar scoliosis. Prominent arthritic changes in the shoulder joints bilaterally are also seen. LEFT SHOULDER: No acute fracture or dislocation. There is severe degenerative change in the left glenohumeral joint with joint space narrowing, spurring, sclerosis and cystic changes seen. There may be a superficial humeral erosions with irregularity of the cortex seen. The humeral head is flattened and slightly deformed. There is also moderate to severe arthritic change in the acromioclavicular joint with erosive changes and slight spurring seen. IMPRESSION: 1. Enlarged cardiomediastinal silhouette and ectatic tortuous aorta. 2. Hyperinflated lungs with coarsening of bronchovascular lung markings, suspicious for obstructive lung disease. There is also suspicion of secondary pulmonary arterial hypertension. 3. No focal acute pulmonary process seen. 4. Erosive changes are suspected in the glenohumeral and acromioclavicular joint of the left shoulder, raising the suspicion of erosive arthropathies, such as rheumatoid arthritis. Findings are progressive when compared to older chest x-rays. Clinical correlation is requested. DICTATED BY: Marylou Sanabria MD DATE/TIME DICTATED:10/15/172026 AIRCRAFT ARMORER:BRAYAN DATE/TIME TRANSCRIBED:10/15/172026 CONFIDENTIAL, DO NOT COPY WITHOUT APPROPRIATE AUTHORIZATION. <Electronically signed in Other Vendor System> SIGNED BY: Marylou Sanabria MD 10/15/17 2653 Comments: 10/15/2017 7:41:01 PM patient signed out to me by Dr. Burnett at shift foreign exchange dealer. 10/15/2017 8:43:01 PM patient insists on leaving despite the lack of formal report on her remaining x-rays. She is also aware that her blood pressure is elevated but declined any additional medication here in the emergency department. (Dai PARKINSON,Oneil Escobar) Departure Departure Condition: Stable Clinical Impression Primary Impression: Ecchymosis Secondary Impressions: Hypertension Referrals: Merline PARKINSON,Colton Kidd (PCP/Family) Departure Forms: Customer Survey General Discharge Information Comments The patient was signed out to Dr. Lala at 7 PM. Follow the x-rays. Review the results with the family. (Oneil Burnett DO) Departure Disposition: LEFT AGAINST MEDICAL ADVICE Additional Instructions: Your emergency department evaluation is incomplete. There are still test results remaining. Your blood pressure is also running high (185/84). Check your blood pressure later this evening to assure that it is coming down. Follow -up with your primary care physician tomorrow for reevaluation. Return if any concerns or sudden worsening. Please note that there might be incidental findings in your evaluation that are unrelated to the current emergency department visit. Please notify your primary care doctor about this emergency department visit in order to obtain and review all of the testing performed so that these incidental findings can be monitored as needed. If you had an x-ray performed, please understand that some fractures may not be seen on the initial set of x-rays. If your symptoms persist you might need a repeat set of x-rays to check for such a fracture. If you had a laceration evaluated, please understand that foreign bodies such as glass or wood may not be visible to the naked eye or on plain x-rays. If the wound becomes red, swollen, increasingly more painful or if there is any drainage from the wound, please have it reevaluated by a physician for the possibility of a retained foreign body. If you're unable to follow up as outlined in the discharge instructions please return to the emergency department. Thank you for choosing the Emergency Department for your care. It was a pleasure to serve you today. Oneil Lala M.D. [facility] (Dai PARKINSON,Oneil Escobar) Critical Care Note Critical Care Note Critical Care Time: non-applicable (Oneil Burnett DO)
[2017-10-15 18:14] LABS: ABSOLUTE BASOPHIL COUNT 0 /CUMM (0.0-0.2); ABSOLUTE EOSINOPHIL COUNT 0.3 /CUMM (0.0-0.7); ABSOLUTE GRANULOCYTE CT 6.9 /CUMM (1.4-6.5); ABSOLUTE LYMPH COUNT 1.2 /CUMM (1.2-3.4); ABSOLUTE MONOCYTE COUNT 0.5 /CUMM (0.10-0.60); BASOPHIL % 0.2 % (0.0-2.0); EOSINOPHIL % 3.2 % (0-5); GRANULOCYTE % 76.8 % (42.2-75.2); HEMATOCRIT 36.3 % (37-47); MEAN CORPUSCULAR HGB CONC 32.1 G/DL (33.0-37.0); MEAN CORPUSCULAR VOLUME 96.7 FL (81.0-99.0); PLATELET COUNT 230 /CUMM (130-400); RBC DISTRIBUTION WIDTH 19.4 % (11.5-14.5); RED BLOOD CELL CT 3.75 /CUMM (4.20-5.40); WHITE BLOOD CELL COUNT 8.9 /CUMM (4.8-10.8)
[2017-10-15 18:15] LABS: PT 21.5 SEC (9.4-12.5); PTT 40 SEC (25-37)
[2017-10-15 20:01] VITALS: BP 185/84
--- NOTE | 2017-10-15 21:02 | RADIOLOGY REPORT ---
EXAMINATION: CR SHOULDER, LEFT CR CHEST X-RAY CLINICAL INFORMATION: Left arm pain and ecchymosis. COMPARISON: Several prior chest x-rays, most recent of which is dated 08/16/2017. TECHNIQUE: PA and lateral views of the chest. AP external rotation, Grashey, scapular Y, and axillary views of the left shoulder. FINDINGS: CHEST X-RAY: The cardiomediastinal silhouette is enlarged. Calcification and tortuosity of the aorta is seen. The pulmonary delonte bilaterally are prominent, similar to the prior study, consistent with pulmonary arterial hypertension. Lungs bilaterally are symmetrically hyperinflated with slight coarsening of the bronchovascular lung markings seen. No focal consolidation, effusion, pulmonary edema or pneumothorax seen. No focal consolidation, effusion or pneumothorax is seen. Diffuse osteopenia is noted with multilevel vertebral spondylosis and S-shaped thoracolumbar scoliosis. Prominent arthritic changes in the shoulder joints bilaterally are also seen. LEFT SHOULDER: No acute fracture or dislocation. There is severe degenerative change in the left glenohumeral joint with joint space narrowing, spurring, sclerosis and cystic changes seen. There may be a superficial humeral erosions with irregularity of the cortex seen. The humeral head is flattened and slightly deformed. There is also moderate to severe arthritic change in the acromioclavicular joint with erosive changes and slight spurring seen. IMPRESSION: 1. Enlarged cardiomediastinal silhouette and ectatic tortuous aorta. 2. Hyperinflated lungs with coarsening of bronchovascular lung markings, suspicious for obstructive lung disease. There is also suspicion of secondary pulmonary arterial hypertension. 3. No focal acute pulmonary process seen. 4. Erosive changes are suspected in the glenohumeral and acromioclavicular joint of the left shoulder, raising the suspicion of erosive arthropathies, such as rheumatoid arthritis. Findings are progressive when compared to older chest x-rays. Clinical correlation is requested.
== END 2017-10-15 20:50 | disposition left against medical advice (07) ==
LOC: ERH 16:17
PROVIDERS: Physician Assistant Medical
DX: R58 Hemorrhage, not elsewhere classified (principal); I10 Essential (primary) hypertension; Z79.01 Long term (current) use of anticoagulants
CPT/HCPCS: 71046; 73030-LT; 93005; 93010

== ENCOUNTER 2017-11-19 08:19 | Emergency (ER) | payer OTHER ==
[~2017-11-19] VITALS: Ht 154.9 cm; Wt 42.4 kg
[~2017-11-19 08:19] MED LIST changes: +COUMADIN1 M1 PO; +PERCOCET 5-3251 EACH PO
--- NOTE | 2017-11-19 08:35 | ED DYSPNEA/ASTHMA COMPLAINT ---
History of Present Illness General Chief Complaint: Dyspnea (COPD, CHF, Other) Stated Complaint: SOB Source: patient, family, old records Exam Limitations: no limitations Vital Signs & Intake/Output Vital Signs & Intake/Output Vital Signs Date Time Temp Pulse Resp B/P B/P Pulse O2 O2 Flow FiO2 Mean Ox Delivery Rate 11/19 1218 98.0 83 20 140/80 96 Room Air 11/19 1031 97.0 84 20 152/80 95 Room Air 11/19 0928 96 Room Air 11/19 0824 98.6 83 20 138/68 98 Nasal 2.0L Cannula Allergies Coded Allergies: No Known Allergies (05/16/17) Reconcile Medications Amlodipine Besylate 10 MG TABLET 1 TAB PO DAILY HEART/BP (Reported) Aspirin (Ecotrin*) 81 MG TABLET.DR 1 TAB PO DAILY HEART/BLOOD (Reported) Epoetin Vamshi (Procrit) 2,000 UNIT/ML VIAL 2,000 UNIT IV TuThSa PRN WITH HEMODIALYSYS Folic Acid/Vit Bcomp,C (Radha-Cuong Tablet) (Unknown Strength) TABLET 1 TAB PO DAILY SUPPLEMENT (Reported) Hydralazine HCl 25 MG TABLET 1 TAB PO TID HEART (Reported) Lidocaine/Prilocaine (Lidocaine-Prilocaine Cream) 2.5 %-2.5 % CREAM..G. 1 JENNIE TOP TuThSa PRN HD Melatonin 5 MG TABLET 5 MG PO AT BEDTIME PRN sleep problem Metoprolol Tartrate 25 MG TABLET 1 TAB PO BID htn Oxycodone HCl/Acetaminophen (Percocet 5-325 MG Tablet) 5 MG-325 MG TABLET 1-2 TAB PO Q8P PRN PAIN Polyethylene Glycol 3350 (Miralax) 17 GRAM/DOSE POWDER 17 GM PO DAILY PRN CONSTIPATION Rosuvastatin Calcium (Crestor) 20 MG TABLET 1 TAB PO DAILY HYPERLIPIDEMIA Sevelamer Carbonate (Renvela) 800 MG TABLET 3 TAB PO TID RENAL (Reported) Tramadol HCl 50 MG TABLET 1 TAB PO BID PAIN (Reported) Warfarin Sodium (Coumadin) 1 MG TABLET 3 TAB PO 1700 BLOOD THINNER (Reported) Triage Note: PT BIBA FROM HOME FOR C/O SOB SINCE 0500 THIS AM. PT IS DUE FOR DIALYSIS AT 1100. ARRIVES TO ED A/OX3. VSS. DENIES PAIN/CHEST PAIN. PT ON 2L NC, BY EMS (NOT BASELINE) SATS 99%. AWAITING PROVIDER EVAL. Triage Nurses Notes Reviewed? yes Onset: Abrupt Duration: constant Timing: single episode today Severity: moderate HPI: Patient is a 87-year-old female with a past medical history of end-stage renal disease on dialysis Saturday, CAD status post stent placement, CHF, hypertension, hyperlipidemia and STEMI left bundle branch block who had a cardiac arrest due to acute hypoxic respiratory failure in July or patient states that yesterday evening she was in her normal state health hold for at 5 AM while in bed she was woken up with acute onset of shortness of breath that has been persistent for the past 3 hours. Patient denies any fever chills cough chest pain arm pain jaw pain nausea vomiting leg swelling hemoptysis. Patient is scheduled dialysis today at 11 AM patient is a former smoker (Kingston Cuellar) Past History Travel History Traveled to [place] past 21 day No Medical History Any Pertinent Medical History? 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 , Age 69. MOTHER (diabetes). , Age 72. BROTHER (pancreatic cancer). , Age Unknown. SISTER (colon cancer). , Age 60+. BROTHER (brain aneurysm). , Age 50's. Relation not specified for: colon cancer Hx Contributory? No (Kingston Cuellar) Review of Systems Review of Systems Constitutional: Reports: no symptoms. EENTM: Reports: no symptoms. Respiratory: Reports: see HPI, short of breath. Denies: cough. Cardiovascular: Reports: no symptoms. GI: Reports: no symptoms. Genitourinary: Reports: no symptoms. Musculoskeletal: Reports: no symptoms. Skin: Reports: no symptoms. Neurological/Psychological: Reports: no symptoms. Hematologic/Endocrine: Reports: no symptoms. Immunologic/Allergic: Reports: no symptoms. All Other Systems: Reviewed and Negative (Kingston Cuellar) Physical Exam Physical Exam General Appearance: no apparent distress, alert, thin Head: atraumatic Eyes: Bilateral: normal appearance. Ears, Nose, Throat: hearing grossly normal Neck: normal inspection Respiratory: normal breath sounds, chest non-tender, no respiratory distress Cardiovascular: regular rate/rhythm Gastrointestinal: normal bowel sounds, soft, non-tender Extremities: normal inspection Neurologic/Psych: no motor/sensory deficits Skin: intact, normal color, warm/dry Core Measures ACS in differential dx? Yes CVA/TIA Diagnosis No Sepsis Present: No Sepsis Focused Exam Completed? No (Kingsotn Cuellar) Progress Differential Diagnosis: asthma, AMI, bronchitis, costochondritis, CHF, COPD, musculoskeletal pain, pericarditis, pulmonary embolism, pneumonia, pneumothorax, rib fracture, unstable angina Plan of Care: Orders Procedure Date/time Status Regular Diet 11/19 L Active TROPONIN LEVEL 11/19 1230 Complete EKG 11/19 1230 Active Telemetry/Leisure Studies Professor 11/19 0907 Active Add-on Test (ER Only) 11/19 0847 Active PARTIAL THROMBOPLASTIN TIME 11/19 0842 Complete PROTHROMBIN TIME 11/19 0842 Complete TROPONIN LEVEL 11/19 0835 Complete COMPREHENSIVE METABOLIC PANEL 11/19 0835 Complete CBC WITHOUT DIFFERENTIAL 11/19 0835 Complete B-TYPE NATRIURETIC PEP (BNP) 11/19 0835 Complete EKG 11/19 0826 Active Laboratory Tests 11/19/17 1228: Troponin I 0.02 11/19/17 0842: Anion Gap 22 H, Estimated GFR 5 L, BUN/Creatinine Ratio 7.5, Glucose 117 H, Calcium 8.4, Total Bilirubin 0.5, AST 23, ALT 17, Alkaline Phosphatase 147 H, Troponin I 0.02, [id number] Pept 72766 H, Total Protein 6.4, Albumin 3.8 , Globulin 2.6, Albumin/Globulin Ratio 1.5, PT 30.3 H, INR 2.75 H, APTT 44 H, CBC w Diff NO MAN DIFF REQ, RBC 3.03 L, MCV 98.9, MCH 32.7 H, MCHC 33.0, RDW 20.9 H, MPV 7.6, Gran % 83.8 H, Lymphocytes % 10.4 L, Monocytes % 3.5, Eosinophils % 1.9, Basophils % 0.4, Absolute Granulocytes 7.4 H, Absolute Lymphocytes 0.9 L, Absolute Monocytes 0.3, Absolute Eosinophils 0.2, Absolute Basophils 0 Patient on initial presentation is resting comfortably bedside no apparent distress no respiratory distress speaking clear sentences oxygen saturation 97% room air 0934- patient was reevaluated states she feels much better, no medications were given, Plan will be that patient will receive second set troponin after 4 hours from initial EKG. OFELIA EL Age: 86 : Gender: F Exam Date: 08/05/2017 09:15 Exam Location: [facility] Ht (in): 61 Wt (lb): 108 BSA: 1.45 BP: 132 / 50 Ordering Physician: Dilip Camarena MD Referring Physician: Dilip Camarena MD Technologist: Leighton Roberts LUIS ALBERTO Room Number: 114 Indications: MYOCARDIAL ISCHEMIA/OR Rhythm: Technical Quality: adequate Medications Ease of Transducer Insertion Complications None Technical Difficulty None FINDINGS Left Ventricle Normal LV chamber size and wall thickness. The estimated LVEF is 45%. There is septal wall hypokinesis and dyssynchrony. I discussed patient with sales contracts analyst Dr. KRUEGER was aware patient's clinical presentation of dyspnea and concerns of chest x-ray findings and blood work however due to patient's presentation in the emergency room that most likely patient needed was dialysis, Please note that nephrology Dr. Nielson also presented to the emergency room to evaluate patient patient to receive dialysis today after second set troponin Second set troponin was unremarkable as well as EKG. Upon discharge patient looks well NO distress and will comply with discharge instructions and had no questions Diagnostic Imaging: Viewed by Me: Radiology Read. CXR Impression: SEE COMMENTS Initial ED EKG: normal sinus rhythm, NSR 64 BPM,LBBB Prior EKG: unchanged Comments: PATIENT: OFELIA EL PRESENT AGE: 87 PATIENT ACCOUNT NO: [id number] : 29 LOCATION: [facility] ORDERING PHYSICIAN: Kingston MIJARES SERVICE DATE: 11/19/17 EXAM TYPE: RAD - XRY-CHEST XRAY, TWO VIEWS EXAMINATION: XR CHEST CLINICAL INFORMATION: SOB. COMPARISON: Chest 10/15/2017. TECHNIQUE: 2 views of the chest were obtained. FINDINGS: There is moderate cardiomegaly with increased pulmonary vascularity suggestive of congestion. The lungs are expanded without any consolidation. No gross bony abnormality seen. IMPRESSION: Cardiomegaly with moderate pulmonary vascular congestion. These findings are new since 10/15/2017 DICTATED BY: Taiwo Paris MD DATE/TIME DICTATED:11/19/17936 ENTRY LEVEL LAB TECHNICIAN:BRAYAN DATE/TIME TRANSCRIBED:11/19/17936 (Kingston Cuellar) Departure Departure Disposition: HOME OR SELF CARE Condition: Stable Clinical Impression Primary Impression: Dyspnea Referrals: Colton Rick MD (PCP/Family) Additional Instructions: As discussed if symptoms worsen or if YOU develop a new concerning symptom return to emergency room, please go to your dialysis ONCE YOU ARE discharged from the emergency room, Departure Forms: Customer Survey General Discharge Information (Kingsotn Cuellar) PA/PHOTOGRAPHIC LABORATORY SUPERVISOR Co-Sign Statement Statement: ED Attending supervision documentation- x I saw and evaluated the patient. I have also reviewed all the pertinent lab results and diagnostic results. I agree with the findings and the plan of care as documented in the PA's/PHOTOGRAPHIC LABORATORY SUPERVISOR's documentation. [] I have reviewed the ED Record and agree with the PA's/PHOTOGRAPHIC LABORATORY SUPERVISOR's documentation. [] Additions or exceptions (if any) to the PAs/PHOTOGRAPHIC LABORATORY SUPERVISOR's note and plan are summarized below: [] (Shaylee PARKINSON,Jerson) Critical Care Note Critical Care Note Critical Care Time: non-applicable (Kingston Cuellar)
[2017-11-19 08:47] LABS: ABSOLUTE BASOPHIL COUNT 0 /CUMM (0.0-0.2); ABSOLUTE EOSINOPHIL COUNT 0.2 /CUMM (0.0-0.7); ABSOLUTE GRANULOCYTE CT 7.4 /CUMM (1.4-6.5); ABSOLUTE LYMPH COUNT 0.9 /CUMM (1.2-3.4); ABSOLUTE MONOCYTE COUNT 0.3 /CUMM (0.10-0.60); BASOPHIL % 0.4 % (0.0-2.0); EOSINOPHIL % 1.9 % (0-5); HEMATOCRIT 29.9 % (37-47); MEAN CORPUSCULAR HGB 32.7 PG (27.0-31.0); MEAN CORPUSCULAR VOLUME 98.9 FL (81.0-99.0); MEAN PLATELET VOLUME 7.6 FL (7.4-10.4); RBC DISTRIBUTION WIDTH 20.9 % (11.5-14.5); RED BLOOD CELL CT 3.03 /CUMM (4.20-5.40); WHITE BLOOD CELL COUNT 8.8 /CUMM (4.8-10.8)
[2017-11-19 08:59] LABS: GRANULOCYTE % 83.8 % (42.2-75.2); PLATELET COUNT 286 /CUMM (130-400)
[2017-11-19 09:03] LABS: PT 30.3 SEC (9.4-12.5); PTT 44 SEC (25-37)
--- NOTE | 2017-11-19 09:41 | RADIOLOGY REPORT ---
EXAMINATION: XR CHEST CLINICAL INFORMATION: SOB. COMPARISON: Chest 10/15/2017. TECHNIQUE: 2 views of the chest were obtained. FINDINGS: There is moderate cardiomegaly with increased pulmonary vascularity suggestive of congestion. The lungs are expanded without any consolidation. No gross bony abnormality seen. IMPRESSION: Cardiomegaly with moderate pulmonary vascular congestion. These findings are new since 10/15/2017
[2017-11-19 12:18] VITALS: BP 140/80
--- NOTE | 2017-11-19 12:44 | Cons- Nephrology ---
General Information and HPI Consulting Request Date of Consult: 11/19/17 Requested By: Kingston Robert Reason for Consult: ESRD Source of Information: patient, old records Exam Limitations: no limitations History of Present Illness: The patient is an 87-year-old woman with a past medical history most significant for end-stage renal disease on hemodialysis, status post cardiac arrest in Jul 2017 - unclear etiology, CAD - HFpEF, HTN who presents with SOB. The patient was in her usual state of health prior to this morning when she awoke at 5 AM with shortness of breath. She went to the window and opened it was not relieved. There is no associated chest pain. She is not having any cough or fevers. She notes that she had her last dialysis on Saturday and left at her dry weight which is 42 kg. Her dry weight has not recently been adjusted. She does not notice any lower extremity edema. Because of the symptoms, she presented to emergency room. In the ER, she was found on chest x-ray moderate pulmonary vascular congestion. She had initial troponin I was negative and she is pending the second one. Allergies/Medications Allergies: Coded Allergies: No Known Allergies (05/16/17) Home Med List: Amlodipine Besylate 10 MG TABLET 1 TAB PO DAILY HEART/BP (Reported) Aspirin (Ecotrin*) 81 MG TABLET.DR 1 TAB PO DAILY HEART/BLOOD (Reported) Epoetin Vamshi (Procrit) 2,000 UNIT/ML VIAL 2,000 UNIT IV TuThSa PRN WITH HEMODIALYSYS Folic Acid/Vit Bcomp,C (Radha-Cuong Tablet) (Unknown Strength) TABLET 1 TAB PO DAILY SUPPLEMENT (Reported) Hydralazine HCl 25 MG TABLET 1 TAB PO TID HEART (Reported) Lidocaine/Prilocaine (Lidocaine-Prilocaine Cream) 2.5 %-2.5 % CREAM..G. 1 JENNIE TOP TuThSa PRN HD Melatonin 5 MG TABLET 5 MG PO AT BEDTIME PRN sleep problem Metoprolol Tartrate 25 MG TABLET 1 TAB PO BID htn Oxycodone HCl/Acetaminophen (Percocet 5-325 MG Tablet) 5 MG-325 MG TABLET 1-2 TAB PO Q8P PRN PAIN Polyethylene Glycol 3350 (Miralax) 17 GRAM/DOSE POWDER 17 GM PO DAILY PRN CONSTIPATION Rosuvastatin Calcium (Crestor) 20 MG TABLET 1 TAB PO DAILY HYPERLIPIDEMIA Sevelamer Carbonate (Renvela) 800 MG TABLET 3 TAB PO TID RENAL (Reported) Tramadol HCl 50 MG TABLET 1 TAB PO BID PAIN (Reported) Warfarin Sodium (Coumadin) 1 MG TABLET 3 TAB PO 1700 BLOOD THINNER (Reported) Review of Systems Review of Systems: Complete 14 point ROS neg except as per HPI Past History Travel History Traveled to [place] past 21 day No Medical History Neurological: TIA EENT: NONE Cardiovascular: CHF, hypertension, hyperlipidemia, NSTEMI, known left bundle branch block left atrial dilatation mild aortic regurg in the past PAROXYSMAL AFIB Respiratory: bronchitis, pneumonia Gastrointestinal: NONE Hepatic: NONE Renal: ESRD on HD Musculoskeletal: degen joint disease, falls, gout Psychiatric: NONE Endocrine: secondary hyperparathyroidism Blood Disorders: NONE (multifactorial), anemia Cancer(s): 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 , Age 69. MOTHER (diabetes). , Age 72. BROTHER (pancreatic cancer). , Age Unknown. SISTER (colon cancer). , Age 60+. BROTHER (brain aneurysm). , Age 50's. Relation not specified for: colon cancer Psychosocial History Who Do You Live With? self Services at Home: None Primary Language: Lithuanian ETOH Use: denies use Illicit Drug Use: denies illicit drug use Living Will? no Power of Biomass Technician/HCP? no Functional Ability ADLs Independent: dressing, eating, toileting, bathing. Ambulation: independent IADLs Independent: shopping, housework, finances, food prep, telephone, transportation , medication admin. Exam & Diagnostic Data Vital Signs and I&O Vital Signs Date Time Temp Pulse Resp B/P B/P Pulse O2 O2 Flow FiO2 Mean Ox Delivery Rate 11/19 1218 98.0 83 20 140/80 96 Room Air 11/19 1031 97.0 84 20 152/80 95 Room Air 11/19 0928 96 Room Air 11/19 0824 98.6 83 20 138/68 98 Nasal 2.0L Cannula Intake & Output 11/19 1600 11/19 0400 11/18 1600 11/18 0400 11/17 1600 11/17 0400 Intake Total Output Total Balance Patient 93 lb 5.99 oz Weight Weight Reported by Patient Measurement Method Physical Exam: Gen - ok appearing, NAD Head - NCAT Eyes - anicteric sclera, EOMI Neck - supple, no LAD CV - RRR, no m/r/g Chest - b/l crackles, no wheezes, rhonchi Abd - soft, NTND Upper ext - warm, no edema, MARY AVF +thrill/+bruit Lower ext - warm, no edema Skin - no rash or jaundice Neuro - AOX3, grossly nonfocal Results Pertinent Lab Results: Laboratory Tests 11/19 11/19 1228 0842 Chemistry Sodium (137 - 145 mmol/L) 142 Potassium (3.5 - 5.1 mmol/L) 5.7 H Chloride (98 - 107 mmol/L) 100 Carbon Dioxide (22 - 30 mmol/L) 20 L Anion Gap (5 - 16) 22 H BUN (7 - 17 mg/dL) 60 H Creatinine (0.5 - 1.0 mg/dL) 8.0 *H Estimated GFR (>60 ml/min) 5 L BUN/Creatinine Ratio (7 - 25 %) 7.5 Glucose (65 - 99 mg/dL) 117 H Calcium (8.4 - 10.2 mg/dL) 8.4 Total Bilirubin (0.2 - 1.3 mg/dL) 0.5 AST (14 - 36 U/L) 23 ALT (9 - 52 U/L) 17 Alkaline Phosphatase (<127 U/L) 147 H Troponin I (< 0.11 ng/ml) Pending 0.02 [id number] Pept (<125 pg/mL) 55026 H Total Protein (6.3 - 8.2 g/dL) 6.4 Albumin (3.5 - 5.0 g/dL) 3.8 Globulin (1.9 - 4.2 gm/dL) 2.6 Albumin/Globulin Ratio (1.1 - 2.2 %) 1.5 Coagulation PT (9.4 - 12.5 SEC) 30.3 H INR (0.90 - 1.19) 2.75 H APTT (25 - 37 SEC) 44 H Hematology CBC w Diff NO MAN DIFF REQ WBC (4.8 - 10.8 /CUMM) 8.8 RBC (4.20 - 5.40 /CUMM) 3.03 L Hgb (12.0 - 16.0 G/DL) 9.9 L Hct (37 - 47 %) 29.9 L MCV (81.0 - 99.0 FL) 98.9 MCH (27.0 - 31.0 PG) 32.7 H MCHC (33.0 - 37.0 G/DL) 33.0 RDW (11.5 - 14.5 %) 20.9 H Plt Count (130 - 400 /CUMM) 286 MPV (7.4 - 10.4 FL) 7.6 Gran % (42.2 - 75.2 %) 83.8 H Lymphocytes % (20.5 - 51.1 %) 10.4 L Monocytes % (1.7 - 9.3 %) 3.5 Eosinophils % (0 - 5 %) 1.9 Basophils % (0.0 - 2.0 %) 0.4 Absolute Granulocytes (1.4 - 6.5 /CUMM) 7.4 H Absolute Lymphocytes (1.2 - 3.4 /CUMM) 0.9 L Absolute Monocytes (0.10 - 0.60 /CUMM) 0.3 Absolute Eosinophils (0.0 - 0.7 /CUMM) 0.2 Absolute Basophils (0.0 - 0.2 /CUMM) 0 Imaging/Other Studies: EXAM TYPE: RAD - XRY-CHEST XRAY, TWO VIEWS EXAMINATION: XR CHEST CLINICAL INFORMATION: SOB. COMPARISON: Chest 10/15/2017. TECHNIQUE: 2 views of the chest were obtained. FINDINGS: There is moderate cardiomegaly with increased pulmonary vascularity suggestive of congestion. The lungs are expanded without any consolidation. No gross bony abnormality seen. IMPRESSION: Cardiomegaly with moderate pulmonary vascular congestion. These findings are new since 10/15/2017 Assessment/Plan Assessment/Recommendations Assessment: ESRD - likely losing body weight. Some like she has not really been eating much. Her outpatient dry weight should be down titrated to approximately 40.5 kg. May be able to go even further down than that. Shortness of breath -secondary to pulmonary edema. It sounds like if her second troponin is negative, then she'll be able to her outpatient dialysis unit. Anemia - on Epogen as an outpatient which can be continued here if she stays. 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 Recommendations: -HD today - 2-3L UF - either here or as outpatient -Downtitration of EDW to 40.5kg and possibly down from there -Epogen TIW -Paricalcitol TIW Please call [phone] with ?'s
== END 2017-11-19 13:41 ==
LOC: ERH 08:19
PROVIDERS: Physician Assistant
DX: R06.00 Dyspnea, unspecified (principal); I50.9 Heart failure, unspecified; I10 Essential (primary) hypertension; Z87.891 Personal history of nicotine dependence
CPT/HCPCS: 71046; 93005; 93010